=== PATIENT | female | born 1950 | race Caucasian/White ===

== ENCOUNTER → 2017-11-06 10:30 | Outpatient (CLI) | payer MEDICARE, SELFPAY ==
--- NOTE | 2017-11-06 10:33 | RAD_ITS ---
STUDY: X-RAY - RIGHT KNEE REASON FOR EXAM: Female, 67 years old. Chronic pain. TECHNIQUE: 4 view(s) of the knee. COMPARISON: None. FINDINGS: Normal visualized distal femur. Normal visualized proximal tibia and fibula. Normal proximal tibiofibular articulation. There is no acute fracture, dislocation or destructive osseous pathology. There is severe degenerative arthrosis of the medial femorotibial compartment with severe joint space narrowing. There is mild degenerative arthrosis of the lateral femorotibial compartment. There is mild degenerative arthrosis of the patellofemoral articulation. There is no demonstrated joint effusion. The soft tissue structures are unremarkable. RAD/Knee 4 or More Views IMPRESSION: Degenerative arthrosis. Electronically Signed: Jonah Torres DO at 17:04 EDT Tel [phone], Service support ,
--- NOTE | 2017-11-06 10:33 | RAD_ITS ---
STUDY: X-RAY - LEFT KNEE REASON FOR EXAM: Female, 67 years old. Chronic pain. TECHNIQUE: 4 view(s) of the knee. COMPARISON: None. FINDINGS: There is demineralization of the visualized distal femur. There is demineralization of the tibia and fibula. Normal proximal tibiofibular articulation. There is no acute fracture, dislocation or destructive osseous pathology. There is moderate degenerative arthrosis of the medial femorotibial compartment with moderate joint space narrowing. There is mild degenerative arthrosis of the lateral femorotibial compartment. Normal patellofemoral articulation. There is no demonstrated joint effusion. The soft tissue structures are unremarkable. RAD/Knee 4 or More Views IMPRESSION: Degenerative arthrosis. Electronically Signed: Jonah Torres DO at 17:03 EDT Tel [phone], Service support ,
== END ==
PROVIDERS: Family Provider Family Medicine; PCP Family Medicine; Visit Provider Orthopaedic Surgery
DX: M25.561 Pain in right knee (principal); M25.562 Pain in left knee
CPT/HCPCS: 73564

== ENCOUNTER 2018-12-25 13:23 | Observation (INO) | payer MEDICARE, SELFPAY ==
[2018-09-03 14:39] VITALS: BMI 30.3
[2018-12-03 14:49] VITALS: BMI 30.3
--- NOTE | 2018-12-10 11:35 | HP_ITS ---
Intake Vital Signs 12/03/18 Body Mass Index (BMI) 30.3 Intake Visit Reasons: SIGN SURGERY CONSENT Allergies Penicillins Adverse Reaction (Verified 09/22/17 15:31) Swelling Medications ALPRAZolam [Xanax] 0.125 mg PO BID 06/11/14 [History Confirmed 09/22/17] Aspirin [Aspirin, Baby] 81 mg PO DAILY@0800 06/11/14 [History Confirmed 09/22/17] Citalopram [Celexa] 20 mg PO DAILY 06/11/14 [History Confirmed 09/22/17] Letrozole [Femara] 2.5 mg PO DAILY 06/11/14 [History Confirmed 09/22/17] Losartan Potassium [Cozaar] 50 mg PO DAILY #30 tab 06/12/14 [Rx Confirmed 09/22/17] Pantoprazole Sodium [Protonix] 20 mg PO BID #60 tab 06/12/14 [Rx Confirmed 09/22/17] PFSH Social History Smoking Status: Former smoker HPI SIGN SURGERY CONSENT: Surgical H&P: Yes Details: Parts of this documentation were recorded by a scribe, this documentation accurately reflects the service provided and the decisions made by me, Levi Yoder DO 12/03/18 [id number]. CHINO STRONG is a 68 year old F here today for continued left knee pain. Is here today to consent for TKA. She states her pain can increase one day and not be as bad the next but she does have pain daily. She is not having pain even at rest, uses nsaids prn. She does have hx of scope 20 yrs ago.There is mild swelling noted by patient most of the time. Denies numbness, tingling or other associated symptoms but does experience hamstring pain. She has tried PT several times, enjoyed aquatic therapy but it did not last, and has tried icing. Ortho Exam Left Knee Skin/Wound: No ecchymosis, No erythema, No swelling 1+: Effusion Knee ROM: Yes ROM-Extension -20 to 0 (5), Yes ROM-Flexion 0-140 (105) Stability: NML: Anterior Drawer, NML: Posterior Drawer, NML: Valgus 30, NML: Varus 30 Apprehension with Lateral Translation: No Patella Grind: Yes KNEE: Pain with flexion. Supplemental Info Left knee xray from 10/2017 shows severe med OA, bone on bone with large joint spurs of med and PF comp and tibial spine. Assessment & Plan Problems 1. Primary osteoarthritis of left knee M17.12 Plan Reviewed the x-ray finding with patient again. Reviewed the pre-operative plans with the patient. Risks and benefits of the left TKA were fully explained, including but not limited to infection, neurovascular injury, continued pain, mechanical feel, stiffness, need for further surgery, re-injury, DVT, PE, general risks of anesthesia, and loss of limb or life. The patient understands all the risks and does wish to proceed with written consent. No hx of blood clots, not a smoker, and is not a diabetic. Patient educated that the new joint is metal and plastic and she may feel or hear a non-painful clicking. Educated that she will need to wear JONH hose and take a blood thinner post-op. Patient needs to participate in PT as soon as possible to prevent stiffness. Educated that in the future before any dental cleanings or exams she will need an ATB for prevention of infection. Discussed the options of a spinal with patient and patient is hesitant with the spinal at this time. Follow up 2 weeks post operatively or sooner if pain, swelling, numbness or associated symptoms, or concerns develop. All questions answered. Patient in agreement of plan. Coding Level of Care Code Off vis,est,level 3 Diagnoses Primary osteoarthritis of left knee M17.12 12/10/18 1135 <Electronically signed by Levi Yoder DO> Date Levi Yoder DO
[2018-12-17 10:03] VITALS: BP 129/75; PULSE 61; RESP 16; TEMP 36.5; O2SAT 100; BMI 29.7
--- NOTE | 2018-12-17 10:36 | SDCEKG_ITS ---
Test Reason : Blood Pressure : / mmHG Vent. Rate : 060 BPM Atrial Rate : 060 BPM P-R Int : 180 ms QRS Dur : 126 ms QT Int : 424 ms P-R-T Axes : 052 -31 016 degrees QTc Int : 424 ms Normal sinus rhythm Left axis deviation Right bundle branch block Abnormal ECG Confirmed by HESHAM LOCKHART, JESSICA ([id number]), editor greeting card NARCISO OQUENDO ([id number]) on 12/18/2018 11:24:53 AM Referred By: Levi Yoder Confirmed By:JESSICA DAHL MD
[2018-12-17 12:10] LABS: Hematocrit 39.4 % (37-47); Hemoglobin 13.1 g/dl (12.0-15.0); Mean Corp Hgb Conc 33.2 g/gl (32-36); Mean Corpuscular Hgb 32.3 pg (27.0-32.0); Mean Platelet Vol. 8.6 fl (6.2-12.0); Platelet Count 247 K/mm3 (150-450); RBC Distribution Width CV 11.6 % (11.6-14.6); RBC Distribution Width SD 40.1 fl (35.1-43.9); Red Blood Count 4.06 M/mm3 (4.2-5.4); White Blood Count 4.7 K/mm3 (4.4-11.0)
[2018-12-17 12:12] LABS: Scan Indicated on CBC? Y/N NO
--- NOTE | 2018-12-21 12:34 | CASEMGMT ---
Spoke with patient regarding discharge needs after upcoming surgery. Patient plans to return home and will have assistance. Patient does not have outpatient therapy set up yet but has spoken with the physician's office and [facility]. Initially, [facility] will come to patient's home for therapy. Patient does not have a walker yet, was hoping [facility] would provide her one. Encouraged patient to contact [facility] prior to surgery to inquire about the logistics of obtaining a walker. Patient does not have a toilet riser or grab bars, patient reports she may ask [facility] about those items as well. Patient has a shower chair available. There is a bedroom and bathroom on the 1st level of the home and there is only one small step to enter home. Informed patient that RN-CM will likely follow up after surgery. Ellen Hart LPN Clinical Support
[2018-12-25] VITALS (9 sets, daily range): BP systolic 131–166; BP diastolic 68–97; PULSE 65–98; RESP 16–18; TEMP 36.3–37.2; O2SAT 93–99; BMI 29.2
[2018-12-25] MEDS: oxyCODONE HCl Cr 10 MG Tablet PO (08:45)
[2018-12-25] MEDS: Acetaminophen 500 MG Tablet PO (08:45)
[2018-12-25] MEDS: Pregabalin 75 MG Capsule PO (08:46)
[2018-12-25] MEDS: Celecoxib 200 MG Capsule PO (08:47)
[2018-12-25] MEDS: Cefazolin 2 GM in 0.9% Normal Saline 100 ML IV ×2 (11:05→18:50)
[2018-12-25] MEDS: Morphine 4 MG/ML Syringe (12:20)
[2018-12-25] MEDS: Betamethasone/Betamethasone 30 MG/5 ML Vial (12:20)
[2018-12-25] MEDS: Bupivacaine 0.5% PF 10 ML VIAL (12:25)
--- NOTE | 2018-12-25 13:24 | RAD_ITS ---
STUDY: X-RAY - LEFT KNEE REASON FOR EXAM: Postop. TECHNIQUE: 2 view(s) of the knee. COMPARISON: Radiographs 11/06/2017. FINDINGS: There is a left total knee arthroplasty without evidence of complication. There is postoperative gas in the soft tissues and overlying skin amena. RAD/Knee 1 or 2 Views IMPRESSION: Uncomplicated left total knee arthroplasty. Electronically Signed: Raz Garg MD at 14:22 EDT Tel , Service support ,
--- NOTE | 2018-12-25 13:31 | OP.PCM_ITS ---
Report of Operation Date of Procedure: 12/25/18 Description of Surgical Findings:: Preoperative diagnosis: Left knee DJD Postoperative diagnosis: Same Procedure: Left total knee arthroplasty Implant: Mcqueeney triathlon cemented left femoral component size 3, cemented tibial baseplate size 4, cemented asymmetric patella size 32, polyethylene X3 size 9 CS Anesthesia: Spinal with adductor canal block Tourniquet time: 70 minutes at 300 mmHg Complications: None Condition: Stable to PACU Estimated blood loss: 15 cc Indication for procedure: This is a 68-year-old female with long standing degenerative joint disease of the knee who has failed conservative treatment and wished to proceed with elective total knee arthroplasty. Risk benefits and alternatives were reviewed including; risk of bleeding, infection, nerve artery and tissue damage, continued pain, postoperative stiffness, venous thromboembolism, need for postoperative rehabilitation, mechanical feel to the knee, and expected postoperative course. Procedure: The patient was met in the preoperative holding area. The operative extremity was identified by both patient and physician and was marked. Patient was met by anesthesia. An adductor canal block was placed by anesthesia postoperatively the patient was brought back to the operating room on a wheeled cart and transferred to the operating table in the supine position. Anesthesia was started. A well-padded tourniquet was placed on the operative extremity. The patient was prepped and draped in the usual sterile fashion. A timeout was called to ensure the proper patient procedure and extremity were being contemplated. An Esmarch was used to exsanguinate the extremity. The tour niquet was inflated. A 10 blade scalpel was used to make a midline incision down through the skin and subcutaneous tissue. Skin retractors placed. Bovie was used to perform meticulous hemostasis. full-thickness flaps were elevated medial and lateral along the joint capsule. A deep blade scalpel was used to perform a medial parapatellar arthrotomy. The knee was brought to full extension. A Bovie was used to release the soft tissues off the most proximal aspect of the medial tibial plateau a three-quarter inch curved osteotome was also used for this process. The infrapatellar fat pad was excised. The fat pad was excised partially anterior lateral portion the anterior medial was elevated from the femur. the patella was everted. The knee was brought into flexion. An intramedullary drill was used followed by flexible intramedullary guide emilee. The distal femoral cutting block was placed and set to remove 10 mm of bone and 5 degrees of valgus. The block was secured with pins and an oscillating saw was used to complete the distal femoral cut. During this, and all bony cuts retractors were used to protect the collateral ligaments. At this point a femoral sizer was used to measure the AP dimension of the femur. The sizer block was pinned in 3 degrees of external rotation. The sizing block was removed and the appropriately sized 4-in-1 cutting block was placed over the previously made pinholes. It was checked with an chasity wing and the block was secured with pins. An oscillating saw was used to complete the anterior cut followed by the posterior cut followed by the posterior chamfer cut followed by the anterior chamfer cut. The block was removed as well as the fragments. A ronguer was used to remove excess osteophytes. The medial and lateral meniscus were excised as well as the ACL. At this point a PCL retractor was placed and an intramedullary drill was passed down the tibial canal followed by a solid intramedullary guide emilee. The tibial cutting block was attached and set to remove 9 mm of bone from the high side. This was checked with an external alignment drop emilee for slope and tilt. It was pinned into place. An oscillating saw was used to complete the tibial plateau cut and the block was removed. A large osteotome was used to elevate the fragment and a Cesario and a Bovie were used to free the fragment from the surrounding soft tissue. A r ongeur was once again used to remove osteophytes a lamina helicopter pilot was used to evaluate the posterior capsular structures. A three-quarter inch curved osteotome was used to remove posterior osteophytes. A spacer block was inserted in both extension and flexion to ensure adequate spacing. Trials were inserted full extension and flexion were achieved in varus and valgus stability throughout range of motion were seen, balancing techniques were performed. At this point the attention was turned towards the patella. A caliper was used to ensure sufficient bone stock to remove 10 mm of bone. A reamer was used to perform this task. Lug holes were made for the appropriate-sized patella. The patella trial was inserted and there was good patellar tracking with knee range of motion. The tibial baseplate was allowed to float into rotation and was marked on the tibial plateau with a Bovie. Lug holes were made in the femur and trials were removed. The tibial baseplate was then sized and its preparation was completed with a fin punch. The knee was thoroughly irrigated. A posterior capsular injection was performed with our standard cocktail. The knee was brought into flexion and irrigated again. The tibial baseplate was cemented. Excess cement was removed with curettes. The polyethylene component was inserted. The femoral component was cemented. The knee was brought into full extension and placed on a bump. The patellar component was cemented. At this point a Betadine rinse was placed and thoroughly irrigated after a few minutes. This was followed by an Iricept rinse which was allowed to sit for 1 minute and then thoroughly irrigated.At this point all gloves were changed. The knee was thoroughly irrigated the joint capsule was closed with #1 Ethibond. Tourniquet was let down followed by 0 Vicryl and 2-0 Vicryl in the subcutaneous tissues. followed by amena in the skin. Dressing was applied in the form of Xeroform 4 x 4 ABD web roll and an Abhay wrap from the foot to the groin. The patient tolerated the procedure well, all counts were correct patient was brought back to the PACU in stable condition.
[2018-12-25] MEDS: Lactated Ringers 1,000 ML 125 ML IV (14:47)
[2018-12-25] MEDS: Acetaminophen 500 MG Tablet 1000 MG PO ×2 (14:50→22:18)
[2018-12-25] MEDS: ALPRAZolam 0.25 MG Tablet 0.125 MG PO (22:19)
[2018-12-25] MEDS: oxyCODONE 5 MG Tablet PO (22:20)
[2018-12-25] MEDS: Senna/Docusate Sodium 1 Tablet 2 TABLET PO (22:24)
[2018-12-26] MEDS: Cefazolin 2 GM in 0.9% Normal Saline 100 ML IV (02:25)
[2018-12-26 03:28] VITALS: BP 142/76; PULSE 64; RESP 16; TEMP 36.7; O2SAT 94
[2018-12-26] MEDS: 0.9% NaCl Peripheral Flush Adult/Peds IV (03:33)
[2018-12-26] MEDS: Ketorolac 15 MG/ML Vial IV (03:33)
[2018-12-26 05:51] LABS: Hematocrit 34.4 % (37-47); Hemoglobin 11.5 g/dl (12.0-15.0); Mean Corp Hgb Conc 33.4 g/gl (32-36); Mean Corpuscular Hgb 31.9 pg (27.0-32.0); Mean Corpuscular Volume 95.6 fL (81-99); Mean Platelet Vol. 8.5 fl (6.2-12.0); Platelet Count 217 K/mm3 (150-450); RBC Distribution Width CV 11.4 % (11.6-14.6); RBC Distribution Width SD 38.6 fl (35.1-43.9); Scan Indicated on CBC? Y/N NO; White Blood Count 8.4 K/mm3 (4.4-11.0)
[2018-12-26 06:02] LABS: Anion Gap 3 (5-15); BUN 12 mg/dL (7-18); BUN/Creat Ratio 19.1 RATIO (10-20); Calcium,Total 8.8 mg/dL (8.5-10.1); Chloride 105 mmol/L (98-107); Creatinine, Serum 0.63 mg/dL (0.55-1.02); EST Glomerular Filtration Rate 99 mL/min (>60); Est Glom Filt Rate - Afr Amer 120 mL/min (>60); Estimated Creatinine Clearance 54.35 ml/min; Glucose 115 mg/dL (74-106); Potassium 4.3 mmol/L (3.5-5.1); Sodium Level 137 mmol/L (136-145)
[2018-12-26] MEDS: Acetaminophen 500 MG Tablet 1000 MG PO ×2 (06:30→12:50)
[2018-12-26] MEDS: oxyCODONE 5 MG Tablet PO ×2 (06:31→11:26)
[2018-12-26 07:31] VITALS: BP 136/64; PULSE 63; RESP 18; TEMP 36.6; O2SAT 97
[2018-12-26] MEDS: Citalopram 20 MG Tablet PO (07:38)
[2018-12-26] MEDS: Pantoprazole Sodium 20 MG Tablet PO (07:39)
[2018-12-26] MEDS: Senna/Docusate Sodium 1 Tablet 2 TABLET PO (07:39)
[2018-12-26] MEDS: APIXABAN 2.5 MG TABLET PO (07:39)
[2018-12-26] MEDS: Losartan Potassium 100 MG Tablet PO (07:39)
--- NOTE | 2018-12-26 09:51 | PN.ORTHO_ITS ---
Subjective: Seen and examined. Trouble sleeping pain controlled no nausea vomiting shortness of breath chest pain fevers or chills. She complains of mild pro ximal calf pains that occur on palpation and with walking. Minimal discomfort with plantarflexion and dorsiflexion of the ankle. She denies any paresthesias in the extremity and states she is able to move the ankle and toes without problem. She states that overall she feels she is doing well stating she is not having as much pain as she anticipated. - Physical Exam General: Alert, Oriented x3, No apparent distress, Well developed Extremities: Edema, Tenderness - Mild proximal tenderness on palpation., - - Dressing clean dry and intact neurovascularly intact EHL tibialis anterior gastrocsoleus intact sensation to light touch brisk capillary refill compartments in the thigh and calf are soft and supple Vital Signs Temp Pulse Resp BP Pulse Ox 97.9 F 63 18 136/64 H 97 12/26/18 07:31 12/26/18 07:31 12/26/18 07:31 12/26/18 07:31 12/26/18 07:31 Oxygen Flow Rate (L/min) 2 Oxygen Delivery Method Room Air Weight: 145 lb Body Mass Index (BMI) 29.2 Intake and Output for Last 24 Hours 12/24/18 12/25/18 12/26/18 23:59 23:59 23:59 Intake Total 2937 / 2937 177 / 177 Output Total 1600 / 1600 350 / 350 Balance 1337 / 1337 -173 / -173 Laboratory Tests Past 24 Hrs 12/26/18 12/26/18 05:08 05:08 WBC 8.4 RBC 3.60 L Hgb 11.5 L Hct 34.4 L MCV 95.6 MCH 31.9 MCHC 33.4 RDW 11.4 L RDW Differential 38.6 Plt Count 217 MPV 8.5 Sodium 137 Potassium 4.3 Chloride 105 Carbon Dioxide 29.0 Anion Gap 3 L BUN 12 Creatinine 0.63 Estim Creat Clear Calc 54.35 Est GFR (MDRD) Af Amer 120 Est GFR (MDRD) Non-Af 99 BUN/Creatinine Ratio 19.1 Glucose 115 H Calcium 8.8 Medical Necessity - Tobacco Use Smoking Status: Former smoker Assessment/Plan All Active Problems (Last Reviewed 09/22/17 @ 15:32 by Carrie Beckford) Dehydration (Acute) GERD (gastroesophageal reflux disease) (Acute) Epigastric pain (Acute) Hyponatremia (Acute) Otitis media (Acute) Acute bronchitis (Acute) Chest congestion (Acute) Postop day #1 left total knee arthroplasty Eliquis 2.5 mg twice daily for 14 days Discharge home home health care Follow-up in the office 2 weeks for staple removal May begin showering postop day #3 but no tub baths Urged full knee extension and flexion throughout the day
--- NOTE | 2018-12-26 10:03 | PCM.DC.ORTHO ---
Discharge Diet: No Restrictions Additional Activity Instructions:: Ice and elevate next week while not ambulating. Encourage ambulation weightbearing as tolerated. Encourage FULL knee extension and flexion 1 time EVERY time you get up and down and MULTIPLE times per day. Begin showering postop day #3. Remove the dressing prior to shower gently wash with warm water and antibacterial soap then pat dry place ABD pad and JONH hose over top. This is to be done daily. If not showering daily must clean incision and change dressing daily. Do not allow animals near incision keep clean. Follow anticoagulation recommendations. Call Dr. Yoder with any concerns. Call your doctor if you observe: Fever of 101 or Higher, Inability to urinate, Shortness of breath, Chest pain, Uncontrolled pain Suture Line Care: Avoid Pulling/Pushing Allergies/Adverse Reactions: Allergies Penicillins Adverse Reaction (Verified 12/25/18 08:33) Swelling Medications to take at Discharge ALPRAZolam [Xanax] 0.125 mg PO BID 06/11/14 Citalopram [Celexa] 20 mg PO DAILY 06/11/14 Albuterol Inhaler [Ventolin Hfa] 1 - 2 puff INHALATION Q4H PRN PRN 12/17/18 Ascorbic Acid [Vitamin C] 250 mg PO DAILY 12/17/18 Calcium Carbonate/Vitamin D3 [Calcium 600 + Vit D Tablet] 1 each PO DAILY 12/17/18 Losartan Potassium [Cozaar] 100 mg PO DAILY 12/17/18 Pantoprazole Sodium [Protonix] 20 mg PO DAILY 12/17/18 Apixaban [Eliquis] 2.5 mg PO BID 14 Days #28 tablet 12/26/18 Oxycodone [Oxyir] 5 - 10 mg PO Q4H PRN PRN 7 Days #60 tablet 12/26/18 The following prescriptions were given: Oxycodone [Oxyir] 5 - 10 mg PO Q4H PRN PRN 7 Days #60 tablet PRN Reason: Mod-Severe Pain (-05/30) Apixaban [Eliquis] 2.5 mg PO BID 14 Days #28 tablet Primary Care Physician: Krystian Mccloud MD [Primary Care Provider] - Test Results: Test results from this visit will be discussed in further detail at your follow-up appointment, if applicable. Please Follow Up With: Levi Yoder, - 2wks
--- NOTE | 2018-12-26 10:06 | DCINST_ITS ---
Discharge Diet: No Restrictions Additional Activity Instructions:: Ice and elevate next week while not ambulating. Encourage ambulation weightbearing as tolerated. Encourage FULL knee extension and flexion 1 time EVERY time you get up and down and MULTIPLE times per day. Begin showering postop day #3. Remove the dressing prior to s hower gently wash with warm water and antibacterial soap then pat dry place ABD pad and JONH hose over top. This is to be done daily. If not showering daily must clean incision and change dressing daily. Do not allow animals near incision keep clean. Follow anticoagulation recommendations. Call Dr. Yoder with any concerns. Call your doctor if you observe: Fever of 101 or Higher, Inability to urinate, Shortness of breath, Chest pain, Uncontrolled pain Suture Line Care: Avoid Pulling/Pushing Allergies/Adverse Reactions: Allergies Penicillins Adverse Reaction (Verified 12/25/18 08:33) Swelling Medications to take at Discharge ALPRAZolam [Xanax] 0.125 mg PO BID 06/11/14 Citalopram [Celexa] 20 mg PO DAILY 06/11/14 Albuterol Inhaler [Ventolin Hfa] 1 - 2 puff INHALATION Q4H PRN PRN 12/17/18 Ascorbic Acid [Vitamin C] 250 mg PO DAILY 12/17/18 Calcium Carbonate/Vitamin D3 [Calcium 600 + Vit D Tablet] 1 each PO DAILY 12/17/18 Losartan Potassium [Cozaar] 100 mg PO DAILY 12/17/18 Pantoprazole Sodium [Protonix] 20 mg PO DAILY 12/17/18 Apixaban [Eliquis] 2.5 mg PO BID 14 Days #28 tablet 12/26/18 Oxycodone [Oxyir] 5 - 10 mg PO Q4H PRN PRN 7 Days #60 tablet 12/26/18 The following prescriptions were given: Oxycodone [Oxyir] 5 - 10 mg PO Q4H PRN PRN 7 Days #60 tablet PRN Reason: Mod-Severe Pain (-05/30) Apixaban [Eliquis] 2.5 mg PO BID 14 Days #28 tablet Primary Care Physician: Krystian Mccloud MD [Primary Care Provider] - Test Results: Test results from this visit will be discussed in further detail at your follow- up appointment, if applicable. Please Follow Up With: Levi Yoder, - 2wks
--- NOTE | 2018-12-26 10:06 | PCM.DC.SUM ---
Discharge Date and Diagnosis Date of Admission: 06/11/14 Date of Discharge: 12/26/18 - Secondary Discharge Diagnosis Chronic Problems (Last Reviewed 09/22/17 @ 15:32 by Carrie Beckford) HTN (hypertension) (Chronic) Osteoarthritis (Chronic) RBBB (Chronic) History of breast cancer (Chronic) S/P R mastectomy and reconstruction Hospital Course and Treatment Operations: None Summary of Care Provided: The patient is a 68 year old F who has long history of degenerative joint disease to the knee who has failed conservative treatment and wished to undergo elective total knee arthroplasty. Patient underwent the A4 mentioned procedure on the admission date without any intraoperative complications. She did receive pre-and postoperative antibiotics which were discontinued within 23 hours postoperatively. She did receive spinal anesthesia as well as an adductor canal block postoperatively her pain was controlled with IV and transition to p.o. pain medication she will be discharged home with oxycodone and will continue Tylenol as well. She had minimal intraoperative blood loss and tranexamic acid was administered there was no need for postoperative blood transfusion her vital signs remained stable. She was started on both mechanical and chemical DVT per prophylaxis postoperatively in the form of SCDs JONH hose and Eliquis 2.5 mg twice daily for which she will continue for 2 additional weeks post hospital discharge. Her dressing was changed on postop day #1 without any concerning signs she will begin showering on postop day #3 and will change her dressing daily at this point. She will follow-up in the office in 2 weeks. No intrahospital complications. - Physical Exam Vital Signs Temp Pulse Resp BP Pulse Ox 97.9 F 63 18 136/64 H 97 12/26/18 07:31 12/26/18 07:31 12/26/18 07:31 12/26/18 07:31 12/26/18 07:31 Oxygen Flow Rate (L/min) 2 Oxygen Delivery Method Room Air Weight: 145 lb Body Mass Index (BMI) 29.2 Intake and Output for Last 24 Hours 12/24/18 12/25/18 12/26/18 23:59 23:59 23:59 Intake Total 2937 / 2937 177 / 177 Output Total 1600 / 1600 350 / 350 Balance 1337 / 1337 -173 / -173 Laboratory Tests Past 24 Hrs 12/26/18 12/26/18 05:08 05:08 WBC 8.4 RBC 3.60 L Hgb 11.5 L Hct 34.4 L MCV 95.6 MCH 31.9 MCHC 33.4 RDW 11.4 L RDW Differential 38.6 Plt Count 217 MPV 8.5 Sodium 137 Potassium 4.3 Chloride 105 Carbon Dioxide 29.0 Anion Gap 3 L BUN 12 Creatinine 0.63 Estim Creat Clear Calc 54.35 Est GFR (MDRD) Af Amer 120 Est GFR (MDRD) Non-Af 99 BUN/Creatinine Ratio 19.1 Glucose 115 H Calcium 8.8 Discharge Diet: No Restrictions Additional Activity Instructions:: Ice and elevate next week while not ambulating. Encourage ambulation weightbearing as tolerated. Encourage FULL knee extension and flexion 1 time EVERY time you get up and down and MULTIPLE times per day. Begin showering postop day #3. Remove the dressing prior to shower gently wash with warm water and antibacterial soap then pat dry place ABD pad and JONH hose over top. This is to be done daily. If not showering daily must clean incision and change dressing daily. Do not allow animals near incision keep clean. Follow anticoagulation recommendations. Call Dr. Yoder with any concerns. Call your doctor if you observe: Fever of 101 or Higher, Inability to urinate, Shortness of breath, Chest pain, Uncontrolled pain Suture Line Care: Avoid Pulling/Pushing Home Medications: Medications to take at Discharge ALPRAZolam [Xanax] 0.125 mg PO BID 06/11/14 Citalopram [Celexa] 20 mg PO DAILY 06/11/14 Albuterol Inhaler [Ventolin Hfa] 1 - 2 puff INHALATION Q4H PRN PRN 12/17/18 Ascorbic Acid [Vitamin C] 250 mg PO DAILY 12/17/18 Calcium Carbonate/Vitamin D3 [Calcium 600 + Vit D Tablet] 1 each PO DAILY 12/17/18 Losartan Potassium [Cozaar] 100 mg PO DAILY 12/17/18 Pantoprazole Sodium [Protonix] 20 mg PO DAILY 12/17/18 Apixaban [Eliquis] 2.5 mg PO BID 14 Days #28 tablet 12/26/18 Oxycodone [Oxyir] 5 - 10 mg PO Q4H PRN PRN 7 Days #60 tablet 12/26/18 Following Prescrptions Were Given to Patient: Oxycodone [Oxyir] 5 - 10 mg PO Q4H PRN PRN 7 Days #60 tablet PRN Reason: Mod-Severe Pain (4-05/30) Apixaban [Eliquis] 2.5 mg PO BID 14 Days #28 tablet Primary Care Physician: Krystian Mccloud MD [Primary Care Provider] - Please Follow Up With: Levi Yoder DO - 2wks Medical Necessity - Tobacco Use Smoking Status: Former smoker Meaningful Use Info Meaningful Use Diagnoses (Choose all that apply): None applicable
--- NOTE | 2018-12-26 10:15 | NURSING ---
Dr. Yoder states that as long as pt tolerates therapy, she is ok to be discharged this afternoon. Orders for dressing change placed by Will notify primary RN
--- NOTE | 2018-12-26 11:10 | CASEMGMT ---
LENIN NOONAN Face to Face with patient for initial transition planning/care coordination assessment. RN CM introduced self and role at [facility]. Patient sitting in chair, alert and oriented. Patient willing to participate in assessment and is able to answer all questions appropriately. Care providers, pharmacy, and demographics verified. Patient wishes to discharge home and has therapy setup for at home through [facility]. Patient states she has no further needs or concerns at this time. CM to follow for discharge planning needs that may arise. Disposition Plan: Patient to discharge home with home therapy, family support, and follow-up plans in place. Elvi VELIZ, RN, CM
[2018-12-26] MEDS: ALPRAZolam 0.25 MG Tablet 0.125 MG PO (11:27)
[2018-12-26 12:56] VITALS: BP 160/66; PULSE 62; RESP 18; TEMP 36.3; O2SAT 95
== END 2018-12-26 14:34 | disposition home health service (06) ==
LOC: MS3 14:15
PROVIDERS: Anesthesiology; Admitting Provider Orthopaedic Surgery; Family Provider Family Medicine; PCP Family Medicine; Referring Provider Orthopaedic Surgery; Visit Provider Orthopaedic Surgery
PROC: (CPT 27447; principal; 2018-12-25 09:15)
DX: M17.12 Unilateral primary osteoarthritis, left knee (principal); K21.9 Gastro-esophageal reflux disease without esophagitis; I45.10 Unspecified right bundle-branch block; I10 Essential (primary) hypertension; Z85.3 Personal history of malignant neoplasm of breast; Z87.891 Personal history of nicotine dependence; Z79.899 Other long term (current) drug therapy; Z79.82 Long term (current) use of aspirin
CPT/HCPCS: 01400; 27447; 64447; 36415; 73560; 80048; 85027; 87077; 87081; 93005; 96361; 96365; 96366; 96375; 97110; 97162; 97166; 97530; 99218; C1776; J7120; A4216; G0378; G0379; J0702

== ENCOUNTER → 2019-03-27 10:23 | Outpatient (CLI) | payer MEDICARE, SELFPAY ==
[2019-03-27 10:23] VITALS: BMI 29.2
--- NOTE | 2019-03-27 10:24 | RAD_ITS ---
STUDY: X-RAY - RIGHT HAND, ATTENTION MIDDLE FINGER REASON FOR EXAM: Female, 68 years old. Soft tissue mass TECHNIQUE: 3 view(s) of the finger were obtained. COMPARISON: None. FINDINGS: There is soft tissue prominence overlying the distal aspect of the proximal phalanx of the right middle finger. There is no evidence of fracture or dislocation. There are no significant degenerative changes. There are no radiodense foreign bodies. RAD/Finger(s) Min 2 Views IMPRESSION: Soft tissue swelling overlying the distal aspect of the proximal phalanx of the right middle finger. Further evaluation with ultrasound or MRI is recommended. No fracture or dislocation. Electronically Signed: Daniel Valentine, at 17:08 EDT Tel , Service support ,
== END ==
PROVIDERS: Family Provider Family Medicine; PCP Family Medicine; Referring Provider Orthopaedic Surgery; Visit Provider Orthopaedic Surgery
DX: R22.9 Localized swelling, mass and lump, unspecified (principal)
CPT/HCPCS: 73140

== ENCOUNTER → 2020-05-25 | Outpatient (CLI) | payer MEDICARE, SELFPAY ==
[2020-05-25 15:14] VITALS: BMI 30.3
== END | disposition home or self-care (01) ==
LOC: MTDU 17:40
PROVIDERS: PCP Family Medicine; Referring Provider Physician Assistant Surgical; Visit Provider Physician Assistant Surgical
DX: Z20.828 Contact with and (suspected) exposure to other viral communicable diseases (principal)
CPT/HCPCS: 87635; C9803; U0003

== ENCOUNTER → 2024-03-08 | Outpatient (CLI) | payer MEDICARE, SELFPAY ==
--- NOTE | 2024-03-08 12:57 | ECHOCS_ITS ---
Reason For Study: SOB Procedure This was a 2D Doppler, Color Flow transthoracic echocardiogram. The study was technically difficult. Contrast injection was performed. Exam performed in department. Left Ventricle Normal LV size. Left ventricular systolic function is normal. The left ventricular ejection fraction is 65 %. Stage 1 diastolic dysfunction. No regional wall motion abnormalities noted. Right Ventricle Normal RV size. Normal systolic function. Atria The left atrium is mildly enlarged. The right atrium is mildly enlarged. Mitral Valve There is moderate mitral annular calcification. Tricuspid Valve Normal tricuspid valve. Moderate (2+) tricuspid valve insufficiency. Pulmonary artery systolic pressure is 52 mmHg. Mild pulmonary hypertension. Aortic Valve Trisinus/trileaflet aortic valve. Mild focal aortic valve calcification. Pulmonic Valve The pulmonic valve is not well visualized. Great Vessels Normal aortic root. The pulmonary is not well visualized. Normal inferior vena cava. Pericardium/Pleural No pericardial effusion. Medication 22 gauge I.V. with prn adaptor inserted into left arm. Diluted definity 1.5ml given slow IV push to enhance endocardial definition. Performed a rapid injection of agitated mix of 9 cc saline and 1cc air to assess for atrial septal defect. MMode/2D Measurements & Calculations LVIDd: 3.7 cm IVSd: 0.93 cm Ao root diam: 3.5 cm LVIDs: 3.0 cm LVPWd: 1.2 cm LA dimension: 3.8 cm RVDd: 3.5 cm FS: 17.4 % LAV(MOD-bp): 66.7 ml LVAd ap4: 26.6 cm2 SV(MOD-sp4): 53.2 ml LAV(MOD-bp) Indexed: 43.1 ml/m2 LVLd ap4: 7.4 cm LAV(MOD-sp2): 57.0 ml EDV(MOD-sp4): 78.5 ml LAV(MOD-sp4): 73.1 ml EDV(sp4-el): 81.6 ml LVAs ap4: 13.3 cm2 LVLs ap4: 5.9 cm ESV(MOD-sp4): 25.3 ml ESV(sp4-el): 25.7 ml EF(MOD-sp4): 67.7 % EF(sp4-el): 68.5 % SV(sp4-el): 55.9 ml LA A4 area: 24.1 cm2 RA A4 area: 14.3 cm2 TAPSE: 2.1 cm Time Measurements MV dec time: 0.51 sec Doppler Measurements & Calculations MV E max lewis: 103.8 cm/sec Lat Peak E' Lewis: 7.3 cm/sec Med Peak E' Lewis: 5.3 cm/sec MV A max lewis: 148.2 cm/sec E/E' lat: 14.3 E/E' med: 19.4 MV E/A: 0.70 MV V2 max: 177.5 cm/sec MV P1/2t max lewis: 139.4 cm/sec Ao V2 max: 190.3 cm/sec MV max P.6 mmHg MV P1/2t: 166.2 msec Ao max P.5 mmHg MV V2 mean: 93.5 cm/sec Ao V2 mean: 126.0 cm/sec MV mean P.1 mmHg MV dec slope: 245.7 cm/sec2 Ao mean P.3 mmHg MV V2 VTI: 56.2 cm MVA(P1/2t): 1.3 cm2 Ao V2 VTI: 48.0 cm AV (velocity ratio): 0.65 AI max lewis: 463.3 cm/sec LV V1 max: 113.2 cm/sec PA V2 max: 126.4 cm/sec AI max P.9 mmHg LV V1 max P.1 mmHg PA max PG (full): 2.0 mmHg LV V1 mean P.9 mmHg AI dec slope: 254.8 cm/sec2 LV V1 mean: 80.7 cm/sec AI P1/2t: 532.6 msec LV V1 VTI: 31.3 cm PI dec slope: 105.7 cm/sec2 TR max lewis: 346.9 cm/sec TR max P.1 mmHg ECHO/Echo Complete W/ Contrast Interpretation Summary Normal LV size. Left ventricular systolic function is normal. The left ventricular ejection fraction is 65 %. Stage 1 diastolic dysfunction. Pulmonary artery systolic pressure is 52 mmHg. Mild pulmonary hypertension. Contrast injection was performed. Ordering Physician: Kathie Echeverria Referring Physician: Kathie Echeverria Performed By: Graham Gonzales RCS
== END | disposition home or self-care (01) ==
LOC: CVS 12:52
PROVIDERS: PCP Family Medicine; Referring Provider Nurse Practitioner Family; Visit Provider Nurse Practitioner Family
DX: R06.02 Shortness of breath (principal)
CPT/HCPCS: 93306; Q9957; A4216; C8929

== ENCOUNTER → 2024-05-13 | Outpatient (CLI) | payer MEDICARE, SELFPAY ==
--- NOTE | 2024-05-13 17:42 | CT_ITS ---
STUDY: CTA CHEST REASON FOR EXAM: Female, 73 years old. SOB. Hypertension. History of breast cancer. RADIATION DOSAGE (If Supplied By Facility): CTDIvol = ( 11.38 ) mGy, DLP = ( 354.01 ) mGycm TECHNIQUE: The examination was performed with the intravenous administration of IV 100mL Isovue-370. Post-processing of the angiographic images was performed, with multiplanar reformation and 3D reconstruction. Individualized dose optimization techniques were used for this CT. COMPARISON: None. FINDINGS: Prior right mastectomy. Right breast implant. Normal enhancement of the main pulmonary artery and right and left pulmonary arteries. Normal enhancement of the bilateral peripheral pulmonary arteries. There is no demonstrated pulmonary embolism. There is atherosclerotic calcification of the aortic arch with tortuosity. There is no demonstrated aortic dissection. There are calcifications of the coronary arteries. Normal mediastinum. Normal hilar regions. Normal visualized trachea and bronchi. The lungs are well expanded. Mild degree of increased markings in the anterior right lung apex most likely representing post radiation fibrotic scarring. Normal pleura. Normal chest wall structures. There are degenerative changes of thoracic spine. Increased kyphosis. There is a 9.3 mm cyst in the anterior aspect of the right lobe of the liver. Small hiatal hernia. CT/CTA Chest W/WO Contrast IMPRESSION: No evidence of pleural embolism. Coronary artery calcification. Status post right mastectomy in right breast implant. Small hepatic cyst. Electronically Signed: Franc Reyes MD at 10:55 EDT ,
[2024-05-13 18:20] LABS: CREATININE FINGERSTICK < 1.0 mg/dL (0.55-1.02); EGFR FINGERSTICK > 60.0000 mL/min (>60)
== END | disposition home or self-care (01) ==
LOC: CT 17:39
PROVIDERS: PCP Family Medicine; Referring Provider Internal Medicine Cardiovascular Disease; Visit Provider Internal Medicine Cardiovascular Disease
DX: I27.20 Pulmonary hypertension, unspecified (principal); R06.02 Shortness of breath
CPT/HCPCS: 71275; Q9967; A4216

== ENCOUNTER → 2024-10-25 | Outpatient (CLI) | payer MEDICARE, SELFPAY ==
[2024-10-25 11:46] LABS: Anion Gap 10 (5-15); BUN 21 mg/dL (4-19); BUN/Creat Ratio 24.4 RATIO (10-20); Calcium,Total 9.8 mg/dL (7.6-11.0); Carbon Dioxide 27.1 mmol/L (21.0-32.0); Chloride 98 mmol/L (98-108); Creatinine, Serum 0.84 mg/dL (0.70-1.20); EST Glomerular Filtration Rate 72 (>60); Glucose 84 mg/dL (70-99); Potassium 4.1 mmol/L (3.3-5.1); Pro- Brain NATRIURETIC PEPTIDE 574 pg/mL (<=1800); Sodium Level 135 mmol/L (133-145)
== END | disposition home or self-care (01) ==
LOC: LAB 10:31
PROVIDERS: PCP Family Medicine; Referring Provider Physician Assistant Medical; Visit Provider Physician Assistant Medical
DX: R06.02 Shortness of breath (principal); I27.20 Pulmonary hypertension, unspecified
CPT/HCPCS: 36415; 80048; 83880

== ENCOUNTER → 2024-12-12 | Outpatient (CLI) | payer MEDICARE, SELFPAY | END | disposition home or self-care (01) | LOC: LABSPEC 13:33 | PROVIDERS: PCP Nurse Practitioner Family; Visit Provider Nurse Practitioner Family | DX: R10.9 Unspecified abdominal pain (principal); M54.50 Low back pain, unspecified | CPT/HCPCS: 87086; 87088 ==

== ENCOUNTER → 2025-05-27 | Outpatient (CLI) | payer MEDICARE, SELFPAY ==
--- NOTE | 2025-05-27 07:03 | ECHOD_ITS ---
Reason For Study Reason For Study: Chest Pain Procedure This was a 2D Doppler, Color Flow transthoracic echocardiogram. Exam performed in department. Left Ventricle Normal LV size. The left ventricular ejection fraction is 65 %. Stage 1 diastolic dysfunction. No regional wall motion abnormalities noted. Right Ventricle Normal RV size. Normal systolic function. Atria Normal left atrium. Normal right atrium. Mitral Valve There is mild to moderate mitral annular calcification. Mild (1+) eccentric mitral valve insufficiency. Tricuspid Valve Normal tricuspid valve. Mild-Moderate (1-2+) tricuspid valve insufficiency. Pulmonary artery systolic pressure is 39 mmHg. Aortic Valve Trisinus/trileaflet aortic valve. Mild (1+) eccentric aortic valve insufficiency. Pulmonic Valve Normal pulmonic valve. Great Vessels Mildly calcified aortic root. Pericardium/Pleural No pericardial effusion. MMode/2D Measurements & Calculations LVIDd: 4.1 cm IVSd: 1.0 cm Ao root diam: 3.3 cm LVIDs: 2.1 cm LVPWd: 1.00 cm RVDd: 3.5 cm FS: 48.6 % LAV(MOD-bp): 56.1 ml LVAd ap4: 22.2 cm2 SV(MOD-sp4): 35.0 ml LAV(MOD-bp) Indexed: 36.9 ml/m2 LVLd ap4: 7.3 cm SI(MOD-sp4): 23.0 ml/m2 LAV(MOD-sp2): 59.0 ml EDV(MOD-sp4): 54.0 ml LAV(MOD-sp4): 47.6 ml EDV(sp4-el): 57.0 ml LVAs ap4: 11.3 cm2 LVLs ap4: 5.5 cm ESV(MOD-sp4): 18.9 ml ESV(sp4-el): 19.6 ml EF(MOD-sp4): 64.9 % EF(sp4-el): 65.6 % SV(sp4-el): 37.4 ml LA A4 area: 18.6 cm2 LA dimension(2D): 4.0 cm RA A4 area: 13.5 cm2 TAPSE: 1.6 cm Time Measurements MV dec time: 0.44 sec Doppler Measurements & Calculations MV E max lewis: 133.2 cm/sec Lat Peak E' Lewis: 6.9 cm/sec Med Peak E' Lewis: 4.8 cm/sec MV A max lewis: 170.4 cm/sec E/E' lat: 19.3 E/E' med: 27.7 MV E/A: 0.78 MV V2 max: 202.4 cm/sec Ao V2 max: 196.0 cm/sec MV max P.4 mmHg MV dec slope: 301.4 cm/sec2 Ao max P.4 mmHg MV V2 mean: 125.4 cm/sec Ao V2 mean: 126.1 cm/sec MV mean P.0 mmHg Ao mean P.5 mmHg MV V2 VTI: 59.3 cm Ao V2 VTI: 48.5 cm AV (velocity ratio): 0.72 AI max lewis: 405.1 cm/sec LV V1 max: 132.9 cm/sec PA V2 max: 120.2 cm/sec AI max P.7 mmHg LV V1 max P.1 mmHg LV V1 mean P.9 mmHg AI dec slope: 296.7 cm/sec2 LV V1 mean: 93.4 cm/sec AI P1/2t: 400.0 msec LV V1 VTI: 34.8 cm PI end-d lewis: 124.1 cm/sec TR max lewis: 294.7 cm/sec TR max P.9 mmHg ECHO/Echo Complete Interpretation Summary Normal LV size. The left ventricular ejection fraction is 65 %. Stage 1 diastolic dysfunction. Mild-Moderate (1-2+) tricuspid valve insufficiency. Mild (1+) eccentric aortic valve insufficiency. Ordering Physician: Acosta, Aissatou M Referring Physician: Kathie Echeverria Performed By: Bibi Gong, NESTOR, RVT
--- NOTE | 2025-05-27 18:31 | STRESSREP_ITS ---
Stress Test Report Exercise myocardial perfusion stress test. 74-year-old lady with a history of chest pain. Stress protocol: Resting EKG demonstrates sinus rhythm with a right bundle branch block, with a rate of 65 bpm resting blood pressure is 150/82 mmHg. The patient exercised according to the regular Marcelo protocol for a total duration of 6 minutes cookie ining a maximum heart rate of 122 bpm which was 84% of maximum predicted heart rate; the maximum workload was 7 metabolic equivalents. At rest there were no ST or T wave changes noted to suggest ischemia and at peak exercise upsloping ST changes only were noted which did not meet the criteria for ischemia. No clinical angina was noted the test was terminated due to the target heart rate being achieved/fatigue. The peak blood pressure was 172/60 mmHg. Rate-pressure product was 20,800. Myocardial perfusion protocol. 11 point mCi of technetium 99m sestamibi was injected at rest. The patient exer cised according to regular Marcelo protocol for total duration of 6 minutes and at peak exercise 33.8 mCi of technetium 99m sestamibi was injected stress images were obtained stress and rest images were reconstructed in comparing the short axis vertical long and horizontal long axis. Gated images were also obtained. Perfusion SPECT analysis: Review of the stress images demonstrate normal uptake of tracer noted in all areas of the myocardium. The resting images similarly demonstrate normal uptake of tracer noted in all areas of the myocardium. No areas of reversibility are noted to suggest ischemia no previous infarct was noted. Gated SPECT analysis: The gated ejection fraction is 88%. Conclusion: Normal exercise myocardial perfusion stress test at a moderate workload.
== END | disposition home or self-care (01) ==
LOC: CVS 06:58
PROVIDERS: PCP Nurse Practitioner Family; Referring Provider Physician Assistant Medical; Visit Provider Physician Assistant Medical
DX: I27.20 Pulmonary hypertension, unspecified (principal); R07.89 Other chest pain
CPT/HCPCS: 78452; 93017; 93306; A9500; A4216

== ENCOUNTER → 2025-08-15 | Outpatient (CLI) | payer MEDICARE, SELFPAY ==
--- OUTSIDE RECORDS SUMMARY | 2025-08-15 11:37 | XMS RPT_ITS | CCD ---
Author Organization [facility] Care Team Providers Care Supervisor Cigar Processing Name Role Phone Carrie Beckford LPN Unavailable Unavailab Carrie Keller LPN Unavailable Unavailab Gianna Pearson LPN Unavailable Leslye Mccloud MD Primary Care Provider Leslye Mccloud MD Primary Care Provider Leslye Mccloud MD Primary Care Provider Leslye Mccloud MD Primary Care Provider MENA HOLLY Attending Unavailable MENA HOLLY Primary Care Unavailable MENA HOLLY Admitting Unavailable Tannhof HEAD ROSE GROWER.Kathie ELI Unavailable Rudi HEAD ROSE GROWER.Herb ELI Unavailable Dr. Leslye Mccloud MD Primary Care Provider [phone] Dr. Leslye Mccloud MD Referring Provider Aissatou Quinonez Attending Provider Aissatou Quinonez Referring Provider Tannhof HEAD ROSE GROWER.Kathie ELI Unavailable Unavail able Tannhof HEAD ROSE GROWER.Kathie ELI Unavailable Tannhof HEAD ROSE GROWER.Kathie ELI Primary Care Provider Leslye Mccloud MD Primary Care Provider Tannhof HEAD ROSE GROWER.Kathie ELI Unavailable Tannhof HEAD ROSE GROWER.CERTIFIED NURSE AIDE, Kathie Primary Care Provider Tannhof HEAD ROSE GROWER.CERTIFIED NURSE AIDE, Kathie Sofie Unavailable Tannhof HEAD ROSE GROWER.CERTIFIED NURSE AIDE, Kathie Sofie Primary Care Prov ider Dr. Leslye Mccloud MD Referring Provider Aissatou Quinonez Attending Provider Tannhof MOLDER APPRENTICE-C, George West Primary Care Provider Aissatou Quinonez Referring Unavail able Aissatou Quinonez Attending Unavail able Tannhof, Kathie Primary Care Unavailable Tannhof, Kathie Attending Unavailable Tannhof, Kathie Primary Care Unavailable Aissatou Quinonez Attending Unavail able ElderbroLeslye swain Primary Care Unavailable Aissatou Quinonez Referring Unavail able Tannhof, Kathie Primary Care Unavailable Tannhof, Kathie Referring Unavailable Tannhof, Kathie Attending Unavailable Aissatou Quinonez Attending Unavail able Jorge AbroLeslye swain Referring Unavailable ElderbrockLeslye Primary Care Unavailable Tannhof, Kathie Primary Care Unavailable Dudley Saunders Attending Unavailable Aissatou Quinonez Attending Unavail able Tannhof, Kathie Primary Care Unavailable Leslye Mccloud Referring Unavailable Aissatou Quinonez Attending Physician Tannho MOLDER APPRENTICE-C, Kathie Primary Care Physician Aissatou Quinonez Referring Provider Nicky LOCKHART, Dr. Buckner Attending Physician DAWNA BARBA Referring Unavailable TANNHOF, KATHIE Primary Care Unavailable DAWNA BARBA Referring Unavailable DAWNA BARBA Attending Unavailable TANNHOF, KATHIE Primary Care Unavailable TANNHOF, KATHIE Attending Unavailable LESLYE MCCLOUD Primary Care Unavailable ELDERBROLESLYE SWAIN Primary Care Unavailable DAWNA BARBA Referring Unavailable LESLYE MCCLOUD Primary Care Unavailable DAWNA BARBA Referring Unavailable LESLYE MCCLOUD Primary Care Unavailable DAWNA BARBA Referring Unavailable TANNHOF, KATHIE Referring Unavailable LESLYE MCCLOUD Primary Care Unavailable LESLYE MCCLOUD Primary Care Unavailable KATHIE ECHEVERRIA Attending Unavailable DAWNA BARBA Referring Unavailable LESLYE MCCLOUD Primary Care Unavailable LESLYE MCCLOUD Primary Care Unavailable DAWNA BARBA Referring Unavailable DAWNA BARBA Attending Unavailable KATHIE ECHEVERRIA Referring Unavailable KATHIE ECHEVERRIA Primary Care Unavailable Allergies Allergy Classification Reported Allergen(s) Allergy Type Date of Onset Reaction(s) Facility Penicillins (antibiotic) (2 sources) Penicillins Drug Allergy 8 Swelling, Unknown [facility] Work Phone: (9 sources) Penicillins; Translations: [PENICILLINS] Propensity to adverse reactions 8 [facility] (20 sources) Penicillins Propensity to adverse reactions 8 Swelling, Unknown [facility] (1 source) Penicillins Drug allergy (disorder) [facility] (3 sources) Penicillins Propensity to adverse reactions 5 Swelling [facility] (8 sources) Penicillins Drug Allergy 8 Swelling, Unknown [facility] Work Phone: (1 source) Penicillins Drug allergy (disorder) 5 [facility] Medications Current Medications Medication Drug Class(es) Dates Sig (Normalized) Sig (Original) [id number] 200 actuat albuterol 0.09 mg/actuat metered dose inhaler (20 sources) beta2-Adrenergic Agonist Start: 09-01-2021 End: 09-07-2023 take 2 puff(s) by inhalation every four hours as needed albuterol HFA (PROVENTIL HFA, VENTOLIN HFA) 90 mcg/actuation inhaler Indications: Mild intermittent asthma without complication (HCC) Inhale 2 Puffs as instructed every 4 hours as needed. 1 Each 09/07/2023 Active Start: 12-17-2018 Comment on above: Inhale 2 Puffs as in structed every 4 hours as needed. albuterol 0.833 mg/ml / ipratropium bromide 0.167 mg/ml inhalation solution (20 sources) Anticholinergic, beta2-Adrenergic Agonist Start: 01-01-20 End: 05-01-20 23 take 3 mL by inhalation every four hours as needed ipratropium-albuter ol (DUONEB) 0.5 mg-3 mg(2.5 mg base)/3 mL nebu Indications: Mild intermittent asthma without complication (HCC) , Bronchitis Inhale 3 mL as instructed every 4 hours as needed. 100 Each 3 05/01/2023 Active Comment on above: Inhale 3 mL as instr ucted every 4 hours as needed. ALPRAZolam 0.25 mg oral tablet (20 sources) Benzodiazepine Start: 11-13-19 End: 02-17-20 take 1 tablet by mouth twice daily Start: 08-11-2023 End: 11-09-2023 take 1 tablet by mouth twice daily ALPRAZolam (XANAX) 0.25 mg tablet Indications: Anxiety Take 1 tablet by mouth two times a day for 90 days. Do not start before August 11, 2023. 60 tablet 2 08/11/2023 11/01/2023 Discontinued Start: 07-14-2023 End: 07-31-2023 take 1 tablet by mouth twice daily ALPRAZolam (XANAX) 0.25 mg tablet Indications: Anxiety Take 1 tablet by mouth two times a day for 30 days. 60 tablet 0 07/14/2023 07/31/2023 Discontinued Start: 10-18-2021 End: 07-12-2023 take 1 tablet by mouth twice daily ALPRAZolam (XANAX) 0.25 mg tablet Indications: Anxiety Take 1 tablet by mouth twice daily for 90 days. 60 tablet 2 01/13/2023 04/13/2023 Active Start: 06-11-2014 End: 02-09-2024 take 0.125 mg by mouth twice daily Alprazolam 0.25 MG tablet Discontinued 0.125 mg PO TWICE A DAY June 11, 2014 12:00am February 09, 2024 11:24am ANXIETY Comment on above: Take 1 tablet by keri th twice daily for 90 days. Take 1 tablet by keri th two times a day for 90 days. Do not start before August 11, 2023. Take 1 tablet by keri th two times a day for 30 days. Take 1 tablet by keri th two times a day for 90 days. Do not start before November 13, 2023. ascorbic acid 250 mg oral tablet (20 sources) Vitamin C Start: 12-17-2018 take 1 tablet by mouth once daily Start: 12-26-2008 ascorbic acid( VITAMIN C 500 MG TAB) Indications: Essential hypertension, benign , Unspecified asthma(493.90) , Malignant neoplasm of breast (female), unspecified site Take one(1) tablet daily. 0 12/26/2008 Active Comment on above: Take one(1) tablet d aily. aspirin 81 mg chewable tablet (20 sources) Platelet Aggregation Inhibitor, Nonsteroidal Anti-inflammatory Drug Start: 10-25-2024 take 1 tablet by mouth three times weekly Start: 01-04-2017 JUAN F LOW DOSE 81 MG CHEW as directed ASPIRIN [id number] Gianna Degroot Perfecto KEATING Start: 07-01-2014 End: 10-04-2022 take 1 tablet by mouth once daily Aspirin (Aspir-Low) 81 MG Tablet.Dr Discontinued 81 mg PO DAILY December 17, 2018 12:00am December 26, 2018 10:01am [facility] Comment on above: Take 1 tablet by keri once daily. Take 81 mg by mouth once daily. azithromycin 250 mg oral tablet (20 sources) Macrolide Antimicrobial Start: 06-13-20 End: 06-18-20 take 2 tablets by mouth once daily, then take 1 tablet by mouth once daily azithromycin (ZITHROMAX) 250 mg tablet Indications: Asthma with acute exacerbation, unspecified asthma severity, unspecified whether persistent , Bronchitis Take 2 tablets by mouth once daily for 1 day, THEN 1 tablet once daily for 4 days. 6 tablet 06/13/2024 06/18/2024 Active Start: 02-23-2024 End: 02-28-2024 azithromycin (ZITHROMAX Z-PA K) 250 mg tablet Indications: Bronchitis Take 2 tablets day one, then, 1 tablet daily until gone. 6 tablet 0 02/23/2024 02/28/2024 Active Start: 01-05-2024 End: 01-10-2024 azithromycin (ZITHROMAX Z-PA K) 250 mg tablet Take 2 tablets day one, then, 1 tablet daily until gone. 6 tablet 0 01/05/2024 01/10/2024 Active Start: 05-01-2023 End: 05-06-2023 azithromycin (ZITHROMAX Z-PA K) 250 mg tablet Indications: Bronchitis Take 2 tablets day one, then, 1 tablet daily until gone. 6 tablet 0 05/01/2023 05/06/2023 Active Start: 01-20-2023 End: 01-25-2023 azithromycin (ZITHROMAX Z-PA K) 250 mg tablet Indications: Bronchitis Take 2 tablets day one, then, 1 tablet daily until gone. 6 tablet 0 01/20/2023 01/25/2023 Active Start: 12-07-2022 End: 12-12-2022 azithromycin (ZITHROMAX Z-PA K) 250 mg tablet Indications: Bronchitis Take 2 tablets day one, then, 1 tablet daily until gone. 6 tablet 0 12/07/2022 12/12/2022 Active Start: 11-03-2022 End: 11-08-2022 azithromycin (ZITHROMAX Z-PA K) 250 mg tablet Indications: Acute bronchitis, unspecified organism Take 2 tablets day one, then, 1 tablet daily until gone. 6 tablet 0 11/03/2022 11/08/2022 Active Start: 11-15-2021 End: 11-20-2021 azithromycin (ZITHROMAX Z-PA K) 250 mg tablet Take 2 tablets day one, then, 1 tablet daily until gone. 6 tablet 0 11/15/2021 11/20/2021 Active Start: 08-30-2021 End: 02-09-2024 take 2-5 tablets by mouth once daily Azithromycin 250 mg tablet Discontinued 0 PO .COMPLEX 6 0 August 30, 2021 1:00am February 09, 2024 11:21am take 500 mg today (day 1), then 250 mg for 4 days (days 2-5) PO Start: 05-25-2020 End: 04-05-2021 take 2-5 tablets by mouth once daily Azithromycin 250 mg tablet Discontinued 0 PO .COMPLEX 6 0 May 25, 2020 12:00am April 05, 2021 8:50am take 500 mg today (day 1), then 250 mg for 4 days (days 2-5) PO Start: 09-22-2017 End: 09-27-2017 Azithromycin 250 mg tablet Discontinued 250 mg PO daily 6 5 0 September 22, 2017 1:00am September 26, 2017 1:00am September 27, 2017 1:05am Otitis media, unspecified, unspecified ear Take 2 tabs once on day one. Take one tablet next 4 days Start: 08-29-2017 End: 09-03-2017 Azithromycin 250 mg tablet Discontinued 250 mg PO daily 6 5 0 August 29, 2017 1:00am September 02, 2017 1:00am September 03, 2017 1:09am Acute bronchitis, unspecified Take 2 tabs once on day one. Take one tablet next 4 days Start: 06-12-2017 End: 06-17-2017 ZITHROMAX Z-RUPERT 250 MG TABS Take 2 pills on day 1 then 1 pill days 2 through 5 AZITHROMYCIN [id number] Jarred MANZO Start: 01-04-2017 End: 06-12-2017 ZITHROMAX 250 MG TABS 2 tabl ets on day 1, then 1 tablet daily on days 2 through 5 AZITHROMYCIN [id number] Daniel MANZO Comment on above: Take 2 tablets day o ne, then, 1 tablet daily until gone. Calcium (20 sources) Phosphate Binder, Calcium Start: 01-19-2009 CALCIUM 500 MG TAB Indications: Essential hypertension, benign , Unspecified asthma(493.90) , Malignant neoplasm of breast (female), unspecified site TAKES 2 TABLETS DAILY 0 01/19/2009 Active Comment on above: TAKES 2 TABLETS ROQUE Y Calcium Carbonate-Vitamin D3 1 EACH tablet (3 sources) Start: 12-17-2018 Start: 12-17-2018 Calcium Carbon ate-Vitamin D3 1 EACH tablet Active 1 NMA PO DAILY December 17, 2018 12:00am SUPPLEMENT Start: 12-17-2018 Calcium Carbon ate-Vitamin D3 1 EACH tablet Active 1 NMA PO DAILY December 17, 2018 12:00am cholecalciferol 0.025 mg oral capsule (3 sources) Vitamin D Start: 02-09-2024 take 1 capsule by mouth once daily cholecalciferol, vitamin D3, (VITAMIN D3 ORAL) (20 sources) take 500 mg by mouth once daily cholecalciferol, vitamin D3, (VITAMIN D3 ORAL) Take 500 mg by mouth once daily. Active take 500 mg by mouth once daily cholecalciferol, vitamin D3, (VITAMIN D3 ORAL) Take 500 mg by mouth once daily. 0 Active Comment on above: Take 500 mg by mouth once daily. citalopram 20 mg oral tablet (20 sources) Serotonin Reuptake Inhibitor Start: 01-04-2017 CITALOPRAM HYDROBROMIDE 10 MG TABS as directed CITALOPRAM HYDROBROMIDE [id number] Gianna Grove ZURI Start: 06-11-2014 End: 07-05-2024 take 1 tablet by mouth once citalopram (CELEXA) 20 mg tablet Indications: Anxiety Take 1 tablet by mouth every afternoon. 90 tablet 3 07/08/2024 Active Comment on above: Take 1 tablet by keri th once daily. take 1 tablet every day clindamycin 300 mg oral capsule (4 sources) Lincosamide Antibacterial Start: 12-01-2021 End: 12-01-2021 clindamycin (CLEOCIN) 300 mg capsule Take 2 capsules by mouth one time only for 1 dose. Take 30-60 minutes prior to dental work 10 capsule 1 12/01/2021 12/01/2021 Active Start: 07-22-2019 End: 05-25-2020 take 2 tablets by mouth every hour Clindamycin Hcl 300 mg capsule Discontinued 300 mg PO Q8H 2 July 22, 2019 1:00am May 25, 2020 3:13pm take 2 tabs within 1 hour of dental work. Comment on above: Take 2 capsules by [facility] one time only for 1 dose. Take 30-60 minutes prior to dental work doxycycline hyclate 100 mg oral tablet (7 sources) Tetracycline-class Drug Start: 04-18-2025 End: 04-25-2025 take 1 tablet by mouth twice daily doxycycline (VIBRA-TABS) 100 mg tablet Take 1 tablet by mouth two times a day for 7 days. 14 tablet 04/18/2025 04/25/2025 Active Start: 06-18-2024 End: 06-25-2024 take 1 tablet by mouth twice daily doxycycline (VIBRA-TABS) 100 mg tablet Take 1 tablet by mouth two times a day for 7 days. 14 tablet 06/18/2024 06/25/2024 Active Start: 04-05-2021 End: 02-09-2024 take 1 capsule by mouth twice daily Doxycycline Monohydrate 100 mg capsule Discontinued 100 mg PO TWICE A DAY April 05, 2021 12:00am February 09, 2024 11:24am Pt aware to hold calcium and vitamin d supplements while on this medication fluticasone / salmeterol (20 sources) Corticosteroid, beta2-Adrenergic Agonist Start: 04-04-2025 End: 10-01-2025 take 1 puff(s) by inhalation twice daily fluticasone-salmeterol (ADVAIR DISKUS) 100-50 mcg/dose inhaler Indications: Mild intermittent asthma without complication (HCC) Inhale 1 puff as instructed two times a day. 60 each 5 04/04/2025 10/01/2025 Active Start: 10-08-2024 End: 04-04-2025 take 1 puff(s) by inhalation twice daily fluticasone-salmeterol (ADVAIR DISKUS) 100-50 mcg/dose inhaler Indications: Mild intermittent asthma without complication (HCC) Inhale 1 Puff as instructed two times a day. 60 Each 5 10/08/2024 04/04/2025 Discontinued Start: 10-08-2024 End: 04-06-2025 take 1 puff(s) by inhalation twice daily fluticasone-salmeterol (ADVAIR DISKUS) 100-50 mcg/dose inhaler Indications: Mild intermittent asthma without complication (HCC) Inhale 1 Puff as instructed two times a day. 60 Each 5 10/08/2024 04/06/2025 Active Start: 10-08-2024 End: 04-06-2025 take 1 puff(s) by inhalation twice daily fluticasone-salmeterol (ADVAIR DISKUS) 100-50 mcg/dose inhaler Indications: Mild intermittent asthma without complication Inhale 1 Puff as instructed two times a day. 60 Each 5 10/08/2024 04/06/2025 Active Start: 09-19-2024 End: 10-07-2024 take 1 puff(s) by mouth twice daily fluticasone-salmeterol (ADVAIR DISKUS) 100-50 mcg/dose inhaler Indications: Mild intermittent asthma without complication INHALE 1 PUFF BY MOUTH TWICE DAILY INSTRUCTED 60 Each 09/19/2024 10/07/2024 Discontinued Start: 09-19-2024 take 1 puff(s) by mo uth twice daily fluticasone-salmeterol (ADVAIR DISKUS) 100-50 mcg/dose inhaler Indications: Mild intermittent asthma without complication INHALE 1 PUFF BY MOUTH TWICE DAILY INSTRUCTED 60 Each 09/19/2024 Active Start: 03-27-2024 End: 09-19-2024 take 1 puff(s) by inhalation twice daily fluticasone-salmeterol (WIXELA INHUB) 100-50 mcg/dose inhaler Indications: Mild intermittent asthma without complication Inhale 1 Puff as instructed two times a day. 1 Each 3 03/27/2024 09/19/2024 Discontinued Start: 03-27-2024 take 1 puff(s) by in halation twice daily fluticasone-salmeterol (WIXELA INHUB) 100-50 mcg/dose inhaler Indications: Mild intermittent asthma without complication Inhale 1 Puff as instructed two times a day. 1 Each 3 03/27/2024 Active Start: 02-09-2024 Start: 02-09-2024 Fluticasone Pr opion-Salmeterol (Advair Diskus) 100-50 mcg/dose blister with device Active 1 NMA INHALATION TWICE A DAY February 09, 2024 12:00am Start: 02-22-2023 End: 02-23-2024 take 1 puff(s) by mouth twice daily fluticasone-salmeterol (ADVAIR DISKUS) 100-50 mcg/dose inhaler Indications: Mild intermittent asthma without complication Inhale 1 Puff as instructed twice daily. Rinse mouth out after use with water. 60 Each 02/22/2023 02/23/2024 Discontinued (Side Effects) Start: 02-22-2023 take 1 puff(s) by mo uth twice daily fluticasone-salmeterol (ADVAIR DISKUS) 100-50 mcg/dose inhaler Indications: Mild intermittent asthma without complication Inhale 1 Puff as instructed twice daily. Rinse mouth out after use with water. 60 Each 02/22/2023 Active Start: 02-22-2023 End: 03-24-2023 take 1 puff(s) by mouth twice daily fluticasone-salmeterol (ADVAIR DISKUS) 100-50 mcg/dose inhaler Indications: Mild intermittent asthma without complication Inhale 1 Puff as instructed twice daily. Rinse mouth out after use with water. 60 Each 02/22/2023 03/24/2023 Active Comment on above: Inhale 1 Puff as ins tructed twice daily. Rinse mouth out after use with water. hydrocortisone 10 mg/ml / neomycin 3.5 mg/ml / polymyxin b [id number] unt/ml otic suspension (3 sources) Aminoglycoside Antibacterial, Polymyxin-class Antibacterial, Corticosteroid Start: 12-13-19 End: 12-23-19 neomycin-polymyxin- hydrocortisone (CORTISPORIN) 3.5-10,000-1 mg/mL-unit/mL-% otic suspension Indications: Acute otitis externa of right ear, unspecified type Use 3 Drops in both ears four times daily for 10 days. 10 mL 0 12/12/2022 12/22/2022 Active Comment on above: Use 3 Drops in both ears four times daily for 10 days. losartan potassium 100 mg oral tablet (20 sources) Angiotensin 2 Receptor Primitivo Start: 07-08-20 take 1 tablet by mouth once daily Start: 08-28-2023 End: 07-05-2024 losartan (COZAAR) 100 mg tab let Indications: Essential hypertension, benign take 1 tablet every day 90 tablet 3 08/28/2023 07/05/2024 Discontinued Start: 01-25-2021 End: 11-07-2022 take 1 tablet by mouth once daily losartan (COZAAR) 100 mg tablet Indications: Essential hypertension, benign Take 1 tablet by mouth once daily. 90 tablet 3 11/07/2022 Active Start: 12-17-2018 End: 04-29-2025 take 2 tablets by mouth once daily Losartan 50 MG tablet Discontinued 100 mg PO DAILY December 17, 2018 9:59am April 29, 2025 11:10am BP Start: 06-12-2014 End: 12-17-2018 take 1 tablet by mouth once daily Losartan 50 MG tablet Discontinued 50 mg PO DAILY 30 0 June 12, 2014 12:00am December 17, 2018 9:59am Comment on above: Take 1 tablet by keri once daily. take 1 tablet every day Multivitamin tablet (3 sources) Start: 10-25-2024 Start: 10-25-2024 Multivitamin t ablet Active 1 {tbl} PO EVERY MORNING October 25, 2024 1:00am Nebulizer Accessories misc (20 sources) Start: 12-14-2017 Nebulizer Acce ssories misc Indications: Mild intermittent asthma without complication (HCC) Tubing , mouthpiece; other supplies as needed 1 Each 3 12/14/2017 Active Start: 12-14-2017 Nebulizer Acce ssories [facility] Indications: Mild intermittent asthma without complication Tubing , mouthpiece; other supplies as needed 1 Each 3 12/14/2017 Active Comment on above: Tubing , mouthpiece; other supplies as needed predniSONE 20 mg oral tablet (8 sources) Start: 5 End: 5 take 2 tablets by mouth once daily predniSONE (DELTASONE) 20 mg tablet Take 2 tablets by mouth once daily for 5 days. 10 tablet 04/18/2025 04/23/2025 Active Start: 06-13-2024 End: 06-29-2024 take 2 tablets by mouth once daily, then take 1.5 tablets by mouth once daily, then take 1 tablet by mouth once daily, then take 0.5 tablet by mouth once daily predniSONE (DELTASONE) 20 mg tablet Take 2 tablets by mouth once daily for 3 days, THEN 1.5 tablets once daily for 3 days, THEN 1 tablet once daily for 3 days, THEN 0.5 tablets once daily for 3 days. 15 tablet 06/18/2024 06/29/2024 Active Start: 09-05-2023 End: 09-17-2023 predniSONE (DELTASONE) 10 mg tablet Indications: Mild intermittent asthma with acute exacerbation Take 6 tabs for 3 days, then 4 tabs for 3 days, then 2 tabs for 3 days then 1 tab for 3 days with food. 39 tablet 09/05/2023 09/17/2023 Start: 05-01-2023 End: 05-06-2023 take 1 tablet by mouth once daily predniSONE (DELTASONE) 20 mg tablet Indications: Bronchitis Take 1 tablet by mouth once daily for 5 days. 5 tablet 0 05/01/2023 05/06/2023 Active Comment on above: Take 1 tablet by keri once daily for 5 days. rosuvastatin calcium 10 mg oral tablet (1 source) HMG-CoA Reductase Inhibitor Start: 5 take 1 tablet by mouth once daily sulfamethoxazole 800 mg / trimethoprim 160 mg oral tablet (3 sources) Dihydrofolate Reductase Inhibitor Antibacterial, Sulfonamide Antimicrobial Start: 3 End: 3 take 1 tablet by mouth twice daily sulfamethoxazol e-trimethoprim (BACTRIM DS) 800-160 mg per tablet Indications: Left breast abscess Take 1 tablet by mouth twice daily for 10 days. 20 tablet 0 09/09/2022 09/19/2022 Active Start: 08-17-2022 End: 08-27-2022 take 1 tablet by mouth twice daily sulfamethoxazole-trimethoprim (BACTRIM D S) 800-160 mg per tablet Indications: Cellulitis, nose Take 1 tablet by mouth twice daily for 10 days. 20 tablet 0 08/17/2022 08/27/2022 Active Comment on above: Take 1 tablet by keri twice daily for 10 days. valACYclovir 1000 mg oral tablet (2 sources) Herpesvirus Nucleoside Analog DNA Polymerase Inhibitor, Herpes Simplex Virus Nucleoside Analog DNA Polymerase Inhibitor, Herpes Zoster Virus Nucleoside Analog DNA Polymerase Inhibitor Start: End: 4 take 1 tablet by mouth three times daily valACYclovir (VALTREX) 1 gram tablet Indications: Herpes zoster without complication Take 1 tablet by mouth three times a day for 7 days. 21 tablet 0 12/18/2023 12/25/2023 Active Completed/Discontinued Medications Medication Drug Class(es) Dates Sig (Normalized) Sig (Original) apixaban 2.5 mg oral tablet (3 sources) Factor Xa Inhibitor Start: 12-27-19 End: 01-10-20 19 take 1 tablet by mouth twice daily Apixaban (Eliquis) 2.5 MG tablet Discontinued 2.5 mg PO TWICE A DAY 28 14 0 December 26, 2018 12:00am January 08, 2019 12:00am January 09, 2019 12:06am benzonatate 100 mg oral capsule (16 sources) Non-narcotic Antitussive Start: 09-05-19 End: 02-23-20 take 1 capsule by mouth three times daily as needed for cough benzonatate (TESSALON PERLE) 100 mg capsule Indications: Mild intermittent asthma with acute exacerbation Take 1 capsule by mouth three times a day as needed for cough. 30 capsule 09/05/2023 02/23/2024 Discontinued (Course of therapy completed) Comment on above: Take 1 capsule by mo [facility] three times a day as needed for cough. biotin 10 mg oral capsule (20 sources) Start: 02-09-20 24 End: 10-26-19 take 1 capsule by mouth once daily Biotin 10,000 mcg capsule Discontinued [id number] ug PO DAILY February 09, 2024 12:00am October 25, 2024 11:02am Comment on above: Take 10,000 mcg by m outh once daily. gabapentin 300 mg oral capsule (9 sources) Anti-epileptic Agent Start: 12-22-19 End: 04-24-20 take 1 capsule by mouth three times daily Gabapentin 300 mg capsule Discontinued 300 mg PO THREE TIMES A DAY February 09, 2024 12:00am April 24, 2024 10:05am hydroCHLOROthiazide 25 mg oral tablet (20 sources) Thiazide Diuretic Start: 04-24-20 End: 12-05-19 take 1 tablet by mouth once daily in the morning Hydrochlorothiazide 25 mg tablet Discontinued 25 mg PO EVERY MORNING 60 3 November 13, 2024 11:59am December 04, 2024 1:35pm hydroCHLOROthiazide 12.5 mg / losartan potassium 50 mg oral tablet (3 sources) Thiazide Diuretic, Angiotensin 2 Receptor Primitivo Start: 06-11-20 End: 06-12-20 14 Losartan/Hydrochloroth iazide (Hyzaar 50-12.5 Tablet) 1 TAB tablet Discontinued 1 {tbl} PO DAILY June 11, 2014 12:00am June 12, 2014 2:57pm meclizine hydrochloride 25 mg oral tablet (17 sources) Antiemetic Start: 06-07-20 End: 10-04-19 take 1 tablet by mouth every six hours as needed meclizine (ANTIVERT) 25 mg tab Take 1 tablet by mouth every 6 hours as needed (dizziness). 30 tablet 5 06/07/2021 10/04/2022 Discontinued Comment on above: Take 1 tablet by keri th every 6 hours as needed (dizziness). methylPREDNISolone 4 mg oral tablet (6 sources) Corticosteroid Start: 08-30-19 End: 09-04-19 22 take 1 tablet by mouth once Methylprednisolone (Medrol (Rupert)) 4 mg tablets,dose pack Discontinued 4 mg PO per package directions 21 5 0 August 30, 2021 1:00am September 03, 2021 1:00am September 04, 2021 1:01am Start: 08-29-2017 End: 09-03-2017 take 1 tablet by mouth once Methylprednisolone (Medrol (Rupert)) 4 mg tablets,dose pack Discontinued 4 mg PO per package directions 21 5 0 August 29, 2017 1:00am September 02, 2017 1:00am September 03, 2017 1:09am mupirocin 0.02 mg/mg topical ointment (1 source) RNA Synthetase Inhibitor Antibacterial Start: 08-17-2022 End: 08-22-2022 mupirocin (BACTROBAN) 2 % ointment Indications: Cellulitis, nose Apply to affected area three times daily for 5 days. 15 g 0 08/17/2022 08/22/2022 Comment on above: Apply to affected ar ea three times daily for 5 days. oxyCODONE hydrochloride 5 mg oral capsule (6 sources) Opioid Agonist Start: 01-07-2019 End: 02-09-2024 take 1-2 tablets by mouth every four hours as needed for pain Oxycodone 5 mg capsule Discontinued 5 mg PO DAILY 60 0 January 07, 2019 February 09, 2024 11:24am Other acute postprocedural pain take 1-2 tabs q 4 hrs as needed for pain and prior to physical therapy. Start: 12-26-2018 End: 01-02-2019 take 5-10 mg by mouth every four hours as needed for pain Oxycodone 5 MG tablet Discontinued 5 - 10 mg PO EVERY 4 HOURS NEEDED as needed for Mod-Severe Pain (4-10/10) 60 7 0 December 26, 2018 12:00am January 01, 2019 12:00am January 02, 2019 12:06am Other acute postprocedural pain pantoprazole 20 mg delayed release oral tablet (20 sources) Proton Pump Inhibitor Start: 12-17-2018 End: 10-25-2024 take 1 tablet by mouth once daily Pantoprazole 20 MG tablet Discontinued 20 mg PO DAILY December 17, 2018 9:59am October 25, 2024 11:02am GERD Start: 06-12-2014 End: 12-17-2018 take 1 tablet by mouth twice daily Pantoprazole 20 MG tablet Discontinued 20 mg PO TWICE A DAY 60 0 June 12, 2014 12:00am December 17, 2018 9:59am Comment on above: Take 1 tablet by keri once daily. traMADol hydrochloride 50 mg oral tablet (3 sources) Opioid Agonist Start: 05 End: take 1-2 tablets by mouth every eight hours as needed for pain Tramadol 50 mg tablet Discontinued 0 PO Q8H as needed for pain 50 0 December 27, 2018 12:00am January 07, 2019 3:54pm Other acute postprocedural pain 1-2 tabs PO Q8H PRN; triamcinolone acetonide 0.25 mg/ml topical cream (10 sources) Corticosteroid Start: triamcinolone (KENALOG) 0.025 % cream Indications: Itchy skin Apply to affected area twice daily. 15 g 1 01/25/2021 Active Comment on above: Apply to affected ar ea twice daily. Problems Active Problems Problem Classification Problem Date Documented Date Episodic/Chronic Acute bronchitis (2 sources) Acute bronchitis; Translations: [Acute bronchitis, unspecified] Episodic Anxiety disorders (20 sources) Anxiety; Translations: [Anxiety disorder, unspecified] Onset: 01-19-2008 12-03-2015 Chronic Asthma (20 sources) Asthma; Translations: [Mild intermittent asthma] Onset: 01-19-2008 01-04-2017 Chronic Cardiac dysrhythmias (3 sources) Palpitations; Translations: [Palpitations] 04-24-2024 Episodic Cataract (1 source) Senile cataract; Translations: [Other age-related cataract] 11-01-2023 Chronic Chronic obstructive pulmonary disease and bronchiectasis (1 source) Pulmonary emphysema; Translations: [Emphysema, unspecified] 06-18-2024 Chronic Chronic obstructive pulmonary disease and bronchiectasis (9 sources) Bronchitis; Translations: [Bronchitis, not specified as acute or chronic] Onset: 01-04-2017 01-04-2017 Episodic Conditions associated with dizziness or vertigo (1 source) Dizziness; Translations: [Dizziness and giddiness] Episodic Conduction disorders (3 sources) Right bundle branch block; Translations: [Unspecified right bundle-branch block] 02-09-2024 Chronic Disorders of lipid metabolism (15 sources) Hyperlipidemia; Translations: [Hyperlipidemia, unspecified] Onset: 07-26-2024 Chronic Esophageal disorders (20 sources) Gastroesophageal reflux disease; Translations: [Gastro-esophageal reflux disease without esophagitis] Onset: 09-11-2017 09-11-2017 Chronic Esophageal disorders (1 source) Esophageal disorders; Translations: [Gastroesophageal reflux disease with esophagitis without hemorrhage] Onset: 09-11-2017 Essential hypertension (20 sources) Hypertensive disorder; Translations: [Benign essential hypertension] Onset: 01-19-2008 01-04-2017 Chronic Fluid and electrolyte disorders (3 sources) Hyponatremia; Translations: [Hypo-osmolality and hyponatremia] 02-09-2024 Episodic Malaise and fatigue (3 sources) Asthenia; Translations: [Weakness] Episodic Nonspecific chest pain (9 sources) Chest pain; Translations: [Chest pain, unspecified] Onset: 04-29-2025 01-31-2024 Episodic Osteoarthritis (20 sources) Localized osteoarthrosis; Translations: [Unilateral primary osteoarthritis, unspecified knee] Onset: 06-05-2008 Resolved: 12-12-2017 06-05-2008 Chronic Other ear and sense organ disorders (2 sources) Impacted cerumen of bilateral ears; Translations: [Impacted cerumen, bilateral] Episodic Other ear and sense organ disorders (1 source) Acute otitis externa of right ear; Translations: [Unspecified acute noninfective otitis externa, right ear] Episodic Other injuries and conditions due to external causes (2 sources) Contusion; Translations: [Other injury of unspecified body region, initial encounter] 10-11-2023 Episodic Other lower respiratory disease (6 sources) Cough; Translations: [Acute cough] Onset: 01-04-2017 01-04-2017 Episodic Other lower respiratory disease (2 sources) Chronic cough; Translations: [Chronic cough] 10-11-2023 Episodic Other lower respiratory disease (4 sources) Dyspnea; Translations: [Shortness of breath] 01-31-2024 Episodic Other lower respiratory disease (5 sources) Multiple nodules of lung; Translations: [Other nonspecific abnormal finding of lung field] 06-18-2024 Episodic Other lower respiratory disease (2 sources) Nodule of lung; Translations: [Solitary pulmonary nodule] 07-26-2024 Episodic Other lower respiratory disease (1 source) Other nonspecific abnormal finding of lung field; Translations: [Lung nodules] Onset: 05-20-2025 Episodic Other nervous system disorders (1 source) Numbness of hand; Translations: [Anesthesia of skin] 07-26-2024 Episodic Other screening for suspected conditions (not mental disorders or infectious disease) (8 sources) Patient encounter status; Translations: [Encounter for screening for malignant neoplasm of colon] Onset: 06-03-2025 Episodic Other skin disorders (2 sources) Infection of sebaceous cyst; Translations: [Sebaceous cyst] Episodic Other upper respiratory disease (3 sources) Non-allergic rhinitis; Translations: [Chronic rhinitis] 03-27-2023 Chronic Other upper respiratory disease (1 source) Cellulitis of face; Translations: [Abscess, furuncle and carbuncle of nose] Episodic Pneumonia (except that caused by tuberculosis or sexually transmitted disease) (3 sources) Bacterial pneumonia; Translations: [Unspecified bacterial pneumonia] 02-23-2024 Episodic Pulmonary heart disease (13 sources) Pulmonary hypertension; Translations: [Pulmonary hypertension, unspecified] Onset: 07-26-2024 06-18-2024 Chronic Spondylosis; intervertebral disc disorders; other back problems (1 source) Backache; Translations: [Dorsalgia, unspecified] 09-27-2023 Episodic Viral infection (4 sources) Viral wart on finger; Translations: [Viral wart, unspecified] 07-31-2023 Episodic Past or Other Problems Problem Classification Problem Date Documented Date Episodic/Chronic Abdominal pain (1 source) Unspecified abdominal pain; Translations: [Unspecified abdominal pain] Onset: 12-18-2024 Episodic Cancer of breast (20 sources) Malignant neoplasm of female breast; Translations: [Malignant neoplasm of unspecified site of unspecified female breast] Onset: 11-27-2008 Resolved: 07-31-2023 11-27-2008 Chronic Cancer of breast (20 sources) History of malignant neoplasm of breast; Translations: [Personal history of malignant neoplasm of breast] Onset: 03-21-2011 03-21-2011 Episodic Comment on above: S/P R mastectomy and reconstruction Diseases of white blood cells (20 sources) Drug-induced neutropenia; Translations: [Other drug-induced agranulocytosis] Onset: 01-20-2009 Resolved: 12-12-2017 12-12-2017 Chronic Immunizations and screening for infectious disease (1 source) Encounter for immunization; Translations: [Encounter for immunization] Onset: 07-26-2024 Episodic Mycoses (20 sources) Dermatophytosis; Translations: [Tinea corporis] Onset: 09-01-2008 Resolved: 12-12-2017 12-12-2017 Episodic Nonmalignant breast conditions (20 sources) Hypertrophy of breast; Translations: [Hypertrophy of breast] Onset: 09-15-2008 09-15-2008 Episodic Other connective tissue disease (20 sources) Trigger thumb of left hand; Translations: [Trigger thumb, left thumb] Onset: 06-04-2013 06-04-2013 Episodic Other inflammatory condition of skin (20 sources) Psoriasis; Translations: [Other psoriasis] Onset: 09-01-2008 Resolved: 12-12-2017 12-12-2017 Chronic Other inflammatory condition of skin (20 sources) Pruritus of skin; Translations: [Pruritus, unspecified] Onset: 09-01-2008 09-01-2008 Episodic Other lower respiratory disease (20 sources) Rib pain; Translations: [Pleurodynia] Onset: 06-22-2009 Resolved: 12-12-2017 12-12-2017 Episodic Other lower respiratory disease (1 source) Shortness of breath; Translations: [Shortness of breath] Onset: 11-05-2024 Episodic Other lower respiratory disease (1 source) Solitary pulmonary nodule; Translations: [Lung nodule] Onset: 07-26-2024 Episodic Other nervous system disorders (1 source) Anesthesia of skin; Translations: [Bilateral hand numbness] Onset: 07-26-2024 Episodic Other non-traumatic joint disorders (20 sources) Pain in lower limb; Translations: [Pain in unspecified knee] Onset: 06-18-2013 06-18-2013 Episodic Other skin disorders (20 sources) Disorder of sebaceous gland; Translations: [Other specified follicular disorders] Onset: 09-01-2008 Resolved: 12-12-2017 12-12-2017 Episodic Other skin disorders (20 sources) Vesicular eczema; Translations: [Dyshidrosis [pompholyx]] Onset: 10-15-2008 Resolved: 12-12-2017 12-12-2017 Episodic Results Test Name Value Interpretation Reference Range Facility [facility] 06-13-2025 [facility] Telephone (PULMWS) TRINH WOMACK ([id number]) 1950 F Date Time Provider Department 06/13/25 DAWNA BARBA During your visit today, we recorded the following information about you: Ellen Zamora LPN 06/13/2025 8:52 AM Signed Patient calling in stating she has not felt well since Monday06/07/25. She states she has missed 2 days of work due to coughing and being so tired. She denies fevers or chills. Has been c/o cough, productive, yellow, drainage and fatigue. Patient is requesting something to be called in so she is able to work tomorrow. ZURI Payan Christine M, APRN.ALCIRA 06/13/2025 12:40 PM Signed Addended by: DAWNA BARBA on: 06/13/2025 12:40 PM Modules accepted: Orders Allergies As of Date: 06/13/2025 Noted Allergy Reaction PENICILLINS 01/19/2008 7 - Swelling 16 - Unknown Comments: breathing problem years ago Date Reviewed: 06/04/2025 Reviewed by: Dawna Barba APRN.CERTIFIED NURSE AIDE - Fully Assessed Reason for Visit: Patient Question [7457] Primary Visit Diagnosis:Mild persistent asthma with acute exacerbation (HCC) [J45.31] Order(s):predniSONE (DELTASONE) 20 mg tabletTake 2 tablets by mouth once daily for 5 days.Disp: 10 tabletRfl: 0 doxycycline (VIBRA-TABS) 100 mg tabletTake 1 tablet by mouth two times a day for 7 days.Disp: 14 tabletRfl: 0 Prescriptions as of 06/13/2025 - predniSONE (DELTASONE) 20 mg tablet Take 2 tablets by mouth once daily for 5 days. - doxycycline (VIBRA-TABS) 100 mg tablet Take 1 tablet by mouth two times a day for 7 days. - rosuvastatin (CRESTOR) 10 mg tablet Take 1 tablet by mouth once daily. - fluticasone-salmeterol (ADVAIR DISKUS) 100-50 mcg/dose inhaler Inhale 1 puff as instructed two times a day. - ALPRAZolam (XANAX) 0.25 mg tablet Take 1 tablet by mouth two times a day for 90 days. Patient should start on November 18, 2024. - citalopram (CELEXA) 20 mg tablet Take 1 tablet by mouth every afternoon. - losartan (COZAAR) 100 mg tablet Take 1 tablet by mouth every afternoon. - hydroCHLOROthiazide 25 mg tablet Take 25 mg by mouth every morning. - pantoprazole DR (PROTONIX) 20 mg tablet Take 1 tablet by mouth once daily. - albuterol HFA (PROVENTIL HFA, VENTOLIN HFA) 90 mcg/actuation inhaler Inhale 2 Puffs as instructed every 4 hours as needed. - ipratropium-albuterol (DUONEB) 0.5 mg-3 mg(2.5 mg base)/3 mL nebu Inhale 3 mL as instructed every 4 hours as needed. - cholecalciferol, vitamin D3, (VITAMIN D3 ORAL) Take 500 mg by mouth once daily. - Biotin 10,000 mcg cap Take 10,000 mcg by mouth once daily. - Nebulizer Accessories misc Tubing , mouthpiece; other supplies as needed - CALCIUM 500 MG TAB TAKES 2 TABLETS DAILY - ascorbic acid(VITAMIN C 500 MG TAB) Take one(1) tablet daily. Problem List As Of Date 06/13/2025 Noted Resolved Essential hypertension, benign [I10] 01/19/2008 Mild intermittent asthma without complication [*01/19/2008 Anxiety [F41.9] 01/19/2008 LOC OSTEOARTH NOS-L/LEG [M17.10] 06/05/2008 Dermatophytosis of the body [B35.4] 09/01/2008 12/12/2017 Dermatophytosis of foot [B35.3] 09/01/2008 12/12/2017 Other psoriasis [L40.8] 09/01/2008 12/12/2017 XEROSIS///SEBACEOUS GLAND DIS NEC [L73.8] 09/01/2008 12/12/2017 Dermatophytosis of hand [B35.2] 09/01/2008 12/12/2017 PRURITIC DISORDER NOS [L29.9] 09/01/2008 HYPERTROPHY OF BREAST [N62] 09/15/2008 ONYCHOMYCOSIS///DERMATO PHYTOSIS OF NAIL [B35.1] 10/15/2008 12/12/2017 Dyshidrosis [L30.1] 10/15/2008 12/12/2017 Malignant neoplasm of breast (female), unspecif*11/27/2008 07/31/2023 Drug-induced neutropenia (HCC) [D70.2] 01/20/2009 12/12/2017 Pain in rib [R07.89] 06/22/2009 12/12/2017 Personal history of malignant neoplasm of breas*03/21/2011 Arthritis of knee, left [M17.12] 06/04/2013 Trigger thumb of left hand [M65.312] 06/04/2013 Unspecified arthropathy, lower leg [M17.10] 06/18/2013 12/12/2017 Pain in joint, lower leg [M25.569] 06/18/2013 Gastroesophageal reflux disease [K21.9] 09/11/2017 Prescriptions ordered this encounter Disp Refills Start End PREDNISONE 20 MG TABLET 10 t* 0 06/13/2025 06/18/2025 Route: PO Sig: Take 2 tablets by mouth once daily for 5 days. DOXYCYCLINE HYCLATE 100 MG TABLET 14 t* 0 06/13/2025 06/20/2025 Route: PO Sig: Take 1 tablet by mouth two times a day for 7 days. Encounter Status:Closed by ELLEN ZAMORA on 06/13/25 [facility] CNOVon 06-04-2025 CNOV Office Visit (PULMWS ) WOMACKTRINH HUNTER ([id number]) 1950 F Date Time Provider Department 06/04/25 11:00 AM DAWNA BARBA PULMWS During your visit today, we recorded the following information about you: Pulse Respiration Blood pressure Weight 62/minute 12/minute 142/70 59.9 kg Dawna Barba APRN.CNP 06/04/2025 12:30 PM Signed Pulmonary Medicine Patients name: Trinh Womack PCP: Kathie Echeverria APRN.CNP CC: follow-up HPI: Trinh Womack is a 74 year old female former 27 pack year smoker, quitting 1990 with PMH significant for childhood asthma, right breast cancer 2009 (XRT, chemo, Tamoxifen 5 years), psoriasis, HTN, GERD, and chronic rhinitis. CHASE 11/2024 with stable respiratory symptoms. Denied recurrent bronchitis. Current maintenance therapy with Advair and PRN Albuterol. She presents today for follow-up. Since her last visit, she reports her respiratory symptoms remain stable. Has not had recurrence of bronchitis since she started Advair. She had updated chest CT on 05/20 which showed stability of her lung nodules. Today, patient reports rare dry cough. No wheezing/chest tightness. Denies dyspnea at rest or with exertion. No fevers, chills, or night sweats. No unintended weight loss. No recent hospitalizations or ED visits or upper respiratory infections. Albuterol use on rare occasion. She follows with [facility] who recently completed echo and stress test. She requested testing to be sent to [facility] but not available for review. Per patient, pulmonary hypertension stable. Last echo on file 02/2024 with RVSP 52 mmHg. PAST MEDICAL HISTORY Diagnosis Date Acute sinusitis, unspecified drainage Allergic rhinitis Childhood asthma (HCC) Generalized anxiety disorder Anxiety, Generalized GERD (gastroesophageal reflux disease) Malignant neoplasm of breast (female), unspecified site right breast Psoriasis and similar disorders Unspecified asthma(493.90) uses nebulizer prn Unspecified essential hypertension Essential hypertension Allergies: Penicillins Swelling, Unknown Comment:breathing problem years ago Medication List Accurate as of June 03, 2025 12:03 PM. If you have any questions, ask your nurse or doctor. CONTINUE taking these medications albuterol HFA 90 mcg/actuation inhaler Commonly known as: PROVENTIL HFA, VENTOLIN HFA Inhale 2 Puffs as instructed every 4 hours as needed. ALPRAZolam 0.25 mg tablet Commonly known as: XANAX Take 1 tablet by mouth two times a day for 90 days. Patient should start on November 18, 2024. Biotin 10,000 mcg Cap calcium (elemental) Tab citalopram 20 mg tablet Commonly known as: CeleXA Take 1 tablet by mouth every afternoon. fluticasone-salmeterol 100-50 mcg/dose inhaler Commonly known as: ADVAIR DISKUS Inhale 1 puff as instructed two times a day. hydroCHLOROthiazide 25 mg tablet ipratropium-albuterol 0.5 mg-3 mg(2.5 mg base)/3 mL Nebu Commonly known as: DUONEB Inhale 3 mL as instructed every 4 hours as needed. losartan 100 mg tablet Commonly known as: COZAAR Take 1 tablet by mouth every afternoon. Nebulizer Accessories Misc Tubing , mouthpiece; other supplies as needed pantoprazole DR 20 mg tablet Commonly known as: PROTONIX Take 1 tablet by mouth once daily. VITAMIN C 500 mg tablet Generic drug: ascorbic acid (vitamin C) VITAMIN D3 PO DATA: I personally reviewed and analyzed all labs, radiographs and available pulmonary function testing PFT: 08/2024 Spirometry is normal. Lung volumes are normal. The diffusion capacity (uncorrected for hemoglobin) is normal. CT Chest: 05/20/25 IMPRESSION: Stable pulmonary nodules. Paper Final Inspector: JAK Transcribe Date/Time: May 25 2025 7:15A Dictated by : JUAN JI MD This examination was interpreted and the report reviewed and electronically signed by: JUAN JI MD on May 25 2025 7:19AM EST Comparison: 11/13/2024 RESULT: Limitations: None. Lines, tubes, and devices: None. Lung parenchyma and airways: Evaluation of lung parenchyma demonstrates a 6.2 mm noncalcified nodule in the posterior right upper lobe, image 40 of series 6. A couple of adjacent micronodules are present. There is a 3 mm noncalcified nodule in the left lower lobe, image 115 of series 6. These have not significantly changed since previous exam. No new pulmonary nodules identified. No focal airspace consolidation is seen. Mild emphysema is present. There is no bronchiectasis or pneumothorax. Pleural space: No pleural effusion. No pleural thickening. Lower neck, lymph nodes, and mediastinum: The imaged thyroid gland is normal. No lymphadenopathy in the supraclavicular, axillary, mediastinal, or hilar regions. Review of Systems Constitutional: Negative for activity change, appetite change, fever and unexpected weight change. HEN (more content not included)... Normal [facility] Cardiovascular stress test r eportOrdered By: Dudley Saunders on 05-27-2025 Study report [facility] Cardiovascular Services [address] [place] [address] MR#: [id number] Acct: [id number] Name: TRINH WOMACK Rep #: [id number] : 1950 74 From: Dudley Saunders MD Primary Care: JAMESON Rosas Status : REG CLI Referring Dr: Aissatou Acosta Sex : F C Stress Test Report Exercise myocardial perfusion stress test. 74-year-old lady with a history of chest pain. Stress protocol: Resting EKG demonstrates sinus rhythm with a right bundle branch block, with a rate of 65 bpm resting blood pressure is 150/82 mmHg. The patient exercised according to the regular Marcelo protocol for a total duration of 6 minutes attaining a maximum heart rate of 122 bpm which was 84% of maximum predicted heart rate; the maximum workload was 7 metabolic equivalents. At rest there wereno ST or T wave changes noted to suggest ischemia and at peak exercise upslopingST changes only were noted which did not meet the criteria for ischemia. No clinical angina was noted the test was terminated due to the target heart rate being achieved/fatigue. The peak blood pressure was 172/60 mmHg. Rate-pressure product was 20,800. Myocardial perfusion protocol. 11 point mCi of technetium 99m sestamibi was injected at rest. The patient exercised according to regular Marcelo protocol for total duration of 6 minutes and at peak exercise 33.8 mCi of technetium 99m sestamibi was injected stress images were obtained stress and rest images were reconstructed in comparing the short axis vertical long and horizontal long axis. Gated images were also obtained. Perfusion SPECT analysis: Review of the stress images demonstrate normal uptake of tracer noted in all areas of the myocardium. The resting images similarly demonstrate normal uptake of tracer noted in all areas of the myocardium. No areas of reversibility are noted to suggest ischemia no previous infarct was noted. Gated SPECT analysis: The gated ejection fraction is 88%. Conclusion: Normal exercise myocardial perfusion stress test at a moderate workload. 05/27/251832 Date _ Dudley Saunders MD CC: MOLDER APPRENTICE-C Kathie Echeverria; ANAIS House ~ Date Dictated: 05/27/251830 Date Transcribed: 10/07/25 1831 Paper Final Inspector: CO Signed [facility] Work Phone: Echo Completeon 05-27-2025 Echo Complete [facility] Cardiovascular [place] [address] Echo Complete 05/27/25 0822 MR#: [id number] Acct: [id number] Name: TRINH OWMACK Rep #: [id number] : 1950 74 From: Dudley Saunders MD Attending Dr: Aissatou Acosta PA Status: REG CLI Ordering Dr: Aissatou Acosta PA Date: 03/14 Location: [facility] Sex: F C Admitted: Reason For Study Reason For Study: Chest Pain Procedure This was a 2D Doppler, Color Flow transthoracic echocardiogram. Exam performed in department. Left Ventricle Normal LV size. The left ventricular ejection fraction is 65 %. Stage 1 diastolic dysfunction. No regional wall motion abnormalities noted. Right Ventricle Normal RV size. Normal systolic function. Atria Normal left atrium. Normal right atrium. Mitral Valve There is mild to moderate mitral annular calcification. Mild (1+) eccentric mitral valve insufficiency. Tricuspid Valve Normal tricuspid valve. Mild-Moderate (1-2+) tricuspid valve insufficiency. Pulmonary artery systolic pressure is 39 mmHg. Aortic Valve Trisinus/trileaflet aortic valve. Mild (1+) eccentric aortic valve insufficiency. Pulmonic Valve Normal pulmonic valve. Great Vessels Mildly calcified aortic root. Pericardium/Pleural No pericardial effusion. MMode/2D Measurements Calculations LVIDd: 4.1 cm IVSd: 1.0 cm Ao root diam: 3.3 cm LVIDs: 2.1 cm LVPWd: 1.00 cm RVDd: 3.5 cm FS: 48.6 % LAV(MOD-bp): 56.1 ml LVAd ap4: 22.2 cm2 SV(MOD-sp4): 35.0 ml LAV(MOD-bp) Indexed: 36.9 ml/m2 LVLd ap4: 7.3 cm SI(MOD-sp4): 23.0 ml/m2 LAV(MOD-sp2): 59.0 ml EDV(MOD-sp4): 54.0 ml LAV(MOD-sp4): 47.6 ml EDV(sp4-el): 57.0 ml LVAs ap4: 11.3 cm2 LVLs ap4: 5.5 cm ESV(MOD-sp4): 18.9 ml ESV(sp4-el): 19.6 ml EF(MOD-sp4): 64.9 % EF(sp4-el): 65.6 % SV(sp4-el): 37.4 ml LA A4 area: 18.6 cm2 LA dimension(2D): 4.0 cm RA A4 area: 13.5 cm2 TAPSE: 1.6 cm Time Measurements MV dec time: 0.44 sec Doppler Measurements Calculations MV E max tammie: 133.2 cm/sec Lat Peak E' Tammie: 6.9 cm/sec Med Peak E' Tammie: 4.8 cm/sec MV A max tamime: 170.4 cm/sec E/E' lat: 19.3 E/E' med: 27.7 MV E/A: 0.78 MV V2 max: 202.4 cm/sec Ao V2 max: 196.0 cm/sec MV max P.4 mmHg MV dec slope: 301.4 cm/sec2 Ao max P.4 mmHg MV V2 mean: 125.4 cm/sec Ao V2 mean: 126.1 cm/sec MV mean P.0 mmHg Ao mean P.5 mmHg MV V2 VTI: 59.3 cm Ao V2 VTI: 48.5 cm AV (velocity ratio): 0.72 AI max tammie: 405.1 cm/sec LV V1 max: 132.9 cm/sec PA V2 max: 120.2 cm/sec AI max P.7 mmHg LV V1 max P.1 mmHg LV V1 mean P.9 mmHg AI dec slope: 296.7 cm/sec2 LV V1 mean: 93.4 cm/sec AI P1/2t: 400.0 msec LV V1 VTI: 34.8 cm PI end-d tammie: 124.1 cm/sec TR max tammie: 294.7 cm/sec TR max P.9 mmHg ECHO/Echo Complete Interpretation Summary Normal LV size. The left ventricular ejection fraction is 65 %. Stage 1 diastolic dysfunction. Mild-Moderate (1-2+) tricuspid valve insufficiency. Mild (1+) eccentric aortic valve insufficiency. Ordering Physician: Aissatou Acosta Referring Physician: Kathie Echeverria Performed By: Bibi Gong, NESTOR, RVT 05/27/251058 Date Dudley Saunders MD CC: JAMESON Echeverria; ANAIS House Date Dictated: 05/27/25821 Date Transcribed: 05/27/251058 Paper Final Inspector: Signed Normal [facility] Echocardiogram study reportO rdered By: Dudley Saunders on 05-27-2025 Study report [facility] Cardiovascular Services [address] [facility] [place] [address] Echo Complete 05/27/25821 MR#: [id number] Acct: [id number] Name: TRINH WOMACK Rep #:[id number] : 1950 74 From: Dudley Guan Attending Dr: ANAIS House Status: REG CLI Ordering Dr: Aissatou Acosta Date: 05/27/25 Location: [facility] Sex: F C Admitted: Reason For Study Reason For Study: Chest Pain Procedure This was a 2D Doppler, Color Flow transthoracic echocardiogram. Exam performed in department. Left Ventricle Normal LV size. The left ventricular ejection fraction is 65 %. Stage 1 diastolic dysfunction. No regional wall motion abnormalities noted. Right Ventricle Normal RV size. Normal systolic function. Atria Normal left atrium. Normal right atrium. Mitral Valve There is mild to moderate mitral annular calcification. Mild (1+) eccentric mitral valve insufficiency. Tricuspid Valve Normal tricuspid valve. Mild-Moderate (1-2+) tricuspid valve insufficiency. Pulmonary artery systolic pressure is 39 mmHg. Aortic Valve Trisinus/trileaflet aortic valve. Mild (1+) eccentric aortic valve insufficiency. Pulmonic Valve Normal pulmonic valve. Great Vessels Mildly calcified aortic root. Pericardium/Pleural No pericardial effusion. MMode/2D Measurements & Calculations LVIDd: 4.1 cm IVSd: 1.0 cm Ao root diam: 3.3 cm LVIDs: 2.1 cm LVPWd: 1.00 cm RVDd: 3.5 cm FS: 48.6 % LAV(MOD-bp): 56.1 ml LVAd ap4: 22.2 cm2 SV(MOD-sp4): 35.0 ml LAV(MOD-bp) Indexed: 36.9 ml/m2 LVLd ap4: 7.3 cm SI(MOD-sp4): 23.0 ml/m2 LAV(MOD-sp2): 59.0 ml EDV(MOD-sp4): 54.0 ml LAV(MOD-sp4): 47.6 ml EDV(sp4-el): 57.0 ml LVAs ap4: 11.3 cm2 LVLs ap4: 5.5 cm ESV(MOD-sp4): 18.9 ml ESV(sp4-el): 19.6 ml EF(MOD-sp4): 64.9 % EF(sp4-el): 65.6 % SV(sp4-el): 37.4 ml LA A4 area: 18.6 cm2 LA dimension(2D): 4.0 cm RA A4 area: 13.5 cm2 TAPSE: 1.6 cm Time Measurements MV dec time: 0.44 sec Doppler Measurements & Calculations MV E max tammie: 133.2 cm/sec Lat Peak E' Tammie: 6.9 cm/sec Med Peak E' Tammie: 4.8 cm/sec MV A max tammie: 170.4 cm/sec E/E' lat: 19.3 E/E' med: 27.7 MV E/A: 0.78 MV V2 max: 202.4 cm/sec Ao V2 max: 196.0 cm/sec MV max P.4 mmHg MV dec slope: 301.4 cm/sec2 Ao max P.4 mmHg MV V2 mean: 125.4 cm/sec Ao V2 mean: 126.1 cm/sec MV mean P.0 mmHg Ao mean P.5 mmHg MV V2 VTI: 59.3 cm Ao V2 VTI: 48.5 cm AV (velocity ratio): 0.72 AI max tammie: 405.1 cm/sec LV V1 max: 132.9 cm/sec PA V2 max: 120.2 cm/sec AI max P.7 mmHg LV V1 max P.1 mmHg LV V1 mean P.9 mmHg AI dec slope: 296.7 cm/sec2 LV V1 mean: 93.4 cm/sec AI P1/2t: 400.0 msec LV V1 VTI: 34.8 cm PI end-d tammie: 124.1 cm/sec TR max tammie: 294.7 cm/sec TR max P.9 mmHg ECHO/Echo Complete Interpretation Summary Normal LV size. The left ventricular ejection fraction is 65 %. Stage 1 diastolic dysfunction. Mild-Moderate (1-2+) tricuspid valve insufficiency. Mild (1+) eccentric aortic valve insufficiency. Ordering Physician: Aissatou Acosta Referring Physician: Kathie Echeverria Performed By: Bibi Gong, NESTOR, RVT 05/27/251058 Date _ Dudley Saunders MD CC: JAMESON Echeverria; ANAIS House ~ Date Dictated: 05/27/25821 Date Transcribed: 05/27/251058 Paper Final Inspector: Signed [facility] Work Phone: Stress Reporton 05-27-2025 Stress Report [facility] Cardiovascular Services [address] [place] [address] MR#: [id number] Acct: [id number] Name: TRINH WOMACK Rep #: [id number] : 1950 74 From: Dudley Saunders MD Primary Care: JAMESON Rosas Status: REG CLI Referring Dr: Aissatou Acosta Sex: F C Stress Test Report Exercise myocardial perfusion stress test. 74-year-old lady with a history of chest pain. Stress protocol: Resting EKG demonstrates sinus rhythm with a right bundle branch block, with a rate of 65 bpm resting blood pressure is 150/82 mmHg. The patient exercised according to the regular Marcelo protocol for a total duration of 6 minutes attaining a maximum heart rate of 122 bpm which was 84% of maximum predicted heart rate; the maximum workload was 7 metabolic equivalents. At rest there were no ST or T wave changes noted to suggest ischemia and at peak exercise upsloping ST changes only were noted which did not meet the criteria for ischemia. No clinical angina was noted the test was terminated due to the target heart rate being achieved/fatigue. The peak blood pressure was 172/60 mmHg. Rate- pressure product was 20,800. Myocardial perfusion protocol. 11 point mCi of technetium 99m sestamibi was injected at rest. The patient exercised according to regular Marcelo protocol for total duration of 6 minutes and at peak exercise 33.8 mCi of technetium 99m sestamibi was injected stress images were obtained stress and rest images were reconstructed in comparing the short axis vertical long and horizontal long axis. Gated images were also obtained. Perfusion SPECT analysis: Review of the stress images demonstrate normal uptake of tracer noted in all areas of the myocardium. The resting images similarly demonstrate normal uptake of tracer noted in all areas of the myocardium. No areas of reversibility are noted to suggest ischemia no previous infarct was noted. Gated SPECT analysis: The gated ejection fraction is 88%. Conclusion: Normal exercise myocardial perfusion stress test at a moderate workload. 05/27/251832 Date Dudley Saunders MD CC: JAMESON Echeverria; ANAIS House Date Dictated: 05/27/251830 Date Transcribed: 05/27/251830 Paper Final Inspector: CO Signed Normal [facility] CT CHEST WO IVCONon 05-20-20 CT CHEST WO IVCON * * *Final Report* * * DATE OF EXAM: May 20 2025 11:57AM [facility] 0541 - CT CHEST WO IVCON / PROCEDURE REASON: Lung nodules * * * * Physician Interpretation * * * * EXAMINATION: CHEST CT WITHOUT CONTRAST CLINICAL HISTORY: Lung nodule follow-up Technique: Spiral CT acquisition of the chest from the thoracic inlet to the upper abdomen without contrast. MQ: CTCWO_6 CT Radiation dose: Integrated Dose-length product (DLP) for this visit = 219 mGy*cm CT Dose Reduction Employed: Automated exposure control(AEC) and iterative recon Comparison: 11/13/2024 RESULT: Limitations: None. Lines, tubes, and devices: None. Lung parenchyma and airways: Evaluation of lung parenchyma demonstrates a 6.2 mm noncalcified nodule in the posterior right upper lobe, image 40 of series 6. A couple of adjacent micronodules are present. There is a 3 mm noncalcified nodule in the left lower lobe, image 115 of series 6. These have not significantly changed since previous exam. No new pulmonary nodules identified. No focal airspace consolidation is seen. Mild emphysema is present. There is no bronchiectasis or pneumothorax. Pleural space: No pleural effusion. No pleural thickening. Lower neck, lymph nodes, and mediastinum: The imaged thyroid gland is normal. No lymphadenopathy in the supraclavicular, axillary, mediastinal, or hilar regions. Heart, pericardium, and thoracic vessels: The thoracic aorta and main pulmonary artery are normal in caliber. The cardiac chambers are normal in size. Atherosclerotic calcification of the coronary arteries, not further evaluated. No pericardial effusion or thickening. Bones and soft tissues: No destructive bone lesion. Chest wall is unremarkable. Upper abdomen: No abnormality in the imaged upper abdomen. Localizer images: No additional findings. IMPRESSION: Stable pulmonary nodules. Paper Final Inspector: PSCTaqueria Transcribe Date/Time: May 25 2025 7:15A Dictated by : JUAN JI MD This examination was interpreted and the report reviewed and electronically signed by: JUAN JI MD on May 25 2025 7:19AM EST [id number] Normal [facility] Cardiology Visit Reporton Cardiology Visit Report [facility] [address] [place] [address] OFFICE VISIT Date of Service: 04/29/25 MR#: [id number] Acct: [id number] Name: TRINH WOMACK Rep #: [id number] : 1950 Provider: ANAIS Grace Age/Sex: 74/F Location: [facility] Status: Signed HPI HPI History of Present Illness Details: Pleasant 74-year-old lady with a history of generalized anxiety disorder, hypertension who established with us for concerns of shortness of breath. Echocardiogram in 2023 demonstrated preserved left ventricular systolic function with evidence of mild to moderate pulmonary hypertension present. She did have an EKG in 2019 demonstrating leftward axis as well as a right bundle branch block. Her most recent lipid profile demonstrated total cholesterol of 219, HDL of 68 and LDL of 140. Pt has not had any chest pain. Although she had chest heaviness. This was a few weeks ago, she was treated for a URI and is not sure if this is any better. She does not have any worsening SOB. Sometimes she does have issues with her asthma. 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: No Is patient in pain?: No Allergies Penicillins Adverse Reaction (Verified 04/29/25 11:07) Swelling Medications ???Medication ???Instructions ???Recorded ???Confirmed ???Type albuterol sulfate 90 mcg/actuation 1 - 2 puff inhalation Q4H PRN DC N 12/17/18 04/29/25 History aerosol inhaler Wheezing ascorbic acid (vitamin C) 250 mg 250 mg PO DAILY SUPPLEMENT 9 04/29/25 History tablet calcium carbonate-vitamin D3 600 1 ea PO DAILY SUPPLEMENT 12/17/18 04/29/25 History mg-125 unit tablet alprazolam 0.25 mg tablet 0.25 mg PO BID ANXIETY 02/09/24 History cholecalciferol (vitamin D3) 25 25 mcg PO DAILY 02/09/24 04/29/25 History mcg (1,000 unit) capsule fluticasone 100 mcg-salmeterol 50 1 inh inhalation BID 02/09/2405/15 History mcg/dose blistr powdr for inhalation (Advair Diskus) citalopram 20 mg tablet 20 mg PO QDAY 04/24/24 04/29/25 Hi story aspirin 81 mg chewable tablet 81 mg PO 3XW 10/25/24 04/29/25 His tory multivitamin 1 tab PO QAM 10/25/24 04/29/25 His tory hydrochlorothiazide 25 mg tablet 25 mg PO QAM #90 tabs 12/04/2405/15 Rx losartan 100 mg tablet 100 mg PO QDAY 04/29/25 04/29/25 H istory Ejection fraction %: 65 Have you fallen in the past year?: No PFSH Medical History (Updated 04/29/25 @ 11:30 by Aissatou Acosta PA, PA) Chest heaviness SOB (shortness of breath) Palpitations Hx of cataract Hyperlipidemia Asthma DEN (generalized anxiety disorder) Chest pain History of breast cancer RBBB Osteoarthritis GERD (gastroesophageal reflux disease) HTN (hypertension) Surgical History Hx of oophorectomy Hx of mastectomy Hx of arthroscopy of knee Family History Mother Colon cancer Father Cancer CAD (coronary artery disease) Social History Smoking Status: Former smoker Tobacco: How many years used: 27 alcohol intake: never substance use type: does not use ROS Const Const: Positive for fatigue (Tires more quickly, relates to asthma); Negative for weakness Eyes Eyes: Negative for change in vision ENT ENT: Negative for dizziness or balance problems Cardio Chest Pain: Yes Character: other (heaviness) Palpitations: No Edema: None Resp Respiratory: Positive for SOB at rest (Infrequently, occurs with chest pressure); Negative for SOB with activity or SOB orthopnea SOB lying down GI GI: Negative nausea or heartburn Musc Musc: Negative for balance problems Neuro Neuro: Positive for lightheadedness (with episode of SOB, chest pressure); Negative for dizziness, near syncope, syncope or weakness Endo Endo: Positive for fatigue (Tires more quickly, relates to asthma) Cardiology Exam Const Appearance: cooperative, no acute distress and well developed Orientation: alert, awake and oriented x3 Head Head: normocephalic and atraumatic Mouth: moist mucous membranes Eyes General: appearance normal, both eyes and all related structures Conjunctivae: conjunctivae normal Pupils: PERRL EOM: EOM intact bilaterally Neck Neck: normal visual inspection, no lymphadenopathy and no JVD Carotids: Negative bruit Neck Mass: Negative Neck mass (more content not included)... Normal [facility] 04-18-2025 [facility] Telephone (LAYA) TRINH WOMACK ([id number]) 1950 F Date Time Provider Department 04/18/25 DAWNA BARBA During your visit today, we recorded the following information about you: Yanet Alaniz LPN 04/18/2025 8:52 AM Signed Patient calling with c/o of progressively worsening chest congestion x1 week. Reports productive cough with small amounts of yellow sputum and fatigue. She denies wheezing or fever/chills. Symptoms typical of her fall asthma exacerbation, but believes the addition of her Advair has helped control wheezing. Shelbi Murillo is preferred. Please advise. ZURI Moran Kathleen, LPN 04/18/2025 1:02 PM Signed Patient notified RX sent. Yanet Alaniz LPN Allergies As of Date: 04/18/2025 Noted Allergy Reaction PENICILLINS 01/19/2008 7 - Swelling 16 - Unknown Comments: breathing problem years ago Date Reviewed: 12/03/2024 Reviewed by: Dawna Barba APRN.CERTIFIED NURSE AIDE - Fully Assessed Order(s):doxycycline (VIBRA-TABS) 100 mg tabletTake 1 tablet by mouth two times a day for 7 days.Disp: 14 tabletRfl: 0 predniSONE (DELTASONE) 20 mg tabletTake 2 tablets by mouth once daily for 5 days.Disp: 10 tabletRfl: 0 Prescriptions as of 04/18/2025 - doxycycline (VIBRA-TABS) 100 mg tablet Take 1 tablet by mouth two times a day for 7 days. - predniSONE (DELTASONE) 20 mg tablet Take 2 tablets by mouth once daily for 5 days. - fluticasone-salmeterol (ADVAIR DISKUS) 100-50 mcg/dose inhaler Inhale 1 puff as instructed two times a day. - ALPRAZolam (XANAX) 0.25 mg tablet Take 1 tablet by mouth two times a day for 90 days. Patient should start on November 18, 2024. - citalopram (CELEXA) 20 mg tablet Take 1 tablet by mouth every afternoon. - losartan (COZAAR) 100 mg tablet Take 1 tablet by mouth every afternoon. - hydroCHLOROthiazide 25 mg tablet Take 25 mg by mouth every morning. - pantoprazole DR (PROTONIX) 20 mg tablet Take 1 tablet by mouth once daily. - albuterol HFA (PROVENTIL HFA, VENTOLIN HFA) 90 mcg/actuation inhaler Inhale 2 Puffs as instructed every 4 hours as needed. - ipratropium-albuterol (DUONEB) 0.5 mg-3 mg(2.5 mg base)/3 mL nebu Inhale 3 mL as instructed every 4 hours as needed. - cholecalciferol, vitamin D3, (VITAMIN D3 ORAL) Take 500 mg by mouth once daily. - Biotin 10,000 mcg cap Take 10,000 mcg by mouth once daily. - Nebulizer Accessories misc Tubing , mouthpiece; other supplies as needed - CALCIUM 500 MG TAB TAKES 2 TABLETS DAILY - ascorbic acid(VITAMIN C 500 MG TAB) Take one(1) tablet daily. Problem List As Of Date 04/18/2025 Noted Resolved Essential hypertension, benign [I10] 01/19/2008 Mild intermittent asthma without complication [*01/19/2008 Anxiety [F41.9] 01/19/2008 LOC OSTEOARTH NOS-L/LEG [M17.10] 06/05/2008 Dermatophytosis of the body [B35.4] 09/01/2008 12/12/2017 Dermatophytosis of foot [B35.3] 09/01/2008 12/12/2017 Other psoriasis [L40.8] 09/01/2008 12/12/2017 XEROSIS///SEBACEOUS GLAND DIS NEC [L73.8] 09/01/2008 12/12/2017 Dermatophytosis of hand [B35.2] 09/01/2008 12/12/2017 PRURITIC DISORDER NOS [L29.9] 09/01/2008 HYPERTROPHY OF BREAST [N62] 09/15/2008 ONYCHOMYCOSIS///DERMATO PHYTOSIS OF NAIL [B35.1] 10/15/2008 12/12/2017 Dyshidrosis [L30.1] 10/15/2008 12/12/2017 Malignant neoplasm of breast (female), unspecif*11/27/2008 07/31/2023 Drug-induced neutropenia (HCC) [D70.2] 01/20/2009 12/12/2017 Pain in rib [R07.81] 06/22/2009 12/12/2017 Personal history of malignant neoplasm of breas*03/21/2011 Arthritis of knee, left [M17.12] 06/04/2013 Trigger thumb of left hand [M65.312] 06/04/2013 Unspecified arthropathy, lower leg [M17.10] 06/18/2013 12/12/2017 Pain in joint, lower leg [M25.569] 06/18/2013 Gastroesophageal reflux disease [K21.9] 09/11/2017 Prescriptions ordered this encounter Disp Refills Start End DOXYCYCLINE HYCLATE 100 MG TABLET 14 t* 0 04/18/2025 04/25/2025 Route: PO Sig: Take 1 tablet by mouth two times a day for 7 days. PREDNISONE 20 MG TABLET 10 t* 0 04/18/2025 04/23/2025 Route: PO Sig: Take 2 tablets by mouth once daily for 5 days. Encounter Status:Closed by FREDA, DAWNA Gallo on 04/18/25 Normal [facility] Comprehensive metabolic 2000 panelon 01-31-2025 Albumin [Mass/Vol] 4.2 g/dL Normal 3.9-4.9 [facility] Comment on above: Order Comment: Speci men Type: BLOOD SPECIMENOrdering Facility: [facility] Address: [address] [place] [address] Performed By: #### 2 4323-8 ####[facility]ENTERLIA [id number] [place] [address] [place] ALP [Catalytic activity/Vol] 96 U/L Normal 34-123 [facility] Comment on above: Order Comment: Speci men Type: BLOOD SPECIMENOrdering Facility: [facility] Address: [address] [place] [address] Performed By: #### 2 4323-8 ####[facility] SYSTEMSWNCLIA [id number] [place] [address] [place] ALT [Catalytic activity/Vol] 16 U/L Normal 7-38 [facility] Comment on above: Order Comment: Speci men Type: BLOOD SPECIMENOrdering Facility: [facility] Address: [address] [place] [address] Performed By: #### 2 4323-8 ####[facility] [id number] [place] [address] [place] Anion gap [Moles/Vol] 13 mmol/L Normal 8-15 [facility] Comment on above: Order Comment: Speci men Type: BLOOD SPECIMENOrdering Facility: [facility] Address: [address] [place] [address] Performed By: #### 2 4323-8 ####[facility] [id number] [place] [address] [place] AST [Catalytic activity/Vol] 24 U/L Normal 13-35 [facility] Comment on above: Order Comment: Speci men Type: BLOOD SPECIMENOrdering Facility: [facility] Address: [address] [place] [address] Performed By: #### 2 4323-8 ####[facility] [id number] [place] [address] [place] Bilirubin [Mass/Vol] 0.4 mg/dL Normal 0.2-1.3 [facility] Comment on above: Order Comment: Speci men Type: BLOOD SPECIMENOrdering Facility: [facility] Address: [address] [place] [address] Performed By: #### 2 4323-8 ####[facility] [id number] [place] [address] [place] Calcium [Mass/Vol] 9.8 mg/dL Normal 8.5-10.2 [facility] Comment on above: Order Comment: Speci men Type: BLOOD SPECIMENOrdering Facility: [facility] Address: [address] [place] [address] Performed By: #### 2 4323-8 ####[facility] [id number] [place] [address] [place] Chloride [Moles/Vol] 98 mmol/L Normal 98-107 [facility] Comment on above: Order Comment: Speci men Type: BLOOD SPECIMENOrdering Facility: [facility] Address: [address] [place], [place] [id number] Performed By: #### 2 4323-8 ####[facility]ORLONGWOODIVANOGDEN [facility] [id number] [address] [place] [facility] CO2 [Moles/Vol] 25 mmol/L Normal 22-30 [facility] Comment on above: Order Comment: Speci men Type: BLOOD SPECIMENOrdering Facility: [facility] Address: [address] [place] [address] Performed By: #### 2 4323-8 ####[facility] [id number] [address] OF [facility] Creatinine [Mass/Vol] 0.89 mg/dL Normal 0.58-0.96 [facility] Comment on above: Order Comment: Speci men Type: BLOOD SPECIMENOrdering Facility: [facility] Address: [address] [place] [address] Performed By: #### 2 4323-8 ####[facility] [id number] [address] Creatinine and Glomerular filtration rate.predicted panel (S/P/Bld) 67 mL/min/1.73m??? Normal >=60 [facility] Comment on above: Order Comment: Speci men Type: BLOOD SPECIMENOrdering Facility: [facility] Address: [address] [place] [address] Result Comment: [place] mated Glomerular Filtration Rate (eGFR) is calculated using the 2020 CKD-EPI creatinine equation. This equation utilizes serum creatinine, sex, and age as parameters. The creatinine assay has traceable calibration to isotope dilution-mass spectrometry. Refer to KDIGO guidelines for clinical interpretation. In patients with unstable renal function, e.g. those with acute kidney injury, the eGFR may not accurately reflect actual GFR. Performed By: #### 2 4323-8 ####[facility] SYSTEMSWNCLIA [id number] [place] [address] [place] Glucose [Mass/Vol] 102 mg/dL High 74-99 [facility] Comment on above: Order Comment: Speci men Type: BLOOD SPECIMENOrdering Facility: [facility] Address: [address] [place] [address] Result Comment: The [place] Diabetes Association (ADA) provides guidance for cutoff values for fasting glucose and random glucose. The ADA defines fasting as no caloric intake for at least 8 hours. Fasting plasma glucose results between 100 to 125 mg/dL indicate increased risk for diabetes (prediabetes). Fasting plasma glucose results greater than or equal to 126 mg/dL meet the criteria for diagnosis of diabetes. In the absence of unequivocal hyperglycemia, results should be confirmed by repeat testing. In a patient with classic symptoms of hyperglycemia or hyperglycemic crisis, random plasma glucose results greater than or equal to 200 mg/dL meet the criteria for diagnosis of diabetes. Reference: Standards of Medical Care in Diabetes 2016, [place] Diabetes Association. Diabetes Care. 2016.39(Suppl 1). Performed By: #### 2 4323-8 ####[facility] SYSTEMSWIVANLIA [id number] [place] [address] [place] Potassium [Moles/Vol] 4.8 mmol/L Normal 3.7-5.1 [facility] Comment on above: Order Comment: Vern martini Type: BLOOD SPECIMENOrdering Facility: [facility] Address: [address] [place] [address] Performed By: #### 2 4323-8 ####[facility] MILLWNCLIA [id number] [place] [address] [place] Protein [Mass/Vol] 6.7 g/dL Normal 6.3-8.0 [facility] Comment on above: Order Comment: Melaniei men Type: BLOOD SPECIMENOrdering Facility: [facility] Address: [address] [place] [address] Performed By: #### 2 4323-8 ####[facility] MILLWNCLIA [id number] [place] [address] [place] Sodium [Moles/Vol] 136 mmol/L Normal 136-144 [facility] Comment on above: Order Comment: Speci men Type: BLOOD SPECIMENOrdering Facility: [facility] Address: [address] [place] [address] Performed By: #### 2 4323-8 ####[facility] [id number] [place] [address] [place] Urea nitrogen [Mass/Vol] 23 mg/dL High 7-21 [facility] Comment on above: Order Comment: Speci men Type: BLOOD SPECIMENOrdering Facility: [facility] Address: [address] [place] [address] Performed By: #### 2 4323-8 ####[facility] [id number] [place] [address] [place] Lipid 1996 panelon 5 Cholesterol [Mass/Vol] 184 mg/dL Normal <200 [facility] Comment on above: Order Comment: Speci men Type: BLOOD SPECIMENOrdering Facility: [facility] Address: [address] [place] [address] Result Comment: <200 mg/dL, Desirable 200-239 mg/dL, Borderline high >239 mg/dL, High Performed By: #### 2 4331-1 ####[facility] [id number] [place] [address] [place] [facility] [id number] [place] [address] [place] Cholesterol in HDL [Mass/Vol] 63 mg/dL Normal >39 [facility] Comment on above: Order Comment: Speci men Type: BLOOD SPECIMENOrdering Facility: [facility] Address: [address] [place] [address] Result Comment: 40-5 9 mg/dL, Acceptable >59 mg/dL, High: Negative risk factor for coronary heart disease <40 mg/dL, Low: Positive risk factor for coronary heart disease Performed By: #### 2 4331-1 ####[facility] [id number] [address] [id number] [place] [address] Cholesterol in LDL [Mass/Vol] 112 mg/dL High <100 [facility] Comment on above: Order Comment: Speci men Type: BLOOD SPECIMENOrdering Facility: [facility] Address: [address] [place] [address] Result Comment: <100 mg/dL, Optimal 100-129 mg/dL, Near optimal/above optimal 130-159 mg/dL, Borderline high 160-189 mg/dL, High >189 mg/dL, Very high Secondary prevention optimal LDL Cholesterol levels are recommended to be <70 mg/dL LDL cholesterol is calculated using the Lilly-NIH equation. Performed By: #### 2 4331-1 ####[facility] [id number] [id number] [place] [address] Cholesterol in LDL/Cholesterol in HDL [Mass ratio] 1.78 {ratio} Normal <2.54 [facility] Comment on above: Order Comment: Speci men Type: BLOOD SPECIMENOrdering Facility: [facility] Address: [address] [place] [address] Result Comment: Roberta sahni: 1. National Cholesterol Education Program ATP III Guideline At-A-Glance Quick Desk Reference: National Heart, Lung, and Blood Convoy. National Institutes of Health. 2001: NIH Publication No. 01-3305. 2. An International Atherosclerosis Society position paper: global recommendations for the management of dyslipidemia: executive summary, Atherosclerosis. 2014: 232(2):410-413. Performed By: #### 2 4331-1 ####[facility] [id number] [address] [facility] [id number] [place] [address] [place] Cholesterol in VLDL [Mass/Vol] 7 mg/dL Normal <30 [facility] Comment on above: Order Comment: Speci men Type: BLOOD SPECIMENOrdering Facility: [facility] Address: [address] [place] [address] Performed By: #### 2 4331-1 ####[facility] [id number] [address] [id number] [place] [address] [place] Cholesterol non HDL [Mass/Vol] 121 mg/dL Normal <130 [facility] Comment on above: Order Comment: Speci men Type: BLOOD SPECIMENOrdering Facility: [facility] Address: [address] [place] [address] Result Comment: <130 mg/dL, Optimal 130-159 mg/dL, Near optimal/above optimal 160-189 mg/dL, Borderline high 190-219 mg/dL, High >219 mg/dL, Very high Secondary prevention optimal non HDL Cholesterol levels are recommended to be <100 mg/dL Performed By: #### 2 4331-1 ####[facility] [id number] [address] [id number] [place] [address] [place] Cholesterol.total/Ch olesterol in HDL [Mass ratio] 2.92 {ratio} Normal <5.10 [facility] Comment on above: Order Comment: Speci men Type: BLOOD SPECIMENOrdering Facility: [facility] Address: [address] [place], [place] [id number] Performed By: #### 2 4331-1 ####[facility] [id number] [id number] [id number] [place] [address] [place] FASTING TIME 12 hrs Normal [facility] Comment on above: Order Comment: Speci men Type: BLOOD SPECIMENOrdering Facility: [facility] Address: [address] [place] [address] Performed By: #### 2 4331-1 ####[facility] [id number] [address] [id number] [place] [address] [place] Triglyceride [Mass/Vol] 43 mg/dL Normal <150 [facility] Comment on above: Order Comment: Speci men Type: BLOOD SPECIMENOrdering Facility: [facility] Address: [address] [place] [address] Result Comment: <150 mg/dL, Normal 150-199 mg/dL, Borderline high 200-499 mg/dL, High >499 mg/dL, Very high Performed By: #### 2 4331-1 ####[facility] [id number] [address] [id number] [place] [address] [place] Urine Cultureon 12-15-2024 [facility] Below infection leve l. Mixed Gram Positive Organisms [place] Count 1000-10,000 MIXC Mixed contaminants. Submit a new specimen if indicated. Normal [facility] Comment on above: Performed By: #### M 100.2200 #### [facility] [address] [place], [place], [id number] CNOVon 12-03-2024 CNOV Office Visit (PULMWS ) TRINH WOMACK ([id number]) 1950 F Date Time Provider Department 12/03/24 10:30 AM DAWNA BARBA PULCrystalWS During your visit today, we recorded the following information about you: Pulse Respiration Blood pressure Weight 83/minute 18/minute 132/82 60.8 kg Dawna Barba APRN.CERTIFIED NURSE AIDE 12/03/2024 4:08 PM Signed Pulmonary Medicine Patients name: Trinh Womack PCP: Leslye Mccloud MD CC: Asthma follow-up HPI: Trinh Womack is a 74 year old female former 27 pack year smoker, quitting 1990 with PMH significant for childhood asthma, right breast cancer 2008 (XRT, chemo, Tamoxifen 5 years), psoriasis, HTN, GERD, and chronic rhinitis. Current maintenance therapy with Advair and PRN Albuterol. She presents today for follow-up. CHASE 05/2024 with intermittent use of Wixela. Was acutely ill at that time. Encouraged regular use of ICS/LABA. PFT were updated earlier this year were normal. Has a known lung nodule which was first seen on CT scan in 04/2024, repeat CT scan in October showed stability. Today, she reports overall feeling well, stating she feels much better now than she did a year ago with constant bouts of bronchitis. Notes that Advair has made a big difference. She denies any significant respiratory infections over the winter. Reports occasional dry cough. Denies wheezing, chest tightness or dyspnea at rest or with exertion. Albuterol use is rare. She does note fatigue but is up frequently at night with her dog. She also wakes up early for work and helps with great grandkids. PAST MEDICAL HISTORY Diagnosis Date Acute sinusitis, unspecified drainage Allergic rhinitis Childhood asthma Generalized anxiety disorder Anxiety, Generalized GERD (gastroesophageal reflux disease) Malignant neoplasm of breast (female), unspecified site right breast Psoriasis and similar disorders Unspecified asthma(493.90) uses nebulizer prn Unspecified essential hypertension Essential hypertension Allergies: Penicillins Swelling, Unknown Comment:breathing problem years ago Medication List Accurate as of November 29, 2024 4:02 PM. If you have any questions, ask your nurse or doctor. CONTINUE taking these medications albuterol HFA 90 mcg/actuation inhaler Commonly known as: PROVENTIL HFA, VENTOLIN HFA Inhale 2 Puffs as instructed every 4 hours as needed. ALPRAZolam 0.25 mg tablet Commonly known as: XANAX Take 1 tablet by mouth two times a day for 90 days. Patient should start on November 18, 2024. Biotin 10,000 mcg Cap calcium (elemental) Tab citalopram 20 mg tablet Commonly known as: CeleXA Take 1 tablet by mouth every afternoon. fluticasone-salmeterol 100-50 mcg/dose inhaler Commonly known as: ADVAIR DISKUS Inhale 1 Puff as instructed two times a day. hydroCHLOROthiazide 25 mg tablet ipratropium-albuterol 0.5 mg-3 mg(2.5 mg base)/3 mL Nebu Commonly known as: DUONEB Inhale 3 mL as instructed every 4 hours as needed. losartan 100 mg tablet Commonly known as: COZAAR Take 1 tablet by mouth every afternoon. Nebulizer Accessories Misc Tubing , mouthpiece; other supplies as needed pantoprazole DR 20 mg tablet Commonly known as: PROTONIX Take 1 tablet by mouth once daily. VITAMIN C 500 mg tablet Generic drug: ascorbic acid (vitamin C) VITAMIN D3 ORAL DATA: I personally reviewed and analyzed all labs, radiographs and available pulmonary function testing PFT: 08/2024 Spirometry is normal. Lung volumes are normal. The diffusion capacity (uncorrected for hemoglobin) is normal. CXR: Last XR Chest - Impression Only XR CHEST 2V FRONTAL/LAT Exam End: 06/18/2024 12:52 PM (Final result) Impression: IMPRESSION: No developing abnormality or acute process ... CT Chest: 11/13/2024 IMPRESSION: 1. Stable subcentimeter pulmonary nodules. No new nodules are visualized. 2. No thoracic lymphadenopathy Paper Final Inspector: PSCB Transcribe Date/Time: Nov 20 2024 12:22P Dictated by : MACRINA SHANNON MD This examination was interpreted and the report reviewed and electronically signed by: MACRINA SHANNON MD on Nov 20 2024 12:31PM EST Results-Findings * * *Final Report* * * DATE OF EXAM: Nov 13 2024 10:11AM [facility] - CT CHEST WO IVCON / PROCEDURE REASON: Lung nodules * * * * Physician Interpretation * * * * EXAMINATION: CHEST CT WITHOUT CONTRAST CLINICAL HISTORY: Lung nodules Technique: Spiral CT acquisition of the chest from the thoracic inlet to the upper abdomen without contrast. MQ: CTCWO_6 CT Radiation dose: Integrated Dose-length product (DLP) for this visit = 207 mGy*cm CT Dose Reduction Employed: Automated exposure control(AEC) and iterative recon Comparison: CTA chest 05/13/2024 RESULT: Limitations: None. Lines, tubes, and devices: None. Lung parenchyma and airways: Stable 7 x 4 mm (more content not included)... [facility] ([id number]) 1950 F Date Time Provider Department 11/19/24 DAWNA BARBA During your visit today, we recorded the following information about you: Yanet Alaniz LPN 11/19/2024 1:37 PM Signed Patient calling for CT results. Aware official radiology read is not yet completed, but checking to see if images have been reviewed by pulm provider? Yanet Alaniz LPN Allergies As of Date: 11/19/2024 Noted Allergy Reaction PENICILLINS 01/19/2008 7 - Swelling 16 - Unknown Comments: breathing problem years ago Date Reviewed: 11/01/2024 Reviewed by: Jenni Bui LPN - Fully Assessed Reason for Visit: Results [95] Prescriptions as of 11/19/2024 - ALPRAZolam (XANAX) 0.25 mg tablet Take 1 tablet by mouth two times a day for 90 days. Patient should start on November 18, 2024. - fluticasone-salmeterol (ADVAIR DISKUS) 100-50 mcg/dose inhaler Inhale 1 Puff as instructed two times a day. - citalopram (CELEXA) 20 mg tablet Take 1 tablet by mouth every afternoon. - losartan (COZAAR) 100 mg tablet Take 1 tablet by mouth every afternoon. - hydroCHLOROthiazide 25 mg tablet Take 25 mg by mouth every morning. - pantoprazole DR (PROTONIX) 20 mg tablet Take 1 tablet by mouth once daily. - albuterol HFA (PROVENTIL HFA, VENTOLIN HFA) 90 mcg/actuation inhaler Inhale 2 Puffs as instructed every 4 hours as needed. - ipratropium-albuterol (DUONEB) 0.5 mg-3 mg(2.5 mg base)/3 mL nebu Inhale 3 mL as instructed every 4 hours as needed. - cholecalciferol, vitamin D3, (VITAMIN D3 ORAL) Take 500 mg by mouth once daily. - Biotin 10,000 mcg cap Take 10,000 mcg by mouth once daily. - Nebulizer Accessories misc Tubing , mouthpiece; other supplies as needed - CALCIUM 500 MG TAB TAKES 2 TABLETS DAILY - ascorbic acid(VITAMIN C 500 MG TAB) Take one(1) tablet daily. Problem List As Of Date 11/19/2024 Noted Resolved Essential hypertension, benign [I10] 01/19/2008 Mild intermittent asthma without complication [*01/19/2008 Anxiety [F41.9] 01/19/2008 LOC OSTEOARTH NOS-L/LEG [M17.10] 06/05/2008 Dermatophytosis of the body [B35.4] 09/01/2008 12/12/2017 Dermatophytosis of foot [B35.3] 09/01/2008 12/12/2017 Other psoriasis [L40.8] 09/01/2008 12/12/2017 XEROSIS///SEBACEOUS GLAND DIS NEC [L73.8] 09/01/2008 12/12/2017 Dermatophytosis of hand [B35.2] 09/01/2008 12/12/2017 PRURITIC DISORDER NOS [L29.9] 09/01/2008 HYPERTROPHY OF BREAST [N62] 09/15/2008 ONYCHOMYCOSIS///DERMATO PHYTOSIS OF NAIL [B35.1] 10/15/2008 12/12/2017 Dyshidrosis [L30.1] 10/15/2008 12/12/2017 Malignant neoplasm of breast (female), unspecif*11/27/2008 07/31/2023 Drug-induced neutropenia (HCC) [D70.2] 01/20/2009 12/12/2017 Pain in rib [R07.81] 06/22/2009 12/12/2017 Personal history of malignant neoplasm of breas*03/21/2011 Arthritis of knee, left [M17.12] 06/04/2013 Trigger thumb of left hand [M65.312] 06/04/2013 Unspecified arthropathy, lower leg [M17.10] 06/18/2013 12/12/2017 Pain in joint, lower leg [M25.569] 06/18/2013 Gastroesophageal reflux disease [K21.9] 09/11/2017 Encounter Status:Closed by CLICK, DAWNA Gallo on 11/19/24 Normal [facility] CT CHEST WO IVCONon 11-14-19 CT CHEST WO IVCON * * *Final Report* * * DATE OF EXAM: Nov 13 2024 10:11AM [facility] 0541 - CT CHEST WO IVCON / PROCEDURE REASON: Lung nodules * * * * Physician Interpretation * * * * EXAMINATION: CHEST CT WITHOUT CONTRAST CLINICAL HISTORY: Lung nodules Technique: Spiral CT acquisition of the chest from the thoracic inlet to the upper abdomen without contrast. MQ: CTCWO_6 CT Radiation dose: Integrated Dose-length product (DLP) for this visit = 207 mGy*cm CT Dose Reduction Employed: Automated exposure control(AEC) and iterative recon Comparison: CTA chest 05/13/2024 RESULT: Limitations: None. Lines, tubes, and devices: None. Lung parenchyma and airways: Stable 7 x 4 mm nodule posterior right upper lobe (7:38). Stable 3 mm nodule lateral left lower lobe (7:111). No new pulmonary nodules. Scarring in the anterior right upper lobe. No acute airspace disease. Central airways are patent. Pleural space: No pleural effusion. No pleural thickening. Lower neck, lymph nodes, and mediastinum: The imaged thyroid gland is normal. No lymphadenopathy in the supraclavicular, axillary, mediastinal, or hilar regions. Heart, pericardium, and thoracic vessels: Normal caliber of the thoracic aorta. Prominence of the main pulmonary artery which can be seen with pulmonary artery hypertension. Coronary artery atherosclerotic calcifications are noted, although the study is not optimized for coronary assessment. No pericardial effusion or thickening. Bones and soft tissues: No destructive bone lesion. Degenerative disease of the thoracic spine. Right breast prosthesis. Upper abdomen: No abnormality in the imaged upper abdomen. Localizer images: No additional findings. IMPRESSION: 1. Stable subcentimeter pulmonary nodules. No new nodules are visualized. 2. No thoracic lymphadenopathy Paper Final Inspector: PSCB Transcribe Date/Time: Nov 20 2024 12:22P Dictated by : MACRINA SHANNON MD This examination was interpreted and the report reviewed and electronically signed by: MACRINA SHANNON MD on Nov 20 2024 12:31PM EST [id number] Normal [facility] CNOVon 11-01-2024 CNOV Office Visit (ANNETTE ) TRINH WOMACK ([id number]) 1950 F Date Time Provider Department 11/01/24 11:00 AM KATHIE ECHEVERRIA During your visit today, we recorded the following information about you: Pulse Respiration Blood pressure Weight 67/minute 16/minute 130/78 61.4 kg Kathie Echeverria APRN.CNP 11/01/2024 11:30 AM Signed This is a 74 year old female who presents today with: Patient presents with: Follow Up: 3 month follow up HISTORY OF PRESENT ILLNESS: Trinh Feng Vu is a 74 year old female. Patient presents with: Follow Up: 3 month follow up 3 month follow up DUE FOR LABS GERD: Symptoms controlled on Protonix 20 mg daily. Reports Protonix is helping. She also takes Anamaria's as needed. DEN: Stable on Celexa 20 mg daily and Xanax 0.25 mg 1 pill BID. Refers she does have increased stress with nephew living with her. Denies SI/HI. Reports she is feeing good. HTN: Taking Losartan 100 mg daily and hydrochlorothiazide 25 mg daily. Checks BP at home, getting 130-150's/70's. Following with [facility] today, Dr. Saunders. Denies chest pain, palpitations, dizziness or edema. Lipid: Not taking any cholesterol medications. Staying busy with grandchildren. 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 Asthma/ Chronic Bronchitis: Follows with Pulmonology Dr. Ruiz. Is using Wixela daily, Duoneb for nebulizer, and Albuterol inhaler prn. Refers she was diagnosed with Pulmonary HTN, pulmonology ordered full PFTs to be completed. Lung nodule noted, will have repeat CT in October. Has an appointment in 2 weeks. History of breast cancer; notes that she has breast implants. Has mammograms done yearly. Denies breast tenderness or pain. Completed in August 2024. Colonoscopy: Completed cologuard in April 2024, negative. Due in 2026. Vaccines: UTD PAST MEDICAL HISTORY: PAST MEDICAL HISTORY Diagnosis Date Acute sinusitis, unspecified drainage Allergic rhinitis Childhood asthma Generalized anxiety disorder Anxiety, Generalized GERD (gastroesophageal reflux disease) Malignant neoplasm of breast (female), unspecified site right breast Psoriasis and similar disorders Unspecified asthma(493.90) uses nebulizer prn Unspecified essential hypertension Essential hypertension PAST SURGICAL HISTORY Procedure Laterality Date ARTHROSCOPY KNEE DIAGNOSTIC W/WO SYNOVIAL BX SPX 2004 Arthroscopy, knee, left by [employer] AXILLARY FINE NEEDLE ASPIRATION 11/27/2008 left BREAST RECONSTRUC W LAT DORSI FLAP 02/11/2011 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 Levi Yoder LIG/TRNSXJ FLP TUBE ABDL/VAG APPR UNI/BI Tubal ligation MASTECTOMY, PARTIAL 12/16/2008 right breast with SLND/ALND with right oncoplasty and left reduction MASTECTOMY, SIMPLE, COMPLETE 07/24/2009 right skin-sparing OOPHORECTOMY PARTIAL/TOTAL UNI/BI 1 Oophorectomy PAST SURGICAL HISTORY OF Right 04/15/2024 Cataract extraction with intraocular lens implant - Dr. 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 ALPRAZolam (XANAX) 0.25 mg tablet Take 1 tablet by mouth two times a day for 90 days. Patient should start on August 21, 2024. citalopram (CELEXA) 20 mg tablet Take 1 tablet by mouth every afternoon. losartan (COZAAR) 100 mg tablet Take 1 tablet by mouth every afternoon. hydroCHLOROthiazide 25 mg tablet Take 25 mg by mouth every morning. pantoprazole DR (PROTONIX) 20 mg tablet Take 1 tablet by mouth once daily. albuterol HFA (PROVENTIL HFA, VENTOLIN HFA) 90 mcg/actuation inhaler Inhale 2 Puffs as instructed every 4 hours as needed. ipratropium-albuterol (DUONEB) 0.5 mg-3 mg(2.5 mg base)/3 mL nebu Inhale 3 mL as instructed every 4 hours as needed. cholecalciferol, vitamin D3, (VITAMIN D3 ORAL) Take 500 mg by mouth once daily. Biotin 10,000 mcg cap Take 10,000 mcg by mouth once daily. Nebulizer Accessories misc Tubing , mouthpiece; other supplies as needed CALCIUM 500 MG TAB TAKES 2 TABLETS DAILY ascorbic acid(VITAMIN C 500 MG TAB) Take one(1) tablet daily. No current facility-administere (more content not included)... Normal [facility] Anion gap in Serum or Plasma Ordered By: Aissatou Acosta on 10-25-2024 Anion gap [Moles/Vol] 10 mmol/L - [facility] BUN/creatinine ratioOrdered By: Aissatou Acosta on 10-25-2024 Urea nitrogen/Creatinine [Mass ratio] 24.4 mg/mg High - [facility] Basic Metabolic Profile (BMP )on 10-25-2024 BUN/CRE 24.4 RATIO High 10-20 [facility] Comment on above: Performed By: #### L 503.7505, L500.2500 #### [facility] [address] [place], [address] Calcium [Mass/Vol] 9.8 mg/dL Normal 7.6-11.0 [facility] Comment on above: Performed By: #### L 503.7505, L500.2500 #### [facility] [address] [place], [address] Chloride [Moles/Vol] 98 mmol/L Normal 98-108 [facility] Comment on above: Performed By: #### L 503.7505, L500.2500 #### [facility] [address] [place], [address] CO2 [Moles/Vol] 27.1 mmol/L Normal 21.0-32.0 [facility] Comment on above: Performed By: #### L 503.7505, L500.2500 #### [facility] [address] [place], [address] Creatinine [Mass/Vol] 0.84 mg/dL Normal 0.70-1.20 [facility] Comment on above: Performed By: #### L 503.7505, L500.2500 #### [facility] [address] [place], [address] GAP 10 Normal 5-15 [facility] Comment on above: Performed By: #### L 503.7505, L500.2500 #### [facility] [address] [place], [address] GFR/1.73 sq M.predicted among non-blacks MDRD (S/P/Bld) [Vol rate/Area] 72 mL/min/{1.73_m2} Normal >60 [facility] Comment on above: Result Comment: mL/m in/1.73m2 CKD-EPI Creatinine Equation (2020) Performed By: #### L 503.7505, L500.2500 #### [facility] [address] [place], [address] Glucose [Mass/Vol] 84 mg/dL Normal 70-99 [facility] Comment on above: Performed By: #### L 503.7505, L500.2500 #### [facility] [address] [place], [address] Potassium [Moles/Vol] 4.1 mmol/L Normal 3.3-5.1 [facility] Comment on above: Performed By: #### L 503.7505, L500.2500 #### [facility] [address] [place], [address] Sodium [Moles/Vol] 135 mmol/L Normal 133-145 [facility] Comment on above: Performed By: #### L 503.7505, L500.2500 #### [facility] [address] [place], [address] Urea nitrogen [Mass/Vol] 21 mg/dL High 4-19 [facility] Comment on above: Performed By: #### L 503.7505, L500.2500 #### [facility] [address] [place], [address] Carbon dioxide, total [Moles /volume] in Central venous bloodOrdered By: Aissatou Acosta on 10-25-2024 CO2 [Moles/Vol] 27.1 mmol/L 21.0-32.0 [facility] Cardiology Visit Reporton Cardiology Visit Report [facility] [facility] [address] [place] [address] OFFICE VISIT Date of Service: 10/25/24 MR#: [id number] Acct: [id number] Name: VUTRINH CECILLE Rep #: [id number] : 1950 Provider: ANAIS Grace Age/Sex: 74/F Location: [facility] Status: Signed HPI HPI History of Present Illness Details: Pleasant 74-year-old lady with a history of generalized anxiety disorder, hypertension who established with us for concerns of shortness of breath. She says that she has been checking her blood pressures at home and they have been noted to be elevated and she also has a history of bronchial asthma. She has been compliant with her medications but due to her shortness of breath she had an echocardiogram ordered which demonstrated preserved left ventricular systolic function with evidence of mild to moderate pulmonary hypertension present. She did have an EKG in 2019 demonstrating leftward axis as well as a right bundle branch block. Her most recent lipid profile demonstrated total cholesterol of 219, HDL of 68 and LDL of 140. She is very active for her age. 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 She thinks that her advair helped with her SOB. She does not have any chest pain/heaviness. She does not have any lightheadedness/dizzine ss. She does not have any palpitations. She is concerned about her pulmonary hypertension. Intake Vital Signs 04/24/24 10:01 10/25/24 07:42 10/25/24 10:21 Height 4 ft 10 in 4 ft 10 in Weight: 131 lb 8 oz 135 lb BMI 27.4 28.2 BP 162/79 H 176/75 H 150/70 H Blood Pressure Location Lt brachial Lt brachial Position Sitting Sitting Respiration 16 18 Pulse 59 L 62 Pulse Source Monitor Monitor Pulse Oximetry (%) 98 Intake Visit Reasons: 6 M Extrusion Die Coordinator Required: No Is patient in pain?: No Allergies Penicillins Adverse Reaction (Verified 10/25/24 10:01) Swelling Medications ???Medication ???Instructions ???Recorded ???Confirmed ???Type albuterol sulfate 90 mcg/actuation 1 - 2 puff inhalation Q4H PRN DC N 12/17/18 10/25/24 History aerosol inhaler Wheezing ascorbic acid (vitamin C) 250 mg 250 mg PO DAILY SUPPLEMENT 9 10/25/24 History tablet calcium carbonate-vitamin D3 600 1 ea PO DAILY SUPPLEMENT 12/17/18 10/25/24 History mg-125 unit tablet losartan 50 mg tablet 100 mg PO DAILY BP 12/17/18 History alprazolam 0.25 mg tablet 0.25 mg PO BID ANXIETY 02/09/24 History cholecalciferol (vitamin D3) 25 25 mcg PO DAILY 02/09/24 10/25/24 History mcg (1,000 unit) capsule fluticasone 100 mcg-salmeterol 50 1 inh inhalation BID 02/09/2403/14 History mcg/dose blistr powdr for inhalation (Advair Diskus) citalopram 20 mg tablet 20 mg PO QDAY 04/24/24 10/25/24 Hi story hydrochlorothiazide 25 mg tablet 25 mg PO QAM #60 tabs 04/24/2403/14 Rx aspirin 81 mg chewable tablet 81 mg PO 3XW 10/25/24 10/25/24 His tory multivitamin 1 tab PO QAM 10/25/24 10/25/24 His tory Ejection fraction %: 65 Have you fallen in the past year?: No PFSH Medical History (Updated 10/25/24 @ 10:15 by Aissatou MANZO, PA) SOB (shortness of breath) Palpitations Hx of cataract Hyperlipidemia Asthma DEN (generalized anxiety disorder) Chest pain History of breast cancer RBBB Osteoarthritis GERD (gastroesophageal reflux disease) HTN (hypertension) Surgical History Hx of oophorectomy Hx of mastectomy Hx of arthroscopy of knee Family History Mother Colon cancer Father Cancer CAD (coronary artery disease) Social History Smoking Status: Former smoker Tobacco: How many years used: 27 alcohol intake: never substance use type: does not use ROS Const Const: Positive for fatigue; Negative for weakness, headache(s) or frequent falls Eyes Eyes: Negative for blurry vision ENT ENT: Negative for headache(s), dizziness or Nosebleed/epistaxis Cardio Chest Pain: No Palpitations: No Edema: None Muscle aches with walking: None Resp Respiratory: Positive for SOB with activity (asthma) and SOB at rest; Negative for SOB orthopnea SOB lying down GI GI: Negative nausea, vomiting, heartburn, bright, red blood in stools or black,tarry stools : Negative for hematuria Neuro Neuro: Negative for dizziness, frequent falls, headache(s), weakness or blurry vision Endo Endo: Positive for fatigue Cardiology Exam Const Appearance: cooperative, no acute distress and well developed Orientation: alert, awake and oriented x3 Head Head: normocephalic and atraumatic Mouth: mo (more content not included)... Normal [facility] Chloride assayOrdered By: Joann Acosta on 10-25-2024 Chloride [Moles/Vol] 98 mmol/L 98-108 [facility] GFR/1.73 sq M.predicted yaya g non-blacks MDRD (S/P/Bld) [Vol rate/Area]Ordered By: Aissatou Acosta on 10-25-2024 Estimated GFR (MDRD) Non-Af Amer 72 >60 [facility] Comment on above: mL/min/1.73m2 CKD-EP I Creatinine Equation (2020) L503.7505on 10-25-2024 Natriuretic peptide B (Bld) [Mass/Vol] 574 pg/mL Normal <=1800 [facility] Comment on above: Result Comment: Hear t Failure Unlikely: < 300 pg/mL Heart Failure Likely < 50 Years: > 450 pg/mL 50-75 Years: > 900 pg/mL >75 Years: > 1800 pg/mL Performed By: #### L 503.7505, L500.2500 #### [facility] [address] [place], [place] [address], [place], [address] Laboratory - Chemistry and C hemistry - challengeOrdered By: Aissatou Acosta on 10-25-2024 Natriuretic peptide B (Bld) [Mass/Vol] 574 pg/mL <1800 [facility] Comment on above: Heart Failure Unlike ly: < 300 pg/mLHeart Failure Likely< 50 Years: > 450 pg/mL50-75 Years: > 900 pg/mL>75 Years: > 1800 pg/mL Potassium (Unsp spec) [Mass/ Vol]Ordered By: Aissatou Acosta on 10-25-2024 Potassium [Moles/Vol] 4.1 mmol/L 3.3-5.1 [facility] Serum creatinine measurement (mass/volume)Ordered By: Aissatou Acosta on 10-25-2024 Creatinine [Mass/Vol] 0.84 mg/dL 0.70-1.20 [facility] Serum glucose measurement (m ass/volume)Ordered By: Aissatou Acosta on 10-25-2024 Glucose [Mass/Vol] 84 mg/dL 70-99 [facility] Serum or plasma calcium joon urement (mass/volume)Ordered By: Aissatou Acosta on 10-25-2024 Calcium [Mass/Vol] 9.8 mg/dL 7.6-11.0 [facility] Serum or plasma urea nitroge n measurement (mass/volume)Ordered By: Aissatou Acosta on 10-25-2024 Urea nitrogen [Mass/Vol] 21 mg/dL High 4-19 [facility] Sodium levelOrdered By: Angelo Acosta on 10-25-2024 Sodium [Moles/Vol] 135 mmol/L 133-145 [facility] LETICIA SCREENINGon 09-17-2024 [facility] SCREENING * * *Final Report* * * DATE OF EXAM: Sep 17 2024 11:13AM [facility] 0581 - [facility] SCREENING / PROCEDURE REASON: Personal history of malignant neoplasm of breast * * * * Physician Interpretation * * * * RESULT: [place] [address] #[id number] - [facility] SCREENING HISTORY: Patient is 74 years old and is seen for screening and is asymptomatic in both breasts. The patient has a history of right breast cancer at age 63. COMPARISON STUDIES: The present examination has been compared to prior imaging studies dated 06/04/2019 (mammogram), 09/04/2020 (mammogram), 08/23/2021 (mammogram), 09/29/2021 (mammogram) and 10/19/2022 (mammogram). MAMMOGRAM TECHNIQUE: The study was acquired using full field digital technology and interpreted from soft copy. MAMMOGRAM FINDINGS: There are scattered areas of fibroglandular density in the left breast. There are post-reduction changes in the left breast. The patient is status post right mastectomy with retropectoral implant and the remaining right breast tissue is fatty. No suspicious masses, calcifications or other abnormalities are seen in either breast. IMPRESSION: There is no mammographic evidence of malignancy. Routine screening mammogram is recommended. Annual mammogram will be due in 1 year. BI-RADS Category 2: Benign Interpreting Radiologist: Yumiko Melendrez M.D. Electronically signed on: 09/17/2024 Paper Final Inspector: OLY Transcribe Date/Time: Sep 17 2024 10:54A Dictated by: YUMIKO MELENDREZ MD This examination was interpreted and the report reviewed and electronically signed by: YUMIKO MELENDREZ MD on Sep 17 2024 2:01PM EST [id number] Normal [facility] Breast Screeningon 2024 IMPRESSION: There is no mammographic evidence of malignancy. Routine screening mammogram is recommended. Annual mammogram will be due in 1 year. BI-RADS Category 2: Benign Interpreting Radiologist: Yumiko Melendrez M.D. Electronically signed on: 09/17/2024 Paper Final Inspector: OLY Transcribe Date/Time: Sep 17 2024 10:54A Dictated by: YUMIKO MELENDREZ MD This examination was interpreted and the report reviewed and electronically signed by: YUMIKO MELENDREZ MD on Sep 17 2024 2:01PM EST DIVISION OF RADIOLOGY * * *Final Report* * * DATE OF EXAM: Sep 17 2024 11:13AM [facility] 0581 - [facility] SCREENING / PROCEDURE REASON: Personal history of malignant neoplasm of breast * * * * Physician Interpretation * * * * RESULT: [place] [address] #[id number] - [facility] SCREENING HISTORY: Patient is 74 years old and is seen for screening and is asymptomatic in both breasts. The patient has a history of right breast cancer at age 63. COMPARISON STUDIES: The present examination has been compared to prior imaging studies dated 06/04/2019 (mammogram), 09/04/2020 (mammogram), 08/23/2021 (mammogram), 09/29/2021 (mammogram) and 10/19/2022 (mammogram). MAMMOGRAM TECHNIQUE: The study was acquired using full field digital technology and interpreted from soft copy. MAMMOGRAM FINDINGS: There are scattered areas of fibroglandular density in the left breast. There are post-reduction changes in the left breast. The patient is status post right mastectomy with retropectoral implant and the remaining right breast tissue is fatty. No suspicious masses, calcifications or other abnormalities are seen in either breast. DIVISION OF RADIOLOGY Provider, [facility] - 09/17/2024 * * *Final Report* * * DATE OF EXAM: Sep 17 2024 11:13AM [facility] 0581 - [facility] SCREENING / PROCEDURE REASON: Personal history of malignant neoplasm of breast * * * * Physician Interpretation * * * * RESULT: [place] [address] #[id number] - [facility] SCREENING HISTORY: Patient is 74 years old and is seen for screening and is asymptomatic in both breasts. The patient has a history of right breast cancer at age 63. COMPARISON STUDIES: The present examination has been compared to prior imaging studies dated 06/04/2019 (mammogram), 09/04/2020 (mammogram), 08/23/2021 (mammogram), 09/29/2021 (mammogram) and 10/19/2022 (mammogram). MAMMOGRAM TECHNIQUE: The study was acquired using full field digital technology and interpreted from soft copy. MAMMOGRAM FINDINGS: There are scattered areas of fibroglandular density in the left breast. There are post-reduction changes in the left breast. The patient is status post right mastectomy with retropectoral implant and the remaining right breast tissue is fatty. No suspicious masses, calcifications or other abnormalities are seen in either breast. IMPRESSION IMPRESSION: There is no mammographic evidence of malignancy. Routine screening mammogram is recommended. Annual mammogram will be due in 1 year. BI-RADS Category 2: Benign Interpreting Radiologist: Yumiko Melendrez M.D. Electronically signed on: 09/17/2024 Paper Final Inspector: OLY Transcribe Date/Time: Sep 17 2024 10:54A Dictated by: YUMIKO MELENDREZ MD This examination was interpreted and the report reviewed and electronically signed by: YUMIKO MELENDREZ MD on Sep 17 2024 2:01PM EST [facility] Radiology Study observation (narrative) [facility] MG Breast ScreeningOrdered B y: [facility] Provider on 09-17-2024 [facility] CNOVon 07-26-2024 CNOV Office Visit (FAMPWS ) TRINH WOMACK ([id number]) 1950 F Date Time Provider Department 07/26/24 11:00 AM KATHIE ECHEVERRIA During your visit today, we recorded the following information about you: Pulse Respiration Blood pressure Weight 65/minute 16/minute 138/72 61.4 kg Kathie Echeverria APRN.CERTIFIED NURSE AIDE 07/26/2024 11:59 AM Signed This is a 74 year old female who presents today with: Patient presents with: Follow Up: 3 month follow up HISTORY OF PRESENT ILLNESS: Trinh Feng Womack is a 74 year old female. Patient presents with: Follow Up: 3 month follow up 3 month follow up Bilateral hand numbness ( finger tips) that seems to wax and wane. Has been on going for several months. 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 No wrist or neck pain. GERD: Symptoms controlled on Protonix 20 mg daily. Reports Protonix is helping. She also takes Anamaria's as needed. DEN: Stable on Celexa 20 mg daily and Xanax 0.25 mg 1 pill BID. Refers she does have increased stress with nephew living with her. Denies SI/HI. Reports she is feeing good, just a little stressed due to vacation coming up. HTN: Taking Losartan 100 mg daily and hydrochlorothiazide 25 mg daily. Checks BP at home, getting 130-150's/70's. Following with [facility] today, Dr. Saunders. Has follow-up next year. Denies chest pain, palpitations, dizziness or edema. Lipid: Not taking any cholesterol medications. Staying busy with grandchildren. 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 Asthma/ Chronic Bronchitis: Follows with Pulmonology Dr. Ruiz. Is using Wixela daily, Duoneb for nebulizer, and Albuterol inhaler prn. Refers she was diagnosed with Pulmonary HTN, pulmonology ordered full PFTs to be completed. Lung nodule noted, will have repeat CT in October. History of breast cancer; notes that she has breast implants. Has mammograms done yearly. Denies breast tenderness or pain. Colonoscopy: Completed cologuard in April 2024, negative. Due in 2026. Vaccines: Would like Flu vaccine PAST MEDICAL HISTORY: PAST MEDICAL HISTORY Diagnosis Date Acute sinusitis, unspecified drainage Allergic rhinitis Childhood asthma Generalized anxiety disorder Anxiety, Generalized GERD (gastroesophageal reflux disease) Malignant neoplasm of breast (female), unspecified site right breast Psoriasis and similar disorders Unspecified asthma(493.90) uses nebulizer prn Unspecified essential hypertension Essential hypertension PAST SURGICAL HISTORY Procedure Laterality Date ARTHROSCOPY KNEE DIAGNOSTIC W/WO SYNOVIAL BX SPX 2004 Arthroscopy, knee, left by [employer] AXILLARY FINE NEEDLE ASPIRATION 11/27/2008 left BREAST RECONSTRUC W LAT DORSI FLAP 02/11/2011 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 Levi Yoder LIG/TRNSXJ FLP TUBE ABDL/VAG APPR UNI/BI Tubal ligation MASTECTOMY, PARTIAL 12/16/2008 right breast with SLND/ALND with right oncoplasty and left reduction MASTECTOMY, SIMPLE, COMPLETE 07/24/2009 right skin-sparing OOPHORECTOMY PARTIAL/TOTAL UNI/BI 1 Oophorectomy PAST SURGICAL HISTORY OF Right 04/15/2024 Cataract extraction with intraocular lens implant - Dr. Mack REMOVAL TISSUE DIRECTOR OF PARTNER MARKETING W/O INSERTION IMPLANT 09/25/2010 right breast REPLACEMENT TISSUE DIRECTOR OF PARTNER MARKETING W/PERMANENT IMPLANT 06/24/2011 right perm implant ALLERGIES Penicillins MEDICATIONS Current Outpatient Medications Medication Sig citalopram (CELEXA) 20 mg tablet Take 1 tablet by mouth every afternoon. losartan (COZAAR) 100 mg tablet Take 1 tablet by mouth every afternoon. hydroCHLOROthiazide 25 mg tablet Take 25 mg by mouth every morning. ALPRAZolam (XANAX) 0.25 mg tablet Take 1 tablet by mouth two times a day for 90 days. fluticasone-salmeterol (WIXELA INHUB) 100-50 mcg/dose inhaler Inhale 1 Puff as instructed two times a day. pantoprazole DR (PROTONIX) 20 mg tablet Take 1 tablet by mouth once daily. albuterol HFA (PROVENTIL HFA, VENTOLIN HFA) 90 mcg/actuation inhaler Inhale 2 Puffs as instructed every 4 hours as needed. ipratropium-albuterol (DUONEB) 0.5 mg-3 mg(2.5 mg base)/3 mL nebu Inhale 3 mL as instructed every 4 hours as needed. cholecalciferol, vitamin D3, (VITAMIN D3 ORAL) Take 500 mg by mouth once daily. Biotin 10,000 mcg cap Take 10,000 mcg by mouth once daily. Nebulizer Accessories (more content not included)... Normal [facility] CBC W Auto Differential pane l (Bld)on 06-18-2024 Basophils (Bld) [#/Vol] [facility] Basophils/100 WBC (Bld) 0.3 % [facility] Differential cell count method Nom (Bld) Auto [facility] Eosinophils (Bld) [#/Vol] 0.07 10*3/uL [facility] Eosinophils/100 WBC (Bld) 0.9 % [facility] Erythrocyte distribution width (RBC) [Ratio] 12.4 % 11.5 - 15.0 % [facility] Hematocrit (Bld) [Volume fraction] 38.1 % 36.0 - 46.0 % [facility] Hemoglobin (Bld) [Mass/Vol] 12.4 g/dL 11.5 - 15.5 g/dL [facility] Immature granulocytes (Bld) [#/Vol] [facility] Immature granulocytes/100 WBC (Bld) 0.3 % [facility] Interpretation and review of laboratory results Abnormal [facility] Lymphocytes (Bld) [#/Vol] 2.40 10*3/uL [facility] Lymphocytes/100 WBC (Bld) 30.7 % [facility] MCH (RBC) [Entitic mass] 31.2 pg 26.0 - 34.0 pg [facility] MCHC (RBC) [Mass/Vol] 32.5 g/dL 30.5 - 36.0 g/dL [facility] MCV (RBC) [Entitic vol] 95.7 fL 80.0 - 100.0 fL [facility] Monocytes (Bld) [#/Vol] 0.76 10*3/uL NINF [facility] Monocytes/100 WBC (Bld) 9.7 % [facility] Neutrophils (Bld) [#/Vol] 4.55 10*3/uL [facility] Neutrophils/100 WBC (Bld) 58.1 % [facility] Nucleated RBC (Bld) [#/Vol] NINF [facility] Nucleated RBC/100 WBC (Bld) [Ratio] 0.0 % /100 WBC [facility] Platelet mean volume (Bld) [Entitic vol] 8.2 fL Low 9.0 - 12.7 fL [facility] Platelets (Bld) [#/Vol] 278 10*3/uL [facility] RBC (Bld) [#/Vol] 3.98 10*6/uL 3.90 - 5.2 0 m/uL [facility] WBC (Bld) [#/Vol] 7.82 10*3/uL [facility] XR Chest PA and Lateralon IMPRESSION: No acute radiographic abnormality. Interval resolution of airspace opacities. Sclerotic right posterior lower rib, indeterminate for underlying lesion. Paper Final Inspector: PSCB Transcribe Date/Time: Apr 27 2024 9:45A Dictated by : ALLISON GUTIÉRREZ MD This examination was interpreted and the report reviewed and electronically signed by: ALLISON GUTIÉRREZ MD on Apr 27 2024 9:47AM [facility] DIVISION OF RADIOLOGY * * *Final Report* * * DATE OF EXAM: Apr 27 2024 9:41AM WOX [id number] - XR CHEST 2V FRONTAL/LAT / PROCEDURE REASON: Bacterial pneumonia * * * * Physician Interpretation * * * * EXAMINATION: CHEST RADIOGRAPH (2 VIEW FRONTAL & LATERAL) CLINICAL HISTORY: Bacterial pneumonia MQ: XC2_6 EXAM DATE/TIME: 04/27/2024 9:41 AM COMPARISON: 02/23/2024, 11/01/2012 RESULT: Lines, tubes, and devices: None. Lungs and pleura: No consolidation. No lung mass. No pleural effusion. No pneumothorax. Cardiomediastinal silhouette: Stable cardiomediastinal silhouette. Bones and soft tissues: Degenerative changes are present within the thoracic spine. Sclerotic changes right lower posterior rib. DIVISION OF RADIOLOGY Provider, [facility] - 04/27/2024 * * *Final Report* * * DATE OF EXAM: Apr 27 2024 9:41AM WOX [id number] - XR CHEST 2V FRONTAL/LAT / PROCEDURE REASON: Bacterial pneumonia * * * * Physician Interpretation * * * * EXAMINATION: CHEST RADIOGRAPH (2 VIEW FRONTAL & LATERAL) CLINICAL HISTORY: Bacterial pneumonia MQ: XC2_6 EXAM DATE/TIME: 04/27/2024 9:41 AM COMPARISON: 02/23/2024, 11/01/2012 RESULT: Lines, tubes, and devices: None. Lungs and pleura: No consolidation. No lung mass. No pleural effusion. No pneumothorax. Cardiomediastinal silhouette: Stable cardiomediastinal silhouette. Bones and soft tissues: Degenerative changes are present within the thoracic spine. Sclerotic changes right lower posterior rib. IMPRESSION IMPRESSION: No acute radiographic abnormality. Interval resolution of airspace opacities. Sclerotic right posterior lower rib, indeterminate for underlying lesion. Paper Final Inspector: PSCB Transcribe Date/Time: Apr 27 2024 9:45A Dictated by : ALLISON GUTIÉRREZ MD This examination was interpreted and the report reviewed and electronically signed by: ALLISON GUTIÉRREZ MD on Apr 27 2024 9:47AM EST [facility] Radiology Study observation (narrative) [facility] XR Chest PA and LateralOrder ed By: [facility] Provider on 04-27-2024 [facility] CBC W Auto Differential pane l (Bld)on 04-24-2024 Basophils (Bld) [#/Vol] 0.03 10*3/uL NINF [facility] Basophils/100 WBC (Bld) 0.5 % [facility] Differential cell count method Nom (Bld) Auto [facility] Eosinophils (Bld) [#/Vol] 0.10 10*3/uL [facility] Eosinophils/100 WBC (Bld) 1.8 % [facility] Erythrocyte distribution width (RBC) [Ratio] 11.9 % 11.5 - 15.0 % [facility] Hematocrit (Bld) [Volume fraction] 37.4 % 36.0 - 46.0 % [facility] Hemoglobin (Bld) [Mass/Vol] 12.1 g/dL 11.5 - 15.5 g/dL [facility] Immature granulocytes (Bld) [#/Vol] [facility] Immature granulocytes/100 WBC (Bld) 0.4 % [facility] Interpretation and review of laboratory results Abnormal [facility] Lymphocytes (Bld) [#/Vol] 1.52 10*3/uL [facility] Lymphocytes/100 WBC (Bld) 26.7 % [facility] MCH (RBC) [Entitic mass] 31.4 pg 26.0 - 34.0 pg [facility] MCHC (RBC) [Mass/Vol] 32.4 g/dL 30.5 - 36.0 g/dL [facility] MCV (RBC) [Entitic vol] 97.1 fL 80.0 - 100.0 fL [facility] Monocytes (Bld) [#/Vol] 0.42 10*3/uL [facility] Monocytes/100 WBC (Bld) 7.4 % [facility] Neutrophils (Bld) [#/Vol] 3.61 10*3/uL [facility] Neutrophils/100 WBC (Bld) 63.2 % [facility] Nucleated RBC (Bld) [#/Vol] [facility] Nucleated RBC/100 WBC (Bld) [Ratio] 0.0 % /100 WBC [facility] Platelet mean volume (Bld) [Entitic vol] 8.9 fL Low 9.0 - 12.7 fL [facility] Platelets (Bld) [#/Vol] 328 10*3/uL [facility] RBC (Bld) [#/Vol] 3.85 10*6/uL Low 3.90 - 5.2 0 m/uL [facility] WBC (Bld) [#/Vol] 5.70 10*3/uL [facility] XR Chest PA and Lateralon IMPRESSION: Interval development of multifocal pneumonia. Paper Final Inspector: JAK Transcribe Date/Time: Feb 23 2024 12:45P Dictated by : LAMINE FITZGERALD MD This examination was interpreted and the report reviewed and electronically signed by: LAMINE FITZGERALD MD on Feb 23 2024 12:47PM [facility] DIVISION OF RADIOLOGY * * *Final Report* * * DATE OF EXAM: Feb 23 2024 12:44PM [id number] - XR CHEST 2V FRONTAL/LAT / PROCEDURE REASON: Bronchitis * * * * Physician Interpretation * * * * EXAMINATION: CHEST RADIOGRAPH (2 VIEW FRONTAL & LATERAL) CLINICAL HISTORY: Bronchitis MQ: XC2_6 EXAM DATE/TIME: 02/23/2024 12:44 PM COMPARISON: Chest x-ray dated 10/11/2020 RESULT: Lines, tubes, and devices: None. Lungs and pleura: Interval development of multifocal patchy airspace opacities in the lingula, right middle lobe and retrocardiac regions. No discernible pleural effusion or pneumothorax. Cardiomediastinal silhouette: Stable cardiomediastinal silhouette with atherosclerotic calcification of the aorta. Bones and soft tissues: Numerous surgical clips in the right chest wall. Multilevel degenerative changes. DIVISION OF RADIOLOGY Provider, Mia Chapman - 02/23/2024 * * *Final Report* * * DATE OF EXAM: Feb 23 2024 12:44PM [id number] [id number] - XR CHEST 2V FRONTAL/LAT / PROCEDURE REASON: Bronchitis * * * * Physician Interpretation * * * * EXAMINATION: CHEST RADIOGRAPH (2 VIEW FRONTAL & LATERAL) CLINICAL HISTORY: Bronchitis MQ: XC2_6 EXAM DATE/TIME: 02/23/2024 12:44 PM COMPARISON: Chest x-ray dated 10/11/2020 RESULT: Lines, tubes, and devices: None. Lungs and pleura: Interval development of multifocal patchy airspace opacities in the lingula, right middle lobe and retrocardiac regions. No discernible pleural effusion or pneumothorax. Cardiomediastinal silhouette: Stable cardiomediastinal silhouette with atherosclerotic calcification of the aorta. Bones and soft tissues: Numerous surgical clips in the right chest wall. Multilevel degenerative changes. IMPRESSION IMPRESSION: Interval development of multifocal pneumonia. Paper Final Inspector: PSCTaqueria Transcribe Date/Time: Feb 23 2024 12:45P Dictated by : LAMINE FITZGERALD MD This examination was interpreted and the report reviewed and electronically signed by: LAMINE FITZGERALD MD on Feb 23 2024 12:47PM EST [facility] Radiology Study observation (narrative) [facility] XR Chest PA and LateralOrder ed By: [facility]cf Provider on 02-23-2024 [facility] CBC + DIFFon 02-20-2024 Baso # 0.01 x10EE3/UL Normal 0.00 - 0.10 [facility] Comment on above: Performed By: #### 2 08515 #### [place] [address] Basophils/100 WBC (Bld) 0.1 % Normal 0.0 - 2.0 [facility] Comment on above: Performed By: #### 2 43687 #### [facility],[address] [place] [address] CBC + DIFF Normal [facility] Comment on above: Result Comment: CBC- COMPLETE BLOOD COUNT Performed By: #### 2 04041 #### [place] [address] EO # 0.03 x10EE3/UL Normal 0.00 - 0.50 [facility] Comment on above: Performed By: #### 2 15184 #### [place] [id number] Eosinophils/100 WBC (Bld) 0.4 % Normal 0.0 - 7.0 [facility] Comment on above: Performed By: #### 2 19611 #### [place] [address] Erythrocyte distribution width (RBC) [Ratio] 13.4 % Normal 12.0 - 15.6 [facility] Comment on above: Performed By: #### 2 38734 #### [address] [place] [address] Hematocrit (Bld) [Volume fraction] 37.4 % Normal 34.0 - 46.0 [facility] Comment on above: Performed By: #### 2 43724 #### [facility],[address] [place] [address] Hemoglobin (Bld) [Mass/Vol] 12.5 g/dL Normal 12.0 - 16.0 [facility] Comment on above: Performed By: #### 2 66552 #### [facility],[address] [place] [address] Lymph # 0.37 x10EE3/UL Low 0.80 - 2.80 [facility] Comment on above: Performed By: #### 2 78485 #### [facility],[address] [place] [address] Lymphocytes/100 WBC (Bld) 4.7 % Low 20.0 - 45.0 [facility] Comment on above: Performed By: #### 2 35428 #### [facility],[address] [place], [place] [id number] MANUAL DIFF N/A Normal [facility] Comment on above: Performed By: #### 2 86432 #### [facility],[address] [place] [address] MCH (RBC) [Entitic mass] 32 pg Normal 27 - 33 [facility] Comment on above: Performed By: #### 2 49645 #### [facility],[address] [place], [place] [id number] MCHC 33 X10 3 Normal 32 - 36 [facility] Comment on above: Performed By: #### 2 72115 #### [facility],[address] [place], [place] [id number] MCV (RBC) [Entitic vol] 96 fL Normal 80 - 99 [facility] Comment on above: Performed By: #### 2 59230 #### [facility],[address] [place], [place] [id number] Eddy # 0.37 x10EE3/UL Normal 0.20 - 1.00 [facility] Comment on above: Performed By: #### 2 97258 #### [facility],[address] [place] [address]474 MONOS % 4.6 % Normal 0.0 - 10.0 [facility] Comment on above: Performed By: #### 2 85441 #### [facility],[address] [place] [address] Morphology Robbi (Bld) [Interp] N/A Normal [facility] Comment on above: Performed By: #### 2 68340 #### [facility],[address] [place] [address] Neut # 7.09 x10EE3/UL Normal 1.50 - 7.10 [facility] Comment on above: Performed By: #### 2 54262 #### [facility],[address] [place] [address] Neutrophils/100 WBC (Bld) 90.1 % High 46.0 - 76.0 [facility] Comment on above: Performed By: #### 2 14827 #### [facility],[address] [place] [address] PLATELET 189 x10EE3/UL Normal 150 - 450 [facility] Comment on above: Performed By: #### 2 85763 #### [facility],[address] [place] [address] Platelet mean volume (Bld) [Entitic vol] 6.6 fL Normal 6.6 - 10.5 [facility] Comment on above: Result Comment: AUTO MATED DIFFERENTIAL Performed By: #### 2 47932 #### [facility],[address] [place], [place] [id number] RBC 3.90 x 10EE6/UL Low 4.10 - 5.30 [facility] Comment on above: Performed By: #### 2 31022 #### [facility],[address] [place] [address] WBC 7.9 x 10EE3/UL Normal 4.5 - 10.8 [facility] Comment on above: Performed By: #### 2 60988 #### [facility],[address] [place] [address] CHEST 1 VIEWon 02-20-2024 CHEST 1 VIEW [place] [address] Patient: TRINH WOMACK Phone#: : 1950 Age: 73 Gender: F Pt. Type: ER Account: [id number] Location: [facility] Ordering: MENA HOLLY Exam Date: 02/20/2024/15:30 Family Phys: Charge Code: [id number] Physician: [place] Order #: [id number] Dose#: PROCEDURE: X-RAY CHEST 1 VIEW COMPARISON: None. INDICATIONS: Cough. FINDINGS: LUNGS: Normal. No significant pulmonary parenchymal abnormalities. VASCULATURE: Normal. Unremarkable pulmonary vasculature. CARDIAC: Mitral annular calcifications. MEDIASTINUM: Aortic arch calcifications PLEURA: Normal. No effusion or pleural thickening. BONES: Degenerative changes of the spine OTHER: Right chest wall surgical clips CONCLUSION: No acute disease. Dictated by: Denise Brown MD on 02/20/2024 at 15:48 Approved by: Denise Brown MD on 02/20/2024 at 15:50 Normal [facility] CMP with eGFRon 02-20-2024 AGE 73 years Normal [facility] Comment on above: Performed By: #### 2 43185 #### [facility],[address] [place] [address] Albumin [Mass/Vol] 3.8 g/dL Normal 3.4 - 5.0 [facility] Comment on above: Performed By: #### 2 24716 #### [facility],[address] [place] [address] 23876 Albumin/Globulin [Mass ratio] 1.0 {ratio} Normal 0.9 - 1.6 [facility] Comment on above: Performed By: #### 2 96197 #### [facility],[address] [place] [address] 95434 ALK PHOS 107 U/L Normal 46 - 116 [facility] Comment on above: Performed By: #### 2 55058 #### [facility],[address] [place] [address] 20349 ALT [Catalytic activity/Vol] 18 U/L Normal 16 - 63 [facility] Comment on above: Performed By: #### 2 88289 #### [facility],[address] [place] [address] 97030 Anion gap [Moles/Vol] 11 mmol/L Normal 10 - 20 [facility] Comment on above: Performed By: #### 2 57626 #### [facility],[address] [place] [address] 85976 AST [Catalytic activity/Vol] 22 U/L Normal 13 - 39 [facility] Comment on above: Performed By: #### 2 02897 #### [facility],[address] [place] [address] 67971 B/C RATIO 16 ratio Normal 0 - 30 [facility] Comment on above: Performed By: #### 2 82454 #### [facility],[address] [place] [address] 16248 Bilirubin [Mass/Vol] 0.5 mg/dL Normal 0.2 - 1.0 [facility] Comment on above: Performed By: #### 2 16094 #### [facility],[address] [place] [address] 83419 Calcium [Mass/Vol] 9.2 mg/dL Normal 8.5 - 10.1 [facility] Comment on above: Performed By: #### 2 80022 #### [facility],[address] [place] [address] 95529 Chloride [Moles/Vol] 96 mmol/L Low 98 - 107 [facility] Comment on above: Performed By: #### 2 73779 #### [facility],[address] [place] [address] 49[address] CMP with eGFR Normal [facility] Comment on above: Result Comment: COMP REHENSIVE METABOLIC PANEL Performed By: #### 2 61918 #### [facility],[address] [place] [address] 90867 CO2 [Moles/Vol] 29.3 mmol/L Normal 21.0 - 32.0 [facility] Comment on above: Performed By: #### 2 65189 #### [facility],[address] [place] [address] Creatinine [Mass/Vol] 0.94 mg/dL Normal 0.55 - 1.02 [facility] Comment on above: Performed By: #### 2 61941 #### [facility],[address] [place], [place] [phone] eGFR 58 ML/MINUTE Low 60 - 999 [facility] Comment on above: Performed By: #### 2 67072 #### [facility],[address] [place] [address]702 GFR/1.73 sq M.predicted among non-blacks MDRD (S/P/Bld) [Vol rate/Area] mL/min/{1.73_m2} Normal 60 - 999 [facility] Comment on above: Result Comment: ACCO RDING TO THE NATIONAL KIDNEY DISEASE EDUCATION PROGRAM(NKDE), A NORMAL eGFR IS A VALUE GREATER THAN OR EQUAL TO 60 ML/MIN/1.73 SQ METERS. CHRONIC KIDNEY DISEASE: <60mL/MIN/1.73 SQ METERS KIDNEY FAILURE: <15mL/MIN/1.73 SQ METERS THIS TEST SHOULD ONLY BE USED FOR PATIENTS 18 YEARS OF AGE AND OLDER. Performed By: #### 2 26462 #### [facility],[address] [place] [address] Globulin (S) [Mass/Vol] 3.7 g/dL Normal 1.5 - 3.8 [facility] Comment on above: Performed By: #### 2 94225 #### [facility],[address] [place] [address] 33938 Glucose [Mass/Vol] 104 mg/dL Normal 74 - 106 [facility] Comment on above: Performed By: #### 2 38036 #### [facility],[address] [place] [address] Potassium [Moles/Vol] 3.7 mmol/L Normal 3.5 - 5.1 [facility] Comment on above: Performed By: #### 2 58475 #### [facility],[address] [place] [address] 72408 Protein [Mass/Vol] 7.5 g/dL Normal 6.4 - 8.2 [facility] Comment on above: Performed By: #### 2 88023 #### [facility],[address] [place] [address] Sodium [Moles/Vol] 133 mmol/L Low 136 - 145 [facility] Comment on above: Performed By: #### 2 92400 #### [facility],[address] [place], [place] [phone] Urea nitrogen [Mass/Vol] 15 mg/dL Normal 7 - 18 [facility] Comment on above: Performed By: #### 2 44318 #### [facility],[address] [place], [place] [phone] CORONAVIRUS (SARS) ANTIGEN T ESTon 02-20-2024 EXTERNAL QC DONE? YES Normal [facility] Comment on above: Performed By: #### 2 78384 #### [facility],[address] [place], [place] [phone] INTERNAL CONTROL PASS Normal [facility] Comment on above: Performed By: #### 2 96548 #### [facility],[address] [place], [place] [phone] SARS ANTIGEN Negative Normal NORMAL: NEGATIVE [facility] Comment on above: Performed By: #### 2 62576 #### [facility],[address] [place], [place] [phone] SEND TO IC? YES Normal [facility] Comment on above: Result Comment: SARS -CoV-2 THIS TEST IS BEING USED UNDER THE FDA EUA PROCEDURE. THIS ASSAY HAS BEEN VALIDATED AT [facility] FOR USE WITH NASAL AND NASOPHARYNGEAL SWAB SPECIMENS. INTERPRETIVE DATA TEST RESULTS SHOULD ALWAYS BE CONSIDERED IN THE CONTEXT OF CLINICAL OBSERVATIONS AND EPIDEMIOLOGICAL DATA IN MAKING FINAL DIAGNOSIS AND PATIENT MANAGEMENT DECISIONS. PATIENT MANAGEMENT SHOULD FOLLOW CURRENT CDC GUIDELINES. THE MARLA SARS ANTIGEN DEBI DOES NOT DIFFERENTIATE BETWEEN SARS-CoV & SARS-CoV-2. A POSITIVE TEST RESULT INDICATES THE PRESENCE OF SARS-CoV-2 NUCLEOCAPSID PROTEIN ANTIGEN, AND THE PATIENT IS INFECTED WITH THE VIRUS AND PRESUMED TO BE CONTAGIOUS. A NEGATIVE TEST RESULT FOR THIS TEST MEANS THAT SARS-CoV-2 NUCLEOCAPSID PROTEIN ANTIGEN WAS NOT PRESENT IN THE SPECIMEN ABOVE THE LIMIT OF DETECTION. HOWEVER, A NEGATIVE RESULT DOES NOT RULE OUT COVID-19 AND SHOULD NOT BE USED THE SOLE BASIS FOR TREATMENT OR PATIENT MANAGEMENT DECISIONS. A NEGATIVE RESULT DOES NOT EXCLUDE THE POSSIBILITY OF COVID-19. NEGATIVE RESULTS, FROM PATIENTS WITH SYMPTOM ONSET BEYOND FIVE DAYS, SHOULD BE TREATED PRESUMPTIVE AND CONFIRMATION WITH A MOLECULAR ASSAY, IF NECESSARY, FOR PATIENT MANAGEMENT, MAY BE PERFORMED. WHEN DIAGNOSTIC TESTING IS NEGATIVE, THE POSSIBLILTY OF A FALSE NEGATIVE RESULT SHOULD BE CONSIDERED IN THE CONTEXT OF A PATIENT'S RECENT EXPOSURES AND THE PRESENCE OF CLINICAL SIGNS AND SYMPTOMS CONSISTENT WITH COVID-19. THE POSSIBILITY OF A FALSE NEGATIVE RESULT SHOULD ESPECIALLY BE CONSIDERED IF THE PATIENT'S RECENT EXPOSURES OR CLINICAL PRESENTATION INDICATE THAT COVID-19 IS LIKELY, AND DIAGNOSTIC TESTS FOR OTHER CAUSES OF ILLNESS (e.g., OTHER RESPIRATORY ILLNESS) ARE NEGATIVE. IF COVID-19 IS STILL SUSPECTED BASED ON EXPOSURE HISTORY TOGETHER WITH OTHER CLINICAL FINDINGS, RE-TESTING SHOULD BE CONSIDERED BY HEALTHCARE PROVIDERS IN CONSULTATION WITH PUBLIC HEALTH AUTHORITIES. Performed By: #### 2 20484 #### [facility],[address] [place] [address]25 INFLUENZA VIRUS RAPID A/Bon 02-20-2024 INFLUENZA VIRUS RAPID A/B INFLUENZA A NEGATIVE INFLUENZA B NEGATIVE INTERNAL NEG QC PASS INTERNAL POS QC PASS EXTERNAL QC DONE? YES SEND TO IC? YES A NEGATIVE TEST RESULT DOES NOT EXCLUDE INFECTION WITH INFLUENZA A OR B. THEREFORE, THE RESULTS OBTAINED FROM THIS FLU TEST SHOULD BE USED IN CONJUCTION WITH CLINICAL FINDINGS TO MAKE AN ACCURATE DIAGNOSIS. A POSITIVE RESULT DOES NOT RULE OUT CO-INFECTIONS WITH OTHER PATHOGENS OR IDENTIFY ANY SPECIFIC INFLUENZA A VIRUS SUBTYPE.CO-INFECTION WITH INFLUENZA A AND B IS RARE. IT IS RECOMMENDED THAT DUAL POSITIVE RESULTS BE CONFIRMED BY VIRAL CULTURE OR AN FDA-CLEARED INFLUENZA A AND B MOLECULAR ASSAY. INDIVIDUALS WHO HAVE RECEIVED NASALLY ADMINISTERED INFLUENZA A VACCINE MAY TEST POSITIVE IN COMMERCIALLY AVAILABLE INFLUENZA RAPID DIAGNOSTIC TESTS FOR UP TO THREE DAYS. RESULT CRITICAL? NO Normal [facility] Comment on above: Performed By: #### 2 95399 #### [facility],[address] [place] [address] LACTATEon 02-20-2024 Lactate [Moles/Vol] 1.3 mmol/L Normal 0.4 - 2.0 [facility] Comment on above: Performed By: #### 2 08284 #### [facility],[address] [place] [address] TROPONIN I, HIGH SENSITIVITY on 02-20-2024 HS TROPONIN 12.4 pg/mL Normal 0.0 - 51.4 [facility] Comment on above: Performed By: #### 2 19582 #### [facility],[address] [place], [place] [id number] URINALYSISon 02-20-2024 Bilirubin Ql (U) Negative Normal NORMAL: NEGATIVE [facility] Comment on above: Performed By: #### 2 39108 #### [facility],[address] [place], [place] [phone] Clarity (U) clear Normal NORMAL: CLEAR [facility] Comment on above: Performed By: #### 2 97497 #### [facility],[address] [place] [address] 51875 Color (U) yellow Normal NORMAL: YELLOW [facility] Comment on above: Performed By: #### 2 86363 #### [place] [address] Glucose Ql (U) NORM Normal NORMAL: NORMAL [facility] Comment on above: Performed By: #### 2 77347 #### [facility],[address] [place] [address] 32341 Hemoglobin Ql (U) Negative Normal NORMAL: NEGATIVE [facility] Comment on above: Performed By: #### 2 15888 #### [facility],[address] [place] [address] 53538 Ketone Negative Normal NORMAL: NEGATIVE [facility] Comment on above: Performed By: #### 2 41489 #### [facility],[address] [place], [place] [phone] Leukocytes 25 Abnormal NORMAL: NEGATIVE [facility] Comment on above: Performed By: #### 2 74089 #### [facility],[address] [place] [address] 60944 Nitrite Ql (U) Negative Normal NORMAL: NEGATIVE [facility] Comment on above: Performed By: #### 2 89775 #### [facility],[address] [place], [place] [id number] pH (U) 8 [pH] Normal NORMAL: 5.0-8.0 [facility] Comment on above: Performed By: #### 2 43515 #### [facility],[address] [place] [address] 98919 Protein Ql (U) Negative Normal NORMAL: NEGATIVE [facility] Comment on above: Performed By: #### 2 52847 #### [facility],[address] [place] [address] 19611 Sp [place] 1.010 Normal NORMAL: 1.010-1.030 [facility] Comment on above: Performed By: #### 2 51420 #### [facility],[address] [place], [place] [phone] Specimen Type Void Normal [facility] Comment on above: Performed By: #### 2 26605 #### [facility],[address] [place] [address] Urinalysis dipstick W Reflex Microscopic panel (U) NOT INDICATED Normal [facility] Comment on above: Performed By: #### 2 17322 #### [facility],[address] [place] [address] Urobilinog NORM Normal NORMAL: NORMAL [facility] Comment on above: Performed By: #### 2 83478 #### [facility],[address] [place] [address] XR Chest PA and Lateralon IMPRESSION: No acute radiographic abnormality. Paper Final Inspector: PSCB Transcribe Date/Time: Oct 12 2023 3:39P Dictated by : FANNIE MALDONADO MD This examination was interpreted and the report reviewed and electronically signed by: FANNIE MALDONADO MD on Oct 12 2023 3:39PM [facility] DIVISION OF RADIOLOGY * * *Final Report* * * DATE OF EXAM: Oct 11 2023 10:29AM WOX 5291 - XR CHEST 2V FRONTAL/LAT / PROCEDURE REASON: multiple diagnoses * * * * Physician Interpretation * * * * EXAMINATION: CHEST RADIOGRAPH (2 VIEW FRONTAL & LATERAL) CLINICAL HISTORY: Bruising Chronic cough MQ: XC2_6 EXAM DATE/TIME: 10/11/2023 10:29 AM COMPARISON: 09/05/2023 RESULT: Lines, tubes, and devices: None. Lungs and pleura: No consolidation. No lung mass. No pleural effusion. No pneumothorax. Cardiomediastinal silhouette: Normal cardiomediastinal silhouette. Bones and soft tissues: Unremarkable. DIVISION OF RADIOLOGY Provider, [facility] - 10/12/2023 * * *Final Report* * * DATE OF EXAM: Oct 11 2023 10:29AM WOX 5291 - XR CHEST 2V FRONTAL/LAT / PROCEDURE REASON: multiple diagnoses * * * * Physician Interpretation * * * * EXAMINATION: CHEST RADIOGRAPH (2 VIEW FRONTAL & LATERAL) CLINICAL HISTORY: Bruising Chronic cough MQ: XC2_6 EXAM DATE/TIME: 10/11/2023 10:29 AM COMPARISON: 09/05/2023 RESULT: Lines, tubes, and devices: None. Lungs and pleura: No consolidation. No lung mass. No pleural effusion. No pneumothorax. Cardiomediastinal silhouette: Normal cardiomediastinal silhouette. Bones and soft tissues: Unremarkable. IMPRESSION IMPRESSION: No acute radiographic abnormality. Paper Final Inspector: JAK Transcribe Date/Time: Oct 12 2023 3:39P Dictated by : FANNIE MALDONADO MD This examination was interpreted and the report reviewed and electronically signed by: FANNIE MALDONADO MD on Oct 12 2023 3:39PM EST [facility] XR Chest PA and LateralOrder ed By: [facility] Provider on 10-12-2023 [facility] XR Chest PA and Lateralon Radiology Study observation (narrative) [facility] XR Chest PA and Lateralon IMPRESSION: No acute radiographic abnormality. Paper Final Inspector: JAK Transcribe Date/Time: Sep 05 2023 2:23P Dictated by : PUMA EPSTEIN MD This examination was interpreted and the report reviewed and electronically signed by: PUMA EPSTEIN MD on Sep 05 2023 2:23PM [facility] DIVISION OF RADIOLOGY * * *Final Report* * * DATE OF EXAM: Sep 05 2023 2:22PM WOX 5291 - XR CHEST 2V FRONTAL/LAT / PROCEDURE REASON: multiple diagnoses * * * * Physician Interpretation * * * * EXAMINATION: CHEST RADIOGRAPH (2 VIEW FRONTAL & LATERAL) CLINICAL HISTORY: Mild intermittent asthma with acute exacerbation Acute cough MQ: XC2_6 EXAM DATE/TIME: 09/05/2023 2:22 PM COMPARISON: 11/01/2012 RESULT: Lines, tubes, and devices: None. Lungs and pleura: No consolidation. No lung mass. No pleural effusion. No pneumothorax. Cardiomediastinal silhouette: Normal cardiomediastinal silhouette. Bones and soft tissues: Unremarkable. DIVISION OF RADIOLOGY Provider, [facility] Deandre Chapman - 09/05/2023 * * *Final Report* * * DATE OF EXAM: Sep 05 2023 2:22PM WOX 5291 - XR CHEST 2V FRONTAL/LAT / PROCEDURE REASON: multiple diagnoses * * * * Physician Interpretation * * * * EXAMINATION: CHEST RADIOGRAPH (2 VIEW FRONTAL & LATERAL) CLINICAL HISTORY: Mild intermittent asthma with acute exacerbation Acute cough MQ: XC2_6 EXAM DATE/TIME: 09/05/2023 2:22 PM COMPARISON: 11/01/2012 RESULT: Lines, tubes, and devices: None. Lungs and pleura: No consolidation. No lung mass. No pleural effusion. No pneumothorax. Cardiomediastinal silhouette: Normal cardiomediastinal silhouette. Bones and soft tissues: Unremarkable. IMPRESSION IMPRESSION: No acute radiographic abnormality. Paper Final Inspector: JAK Transcribe Date/Time: Sep 05 2023 2:23P Dictated by : PUMA EPSTEIN MD This examination was interpreted and the report reviewed and electronically signed by: PUMA EPSTEIN MD on Sep 05 2023 2:23PM EST [facility] Radiology Study observation (narrative) [facility] XR Chest PA and LateralOrder ed By: [facility] Provider on 09-05-2023 [facility] NITRIC OXIDE, EXHALEDon 07-0 [facility] LETICIA SCREENINGon 10-19-2022 [facility] US EXT MASS/FLUID COLLECTION LTon 08-23-2021 US EXT MASS/FLUID COLLECTION LT * * *Final Report* * * DATE OF EXAM: Aug 23 2021 2:39PM LDU 1024 - US EXT MASS/FLUID COLLECTION LT / PROCEDURE REASON: Chest wall abscess * * * * Physician Interpretation * * * * US EXT MASS/FLUID COLLECTION LT HISTORY: Indication: Chest wall abscess TECHNIQUE: Views obtained: US EXT MASS/FLUID COLLECTION LT. Attention to the left side chest wall palpable abnormality, 1-2 cm inferior to left breast. Comparison: 08/23/2021 mammogram. RESULT/ impression: Subcentimeter hypoechoic region at the level of scanning 1-2 cm inferior to left breast. No central vascularity. Sonographic consideration include infectious/noninfectiou s inflammatory fluid collection. However, correlation with 08/23/2021 breast imaging results. Paper Final Inspector: JAK Transcribe Date/Time: Aug 23 2021 3:05P Dictated by : ALMAS OSBORNE MD This examination was interpreted and the report reviewed and electronically signed by: ALMAS OSBORNE MD on Aug 23 2021 3:07PM EST [id number] Normal [facility] Coronavirus 2019 0 COVID 19 Result [employer] Normal Negative for COVID19 (SARS CoV2) by PCR. [facility] Comment on above: Result Comment: Nega tive for This test was developed and its performance characteristics determined by [facility] Pathology and Laboratory [facility] [place]. This test has been authorized by FDA under an Emergency Use Authorization (EUA). This test has been validated in accordance with the FDA's Guidance Document Policy for Diagnostics Testing in Laboratories Certified to Perform High Complexity Testing under CLIA prior to Emergency use Authorization for Coronavirus Disease 2019 during the Public Health Emergency issued on October 19, 2019. COVID19 (SARS This test was developed and its performance characteristics determined by [facility] Pathology and Laboratory [facility] [place]. This test has been authorized by FDA under an Emergency Use Authorization (EUA). This test has been validated in accordance with the FDA's Guidance Document Policy for Diagnostics Testing in Laboratories Certified to Perform High Complexity Testing under CLIA prior to Emergency use Authorization for Coronavirus Disease 2019 during the Public Health Emergency issued on October 19, 2019. CoV2) by PCR. This test was developed and its performance characteristics determined by [facility] Pathology and Laboratory [facility] [place]. This test has been authorized by FDA under an Emergency Use Authorization (EUA). This test has been validated in accordance with the FDA's Guidance Document Policy for Diagnostics Testing in Laboratories Certified to Perform High Complexity Testing under CLIA prior to Emergency use Authorization for Coronavirus Disease 2019 during the Public [facility] issued on October 19, 2019. Coronavirus 2019on 0 COVID 19 Source [employer] Normal [facility] Comment on above: Result Comment: Naso pharyngeal Corrected on 07/03 AT 1318: Previously reported as NASAL Swab Corrected on 07/03 AT 1318: Previously reported as NASAL Office Visit: UC: bronchitis on 06-12-2017 Fall risk assessment No Invalid Interpretation Code [facility] Work Phone: Protein mass conc Done Invalid Interpretation Code [facility] Work Phone: Tobacco smoking status NHIS Former smoker Invalid Interpretation Code [facility] Work Phone: Office Visit: UC: bronchitis on 01-04-2017 Tobacco smoking status NHIS Former smoker [facility] Work Phone: Vital Signs Date Time Vital Sign Value Performing Clinician Facility 04-29-2025 11:29-0400 Diastolic blood pressure 78 mm[Hg] Dr. Leslye Mccloud MD Work Phone: [facility] 04-29-2025 11:29-0400 Systolic blood pressure 138 mm[Hg] Dr. Leslye Mccloud MD Work Phone: [facility] 04-29-2025 11:04-0400 Body height 147.[address] Leslye Mccloud MD Work Phone: [facility] 04-29-2025 11:04-0400 Body mass index (BMI) [Ratio] 27.3 kg/m2 Dr. Leslye Mccloud MD Work Phone: [facility] 04-29-2025 11:04-0400 Body weight 59.[address] Leslye Mccloud MD Work Phone: [facility] 04-29-2025 11:04-0400 Heart rate 59 /min Dr. Leslye Mccloud MD Work Phone: [facility] 04-29-2025 11:04-0400 Respiratory rate 16 /min Dr. Leslye Mccloud MD Work Phone: [facility] 12-03-2024 10:29-0400 Body mass index (BMI) [Ratio] 27.94 kg/m2 Dawna Click [employer].CERTIFIED NURSE AIDE Work Phone: [facility] 12-03-2024 10:29-0400 Body weight 60.78 kg Dawna Click [employer].CERTIFIED NURSE AIDE Work Phone: [facility] 12-03-2024 10:29-0400 Diastolic blood pressure 82 mm[Hg] Dawna Click [employer].CERTIFIED NURSE AIDE Work Phone: [facility] 12-03-2024 10:29-0400 Heart rate 83 /min Dawna Click [employer].CERTIFIED NURSE AIDE Work Phone: [facility] 12-03-2024 10:29-0400 Respiratory rate 18 /min Dawna Click [employer].CERTIFIED NURSE AIDE Work Phone: [facility] 12-03-2024 10:29-0400 SaO2% (BldA) [Mass fraction] 100 % Dawna Click [employer].CERTIFIED NURSE AIDE Work Phone: [facility] 12-03-2024 10:29-0400 Systolic blood pressure 132 mm[Hg] Dawna Click [employer].CERTIFIED NURSE AIDE Work Phone: [facility] 11-01-2024 10:43-0400 Body mass index (BMI) [Ratio] 28.22 kg/m2 Kathiehermila Larioshof [employer].CERTIFIED NURSE AIDE Work Phone: [facility] 11-01-2024 10:43-0400 Body weight 61.4 kg Kathiehermila Larioshof [employer].CERTIFIED NURSE AIDE Work Phone: [facility] 11-01-2024 10:43-0400 Diastolic blood pressure 78 mm[Hg] Kathie Larioshof [employer].CERTIFIED NURSE AIDE Work Phone: [facility] 11-01-2024 10:43-0400 Heart rate 67 /min Kathiehermila Larioshof [employer].CERTIFIED NURSE AIDE Work Phone: [facility] 11-01-2024 10:43-0400 Respiratory rate 16 /min Kathiehermila Larioshof [employer].CERTIFIED NURSE AIDE Work Phone: [facility] 11-01-2024 10:43-0400 SaO2% (BldA) [Mass fraction] 97 % Kathie Larioshof [employer].CERTIFIED NURSE AIDE Work Phone: [facility] 11-01-2024 10:43-0400 Systolic blood pressure 130 mm[Hg] Kathie Larioshof [employer].CERTIFIED NURSE AIDE Work Phone: [facility] 10-25-2024 10:21-0500 Diastolic blood pressure 70 mm[Hg] Dr. Leslye Mccloud MD Work Phone: [facility] 10-25-2024 10:21-0500 Systolic blood pressure 150 mm[Hg] Dr. Leslye Mccloud MD Work Phone: [facility] 10-25-2024 07:42-0500 Body mass index (BMI) [Ratio] 28.2 kg/m2 Dr. Leslye Mccloud MD Work Phone: [facility] 10-25-2024 07:42-0500 Body weight 61.[address] Leslye Mcclodu MD Work Phone: [facility] 10-25-2024 07:42-0500 Heart rate 62 /min Dr. Leslye Mccloud MD Work Phone: [facility] 10-25-2024 07:42-0500 Respiratory rate 18 /min Dr. Leslye Mccloud MD Work Phone: [facility] 10-25-2024 07:42-0500 SaO2% (BldA) [Mass fraction] 98 % Dr. Leslye Mccloud MD Work Phone: [facility] 08-27-2024 10:03-0500 Body mass index (BMI) [Ratio] 28.15 kg/m2 Pulm Wstr Work Phone: [facility] 08-27-2024 10:03-0500 Body weight 61.24 kg Pulm Wstr Work Phone: [facility] 07-26-2024 10:53-0500 Body mass index (BMI) [Ratio] 28.22 kg/m2 Kathiehermila Echeverria [employer].CERTIFIED NURSE AIDE Work Phone: [facility] 07-26-2024 10:53-0500 Body weight 61.4 kg Kathie Echeverria [employer].CERTIFIED NURSE AIDE Work Phone: [facility] 07-26-2024 10:53-0500 Diastolic blood pressure 72 mm[Hg] Kathie Echeverria [employer].CERTIFIED NURSE AIDE Work Phone: [facility] 07-26-2024 10:53-0500 Heart rate 65 /min Kathie Echeverria [employer].CERTIFIED NURSE AIDE Work Phone: [facility] 07-26-2024 10:53-0500 Respiratory rate 16 /min Kathiehermila Echeverria [employer].CERTIFIED NURSE AIDE Work Phone: [facility] 07-26-2024 10:53-0500 SaO2% (BldA) [Mass fraction] 98 % Kathie Tannhof [employer].CERTIFIED NURSE AIDE Work Phone: [facility] 07-26-2024 10:53-0500 Systolic blood pressure 138 mm[Hg] Kathie Tannhof [employer].CERTIFIED NURSE AIDE Work Phone: [facility] 06-18-2024 10:58-0400 Body mass index (BMI) [Ratio] 28.15 kg/m2 Dawna Click [employer].CERTIFIED NURSE AIDE Work Phone: [facility] 06-18-2024 10:58-0400 Body weight 61.24 kg Dawna Click [employer].CERTIFIED NURSE AIDE Work Phone: [facility] 06-18-2024 10:58-0400 Diastolic blood pressure 82 mm[Hg] Dawna Click [employer].CERTIFIED NURSE AIDE Work Phone: [facility] 06-18-2024 10:58-0400 Heart rate 64 /min Dawna Click [employer].CERTIFIED NURSE AIDE Work Phone: [facility] 06-18-2024 10:58-0400 Respiratory rate 15 /min Dawna Click [employer].CERTIFIED NURSE AIDE Work Phone: [facility] 06-18-2024 10:58-0400 SaO2% (BldA) [Mass fraction] 99 % Dawna Click [employer].CERTIFIED NURSE AIDE Work Phone: [facility] 06-18-2024 10:58-0400 Systolic blood pressure 164 mm[Hg] Dawna Click [employer].CERTIFIED NURSE AIDE Work Phone: [facility] 04-24-2024 11:33-0400 Body mass index (BMI) [Ratio] 27.53 kg/m2 Kathie Tannhof [employer].CERTIFIED NURSE AIDE Work Phone: [facility] 04-24-2024 11:33-0400 Body weight 59.9 kg Kathie Tannhof [employer].CERTIFIED NURSE AIDE Work Phone: [facility] 04-24-2024 11:33-0400 Diastolic blood pressure 88 mm[Hg] Kathie Tannhof [employer].CERTIFIED NURSE AIDE Work Phone: [facility] 04-24-2024 11:33-0400 Heart rate 59 /min Kathie Tannhof [employer].CERTIFIED NURSE AIDE Work Phone: [facility] 04-24-2024 11:33-0400 Respiratory rate 16 /min Kathie Tannhof [employer].CERTIFIED NURSE AIDE Work Phone: [facility] 04-24-2024 11:33-0400 SaO2% (BldA) [Mass fraction] 94 % Kathie Tannhof [employer].CERTIFIED NURSE AIDE Work Phone: [facility] 04-24-2024 11:33-0400 Systolic blood pressure 140 mm[Hg] Kathie Tannhof [employer].CERTIFIED NURSE AIDE Work Phone: [facility] 03-27-2024 12:55-0400 Body mass index (BMI) [Ratio] 27.52 kg/m2 Alejandra Malika PA-C Work Phone: [facility] 03-27-2024 12:55-0400 Body weight 59.88 kg Alejandra SWYF PA-C Work Phone: [facility] 02-23-2024 11:26-0400 Body mass index (BMI) [Ratio] 27.94 kg/m2 Kathie Tannhof [employer].CERTIFIED NURSE AIDE Work Phone: [facility] 02-23-2024 11:26-0400 Body weight 60.78 kg Kathie Larioshof [employer].CERTIFIED NURSE AIDE Work Phone: [facility] 02-23-2024 11:26-0400 Diastolic blood pressure 76 mm[Hg] Kathie Tannhof [employer].CERTIFIED NURSE AIDE Work Phone: [facility] 02-23-2024 11:26-0400 Heart rate 100 /min Kathie Tannhof [employer].CERTIFIED NURSE AIDE Work Phone: [facility] 02-23-2024 11:26-0400 Respiratory rate 16 /min Kathie Tannhof [employer].CERTIFIED NURSE AIDE Work Phone: [facility] 02-23-2024 11:26-0400 SaO2% (BldA) [Mass fraction] 89 % Kathie Tannhof [employer].CERTIFIED NURSE AIDE Work Phone: [facility] 02-23-2024 11:26-0400 Systolic blood pressure 150 mm[Hg] Kathie Tannhof [employer].CERTIFIED NURSE AIDE Work Phone: [facility] 01-31-2024 10:54-0400 Body mass index (BMI) [Ratio] 27.94 kg/m2 Kathie Tannhof [employer].CERTIFIED NURSE AIDE Work Phone: [facility] 01-31-2024 10:54-0400 Body weight 60.78 kg Kathie Tannhof [employer].CERTIFIED NURSE AIDE Work Phone: [facility] 01-31-2024 10:54-0400 Diastolic blood pressure 78 mm[Hg] Kathie Tannhof [employer].CERTIFIED NURSE AIDE Work Phone: [facility] 01-31-2024 10:54-0400 Heart rate 63 /min Kathie Tannhof [employer].CERTIFIED NURSE AIDE Work Phone: [facility] 01-31-2024 10:54-0400 Respiratory rate 16 /min Kathie Tannhof [employer].CERTIFIED NURSE AIDE Work Phone: [facility] 01-31-2024 10:54-0400 SaO2% (BldA) [Mass fraction] 99 % Kathie Tannhof [employer].CERTIFIED NURSE AIDE Work Phone: [facility] 01-31-2024 10:54-0400 Systolic blood pressure 150 mm[Hg] Kathie Tannhof [employer].CERTIFIED NURSE AIDE Work Phone: [facility] 12-18-2023 12:17-0400 Body mass index (BMI) [Ratio] 27.73 kg/m2 Kalli Suppan [employer].HEAD STOCK OPERATOR Work Phone: [facility] 12-18-2023 12:17-0400 Body temperature 98.2 [degF] Kalli Suppan [employer].HEAD STOCK OPERATOR Work Phone: [facility] 12-18-2023 12:17-0400 Body weight 60.33 kg Kalli Suppan [employer].HEAD STOCK OPERATOR Work Phone: [facility] 12-18-2023 12:17-0400 Diastolic blood pressure 76 mm[Hg] Kalli Suppan [employer].HEAD STOCK OPERATOR Work Phone: [facility] 12-18-2023 12:17-0400 Heart rate 64 /min Kalli Suppan [employer].HEAD STOCK OPERATOR Work Phone: [facility] 12-18-2023 12:17-0400 Respiratory rate 14 /min Kalli Suppan [employer].HEAD STOCK OPERATOR Work Phone: [facility] 12-18-2023 12:17-0400 SaO2% (BldA) [Mass fraction] 98 % Kalli Suppan [employer].HEAD STOCK OPERATOR Work Phone: [facility] 12-18-2023 12:17-0400 Systolic blood pressure 140 mm[Hg] Kalli Suppan [employer].HEAD STOCK OPERATOR Work Phone: [facility] 11-01-2023 10:32-0400 Body weight 61.24 kg Kathie Harriethof [employer].CERTIFIED NURSE AIDE Work Phone: [facility] 11-01-2023 10:32-0400 Diastolic blood pressure 78 mm[Hg] Kathie Tannhof [employer].CERTIFIED NURSE AIDE Work Phone: [facility] 11-01-2023 10:32-0400 Heart rate 60 /min Kathie Tannhof [employer].CERTIFIED NURSE AIDE Work Phone: [facility] 11-01-2023 10:32-0400 Respiratory rate 16 /min Kathie Tannhof [employer].CERTIFIED NURSE AIDE Work Phone: [facility] 11-01-2023 10:32-0400 SaO2% (BldA) [Mass fraction] 97 % Kathie Tannhof [employer].CERTIFIED NURSE AIDE Work Phone: [facility] 11-01-2023 10:32-0400 Systolic blood pressure 128 mm[Hg] Kathie Tannhof [employer].CERTIFIED NURSE AIDE Work Phone: [facility] 10-11-2023 09:30-0500 Body weight 61.24 kg Kathie Larioshof [employer].CERTIFIED NURSE AIDE Work Phone: [facility] 10-11-2023 09:30-0500 Diastolic blood pressure 90 mm[Hg] Kathie Larioshof [employer].CERTIFIED NURSE AIDE Work Phone: [facility] 10-11-2023 09:30-0500 Heart rate 67 /min Kathie Larioshof [employer].CERTIFIED NURSE AIDE Work Phone: [facility] 10-11-2023 09:30-0500 Respiratory rate 16 /min Kathie Larioshof [employer].CERTIFIED NURSE AIDE Work Phone: [facility] 10-11-2023 09:30-0500 SaO2% (BldA) [Mass fraction] 97 % Kathie Larioshof [employer].CERTIFIED NURSE AIDE Work Phone: [facility] 10-11-2023 09:30-0500 Systolic blood pressure 140 mm[Hg] Kathie Larioshof [employer].CERTIFIED NURSE AIDE Work Phone: [facility] 09-27-2023 13:27-0500 Body weight 60.33 kg Alejandra Malika PA-C Work Phone: [facility] 09-27-2023 13:27-0500 Diastolic blood pressure 84 mm[Hg] Alejandra Malika PA-C Work Phone: [facility] 09-27-2023 13:27-0500 Heart rate 76 /min Alejandra Malika PA-C Work Phone: [facility] 09-27-2023 13:27-0500 Respiratory rate 16 /min Alejandra Malika PA-C Work Phone: [facility] 09-27-2023 13:27-0500 SaO2% (BldA) [Mass fraction] 100 % Alejandra Malika PA-C Work Phone: [facility] 09-27-2023 13:27-0500 Systolic blood pressure 136 mm[Hg] Alejandra Malika PA-C Work Phone: [facility] 07-31-2023 14:51-0500 Body weight 60.6 kg Leslye Mccloud MD Work Phone: [facility] 07-31-2023 14:51-0500 Diastolic blood pressure 82 mm[Hg] Leslye Mccloud MD Work Phone: [facility] 07-31-2023 14:51-0500 Heart rate 64 /min Leslye Mccloud MD Work Phone: [facility] 07-31-2023 14:51-0500 Respiratory rate 18 /min Leslye Mccloud MD Work Phone: [facility] 07-31-2023 14:51-0500 Systolic blood pressure 138 mm[Hg] Leslye Mccloud MD Work Phone: [facility] 05-01-2023 10:00-0400 Body temperature 99.1 [degF] Kathie Larioshof [employer].CERTIFIED NURSE AIDE Work Phone: [facility] 05-01-2023 10:00-0400 Body weight 60.33 kg Kathie Larioshof [employer].CERTIFIED NURSE AIDE Work Phone: [facility] 05-01-2023 10:00-0400 Diastolic blood pressure 82 mm[Hg] Kathie Larioshof [employer].CERTIFIED NURSE AIDE Work Phone: [facility] 05-01-2023 10:00-0400 Heart rate 71 /min Kathie Larioshof [employer].CERTIFIED NURSE AIDE Work Phone: [facility] 05-01-2023 10:00-0400 Respiratory rate 20 /min Kathie Larioshof [employer].CERTIFIED NURSE AIDE Work Phone: [facility] 05-01-2023 10:00-0400 SaO2% (BldA) [Mass fraction] 100 % Kathiehermila Larioshof [employer].CERTIFIED NURSE AIDE Work Phone: [facility] 05-01-2023 10:00-0400 Systolic blood pressure 150 mm[Hg] Kathie Larioshof [employer].CERTIFIED NURSE AIDE Work Phone: [facility] 03-27-2023 08:02-0400 Body weight 60.33 kg Georgiana Ruiz MD Work Phone: [facility] 03-27-2023 08:02-0400 Diastolic blood pressure 76 mm[Hg] Georgiana Ruiz MD Work Phone: [facility] 03-27-2023 08:02-0400 Heart rate 52 /min Georgiana Ruiz MD Work Phone: [facility] 03-27-2023 08:02-0400 Respiratory rate 14 /min Georgiana Ruiz MD Work Phone: [facility] 03-27-2023 08:02-0400 SaO2% (BldA) [Mass fraction] 100 % Georgiana Ruiz MD Work Phone: [facility] 03-27-2023 08:02-0400 Systolic blood pressure 130 mm[Hg] Georgiana Ruiz MD Work Phone: [facility] 12-12-2022 11:26-0400 Body weight 59.88 kg Kathiehermila Larioshof [employer].CERTIFIED NURSE AIDE Work Phone: [facility] 12-12-2022 11:26-0400 Diastolic blood pressure 78 mm[Hg] Kathie Tannhof [employer].CERTIFIED NURSE AIDE Work Phone: [facility] 12-12-2022 11:26-0400 Heart rate 66 /min Kathie Tannhof [employer].CERTIFIED NURSE AIDE Work Phone: [facility] 12-12-2022 11:26-0400 Respiratory rate 16 /min Kathie Tannhof [employer].CERTIFIED NURSE AIDE Work Phone: [facility] 12-12-2022 11:26-0400 SaO2% (BldA) [Mass fraction] 98 % Kathie Tannhof [employer].CERTIFIED NURSE AIDE Work Phone: [facility] 12-12-2022 11:26-0400 Systolic blood pressure 152 mm[Hg] Kathie Tannhof [employer].CERTIFIED NURSE AIDE Work Phone: [facility] 12-07-2022 10:55-0400 Body temperature 98.6 [degF] Kathie Tannhof [employer].CERTIFIED NURSE AIDE Work Phone: [facility] 12-07-2022 10:55-0400 Body weight 60.78 kg Kathie Tannhof [employer].CERTIFIED NURSE AIDE Work Phone: [facility] 12-07-2022 10:55-0400 Diastolic blood pressure 82 mm[Hg] Kathie Tannhof [employer].CERTIFIED NURSE AIDE Work Phone: [facility] 12-07-2022 10:55-0400 Heart rate 65 /min Kathie Tannhof [employer].CERTIFIED NURSE AIDE Work Phone: [facility] 12-07-2022 10:55-0400 Respiratory rate 16 /min Kathie Tannhof [employer].CERTIFIED NURSE AIDE Work Phone: [facility] 12-07-2022 10:55-0400 SaO2% (BldA) [Mass fraction] 98 % Kathie Tannhof [employer].CERTIFIED NURSE AIDE Work Phone: [facility] 12-07-2022 10:55-0400 Systolic blood pressure 170 mm[Hg] Kathie Tannhof [employer].CERTIFIED NURSE AIDE Work Phone: [facility] 11-07-2022 11:38-0400 Body weight 61.24 kg Kathie Tannhof [employer].CERTIFIED NURSE AIDE Work Phone: [facility] 11-07-2022 11:38-0400 Diastolic blood pressure 80 mm[Hg] Kathie Tannhof [employer].CERTIFIED NURSE AIDE Work Phone: [facility] 11-07-2022 11:38-0400 Heart rate 65 /min Kathie Tannhof [employer].CERTIFIED NURSE AIDE Work Phone: [facility] 11-07-2022 11:38-0400 Respiratory rate 16 /min Kathie Tannhof [employer].CERTIFIED NURSE AIDE Work Phone: [facility] 11-07-2022 11:38-0400 SaO2% (BldA) [Mass fraction] 94 % Kathie Tannhof [employer].CERTIFIED NURSE AIDE Work Phone: [facility] 11-07-2022 11:38-0400 Systolic blood pressure 150 mm[Hg] Kathie Tannhof [employer].CERTIFIED NURSE AIDE Work Phone: [facility] 09-21-2022 10:10-0500 Body height 149.9 cm Juliet Shelly PA-C Work Phone: [facility] 09-21-2022 10:10-0500 Body temperature 97.81 [degF] Juliet Aventura PA-C Work Phone: [facility] 09-21-2022 10:10-0500 Body weight 60.78 kg Juliet Aventura PA-C Work Phone: [facility] 09-21-2022 10:10-0500 Diastolic blood pressure 90 mm[Hg] Juliet Aventura PA-C Work Phone: [facility] 09-21-2022 10:10-0500 Heart rate 63 /min Juliet Aventura PA-C Work Phone: [facility] 09-21-2022 10:10-0500 SaO2% (BldA) [Mass fraction] 99 % Juliet Shelly PA-C Work Phone: [facility] 09-21-2022 10:10-0500 Systolic blood pressure 126 mm[Hg] Juliet Aventura PA-C Work Phone: [facility] 09-12-2022 14:24-0500 Body height 149.9 cm Shan Wolfe MD Work Phone: [facility] 09-12-2022 14:24-0500 Body temperature 98.29 [degF] Shan Wolfe MD Work Phone: [facility] 09-12-2022 14:24-0500 Body weight 61.05 kg Shan Wolfe MD Work Phone: [facility] 09-12-2022 14:24-0500 Diastolic blood pressure 82 mm[Hg] Shan Wolfe MD Work Phone: [facility] 09-12-2022 14:24-0500 Heart rate 80 /min Shan Wolfe MD Work Phone: [facility] 09-12-2022 14:24-0500 SaO2% (BldA) [Mass fraction] 99 % Shan Wolfe MD Work Phone: [facility] 09-12-2022 14:24-0500 Systolic blood pressure 144 mm[Hg] Shan Wolfe MD Work Phone: [facility] 09-09-2022 12:53-0500 Body weight 60.78 kg Kathie Tannhof [employer].CERTIFIED NURSE AIDE Work Phone: [facility] 09-09-2022 12:53-0500 Diastolic blood pressure 80 mm[Hg] Kathie Tannhof [employer].CERTIFIED NURSE AIDE Work Phone: [facility] 09-09-2022 12:53-0500 Heart rate 76 /min Kathie Tannhof [employer].CERTIFIED NURSE AIDE Work Phone: [facility] 09-09-2022 12:53-0500 Respiratory rate 16 /min Kathie Tannhof [employer].CERTIFIED NURSE AIDE Work Phone: [facility] 09-09-2022 12:53-0500 SaO2% (BldA) [Mass fraction] 97 % Kathie Tannhof [employer].CERTIFIED NURSE AIDE Work Phone: [facility] 09-09-2022 12:53-0500 Systolic blood pressure 150 mm[Hg] Kathie Tannhof [employer].CERTIFIED NURSE AIDE Work Phone: [facility] 08-17-2022 11:08-0500 Body weight 60.78 kg Kathie Tannhof [employer].CERTIFIED NURSE AIDE Work Phone: [facility] 08-17-2022 11:08-0500 Diastolic blood pressure 78 mm[Hg] Kathie Tannhof [employer].CERTIFIED NURSE AIDE Work Phone: [facility] 08-17-2022 11:08-0500 Heart rate 66 /min Kathie Tannhof [employer].CERTIFIED NURSE AIDE Work Phone: [facility] 08-17-2022 11:08-0500 Respiratory rate 16 /min Kathie Tannhof [employer].CERTIFIED NURSE AIDE Work Phone: [facility] 08-17-2022 11:08-0500 SaO2% (BldA) [Mass fraction] 98 % Kathie Echeverria [employer].CERTIFIED NURSE AIDE Work Phone: [facility] 08-17-2022 11:08-0500 Systolic blood pressure 150 mm[Hg] Kathie Echeverria [employer].CERTIFIED NURSE AIDE Work Phone: [facility] 02-07-2022 14:58-0400 Body weight 62.78 kg Leslye Mccloud MD Work Phone: [facility] 02-07-2022 14:58-0400 Diastolic blood pressure 78 mm[Hg] Leslye Mccloud MD Work Phone: [facility] 02-07-2022 14:58-0400 Heart rate 60 /min Leslye Mccloud MD Work Phone: [facility] 02-07-2022 14:58-0400 Respiratory rate 16 /min Leslye Mccloud MD Work Phone: [facility] 02-07-2022 14:58-0400 Systolic blood pressure 138 mm[Hg] Leslye Mccloud MD Work Phone: [facility] 06-12-2017 09:24-0400 BMI (Body Mass Index) 29.89 kg/m2 Carrie Beckford LPN [facility] Work Phone: 06-12-2017 09:24-0400 Body Temperature 98.9 [degF] Carrie Beckford LPN [facility] Work Phone: 06-12-2017 09:24-0400 BP Diastolic 86 mm[Hg] Carrie Beckford LPN [facility] Work Phone: 06-12-2017 09:24-0400 BP Systolic 138 mm[Hg] Carrie Beckford LPN [facility] Work Phone: 06-12-2017 09:24-0400 Height 149.86 cm Carrie Beckford LPN [facility] Work Phone: 06-12-2017 09:24-0400 Pulse (Heart Rate) 98 /min Carrie Beckford LPN [facility] Work Phone: 06-12-2017 09:24-0400 Respiratory Rate 17 /min Carrie Beckford LPN [facility] Work Phone: 06-12-2017 09:24-0400 Weight 67.13 kg Carrie Beckford LPN [facility] Work Phone: 01-04-2017 09:07-0400 BMI (Body Mass Index) 29.28 kg/m2 Gianna Grove LPN [facility] Work Phone: 01-04-2017 09:07-0400 Body Temperature 99.4 [degF] Gianna Grove LPN [facility] Work Phone: 01-04-2017 09:07-0400 Body weight 65.77 kg Gianna Grove LPN [facility] Work Phone: 01-04-2017 09:07-0400 BP Diastolic 90 mm[Hg] Gianna Grove LPN [facility] Work Phone: 01-04-2017 09:07-0400 BP Systolic 144 mm[Hg] Gianna Grove LPN [facility] Work Phone: 01-04-2017 09:07-0400 Height 149.86 cm Gianna Grove LPN [facility] Work Phone: 01-04-2017 09:07-0400 Pulse (Heart Rate) 92 /min Gianna Grove LPN [facility] Work Phone: 01-04-2017 09:07-0400 Pulse Oximetry 98 % Gianna Grove LPN [facility] Work Phone: 01-04-2017 09:07-0400 Respiratory Rate 14 /min Gianna Grove LPN [facility] Work Phone: Encounters Encounter Date Encounter Type Care Provider Facility Start: 06-04-2025 End: 06-04-2025 [facility] [place][note 2] Facility:[facility] Start: 06-03-2025 ambulatory [facility] Facility :[facility] Start: 05-27-2025 ambulatory [facility] Facility :[facility] Start: 05-27-2025 Non-patient / Non-visit Dr. Mary LOCKHART -[facility] Start: 05-27-2025 End: 05-27-[address] Leslye Mccloud MD Work Phone: -Cardiovascular Services Start: 05-27-2025 End: 05-27-2025 Patient encounter procedure Aissatou MANZO -Cardiovascular Services Work Phone: Start: 05-27-2025 End: 05-27-2025 ambulatory Aissatou MANZO Facility:[facility] Start: 05-20-2025 ambulatory DAWNA BARBA Facil ity:[facility] Start: 05-02-2025 End: 05-02-2025 ambulatory [facility] HEAD ROSE GROWER.CERTIFIED NURSE AIDE Work Phone: [employer] Comment on above: Allied Health Visit (Medication Adherence Outreach/) Start: 04-29-2025 End: 04-29-2025 Patient encounter procedure Aissatou MANZO -[facility] Work Phone: Start: 04-29-2025 End: 04-29-[address] Leslye Mccloud MD Work Phone: -[facility] Start: 04-18-2025 End: 04-18-2025 Telephone encounter Dawna Barba HEAD ROSE GROWER.CERTIFIED NURSE AIDE Work Phone: Pulmonary Medicine Start: 04-04-2025 End: 04-04-2025 Refill Dawna Barba HEAD ROSE GROWER.CERTIFIED NURSE AIDE Work Phone: Pulmonary Medicine Comment on above: Refill Request Start: 01-31-2025 End: 01-31-2025 ambulatory KATHIE [facility] Facility:[facility] Start: 12-24-2024 End: 12-24-2024 ambulatory Leslye Mccloud MD Work Phone: [facility] Start: 12-24-2024 End: 12-24-2024 Patient encounter procedure Leslye Mccloud MD Work Phone: [facility] [place] [facility] Comment on above: Population Health Na vigation Outreach ([facility] ) Start: 12-12-2024 End: 12-12-2024 ambulatory Kathie Echeverria Facility:[facility] Start: 12-03-2024 End: 12-03-2024 ambulatory LESLYE MCCLOUD Facility:[facility] Start: 12-03-2024 End: 12-03-2024 Office outpatient visit 10 minutes Dawna Barba HEAD ROSE GROWER.CERTIFIED NURSE AIDE Work Phone: Pulmonary Medicine Comment on above: Mild intermittent as thma without complication (HCC) (Primary Dx); Lung nodules; Pulmonary hypertension (HCC); Fatigue, unspecified type Start: 11-20-2024 End: 01-20-2025 Orders Only Dawna Barba HEAD ROSE GROWER.CERTIFIED NURSE AIDE Work Phone: Pulmonary Medicine Comment on above: Lung nodules (Primar y Dx) Start: 11-19-2024 End: 11-19-2024 Telephone encounter Dawna Barba HEAD ROSE GROWER.CERTIFIED NURSE AIDE Work Phone: Pulmonary Medicine Comment on above: Results Start: 11-13-2024 End: 11-13-2024 ambulatory DAWNA BARBA Facility:[facility] Start: 11-13-2024 End: 11-13-2024 Subsequent hospital visit by physician Ct [facility] (I-Stat) Work Phone: Cat Scan Comment on above: Lung nodules [R91.8] Start: 11-01-2024 End: 11-01-2024 Patient encounter procedure Barry Perez [facility] [place] Comment on above: Population Health Na vigation Outreach ([facility]) Start: 11-01-2024 End: 11-01-2024 Office outpatient visit 25 minutes Kathie Echeverria HEAD ROSE GROWER.CERTIFIED NURSE AIDE Work Phone: [facility] Comment on above: Anxiety (Primary Dx) ; BENIGN HYPERTENSION; Pulmonary HTN (HCC); Mixed hyperlipidemia; Gastroesophageal reflux disease with esophagitis without hemorrhage; Mild intermittent asthma without complication; Lung nodule; Personal history of malignant neoplasm of breast Start: 11-01-2024 End: 11-01-2024 ambulatory Barry Loaiza MA [facility] [place] Start: 10-25-2024 End: 10-25-2024 Patient encounter procedure Aissatou MANZO -[facility] Work Phone: Start: 10-25-2024 End: 10-25-[address] Leslye Mccloud MD Work Phone: [facility] Work Phone: Start: 10-25-2024 End: 10-25-2024 ambulatory Aissatou MANZO Facility:[facility] Start: 10-07-2024 End: 10-08-2024 Refill Alejandra Daly PA-C Work Phone: Pulmonary Medicine Comment on above: Refill Request Start: 09-18-2024 End: 09-19-2024 Refill Alejandra Daly PA-C Work Phone: Pulmonary Medicine Comment on above: Refill Request Start: 09-17-2024 End: 09-17-2024 ambulatory KATHIE ECHEVERRIA Facility:[facility] Start: 09-17-2024 End: 09-17-2024 Subsequent hospital visit by physician Screen Mammo [facility] Mammogram Comment on above: Personal history of malignant neoplasm of breast [Z85.3] Start: 08-27-2024 End: 08-27-2024 ambulatory Pulm Lab [facility] Work Phone: [facility] Comment on above: Spirometry Start: 08-27-2024 End: 08-27-2024 Patient encounter procedure Pulm Lab [facility] Work Phone: PULM LAB [facility] Start: 07-26-2024 End: 07-26-2024 Patient encounter procedure Kathie Echeverria HEAD ROSE GROWER.CERTIFIED NURSE AIDE Work Phone: [facility] Comment on above: Bilateral hand numbn ess (Primary Dx); Gastroesophageal reflux disease with esophagitis without hemorrhage; Anxiety; BENIGN HYPERTENSION; Mixed hyperlipidemia; Mild intermittent asthma without complication; Lung nodule; Pulmonary HTN (HCC); Personal history of malignant neoplasm of breast; Encounter for immunization Start: 07-26-2024 End: 07-26-2024 ambulatory KATHIE ECHEVERRIA Facility:[facility] Start: 07-05-2024 End: 07-08-2024 Refill Leslye Mccloud MD Work Phone: [facility] [place] Comment on above: Refill Request Start: 06-21-2024 End: 06-21-2024 Telephone encounter Dawna Barba APRN.CERTIFIED NURSE AIDE Work Phone: Pulmonary Medicine Start: 06-18-2024 End: 06-18-2024 Subsequent hospital visit by physician Elie [facility] [place] Mob Work Phone: Radiology Comment on above: Cough, unspecified t ype [R05.9] Start: 06-18-2024 End: 06-18-2024 Office outpatient visit 40 minutes Dawna Barba HEAD ROSE GROWER.CERTIFIED NURSE AIDE Work Phone: Pulmonary Medicine Comment on above: Mild persistent asth ma with acute exacerbation (Primary Dx); Bronchitis; Cough, unspecified type; Pulmonary hypertension (HCC); Lung nodules; Pulmonary emphysema, unspecified emphysema type (HCC) Start: 06-13-2024 End: 06-13-2024 Telephone encounter Alejandra Daly PA-C Work Phone: Pulmonary Medicine Comment on above: Patient Question Start: 05-13-2024 End: 05-16-2024 ambulatory [facility] Provider [facility] [place] Comment on above: Procedure Start: 05-13-2024 End: 05-16-2024 E-mail encounter from caregiver [facility] Provider [facility] [place] Start: 04-30-2024 End: 04-30-2024 Telephone encounter Kathie Echeverria APRN.CERTIFIED NURSE AIDE Work Phone: [facility] [place] Comment on above: Results (Chest Xray ) Start: 04-27-2024 End: 04-27-2024 Subsequent hospital visit by physician Elie [facility] [place] Work Phone: Radiology Comment on above: Bacterial pneumonia [J15.9] Start: 04-25-2024 End: 04-25-2024 Telephone encounter Kathie Echeverria APRN.CERTIFIED NURSE AIDE Work Phone: [facility] [place] Comment on above: Results (Labs ) Start: 04-24-2024 End: 04-24-2024 Patient encounter procedure Kathie Echeverria APRN.CNP Work Phone: [facility] [place] Comment on above: Fatigue, unspecified type (Primary Dx); Gastroesophageal reflux disease with esophagitis without hemorrhage; Anxiety; BENIGN HYPERTENSION; Mixed hyperlipidemia; Mild intermittent asthma without complication; Personal history of malignant neoplasm of breast; Screening for colon cancer; Screening for depression Start: 04-19-2024 End: 04-25-2024 ambulatory Leslye Mccloud MD Work Phone: [facility] [place] Comment on above: Intermittent leave Start: 03-27-2024 End: 03-27-2024 Patient encounter procedure Alejandra Daly PA-C Work Phone: Pulmonary Medicine Comment on above: Multifocal pneumonia (Primary Dx); Mild intermittent asthma without complication; Non-allergic rhinitis Start: 03-11-2024 Telephone encounter Kathie diaz APRN.CNP Work Phone: [facility] [place] Comment on above: Results (Outside Ech o) Start: 02-23-2024 End: 05-16-2024 Telephone encounter Kathie Echeverria APRN.CNP Work Phone: [facility] [place] Comment on above: Results (Chest Xray ) Forms (Pre Op Form-e ye surgery) Start: 02-23-2024 End: 02-23-2024 Subsequent hospital visit by physician Elie [facility] [place] Lakhani Work Phone: Radiology Comment on above: Bronchitis [J40] Start: 02-23-2024 End: 02-23-2024 Patient encounter procedure Kathie Echeverria APRN.CNP Work Phone: [facility] [place] Comment on above: Bronchitis (Primary Dx) Start: 02-20-2024 End: 02-20-2024 Emergency department patient visit MENA HOLLY [facility] Start: 02-19-2024 Telephone encounter Leslye augustin MD Work Phone: [facility] [place] Comment on above: Future Appointment Start: 02-05-2024 Telephone encounter Kathie diaz APRN.CNP Work Phone: [facility] [place] Comment on above: Appointment Start: 01-31-2024 End: 01-31-2024 Patient encounter procedure Kathie Echeverria APRN.CERTIFIED NURSE AIDE Work Phone: [facility] [place] Comment on above: Chest pain, unspecif ied type (Primary Dx); SOB (shortness of breath); Mixed hyperlipidemia; Herpes zoster without complication; Gastroesophageal reflux disease with esophagitis without hemorrhage; Anxiety; BENIGN HYPERTENSION; Mild intermittent asthma without complication; Personal history of malignant neoplasm of breast Start: 01-05-2024 Telephone encounter Leslye augustin MD Work Phone: [facility] [place] Comment on above: Medication Request Start: 12-22-2023 Telephone encounter Lesyle augustin MD Work Phone: [facility] [place] Comment on above: Question Start: 12-18-2023 End: 12-18-2023 Office outpatient visit 15 minutes Kalli Patel APRN.HEAD STOCK OPERATOR Work Phone: [facility] [place] Comment on above: Herpes zoster withou t complication (Primary Dx) Start: 11-01-2023 End: 11-01-2023 Patient encounter procedure Kathie Echeverria APRN.CERTIFIED NURSE AIDE Work Phone: [facility] [place] Comment on above: Gastroesophageal ref lux disease with esophagitis without hemorrhage (Primary Dx); Anxiety; BENIGN HYPERTENSION; Hyperlipidemia, unspecified hyperlipidemia type; Mild intermittent asthma without complication; Personal history of malignant neoplasm of breast; Other age-related cataract of right eye Start: 10-12-2023 Telephone encounter Kathie diaz APRN.CERTIFIED NURSE AIDE Work Phone: [facility] [place] Comment on above: Results (Chest Xray ) Start: 10-11-2023 End: 10-11-2023 Subsequent hospital visit by physician Elie [facility] [place] Work Phone: Radiology Comment on above: Bruising [T14.8XXA] Start: 10-11-2023 End: 10-11-2023 Patient encounter procedure Kathie Echeverria APRN.ALCIRA Work Phone: [facility] [place] Comment on above: Chronic cough (Prima ry Dx); Bruising Start: 10-09-2023 ambulatory Leslye loza MD Work Phone: [facility] [place] Comment on above: Fmla Start: 09-27-2023 End: 09-27-2023 Office outpatient visit 15 minutes Alejandra Daly PA-C Work Phone: Pulmonary Medicine Comment on above: Mild intermittent as thma without complication (Primary Dx); Non-allergic rhinitis; Musculoskeletal back pain Start: 09-25-2023 Telephone encounter Leslye augustin MD Work Phone: [facility] [place] Comment on above: FMLA Paperwork (Rosalinda leigh) Start: 09-22-2023 ambulatory Leslye loza MD Work Phone: [facility] [place] Comment on above: Intermittent leave Start: 09-05-2023 End: 09-05-2023 Subsequent hospital visit by physician Xr [facility] [place] Work Phone: Radiology Comment on above: Mild intermittent as thma with acute exacerbation [J45.21] Start: 07-31-2023 End: 07-31-2023 Patient encounter procedure Leslye Mccloud MD Work Phone: Family [facility] [place] Comment on above: BENIGN HYPERTENSION (Primary Dx); Anxiety; Hyperlipidemia, unspecified hyperlipidemia type; Gastroesophageal reflux disease, unspecified whether esophagitis present; Mild intermittent asthma without complication; Personal history of malignant neoplasm of breast; Viral wart on finger Start: 05-01-2023 End: 05-01-2023 Patient encounter procedure Kathie Echeverria APRN.CNP Work Phone: [facility] [place] Comment on above: Bronchitis (Primary Dx); BENIGN HYPERTENSION; Mild intermittent asthma without complication; Anxiety; Gastroesophageal reflux disease, unspecified whether esophagitis present; Personal history of malignant neoplasm of breast; Screening for colon cancer Start: 04-12-2023 Refill Leslye loza MD Work Phone: [facility] [place] Comment on above: Refill Request; Refi ll Request Start: 03-27-2023 End: 03-27-2023 Patient encounter procedure Georgiana Ruiz MD Work Phone: Pulmonary Medicine Comment on above: Mild intermittent as thma without complication (Primary Dx); Non-allergic rhinitis Start: 03-09-2023 Telephone encounter Kathie diaz HEAD ROSE GROWER.CERTIFIED NURSE AIDE Work Phone: Family [facility] [place] Comment on above: Results (Labs ) Start: 02-22-2023 Telephone encounter Kathie diaz HEAD ROSE GROWER.CERTIFIED NURSE AIDE Work Phone: [facility] [place] Comment on above: Results (PFT's ) Start: 02-20-2023 End: 02-20-2023 ambulatory Pulm Lab [facility] Work Phone: PULM LAB [facility] Comment on above: Spirometry Start: 02-20-2023 End: 02-20-2023 Patient encounter procedure Pulm Lab [facility] Work Phone: [place] Start: 01-20-2023 Telephone encounter Leslye augustin MD Work Phone: Family [facility] [place] Comment on above: Patient Question Start: 12-16-2022 Refill Leslye loza MD Work Phone: [facility] [place] Comment on above: Refill Request Start: 12-15-2022 Telephone encounter Kathie diaz HEAD ROSE GROWER.CERTIFIED NURSE AIDE Work Phone: Family [facility] [place] Comment on above: Results (Labs ) Start: 12-12-2022 End: 12-12-2022 Patient encounter procedure Kathie Echeverria APRN.CERTIFIED NURSE AIDE Work Phone: Family [facility] [place] Comment on above: Bilateral impacted c erumen (Primary Dx); Acute otitis externa of right ear, unspecified type Start: 12-07-2022 End: 12-07-2022 Patient encounter procedure Kathie Echeverria APRN.CERTIFIED NURSE AIDE Work Phone: Family [facility] [place] Comment on above: Bronchitis (Primary Dx); Generalized weakness; Bilateral impacted cerumen; BENIGN HYPERTENSION Start: 11-22-2022 Telephone encounter Leslye augustin MD Work Phone: [facility] [place] Comment on above: Patient Update; Lab Orders Start: 11-21-2022 Telephone encounter Leslye augustin MD Work Phone: [facility] [place] Comment on above: FMLA Paperwork Start: 11-18-2022 ambulatory Leslye loza MD Work Phone: [facility] [place] Comment on above: Weakness; Diarrhea Start: 11-17-2022 ambulatory Leslye loza MD Work Phone: [facility] [place] Comment on above: Weak, dizzy spell Start: 11-07-2022 End: 11-07-2022 Patient encounter procedure Kathie Echeverria APRN.CERTIFIED NURSE AIDE Work Phone: [facility] [place] Comment on above: BENIGN HYPERTENSION (Primary Dx); Gastroesophageal reflux disease, unspecified whether esophagitis present; Mild intermittent asthma without complication; Anxiety; Personal history of malignant neoplasm of breast; Acute bronchitis, unspecified organism Start: 11-03-2022 End: 11-03-2022 ambulatory Leslye Mccloud MD Work Phone: [facility] [place] Comment on above: Acute bronchitis, un specified organism Start: 11-03-2022 End: 11-03-2022 Telemedicine consultation with patient Leslye Mccloud MD Work Phone: [facility] [place] Start: 11-02-2022 ambulatory Leslye loza MD Work Phone: [facility] [place] Comment on above: Bronchitis Start: 10-19-2022 End: 10-19-2022 Subsequent hospital visit by physician Screen Mammo [facility] Mamm[facility] Comment on above: Encounter for screen ing mammogram for breast cancer [Z12.31] Start: 10-03-2022 Refill Leslye loza MD Work Phone: [facility] [place] Comment on above: Refill Request Start: 09-22-2022 Refill Herb LOUISE RN.CERTIFIED NURSE AIDE Work Phone: [facility] [place] Comment on above: Refill Request Start: 09-21-2022 End: 09-21-2022 Patient encounter procedure Juliet Bravo PA-C Work Phone: General Surgery Comment on above: Infected sebaceous c yst (Primary Dx) Start: 09-12-2022 End: 09-12-2022 Patient encounter procedure Shan Wolfe MD Work Phone: General Surgery Comment on above: Infected sebaceous c yst (Primary Dx) Start: 09-09-2022 End: 09-09-2022 Patient encounter procedure Kathie Echeverria APRN.CERTIFIED NURSE AIDE Work Phone: [facility] [place] Comment on above: Left breast abscess (Primary Dx) Start: 08-17-2022 End: 08-17-2022 Patient encounter procedure Kathie Echeverria APRN.CERTIFIED NURSE AIDE Work Phone: [facility] [place] Comment on above: Cellulitis, nose (Pr imary Dx); Gastroesophageal reflux disease, unspecified whether esophagitis present; Essential hypertension, benign; Mild intermittent asthma without complication; Anxiety; Encounter for screening mammogram for breast cancer Start: 07-18-2022 Refill Leslye loza MD Work Phone: [facility] [place] Comment on above: Refill Request Start: 04-11-2022 ambulatory Leslye loza MD Work Phone: [facility] [place] Comment on above: Headache Start: 02-25-2022 Refill Leslye loza MD Work Phone: [facility] [place] Comment on above: Refill Request Start: 02-07-2022 End: 02-07-2022 Patient encounter procedure Leslye Mccloud MD Work Phone: [facility] [place] Comment on above: Essential hypertensi on, benign (Primary Dx); Anxiety; Gastroesophageal reflux disease, unspecified whether esophagitis present; Mild intermittent asthma without complication; Hyperlipidemia, unspecified hyperlipidemia type; Encounter for screening colonoscopy Start: 01-29-2022 ambulatory Leslye loza MD Work Phone: [facility] [place] Comment on above: Question regarding C OMP METABOLIC PANEL Start: 01-19-2022 Refill Leslye loza MD Work Phone: [facility] [place] Comment on above: Refill Request Start: 12-01-2021 Refill Leslye loza MD Work Phone: [facility] [place] Comment on above: Refill Request Start: 11-29-2021 Refill Leslye loza MD Work Phone: [facility] [place] Comment on above: Refill Request FMLA Paperwork Start: 11-24-2021 Telephone encounter Leslye augustin MD Work Phone: [facility] [place] Comment on above: Forms (kristie) Start: 11-15-2021 Telephone encounter Leslye augustin MD Work Phone: [facility] Comment on above: Refill Request Procedures Date Procedure Procedure Detail Performing Clinician Start: 05-27-2025 Radionuclide imaging of perfusion of myocardium under exercise stress Dr. Leslye Mccloud MD Work Phone: Start: 09-17-2024 Screening mammograph y bi 2-view breast inc cad Kathie Echeverria APRN.CERTIFIED NURSE AIDE Work Phone: Start: 08-27-2024 Brncdilat rspse spmt ry pre&post-brncdilat admn Dawna Babra HEAD ROSE GROWER.CERTIFIED NURSE AIDE Work Phone: Start: 04-27-2024 Radiologic exam ches t 2 views Kathie Echeverria APRN.CERTIFIED NURSE AIDE Work Phone: Start: 04-24-2024 Adult depression scr eening assessment Kathie Echeverria HEAD ROSE GROWER.CERTIFIED NURSE AIDE Work Phone: Start: 02-23-2024 Radiologic exam ches t 2 views Kathie Echeverria HEAD ROSE GROWER.CERTIFIED NURSE AIDE Work Phone: Start: 02-20-2024 Urinalysis MENA THOMAS Comment on above: Result Comment: URIN ALYSIS Performed By: #### [id number] #### [facility],[address] [place] [id number] Start: 01-22-2024 Lipid 1996 panel - S john or Plasma Kathie Echeverria APRN.CERTIFIED NURSE AIDE Work Phone: Start: 10-11-2023 Radiologic exam ches t 2 views Kathie Echeverria HEAD ROSE GROWER.CERTIFIED NURSE AIDE Work Phone: Start: 09-05-2023 Radiologic exam ches t 2 views Herb Dinh HEAD ROSE GROWER.CERTIFIED NURSE AIDE Work Phone: Start: 03-06-2023 Lipid 1996 panel - S john or Plasma Screen [facility] Start: 02-20-2023 Nitric oxide gas [facility]OWER.CERTIFIED NURSE AIDE Work Phone: Start: 02-20-2023 Plethysmography lung volumes w/wo airway resist [facility] [employer]SE GROWER.CERTIFIED NURSE AIDE Work Phone: Start: 10-19-2022 End: 10-19-2022 [facility] [employer]SE GROWER.CERTIFIED NURSE AIDE Work Phone: Start: 10-25-2021 Adult depression scr eening assessment Leslye Mccloud MD Work Phone: Start: 08-23-2021 Mammography Leslye rowe MD Work Phone: Start: 01-04-2017 End: 01-04-2017 Documentation of current medications Gianna Grove LPN History of radiation therapy History of radiation therapy Dr. Leslye Mccloud MD Work Phone: Plan of Treatment Date Care Activity Detail Author Start: 01-21-2029 Lipid panel Lipid Screening [facility] Start: 03-06-2028 Lipid 1996 panel - S john or Plasma Lipid Screening [facility] Start: 03-06-2028 Lipid panel Lipid Screening [facility] Start: 03-06-2028 LIPID SCREEN LIPID SCREEN [facility] Start: 02-01-2028 Diabetes Screening Diabetes Screenin [facility] Start: 04-27-2027 Screening for malign ant neoplasm of colon [facility] Start: 01-21-2027 Diabetes Screening Diabetes Screenin g [facility] Start: 01-19-2027 LIPID SCREEN LIPID SCREEN [facility] Start: 03-06-2026 DIABETES SCREEN DIABETES SCREEN [facility] Start: 03-06-2026 Diabetes Screening Diabetes Screenin g [facility] Start: 01-20-2026 LIPID SCREEN LIPID SCREEN [facility] Start: 11-28-2025 DIABETES SCREEN DIABETES SCREEN [facility] Start: 11-01-2025 Annual PCP Team Construction Carpenter yuliana Disease Visit Annual PCP Team Chronic Disease Visit [facility] Start: 11-01-2025 RSV Vaccine (1 - 1-d ose 75+ series) RSV Vaccine (1 - 1-dose 75+ series) [facility] [facility] Comment on above: Postponed from 06/15 (Declined at this time) Start: 07-26-2025 Annual PCP Team Construction Carpenter yuliana Disease Visit Annual PCP Team Chronic Disease Visit [facility] Start: 06-04-2025 End: 06-04-2025 Patient encounter procedure Pulmonary Medicine Comment on above: 6 month f/u- review CT 05/22/25 Start: 05-22-2025 End: 12-20-2025 CT Chest WO contrast CT CHEST WO IVCON Radiology Routine Lung nodules Expected: 05/22/2025 (Approximate), Expires: 12/20/2025 [facility] Work Phone: Comment on above: Expected: 05/22/2025 (Approximate), Expires: 12/20/2025 Start: 05-22-2025 End: 05-22-2025 Patient encounter procedure 05/22/2025 11:00 AM EDT Appointment Cat Scan [address] [place], [place] [id number] Lung nodules [R91.8] Cat Scan Comment on above: Lung nodules [R91.8] Start: 04-24-2025 Annual PCP Team Construction Carpenter yuliana Disease Visit Annual PCP Team Chronic Disease Visit [facility] Start: 04-24-2025 Covid-19 Vaccine ( season) Covid-19 Vaccine () [facility] Comment on above: Postponed from 04/21 (Declined at this time) Start: 04-24-2025 Covid-19 Vaccine () Covid-19 Vaccine () [facility] Comment on above: Postponed from 04/21 (Declined at this time) Start: 04-24-2025 Depression Screening Depression Scre ening [facility] Start: 09-01-2025 Influenza vaccination Influenza Vacc ine (#1) [facility] Start: 02-22-2025 Annual PCP Team Construction Carpenter yuliana Disease Visit Annual PCP Team Chronic Disease Visit [facility] Start: 02-05-2025 Urine microalbumin profile DTaP,Tdap,Td Vaccine (3 - Td or Tdap) [facility] Start: 02-01-2025 End: 05-03-2025 Comprehensive metabolic 2000 panel - Serum or Plasma COMPREHENSIVE METABOLIC PANEL Lab Routine Mixed hyperlipidemia Expected: 02/01/2025, Expires: 05/03/2025 [facility] Comment on above: Expected: 02/01/2025 , Expires: 05/03/2025 Start: 02-01-2025 End: 05-03-2025 Lipid 1996 panel - Serum or Plasma LIPID PANEL BASIC Lab Routine Mixed hyperlipidemia Expected: 02/01/2025, Expires: 05/03/2025 [facility] Work Phone: Comment on above: Expected: 02/01/2025 , Expires: 05/03/2025 Start: 01-30-2025 Annual PCP Team Construction Carpenter yuliana Disease Visit Annual PCP Team Chronic Disease Visit [facility] Start: 01-19-2025 DIABETES SCREEN DIABETES SCREEN [facility] Start: 12-03-2024 End: 12-03-2024 Patient encounter procedure 12/03/2024 10:30 AM EDT Office Visit Pulmonary Medicine [address] [place] [address] Dawna Barba APRN.CERTIFIED NURSE AIDE [address] [place] [address] 4 MTH F/U ASTHMA Pulmonary Medicine Comment on above: 4 MTH F/U ASTHMA Start: 11-20-2024 Shingrix Vaccine (3 of 3) Olson grix Vaccine (3 of 3) [facility] Start: 11-20-2024 End: 11-20-2024 Patient encounter procedure Pulmonary Medicine Comment on above: 4 MTH F/U ASTHMA Start: 11-13-2024 End: 11-13-2024 Patient encounter procedure Cat Scan Comment on above: 4 MTH F/U ASTHMA Start: 11-11-2024 End: 07-18-2025 CT Chest WO contrast CT CHEST WO IVCON Radiology Routine Lung nodules Expected: 11/11/2024 (Approximate), Expires: 07/18/2025 [facility] Work Phone: Comment on above: Expected: 11/11/2024 (Approximate), Expires: 07/18/2025 Start: 11-01-2024 End: 11-01-2024 Patient encounter procedure 11/01/2024 11:00 AM EDT Office Visit Family [facility] [address] [place], [place] [phone] Kathie Echeverria APRN.CERTIFIED NURSE AIDE [address] [place], [place] [phone] 3 month follow up Family Medicine [place] Comment on above: 3 month follow up Start: 10-31-2024 Annual PCP Team Construction Carpenter yuliana Disease Visit Annual PCP Team Chronic Disease Visit [facility] Start: 10-31-2024 BP Controlled (<130/80) BP Controlle d (<130/80) [facility] Start: 10-31-2024 RSV Vaccine (1 - 1-d ose 60+ series) RSV Vaccine (1 - 1-dose 60+ series) [facility] Comment on above: Postponed from 06/15 (Declined at this time) Start: 10-31-2024 RSV Vaccine (1 - 1-d ose 75+ series) RSV Vaccine (1 - 1-dose 75+ series) [facility] Comment on above: Postponed from 06/15 (Declined at this time) Start: 10-11-2024 Annual PCP Team Construction Carpenter yuliana Disease Visit Annual PCP Team Chronic Disease Visit [facility] Start: 10-02-2024 End: 10-02-2024 Patient encounter procedure 10/02/2024 11:00 AM EST Office Visit Pulmonary Medicine [address] [place], [place] [phone] Alejandra Daly PA-C [address] [place], [place] [phone] 6 month follow up Pulmonary Medicine Comment on above: 6 month follow up Start: 09-05-2024 Annual PCP Team Construction Carpenter yuliana Disease Visit Annual PCP Team Chronic Disease Visit [facility] Start: 08-27-2024 End: 08-27-2024 ambulatory PULM LAB [facility] Comment on above: ASTHMA Start: 08-21-2024 Advance Directive Discussion Advance Directive Discussion [facility] Start: 08-21-2024 Medicare Advantage A nnual Wellness Visit Medicare Advantage Annual Wellness Visit [facility] Start: 07-31-2024 Annual PCP Team Construction Carpenter yuliana Disease Visit Annual PCP Team Chronic Disease Visit [facility] Start: 07-31-2024 Covid-19 Vaccine () Covid-19 Vaccine () [facility] Comment on above: Postponed from 04/21 (Declined at this time) Start: 07-26-2024 End: 07-26-2024 Patient encounter procedure 07/26/2024 11:00 AM EST Office Visit Family Medicine [facility] [address] [place] [address] Kathie Echeverria APRN.CERTIFIED NURSE AIDE [address] [place] [address] 3m f/u Family Medicine [place] Comment on above: 3m f/u Start: 07-16-2024 End: 07-16-2024 Patient encounter procedure 07/16/2024 11:00 AM EST Office Visit Pulmonary Medicine [address] [place] [address] Dawna Barba APRN.CERTIFIED NURSE AIDE [address] [facility] [address] [place] [address] 4 WK F/U ASTHMA Pulmonary Medicine Comment on above: 4 WK F/U ASTHMA Start: 07-16-2024 End: 07-16-2024 ambulatory PULM LAB [facility] Comment on above: 4 WK F/U ASTHMA Start: 06-18-2024 End: 09-17-2024 Fibrin D-dimer FEU [Mass/volume] in Platelet poor plasma [facility] Comment on above: Expected: 06/18/2024 , Expires: 09/17/2024 Start: 06-18-2024 End: 09-17-2024 Natriuretic peptide.B prohormone N-Terminal [Mass/volume] in Serum or Plasma [facility] Comment on above: Expected: 06/18/2024 , Expires: 09/17/2024 Start: 06-18-2024 End: 06-18-2024 Patient encounter procedure 06/18/2024 11:00 AM EDT Office Visit Pulmonary Medicine [address] [place] [address] Dawna Barba APRN.CERTIFIED NURSE AIDE [address] [employer] [address] [place] [address] Review echo and CTA chest at [facility], Pulmonary HTN 52mmhg Pulmonary Medicine Comment on above: Review echo and CTA chest at [facility], Pulmonary HTN 52mmhg Start: 05-10-2024 End: 05-10-2024 Patient encounter procedure 05/10/2024 10:40 AM EDT Office Visit Family Medicine [place] [address] [place] [address] Kathie Echeverria, HEAD ROSE GROWER.CERTIFIED NURSE AIDE [address] [facility] [place] [address] 3 month follow up Family Tamir [place] Comment on above: 3 month follow up Start: 05-08-2024 Colorectal Cancer Screening Colorectal Cancer Screening [facility] Start: 05-08-2024 Fecal Occult Blood Fecal Occult Bloo d [facility] Start: 05-08-2024 Screening for malign ant neoplasm of colon [facility] Start: 05-08-2024 End: 05-08-2024 Patient encounter procedure 05/08/2024 11:00 AM EDT Office Visit Family Tamir [place] [address] [place] [address] Kathie Echeverria, HEAD ROSE GROWER.CERTIFIED NURSE AIDE [address] [place], [place] [phone] 3 month follow up Family Tamir [place] Comment on above: 3 month follow up Start: 05-01-2024 ANNUAL PCP TEAM 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 YULIANA DISEASE VISIT ANNUAL PCP TEAM CHRONIC DISEASE VISIT [facility] Start: 04-27-2024 End: 04-27-2024 Patient encounter procedure 04/27/2024 9:30 AM EDT Appointment Radiology [address] [facility] [place] [address] Bacterial pneumonia [J15.9] Radiology Comment on above: Bacterial pneumonia [J15.9] Start: 04-24-2024 End: 07-24-2024 25-hydroxyvitamin D3 [Mass/volume] in Serum or Plasma [facility] Comment on above: Expected: 04/24/2024 , Expires: 07/24/2024 Start: 04-24-2024 End: 07-24-2024 Cobalamin (Vitamin B12) [Mass/volume] in Serum or Plasma [facility] Comment on above: Expected: 04/24/2024 , Expires: 07/24/2024 Start: 04-24-2024 End: 07-24-2024 Thyrotropin [Units/volume] in Serum or Plasma [facility] Comment on above: Expected: 04/24/2024 , Expires: 07/24/2024 Start: 04-24-2024 End: 07-24-2024 Thyroxine (T4) free [Mass/volume] in Serum or Plasma [facility] Comment on above: Expected: 04/24/2024 , Expires: 07/24/2024 Start: 04-21-2024 Influenza vaccination Influenza Vacc ine (#1) [facility] Start: 03-27-2024 Urine microalbumin profile DTAP,TDAP,TD (2 - Td or Tdap) [facility] Start: 03-27-2024 End: 03-27-2024 Patient encounter procedure 03/27/2024 1:00 PM EDT Office Visit Pulmonary Medicine [address] [place] [address] Alejandra Daly PA-C [address] [place] [address] 6 months Pulmonary Medicine Comment on above: 6 months Start: 03-25-2024 End: 03-24-2025 XR Chest PA and Lateral XR CHEST 2V FRONTAL/LAT Radiology STAT Bacterial pneumonia Expected: 03/25/2024, Expires: 03/24/2025 [facility] Work Phone: Comment on above: Expected: 03/25/2024 , Expires: 03/24/2025 Start: 02-21-2024 End: 02-21-2024 Patient encounter procedure 02/21/2024 8:40 AM EDT Office Visit Family Medicine [place] [address] [place] [address] Kathie Echeverria, HEAD ROSE GROWER.CERTIFIED NURSE AIDE [address] [place] [address] cough, congestion x 5 days (see phone encounter) Family [facility] [place] Comment on above: cough, congestion x 5 days (see phone encounter) Start: 02-07-2024 ANNUAL PCP TEAM 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 YULIANA DISEASE VISIT ANNUAL PCP TEAM CHRONIC DISEASE VISIT [facility] Start: 02-01-2024 End: 05-02-2024 Comprehensive metabolic 2000 panel - Serum or Plasma COMP METABOLIC PANEL Lab Routine Hyperlipidemia, unspecified hyperlipidemia type Expected: 02/01/2024, Expires: 05/02/2024 [facility] Work Phone: Comment on above: Expected: 02/01/2024 , Expires: 05/02/2024 Start: 02-01-2024 End: 05-02-2024 Lipid 1996 panel - Serum or Plasma LIPID PANEL BASIC Lab Routine Hyperlipidemia, unspecified hyperlipidemia type Expected: 02/01/2024, Expires: 05/02/2024 [facility] Work Phone: Comment on above: Expected: 02/01/2024 , Expires: 05/02/2024 Start: 01-31-2024 End: 01-31-2024 Patient encounter procedure 01/31/2024 11:00 AM EDT Office Visit Family Medicine [place] [address] [place] [address] Kathie Echeverria, HEAD ROSE GROWER.CERTIFIED NURSE AIDE [address] [place] [address] 3 month follow up Family Medicine [place] Comment on above: 3 month follow up Start: 01-21-2024 DIABETES SCREEN DIABETES SCREEN [facility] Start: 12-13-2023 ANNUAL PCP TEAM 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 YULIANA DISEASE VISIT ANNUAL PCP TEAM CHRONIC DISEASE VISIT [facility] Start: 12-08-2023 ANNUAL PCP TEAM 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 YULIANA DISEASE VISIT ANNUAL PCP TEAM CHRONIC DISEASE VISIT [facility] Start: 11-08-2023 ANNUAL PCP TEAM 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 YULIANA DISEASE VISIT ANNUAL PCP TEAM CHRONIC DISEASE VISIT [facility] Start: 11-08-2023 COVID-19 VACCINE (3 - Booster for Pfizer series) COVID-19 VACCINE (3 - Booster for Pfizer series) [facility] Comment on above: Postponed from 12/25 (Declined at this time) Start: 11-08-2023 COVID-19 VACCINE (3 - Pfizer series) COVID-19 VACCINE (3 - Pfizer series) [facility] Comment on above: Postponed from 12/25 (Declined at this time) Start: 11-08-2023 SHINGRIX VACCINE (2 of 3) OLSON GRIX VACCINE (2 of 3) [facility] Comment on above: Postponed from 11/21 (Declined at this time) Start: 11-08-2023 SPIROMETRY SPIROMETRY [facility] Comment on above: Postponed from 06/15 (Declined at this time) Start: 11-04-2023 ANNUAL PCP TEAM 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 YULIANA DISEASE VISIT ANNUAL PCP TEAM CHRONIC DISEASE VISIT [facility] Start: 10-20-2023 Mammography [facility] Start: 09-09-2023 ANNUAL PCP TEAM 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 YULIANA DISEASE VISIT ANNUAL PCP TEAM CHRONIC DISEASE VISIT [facility] Start: 08-21-2023 Advance Directive Discussion Advance Directive Discussion [facility] Start: 08-21-2023 Behavioral Health Screening Behavioral Health Screening [facility] Start: 08-21-2023 Depression Assessment Depression Ass essment [facility] Start: 08-17-2023 ANNUAL PCP TEAM 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 YULIANA DISEASE VISIT ANNUAL PCP TEAM CHRONIC DISEASE VISIT [facility] Start: 05-16-2023 ANNUAL PCP TEAM 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 YULIANA DISEASE VISIT ANNUAL PCP TEAM CHRONIC DISEASE VISIT [facility] Start: 04-21-2023 Covid-19 Vaccine () Covid-19 Vaccine () [facility] Start: 04-21-2023 Influenza vaccination C [facility] Start: 03-01-2023 ANNUAL PCP TEAM 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 YULIANA DISEASE VISIT ANNUAL PCP TEAM CHRONIC DISEASE VISIT [facility] Start: 02-14-2023 COLORECTAL CANCER SCREENING COLORECTAL CANCER SCREENING [facility] Start: 02-14-2023 FECAL OCCULT BLOOD FECAL OCCULT BLOO D [facility] Start: 02-07-2023 ANNUAL PCP TEAM 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 YULIANA DISEASE VISIT ANNUAL PCP TEAM CHRONIC DISEASE VISIT [facility] Start: 02-07-2023 End: 04-09-2023 CBC W Auto Differential panel - Blood CBC + DIFF Lab Routine BENIGN HYPERTENSION Expected: 02/07/2023, Expires: 04/09/2023 [facility] Work Phone: Comment on above: Expected: 02/07/2023 , Expires: 04/09/2023 Start: 02-07-2023 End: 04-09-2023 Comprehensive metabolic 2000 panel - Serum or Plasma COMP METABOLIC PANEL Lab Routine BENIGN HYPERTENSION Expected: 02/07/2023, Expires: 04/09/2023 [facility] Work Phone: Comment on above: Expected: 02/07/2023 , Expires: 04/09/2023 Start: 02-07-2023 End: 04-09-2023 Lipid 1996 panel - Serum or Plasma LIPID PANEL BASIC Lab Routine BENIGN HYPERTENSION Expected: 02/07/2023, Expires: 04/09/2023 [facility] Work Phone: Comment on above: Expected: 02/07/2023 , Expires: 04/09/2023 Start: 12-07-2022 End: 02-06-2023 25-hydroxyvitamin D3 [Mass/volume] in Serum or Plasma VITAMIN D 25 HYDROXY Lab Routine Generalized weakness Expected: 12/07/2022, Expires: 02/06/2023 [facility] Work Phone: Comment on above: Expected: 12/07/2022 , Expires: 02/06/2023 Start: 12-07-2022 End: 02-06-2023 Cobalamin (Vitamin B12) [Mass/volume] in Serum or Plasma VITAMIN B12 BLOOD Lab Routine Generalized weakness Expected: 12/07/2022, Expires: 02/06/2023 [facility] Work Phone: Comment on above: Expected: 12/07/2022 , Expires: 02/06/2023 Start: 12-07-2022 End: 02-06-2023 Ferritin [Mass/volume] in Serum or Plasma FERRITIN BLD Lab Routine Generalized weakness Expected: 12/07/2022, Expires: 02/06/2023 [facility] Work Phone: Comment on above: Expected: 12/07/2022 , Expires: 02/06/2023 Start: 12-07-2022 End: 02-06-2023 Folate [Mass/volume] in Serum or Plasma FOLATE SERUM Lab Routine Generalized weakness Expected: 12/07/2022, Expires: 02/06/2023 [facility] Work Phone: Comment on above: Expected: 12/07/2022 , Expires: 02/06/2023 Start: 12-07-2022 End: 02-06-2023 Iron and Iron binding capacity panel - Serum or Plasma IRON + TIBC Lab Routine Generalized weakness Expected: 12/07/2022, Expires: 02/06/2023 [facility] Work Phone: Comment on above: Expected: 12/07/2022 , Expires: 02/06/2023 Start: 12-07-2022 End: 02-06-2023 Thyrotropin [Units/volume] in Serum or Plasma TSH BLD Lab Routine Generalized weakness Expected: 12/07/2022, Expires: 02/06/2023 [facility] Work Phone: Comment on above: Expected: 12/07/2022 , Expires: 02/06/2023 Start: 11-22-2022 End: 01-22-2023 CBC panel - Blood by Automated count CBC Lab Routine Dizziness Expected: 11/22/2022, Expires: 01/22/2023 [facility] Work Phone: Comment on above: Expected: 11/22/2022 , Expires: 01/22/2023 Start: 11-22-2022 End: 01-22-2023 Comprehensive metabolic 2000 panel - Serum or Plasma COMP METABOLIC PANEL Lab Routine Dizziness Expected: 11/22/2022 (Approximate), Expires: 01/22/2023 [facility] Work Phone: Comment on above: Expected: 11/22/2022 (Approximate), Expires: 01/22/2023 Start: 10-25-2022 Adult depression screening assessment DEPRESSION SCREENING [facility] Start: 10-25-2022 ANNUAL PCP 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 YULIANA DISEASE VISIT ANNUAL PCP TEAM CHRONIC DISEASE VISIT [facility] Start: 08-23-2022 Mammography MAMMOGRAM [facility] Start: 08-21-2022 ADVANCE DIRECTIVE DISCUSSION ADVANCE DIRECTIVE DISCUSSION [facility] Start: 08-21-2022 DEPRESSION ASSESSMENT DEPRESSION ASS ESSMENT [facility] Start: 04-21-2022 Influenza vaccination INFLUENZA (#1) [facility] Start: 02-01-2022 COLORECTAL CANCER SCREENING COLORECTAL CANCER SCREENING [facility] Start: 02-01-2022 FECAL OCCULT BLOOD FECAL OCCULT BLOO D [facility] Start: 08-21-2021 ADVANCE DIRECTIVE DISCUSSION ADVANCE DIRECTIVE DISCUSSION [facility] Start: 08-21-2021 DEPRESSION ASSESSMENT DEPRESSION ASS ESSMENT [facility] Start: 04-01-2021 COVID-19 VACCINE (3 - Booster for Pfizer series) COVID-19 VACCINE (3 - Booster for Pfizer series) [facility] Start: 12-25-2020 COVID-19 VACCINE (3 - Booster for Pfizer series) COVID-19 VACCINE (3 - Booster for Pfizer series) [facility] Start: 03-09-2019 BP CONTROLLED (<130/80) BP CONTROLLE D (<130/80) [facility] Start: 06-12-2017 End: 06-12-2017 Appointment Appointment [facility] Work Phone: Start: 01-04-2017 End: 01-04-2017 Appointment Appointment [facility] Work Phone: Start: 11-21-2013 SHINGRIX VACCINE (1 of 2) OLSON GRIX VACCINE (1 of 2) [facility] Start: 11-21-2013 SHINGRIX VACCINE (2 of 3) OLSON GRIX VACCINE (2 of 3) [facility] Start: 2008 RSV Vaccine (1 - 1-d ose 60+ series) RSV Vaccine (1 - 1-dose 60+ series) [facility] Start: 1993 COLOGUARD (FIT-DNA) COLOGUARD (FIT-D NA) [facility] Start: 1993 Colonoscopy COLONOSCOPY [facility] Start: [address] COLONOGRAPHY [facility] Start: 1993 Screening for malign ant neoplasm of colon [facility] Start: 1993 SIGMOIDOSCOPY SIGMOIDOSCOPY [facility] Start: 1966 Depression Screening Depression Scre ening [facility] Start: 1966 SPIROMETRY SPIROMETRY [facility] COLOGUARD COLOGUARD Lab Ro utine Screening for colon cancer Ordered: 04/24/2024 [facility] Work Phone: Comment on above: Ordered: 04/24/2024 CT Chest WO contrast CT CHEST WO IVCON Radiology Routine Lung nodules 11/13/2024 10:11 AM EDT [facility] Work Phone: End: 01-30-2025 Echocardiography ECHO Cardiology Routine SOB (shortness of breath) 1 Occurrences starting 01/31/2024 until 01/30/2025 [facility] Work Phone: Comment on above: 1 Occurrences starti ng 01/31/2024 until 01/30/2025 Hemoglobin.gastroint estin al.lower [Presence] in Stool by Immunoassay FECAL OCCULT BLOOD TEST Lab Routine Encounter for screening colonoscopy Ordered: 02/07/2022 [facility] Work Phone: Comment on above: Ordered: 02/07/2022 Hemoglobin.gastroint estin al.lower [Presence] in Stool by Immunoassay FECAL OCCULT BLOOD TEST Lab Routine Screening for colon cancer Ordered: 05/01/2023 [facility] Work Phone: Comment on above: Ordered: 05/01/2023 End: 07-18-2025 LUNG DIFFUSION CAPACITY (DLCO) LUNG DIFFUSION CAPACITY (DLCO) PFT Routine 1 Occurrences starting 06/18/2024 until 07/18/2025 [facility] Comment on above: 1 Occurrences starti ng 06/18/2024 until 07/18/2025 LUNG DIFFUSION CAPAC ITY (DLCO) LUNG DIFFUSION CAPACITY (DLCO) PFT Routine 08/27/2024 10:08 AM EST [facility] Work Phone: LUNG VOLUMES LUNG VOLUMES PFT Routine Mild intermittent asthma without complication 02/20/2023 2:07 PM EDT [facility] Work Phone: End: 07-18-2025 LUNG VOLUMES LUNG VOLUMES PFT Routine 1 Occurrences starting 06/18/2024 until 07/18/2025 [facility] Comment on above: 1 Occurrences starti ng 06/18/2024 until 07/18/2025 LUNG VOLUMES LUNG VOLUMES PFT Routine 08/27/2024 10:08 AM EST [facility] Work Phone: End: 09-16-2023 LETICIA SCREENING LETICIA SCREENING Radiology Routine Encounter for screening mammogram for breast cancer 1 Occurrences starting 08/17/2022 until 09/16/2023 [facility] Work Phone: Comment on above: 1 Occurrences starti ng 08/17/2022 until 09/16/2023 End: 08-25-2025 MG Breast Screening LETICIA SCREENING Radiology Routine Personal history of malignant neoplasm of breast 1 Occurrences starting 07/26/2024 until 08/25/2025 [facility] Work Phone: Comment on above: 1 Occurrences starti ng 07/26/2024 until 08/25/2025 Patient Education [facility] Work Phone: Radionuclide imaging of perfusion of myocardium under exercise stress [facility] Removal impacted cer umen instrumentation unilat REMOVAL OF IMPACTED CERUMEN - INSTRUMENTATION Procedures Routine Bilateral impacted cerumen Ordered: 12/12/2022 [facility] Work Phone: Comment on above: Ordered: 12/12/2022 End: 07-18-2025 SPIROMETRY WITH DILATOR IF OBSTRUCTED SPIROMETRY WITH DILATOR IF OBSTRUCTED PFT Routine 1 Occurrences starting 06/18/2024 until 07/18/2025 [facility] Comment on above: 1 Occurrences starti ng 06/18/2024 until 07/18/2025 SPIROMETRY WITH DILA TOR IF OBSTRUCTED SPIROMETRY WITH DILATOR IF OBSTRUCTED PFT Routine 08/27/2024 10:08 AM EST [facility] Work Phone: [facility] End: 11-09-2024 XR Chest PA and Lateral XR CHEST 2V FRONTAL/LAT Radiology Routine Bruising Chronic cough 1 Occurrences starting 10/11/2023 until 11/09/2024 [facility] Work Phone: Comment on above: 1 Occurrences starti ng 10/11/2023 until 11/09/2024 XR Chest PA and Lateral XR CHEST 2V FRONTAL/LAT Radiology Routine Bruising Chronic cough 10/11/2023 10:29 AM EST [facility] Work Phone: End: 07-18-2025 XR Chest PA and Lateral XR CHEST 2V FRONTAL/LAT Radiology Routine Cough, unspecified type 1 Occurrences starting 06/18/2024 until 07/18/2025 [facility] Comment on above: 1 Occurrences starti ng 06/18/2024 until 07/18/2025 XR Chest PA and Lateral XR CHEST 2V FRONTAL/LAT Radiology Routine Cough, unspecified type 06/18/2024 12:52 PM EDT [facility] Immunizations Immunization Date Immunization Notes Care Provider Kelly marcus 07-26-2024 influenza, high dose seasonal, preservative-free Kathie Echeverria APRN.CNP Work Phone: [facility] 07-26-2024 influenza virus vacc ine, unspecified formulation Dawna Barba APRN.CNP Work Phone: [facility] 06-28-2023 Seasonal, quadrivale nt, recombinant, injectable influenza vaccine, preservative free Alejandra Daly PA-C Work Phone: [facility] Work Phone: 06-28-2023 influenza virus vacc ine, unspecified formulation Leslye Mccloud MD Work Phone: [facility] 06-09-2022 influenza virus vacc ine, unspecified formulation Screen Wstr [facility] 10-30-2020 COVID-19 vaccine, ag e 12+ yr ([employer] - [facility]) Leslye Mccloud MD Work Phone: [facility] 10-09-2020 COVID-19 vaccine, ag e 12+ yr (P[employer]ZER-BIONTE[employer] - PURPLE TOP) Leslye Mccloud MD Work Phone: [facility] 05-20-2020 influenza, high dose seasonal, preservative-free Leslye Mccloud MD Work Phone: [facility] 06-04-2019 influenza, high dose seasonal, preservative-free Leslye Mccloud MD Work Phone: [facility] 06-01-2018 influenza, high dose seasonal, preservative-free Leslye Mccloud MD Work Phone: [facility] 06-19-2017 influenza, high dose seasonal, preservative-free Leslye Mccloud MD Work Phone: [facility] 06-05-2017 influenza, injectabl e, quadrivalent, preservative free Dr. Leslye Mccloud MD Work Phone: [facility] 09-15-2016 pneumococcal conjuga te vaccine, 13 valent Leslye Mccloud MD Work Phone: [facility] 06-21-2016 influenza, high dose seasonal, preservative-free Leslye Mccloud MD Work Phone: [facility] 06-06-2016 influenza, injectabl e, quadrivalent, preservative free Dr. Leslye Mccloud MD Work Phone: [facility] 09-10-2015 hepatitis B vaccine, pediatric or pediatric/adolescent dosage Dr. Leslye Mccloud MD Work Phone: [facility] 06-16-2015 influenza, injectabl e, quadrivalent, preservative free Dr. Leslye Mccloud MD Work Phone: [facility] 04-09-2015 hepatitis B vaccine, pediatric or pediatric/adolescent dosage Dr. Leslye Mccloud MD Work Phone: [facility] 03-12-2015 hepatitis B vaccine, pediatric or pediatric/adolescent dosage Dr. Leslye Mccloud MD Work Phone: [facility] 02-05-2015 tetanus toxoid, redu sybil diphtheria toxoid, and acellular pertussis vaccine, adsorbed Dr. Leslye Mccloud MD Work Phone: [facility] 06-17-2014 seasonal influenza, intradermal, preservative free Leslye Mccloud MD Work Phone: [facility] 03-27-2014 pneumococcal polysaccharide vaccine, 23 valent Leslye Mccloud MD Work Phone: [facility] Work Phone: 03-27-2014 tetanus toxoid, redu sybil diphtheria toxoid, and acellular pertussis vaccine, adsorbed Leslye Mccloud MD Work Phone: [facility] Work Phone: 09-26-2013 zoster vaccine, live Leslye quispe MD Work Phone: [facility] Work Phone: 06-01-2009 influenza virus vacc ine, unspecified formulation Leslye Mccloud MD Work Phone: [facility] Work Phone: 06-20-2008 influenza virus vacc ine, unspecified formulation Leslye Mccloud MD Work Phone: [facility] Work Phone: 06-20-2001 pneumococcal polysaccharide vaccine, 23 valent Leslye Mccloud MD Work Phone: [facility] Work Phone: Payers Date Payer Category Payer Self-pay 2022 Medicare (Managed Care) [id number] 2022 Medicare [id number] 2021 Medicare HUMANA MEDICARE HUMANA MEDICARE PPO [id number] 2021-Present [phone] [address] [address] [place] [address] PPO [id number] 2000 Medicare [id number] 1950 Unknown [id number] Unknown [id number] Unknown [id number] Unknown [id number] Unknown [id number] Unknown [id number] Unknown [id number] Unknown [id number] Unknown [id number] Social History Date Type Detail Facility Start: 05-30-2011 End: 02-09-2024 Tobacco smoking status NHIS Ex-smoker [facility] Start: 01-19-1964 End: 01-18-1991 History of tobacco use Current smoker [facility] Start: 01-19-1964 End: 01-18-1991 History of tobacco use Cigarette Smoker [facility] Start: 10-25-2021 End: 12-03-2024 Alcohol intake Current non-drinker of alcohol (finding) [facility] Start: 1950 Sex Assigned At Not on file [facility] Start: 10-24-2021 End: 02-07-2022 Exposure to SARS-CoV-2 (event) Not sure [facility] Start: 01-20-2022 End: 11-03-2022 History SDOH Alcohol Frequency 1 [facility] Start: 01-20-2022 End: 11-03-2022 History SDOH Alcohol Std Drinks 98 [facility] Start: 01-20-2022 End: 11-03-2022 History SDOH Social Connections Phone 5 [facility] Start: 01-20-2022 End: 11-03-2022 History SDOH Social Connections Membership 2 [facility] Start: 01-20-2022 End: 11-03-2022 History SDOH Physical Activity DPW 3 [facility] Start: 05-30-2011 End: 02-06-2023 Cigarettes smoked current (pack per day) - Reported 1 [facility] Start: 05-30-2011 End: 04-24-2024 Tobacco use and exposure Smokeless tobacco non-user [facility] Start: 11-03-2022 History SDOH Alcohol Std Drinks 0 [facility] Start: 11-03-2022 End: 02-06-2023 Social connection and isolation panel [facility] Start: 07-22-2012 How often do you att end episcopal or faith services? Patient refused [facility] Are you now , , , , never or living with a partner? [facility] How often to you hav e a drink containing alcohol? Never [facility] Do you feel stress - tense, restless, nervous, or anxious, or unable to sleep at night because your mind is troubled all the time - these days [OSQ] Only a little [facility] (I/We) worried wheth er (my/our) food would run out before (I/we) got money to buy more. Never true [facility] In the past 12 month s, was there a time when you were not able to pay the mortgage or rent on time? No [facility] Start: 06-12-2014 Rare Rare [facility] Start: 06-12-2014 None None [facility] Start: 06-12-2014 With Family With Family [facility] Start: 06-12-2014 Non-smoker Non-smoker [facility] Start: 11-05-2024 Sex Female (finding) [facility] Start: 1950 Sex Assigned At Female W [facility] Medical Equipment Procedure Code Equipment Code Equipment Original Text Equipment Identifier Dates Total knee replacement CEMENT,HV SIMPLEX FDA Start: 12-25-2018 Total knee replacement CEMENT,HV SIMPLEX FDA Start: 12-25-2018 Total knee replacement triath. cruciate retain femora FDA Start: 12-25-2018 Total knee replacement triathlon primary tib baseplat FDA Start: 12-25-2018 Total knee replacement triathlon x3 asymm. patella FDA Start: 12-25-2018 Total knee replacement triathlon x3 tib bear instr cs FDA Start: 12-25-2018 Total knee replacement CEMENT,HV SIMPLEX FDA Start: 12-25-2018 Total knee replacement CEMENT,HV SIMPLEX FDA Start: 12-25-2018 Total knee replacement triath. cruciate retain femora FDA Start: 12-25-2018 Total knee replacement triathlon primary tib baseplat FDA Start: 12-25-2018 Total knee replacement triathlon x3 asymm. patella FDA Start: 12-25-2018 Total knee replacement triathlon x3 tib bear instr cs FDA Start: 12-25-2018 Total knee replacement CEMENT,HV SIMPLEX FDA Start: 12-25-2018 Total knee replacement CEMENT,HV SIMPLEX FDA Start: 12-25-2018 Total knee replacement triath. cruciate retain femora FDA Start: 12-25-2018 Total knee replacement triathlon primary tib baseplat FDA Start: 12-25-2018 Total knee replacement triathlon x3 asymm. patella FDA Start: 12-25-2018 Total knee replacement triathlon x3 tib bear instr cs FDA Start: 12-25-2018 Expand Tiss Styl e 133mv 400cc - [id number] Start: 07-24-2009 Imp Brst 457ml Styl 15 Smth - [id number] Start: 06-24-2011 Comment on above: Description: monica thomas silicone- filled breast implant style 15- 457cc Functional Status Date Assessment Result Facility 03-16-2015 Are you deaf, or do you have serious difficulty hearing No 03/16/2015 9:15 AM Tiffanie Hoyos LPN No [facility] 03-16-2015 Are you blind, or do you have serious difficulty seeing, even when wearing glasses No 03/16/2015 9:15 AM Tiffanie Hoyos LPN No [facility] 03-16-2015 Do you have serious difficulty walking or climbing stairs No 03/16/2015 9:15 AM Tiffanie Hoyos LPN No [facility] 03-16-2015 Do you have difficul ty dressing or bathing No 03/16/2015 9:15 AM EDT Tiffanie Kaplan LPN No [facility] 03-16-2015 Because of a physica l, mental, or emotional condition, do you have difficulty doing errands alone such as visiting a physician's office or shopping No 03/16/2015 9:15 AM EDT Tiffanie Kaplan LPN No [facility] Mental Status Date Assessment Result Facility 03-16-2015 Because of a physica l, mental, or emotional condition, do you have serious difficulty concentrating, remembering, or making decisions No 03/16/2015 9:15 AM EDT Tiffanie Kaplan LPN No [facility] Clinical Notes 06-18-2013 to 06-26-2025 Savita Wolf [facility] - 05/02/2025 7:19 AM EDT Note Date & Type Note Facility 06-26-2025 Note HNO ID: [id number] Author: NATALIYA BEGUM MA Service: ? Author Type: Fiber Design Engineer Type: Progress Notes Filed: 06/26/2025 13:35 Note Text: POPULATION HEALTH NAVIGATION OUTREACH Action/FYI [employer] Deep Dives - BP Outcome: Spoke with patient. She has followed Kathiehermila Echeverria to the [facility]. No PCP change. Reason for Outreach Care Gap/HCC or Scheduling Wellness Visits Care Gaps due: N/A Patient Contacted: Spoke to patient/parent/or legal guardian Patient identified by name and : Yes Care Gap/HCC/Scheduling Wellness actions taken: Outside PCP Navigation Signature: Nataliya Begum MA June 26, 2025 1:24 PM [facility] 06-26-2025 Note Patient Outreach (LUCY TNAV) TRINH WOMACK ([id number]) 1950 F Date Time Provider Department 06/26/25 NATALIYA BEGUM During your visit today, we recorded the following information about you: Nataliya Begum MA 06/26/2025 1:35 PM Signed POPULATION HEALTH NAVIGATION OUTREACH Action/FYI [employer] - BP Outcome: Spoke with patient. She has followed Kathie Echeverria to the [facility]. No PCP change. Reason for Outreach Care Gap/HCC or Scheduling Wellness Visits Care Gaps due: N/A Patient Contacted: Spoke to patient/parent/or legal guardian Patient identified by name and : Yes Care Gap/HCC/Scheduling Wellness actions taken: Outside PCP Navigation Signature: Nataliya Begum MA June 26, 2025 1:24 PM Allergies As of Date: 06/26/2025 Noted Allergy Reaction PENICILLINS 01/19/2008 7 - Swelling 16 - Unknown Comments: breathing problem years ago Date Reviewed: 06/04/2025 Reviewed by: Dawna Barba APRN.CERTIFIED NURSE AIDE - Fully Assessed Reason for Visit: Population Health Navigation Outreach [3910] Cmt: [employer] Deep Dives BP Prescriptions as of 06/26/2025 - rosuvastatin (CRESTOR) 10 mg tablet Take 1 tablet by mouth once daily. - fluticasone-salmeterol (ADVAIR DISKUS) 100-50 mcg/dose inhaler Inhale 1 puff as instructed two times a day. - ALPRAZolam (XANAX) 0.25 mg tablet Take 1 tablet by mouth two times a day for 90 days. Patient should start on November 18, 2024. - citalopram (CELEXA) 20 mg tablet Take 1 tablet by mouth every afternoon. - losartan (COZAAR) 100 mg tablet Take 1 tablet by mouth every afternoon. - hydroCHLOROthiazide 25 mg tablet Take 25 mg by mouth every morning. - pantoprazole DR (PROTONIX) 20 mg tablet Take 1 tablet by mouth once daily. - albuterol HFA (PROVENTIL HFA, VENTOLIN HFA) 90 mcg/actuation inhaler Inhale 2 Puffs as instructed every 4 hours as needed. - ipratropium-albuterol (DUONEB) 0.5 mg-3 mg(2.5 mg base)/3 mL nebu Inhale 3 mL as instructed every 4 hours as needed. - cholecalciferol, vitamin D3, (VITAMIN D3 ORAL) Take 500 mg by mouth once daily. - Biotin 10,000 mcg cap Take 10,000 mcg by mouth once daily. - Nebulizer Accessories misc Tubing , mouthpiece; other supplies as needed - CALCIUM 500 MG TAB TAKES 2 TABLETS DAILY - ascorbic acid(VITAMIN C 500 MG TAB) Take one(1) tablet daily. Problem List As Of Date 06/26/2025 Noted Resolved Essential hypertension, benign [I10] 01/19/2008 Mild intermittent asthma without complication [*01/19/2008 Anxiety [F41.9] 01/19/2008 LOC OSTEOARTH NOS-L/LEG [M17.10] 06/05/2008 Dermatophytosis of the body [B35.4] 09/01/2008 12/12/2017 Dermatophytosis of foot [B35.3] 09/01/2008 12/12/2017 Other psoriasis [L40.8] 09/01/2008 12/12/2017 XEROSIS///SEBACEOUS GLAND DIS NEC [L73.8] 09/01/2008 12/12/2017 Dermatophytosis of hand [B35.2] 09/01/2008 12/12/2017 PRURITIC DISORDER NOS [L29.9] 09/01/2008 HYPERTROPHY OF BREAST [N62] 09/15/2008 ONYCHOMYCOSIS///DERMATOPHYTOSIS OF NAIL [B35.1] 10/15/2008 12/12/2017 Dyshidrosis [L30.1] 10/15/2008 12/12/2017 Malignant neoplasm of breast (female), unspecif*11/27/2008 07/31/2023 Drug-induced neutropenia (HCC) [D70.2] 01/20/2009 12/12/2017 Pain in rib [R07.89] 06/22/2009 12/12/2017 Personal history of malignant neoplasm of breas*03/21/2011 Arthritis of knee, left [M17.12] 06/04/2013 Trigger thumb of left hand [M65.312] 06/04/2013 Unspecified arthropathy, lower leg [M17.10] 06/18/2013 12/12/2017 Pain in joint, lower leg [M25.569] 06/18/2013 Gastroesophageal reflux disease [K21.9] 09/11/2017 Encounter Status:Closed by NATALIYA BEGUM L on 06/26/25 [facility] 06-04-2025 Note HNO ID: [id number] Author: DAWNA BARBA APRN.ALCIRA Service: ? Author Type: Nurse Practitioner Type: Progress Notes Filed: 06/04/2025 12:30 Note Text: Pulmonary Medicine Patients name: Trinh Womack PCP: Kathie Echeverria APRN.CERTIFIED NURSE AIDE CC: follow-up HPI: Trinh Womack is a 74 year old female former 27 pack year smoker, quitting 1990 with PMH significant for childhood asthma, right breast cancer 2008 (XRT, chemo, Tamoxifen 5 years), psoriasis, HTN, GERD, and chronic rhinitis. CHASE 11/2024 with stable respiratory symptoms. Denied recurrent bronchitis. Current maintenance therapy with Advair and PRN Albuterol. She presents today for follow-up. Since her last visit, she reports her respiratory symptoms remain stable. Has not had recurrence of bronchitis since she started Advair. She had updated chest CT on 05/20 which showed stability of her lung nodules. Today, patient reports rare dry cough. No wheezing/chest tightness. Denies dyspnea at rest or with exertion. No fevers, chills, or night sweats. No unintended weight loss. No recent hospitalizations or ED visits or upper respiratory infections. Albuterol use on rare occasion. She follows with [facility] who recently completed echo and stress test. She requested testing to be sent to [facility] but not available for review. Per patient, pulmonary hypertension stable. Last echo on file 02/2024 with RVSP 52 mmHg. PAST MEDICAL HISTORY Diagnosis Date Acute sinusitis, unspecified drainage Allergic rhinitis Childhood asthma (HCC) Generalized anxiety disorder Anxiety, Generalized GERD (gastroesophageal reflux disease) Malignant neoplasm of breast (female), unspecified site right breast Psoriasis and similar disorders Unspecified asthma(493.90) uses nebulizer prn Unspecified essential hypertension Essential hypertension Allergies: Penicillins Swelling, Unknown Comment:breathing problem years ago Medication List Accurate as of June 03, 2025 12:03 PM. If you have any questions, ask your nurse or doctor. CONTINUE taking these medications albuterol HFA 90 mcg/actuation inhaler Commonly known as: PROVENTIL HFA, VENTOLIN HFA Inhale 2 Puffs as instructed every 4 hours as needed. ALPRAZolam 0.25 mg tablet Commonly known as: XANAX Take 1 tablet by mouth two times a day for 90 days. Patient should start on November 18, 2024. Biotin 10,000 mcg Cap calcium (elemental) Tab citalopram 20 mg tablet Commonly known as: CeleXA Take 1 tablet by mouth every afternoon. fluticasone-salmeterol 100-50 mcg/dose inhaler Commonly known as: ADVAIR DISKUS Inhale 1 puff as instructed two times a day. hydroCHLOROthiazide 25 mg tablet ipratropium-albuterol 0.5 mg-3 mg(2.5 mg base)/3 mL Nebu Commonly known as: DUONEB Inhale 3 mL as instructed every 4 hours as needed. losartan 100 mg tablet Commonly known as: COZAAR Take 1 tablet by mouth every afternoon. Nebulizer Accessories Misc Tubing , mouthpiece; other supplies as needed pantoprazole DR 20 mg tablet Commonly known as: PROTONIX Take 1 tablet by mouth once daily. VITAMIN C 500 mg tablet Generic drug: ascorbic acid (vitamin C) VITAMIN D3 PO DATA: I personally reviewed and analyzed all labs, radiographs and available pulmonary function testing PFT: 08/2024 Spirometry is normal. Lung volumes are normal. The diffusion capacity (uncorrected for hemoglobin) is normal. CT Chest: 05/20/25 IMPRESSION: Stable pulmonary nodules. Paper Final Inspector: JAK Transcribe Date/Time: May 25 2025 7:15A Dictated by : JUAN JI MD This examination was interpreted and the report reviewed and electronically signed by: JUAN JI MD on May 25 2025 7:19AM EST Comparison: 11/13/2024 RESULT: Limitations: None. Lines, tubes, and devices: None. Lung parenchyma and airways: Evaluation of lung parenchyma demonstrates a 6.2 mm noncalcified nodule in the posterior right upper lobe, image 40 of series 6. A couple of adjacent micronodules are present. There is a 3 mm noncalcified nodule in the left lower lobe, image 115 of series 6. These have not significantly changed since previous exam. No new pulmonary nodules identified. No focal airspace consolidation is seen. Mild emphysema is present. There is no bronchiectasis or pneumothorax. Pleural space: No pleural effusion. No pleural thickening. Lower neck, lymph nodes, and mediastinum: The imaged thyroid gland is normal. No lymphadenopathy in the supraclavicular, axillary, mediastinal, or hilar regions. Review of Systems Constitutional: Negative for activity change, appetite change, fever and unexpected weight change. HENT: Negative for congestion, mouth sores and postnasal drip. Respiratory: Negative for cough, chest tightness, shortness of breath and wheezing. Cardiovascular: Negative for chest pain, palpitations and leg swelling. Allergic/Immunologic: Negative for environmental (more content not included)... [facility] 05-20-2025 Note HNO ID: [id number] Author: SUZI SOLIS RT(R) Service: ? Author Type: Derrickman Helper Type: Progress Notes Filed: 05/20/2025 14:46 Note Text: Radiology Service Progress Note PATIENT NAME: Trinh Womack DATE OF SERVICE: May 20, 2025 TIME: 2:46 PM PATIENT IDENTITY VERIFICATION COMPLETED USING TWO (2) IDENTIFIERS: Name and Date of confirmed by patient verbally. FALL SCREENING: Has the patient had 2 falls in the last year or 1 fall with injury or currently using an Ambulatory Assistive Device (Walker, Cane, Wheelchair, Crutches, etc.)? No PATIENT GENDER DATA: Assigned female at . status: : No status: NO. PATIENT RELEVANT IMPLANT DATA REVIEWED: Yes PATIENT PRESENTS WITH AN IMPLANTABLE OR ATTACHED SUPERVISOR FABRICATION: No RADIOLOGY DEPARTMENT: CT; Exam(s) Completed: Chest. Anesthesia: No PERIPHERAL IV DATA: Not applicable SIGNED BY: RT Maryana(R) May 20, 2025 2:46 PM [facility] 05-02-2025 Note HNO ID: [id number] Author: SAVITA WOLF CPhT Service: ? Author Type: Tire Vulcanizer Type: Progress Notes Filed: 05/02/2025 07:21 Note Text: Patient is identified through a medication adherence outreach initiative based on pharmacy claims data from: [employer] Medication Adherence Category: Hypertension First Review Attribution Status: Questionable attribution, Pt clearly transitioned care away from F Savita Wolf CPhT Value Based Care Pharmacy Team [facility] 05-02-2025 History of Present illness Narrative Patient is identified through a medication adherence outreach initiative based on pharmacy claims data from: [employer] Medication Adherence Category: Hypertension First Review Attribution Status: Questionable attribution, Pt clearly transitioned care away from [facility] Savita Wolf CPhT Value Based Care Pharmacy Team documented in this encounter [facility] 05-02-2025 Note Patient Outreach ( POHE) TRINH WOMACK ([id number]) 1950 F Date Time Provider Department 05/02/25 KATHIE ECHEVERIRA During your visit today, we recorded the following information about you: Savita Wolf CPhT 05/02/2025 7:21 AM Signed Patient is identified through a medication adherence outreach initiative based on pharmacy claims data from: [employer] Medication Adherence Category: Hypertension First Review Attribution Status: Questionable attribution, Pt clearly transitioned care away from [facility] Savita Wolf CPhT Value Based Care Pharmacy Team Allergies As of Date: 05/02/2025 Noted Allergy Reaction PENICILLINS 01/19/2008 7 - Swelling 16 - Unknown Comments: breathing problem years ago Date Reviewed: 12/03/2024 Reviewed by: Dawna Barba APRN.CERTIFIED NURSE AIDE - Fully Assessed Reason for Visit: Allied Health Visit [5] Cmt: Medication Adherence Outreach Prescriptions as of 05/02/2025 - fluticasone-salmeterol (ADVAIR DISKUS) 100-50 mcg/dose inhaler Inhale 1 puff as instructed two times a day. - ALPRAZolam (XANAX) 0.25 mg tablet Take 1 tablet by mouth two times a day for 90 days. Patient should start on November 18, 2024. - citalopram (CELEXA) 20 mg tablet Take 1 tablet by mouth every afternoon. - losartan (COZAAR) 100 mg tablet Take 1 tablet by mouth every afternoon. - hydroCHLOROthiazide 25 mg tablet Take 25 mg by mouth every morning. - pantoprazole DR (PROTONIX) 20 mg tablet Take 1 tablet by mouth once daily. - albuterol HFA (PROVENTIL HFA, VENTOLIN HFA) 90 mcg/actuation inhaler Inhale 2 Puffs as instructed every 4 hours as needed. - ipratropium-albuterol (DUONEB) 0.5 mg-3 mg(2.5 mg base)/3 mL nebu Inhale 3 mL as instructed every 4 hours as needed. - cholecalciferol, vitamin D3, (VITAMIN D3 ORAL) Take 500 mg by mouth once daily. - Biotin 10,000 mcg cap Take 10,000 mcg by mouth once daily. - Nebulizer Accessories misc Tubing , mouthpiece; other supplies as needed - CALCIUM 500 MG TAB TAKES 2 TABLETS DAILY - ascorbic acid(VITAMIN C 500 MG TAB) Take one(1) tablet daily. Problem List As Of Date 05/02/2025 Noted Resolved Essential hypertension, benign [I10] 01/19/2008 Mild intermittent asthma without complication [*01/19/2008 Anxiety [F41.9] 01/19/2008 LOC OSTEOARTH NOS-L/LEG [M17.10] 06/05/2008 Dermatophytosis of the body [B35.4] 09/01/2008 12/12/2017 Dermatophytosis of foot [B35.3] 09/01/2008 12/12/2017 Other psoriasis [L40.8] 09/01/2008 12/12/2017 XEROSIS///SEBACEOUS GLAND DIS NEC [L73.8] 09/01/2008 12/12/2017 Dermatophytosis of hand [B35.2] 09/01/2008 12/12/2017 PRURITIC DISORDER NOS [L29.9] 09/01/2008 HYPERTROPHY OF BREAST [N62] 09/15/2008 ONYCHOMYCOSIS///DERMATOPHYTOSIS OF NAIL [B35.1] 10/15/2008 12/12/2017 Dyshidrosis [L30.1] 10/15/2008 12/12/2017 Malignant neoplasm of breast (female), unspecif*11/27/2008 07/31/2023 Drug-induced neutropenia (HCC) [D70.2] 01/20/2009 12/12/2017 Pain in rib [R07.81] 06/22/2009 12/12/2017 Personal history of malignant neoplasm of breas*03/21/2011 Arthritis of knee, left [M17.12] 06/04/2013 Trigger thumb of left hand [M65.312] 06/04/2013 Unspecified arthropathy, lower leg [M17.10] 06/18/2013 12/12/2017 Pain in joint, lower leg [M25.569] 06/18/2013 Gastroesophageal reflux disease [K21.9] 09/11/2017 Encounter Status:Closed by SAVITA WOLF on 05/02/25 [facility] 04-29-2025 Evaluation note Diagnosis Onset Date Resolution Chest heaviness acute April 29, 2025 11:01am Hyperlipidemia acute April 29, 2025 11:01am Pulmonary hypertension acute Se ptember 2024 11:01am HTN (hypertension) chronic Sept2024 11:01am [facility] Work Phone: [phone] 552-553908-29-2025 Telephone encounter Note* Telephone Encounter - Yanet Alaniz LPN - 04/18/2025 1:02 PM EDT Patient notified RX sent. Yanet Alaniz LPN [facility]08-29-2025 Miscellaneous Notes* Telephone Encounter - Yanet Alaniz LPN - 04/18/2025 1:02 PM EDT Patient notified RX sent. Yanet Alaniz LPN * Telephone Encounter - Yanet Alaniz LPN - 04/18/2025 8:49 AM EDT Patient calling with c/o of progressively worsening chest congestion x1 week. Reports productive cough with small amounts of yellow sputum and fatigue. She denies wheezing or fever/chills. Symptoms typical of her fall asthma exacerbation, but believes the addition of her Advair has helped control wheezing. Shelbi Murillo is preferred. Please advise. Yanet Alaniz LPN documented in this encounterM[facility]25 Telephone encounter Note * Telephone Encounter - Yanet Alaniz LPN - 04/18/2025 8:49 AM EDT Patient calling with c/o of progressively worsening chest congestion x1 week. Reports productive cough with small amounts of yellow sputum and fatigue. She denies wheezing or fever/chills. Symptoms typical of her fall asthma exacerbation, but believes the addition of her Advair has helped control wheezing. Shelbi Murillo is preferred. Please advise. Yanet Alaniz LPN [facility]08-15-2025 Telephone encounter Note* Telephone Encounter - Kiana Johnson LPN - 04/04/2025 9:13 AM EDT Physician: dawna Barba Call from patient requesting refill. Please E-Scribe Requested Prescriptions Pending Prescriptions Disp Refills fluticasone-salmeterol (ADVAIR DISKUS) 100-50 mcg/dose inhaler 60 each 5 Sig: Inhale 1 puff as instructed two times a day. Pharmacy Name: [facility] Phone #: [phone] Kiana Johnson LPN [facility]08-15-2025 Miscellaneous Notes* Telephone Encounter - Kiana Johnson LPN - 04/04/2025 9:13 AM EDT Physician: dawna Barba Call from patient requesting refill. Please E-Scribe Requested Prescriptions Pending Prescriptions Disp Refills fluticasone-salmeterol (ADVAIR DISKUS) 100-50 mcg/dose inhaler 60 each 5 Sig: Inhale 1 puff as instructed two times a day. Pharmacy Name: [facility] Phone #: [phone] Kiana Johnson LPN documented in this encounterMarietta [facility] Clinic05-06-2025 NoteHNO ID: [id number] Author: ?, ?, ? Service: ? Author Type: ? Type: Progress Notes Filed: 12/24/2024 11:42 Note Text: POPULATION HEALTH NAVIGATION OUTREACH Action/FYI Patient outreach for HCC gaps; Follow up, AWV . Spoke with patient and declined wellness and follow up. Pt wanted to change pcp to Kathie Echeverria and states she already has a follow up scheduled. New pcp not with clinic any longer. Reason for Outreach Care Gap/HCC or Scheduling Wellness Visits Care Gaps due: Medicare Annual Wellness Visit Follow-up Appointment Patient Contacted: Spoke to patient/parent/or legal guardian Patient identified by name and : Yes Care Gap/HCC/Scheduling Wellness actions taken: Patient declined: Patient will contact office directly to schedule PCP field updated Navigation Signature: Alejandra Hurd December 24, 2024 11:06 [facility]05-06-2025 History of Present illness Narrative* Alejandra Arrieta - 12/24/2024 11:05 AM EDT POPULATION HEALTH NAVIGATION OUTREACH Action/FYI Patient outreach for HCC gaps; Follow up, AWV . Spoke with patient and declined wellness and followup. Pt wanted to change pcp to Kathie Echeverria and states she already has a follow up scheduled. Newpcp not with clinic any longer. Reason for Outreach Care Gap/HCC or Scheduling Wellness Visits Care Gaps due: Medicare Annual Wellness Visit Follow-up Appointment Patient Contacted: Spoke to patient/parent/or legal guardian Patient identified by name and : Yes Care Gap/HCC/Scheduling Wellness actions taken: Patient declined: Patient will contact office directly to schedule PCP field updated Navigation Signature: Alejandra Hurd December 24, 2024 11:06 AM documented in this encounterMarietta [facility] Clinic05-06-2025 NotePatient Outreach (NETNAV) TRINH WOMACK ([id number]) 1950 F Date Time Provider Department 12/24/24 LESLYE MCCLOUD During your visit today, we recorded the following information about you: Alejandra Arrieta 12/24/2024 11:42 AM Signed POPULATION HEALTH NAVIGATION OUTREACH Action/FYI Patient outreach for HCC gaps; Follow up, AWV . Spoke with patient and declined wellness and follow up. Pt wanted to change pcp to Kathie Echeverria and states she already has a follow up scheduled. New pcp not with clinic any longer. Reason for Outreach Care Gap/HCC or Scheduling Wellness Visits Care Gaps due: Medicare Annual Wellness Visit Follow-up Appointment Patient Contacted: Spoke to patient/parent/or legal guardian Patient identified by name and : Yes Care Gap/HCC/Scheduling Wellness actions taken: Patient declined: Patient will contact office directly to schedule PCP field updated Navigation Signature: Alejandra Hurd December 24, 2024 11:06 AM Allergies As of Date: 12/24/2024 Noted Allergy Reaction PENICILLINS 01/19/2008 7 - Swelling 16 - Unknown Comments: breathing problem years ago Date Reviewed: 12/03/2024 Reviewed by: Dawna Barba APRN.CERTIFIED NURSE AIDE - Fully Assessed Reason for Visit: Population Health Navigation Outreach [3910] Cmt: Yasmany Bolanos Prescriptions as of 12/24/2024 - ALPRAZolam (XANAX) 0.25 mg tablet Take 1 tablet by mouth two times a day for 90 days. Patient should start on November 18, 2024. - fluticasone-salmeterol (ADVAIR DISKUS) 100-50 mcg/dose inhaler Inhale 1 Puff as instructed two times a day. - citalopram (CELEXA) 20 mg tablet Take 1 tablet by mouth every afternoon. - losartan (COZAAR) 100 mg tablet Take 1 tablet by mouth every afternoon. - hydroCHLOROthiazide 25 mg tablet Take 25 mg by mouth every morning. - pantoprazole DR (PROTONIX) 20 mg tablet Take 1 tablet by mouth once daily. - albuterol HFA (PROVENTIL HFA, VENTOLIN HFA) 90 mcg/actuation inhaler Inhale 2 Puffs as instructed every 4 hours as needed. - ipratropium-albuterol (DUONEB) 0.5 mg-3 mg(2.5 mg base)/3 mL nebu Inhale 3 mL as instructed every 4 hours as needed. - cholecalciferol, vitamin D3, (VITAMIN D3 ORAL) Take 500 mg by mouth once daily. - Biotin 10,000 mcg cap Take 10,000 mcg by mouth once daily. - Nebulizer Accessories misc Tubing , mouthpiece; other supplies as needed - CALCIUM 500 MG TAB TAKES 2 TABLETS DAILY - ascorbic acid(VITAMIN C 500 MG TAB) Take one(1) tablet daily. Problem List As Of Date 12/24/2024 Noted Resolved Essential hypertension, benign [I10] 01/19/2008 Mild intermittent asthma without complication [*01/19/2008 Anxiety [F41.9] 01/19/2008 LOC OSTEOARTH NOS-L/LEG [M17.10] 06/05/2008 Dermatophytosis of the body [B35.4] 09/01/2008 12/12/2017 Dermatophytosis of foot [B35.3] 09/01/2008 12/12/2017 Other psoriasis [L40.8] 09/01/2008 12/12/2017 XEROSIS///SEBACEOUS GLAND DIS NEC [L73.8] 09/01/2008 12/12/2017 Dermatophytosis of hand [B35.2] 09/01/2008 12/12/2017 PRURITIC DISORDER NOS [L29.9] 09/01/2008 HYPERTROPHY OF BREAST [N62] 09/15/2008 ONYCHOMYCOSIS///DERMATOPHYTOSIS OF NAIL [B35.1] 10/15/2008 12/12/2017 Dyshidrosis [L30.1] 10/15/2008 12/12/2017 Malignant neoplasm of breast (female), unspecif*11/27/2008 07/31/2023 Drug-induced neutropenia (HCC) [D70.2] 01/20/2009 12/12/2017 Pain in rib [R07.81] 06/22/2009 12/12/2017 Personal history of malignant neoplasm of breas*03/21/2011 Arthritis of knee, left [M17.12] 06/04/2013 Trigger thumb of left hand [M65.312] 06/04/2013 Unspecified arthropathy, lower leg [M17.10] 06/18/2013 12/12/2017 Pain in joint, lower leg [M25.569] 06/18/2013 Gastroesophageal reflux disease [K21.9] 09/11/2017 Encounter Status:Closed by ALEJANDRA ARRIETA on 12/24/24[facility]04-15-2025 History of Present illness Narrative* Freda, Dawna Gallo APRN.CERTIFIED NURSE AIDE - 12/03/2024 10:30 AM EDT Images from the original note were not included. Pulmonary Medicine Patients name: Trinh Womack PCP: Leslye Mccloud MD CC: Asthma follow-up HPI: Trinh Womack is a 74 year old female former 27 pack year smoker, quitting 1990 with PMH significant for childhood asthma, right breast cancer 2008 (XRT, chemo, Tamoxifen 5 years), psoriasis, HTN, GERD, and chronic rhinitis. Current maintenance therapy with Advair and PRN Albuterol. She pre[facility] for follow-[facility]. CHASE 05/2024 with intermittent use of Wixela. Was acutely ill at that time. Encouraged regular use of ICS/LABA. PFT were updated earlier this year were normal. Has a known lung nodule which was first seen on CT scan in 04/2024, repeat CT scan in October showed stability. Today, she reports overall feeling well, stating she feels much better now than she did a year ago with constant bouts of bronchitis. Notes that Advair has made a big difference. She denies any significant respiratory infections over the winter. Reports occasional dry cough. Denies wheezing, chest tightness or dyspnea at rest or with exertion. Albuterol use is rare. She does note fatigue but is up frequently at night with her dog. She also wakes up early for work and helps with great grandkids. PAST MEDICAL HISTORY Diagnosis Date Acute sinusitis, unspecified drainage Allergic rhinitis Childhood asthma Generalized anxiety disorder Anxiety, Generalized GERD (gastroesophageal reflux disease) Malignant neoplasm of breast (female), unspecified site right breast Psoriasis and similar disorders Unspecified asthma(493.90) uses nebulizer prn Unspecified essential hypertension Essential hypertension Allergies: Penicillins Swelling, Unknown Comment:breathing problem years ago Medication List Accurate as of November 29, 2024 4:02 PM. If you have any questions, ask your nurse or doctor. CONTINUE taking these medications albuterol HFA 90 mcg/actuation inhaler Commonly known as: PROVENTIL HFA, VENTOLIN HFA Inhale 2 Puffs as instructed every 4 hours as needed. ALPRAZolam 0.25 mg tablet Commonly known as: XANAX Take 1 tablet by mouth two times a day for 90 days. Patient should start on November 18, 2024. Biotin 10,000 mcg Cap calcium (elemental) Tab citalopram 20 mg tablet Commonly known as: CeleXA Take 1 tablet by mouth every afternoon. fluticasone-salmeterol 100-50 mcg/dose inhaler Commonly known as: ADVAIR DISKUS Inhale 1 Puff as instructed two times a day. hydroCHLOROthiazide 25 mg tablet ipratropium-albuterol 0.5 mg-3 mg(2.5 mg base)/3 mL Nebu Commonly known as: DUONEB Inhale 3 mL as instructed every 4 hours as needed. losartan 100 mg tablet Commonly known as: COZAAR Take 1 tablet by mouth every afternoon. Nebulizer Accessories Misc Tubing , mouthpiece; other supplies as needed pantoprazole DR 20 mg tablet Commonly known as: PROTONIX Take 1 tablet by mouth once daily. VITAMIN C 500 mg tablet Generic drug: ascorbic acid (vitamin C) VITAMIN D3 ORAL DATA: I personally reviewed and analyzed all labs, radiographs and available pulmonary function testing PFT: 08/2024 Spirometry is normal. Lung volumes are normal. The diffusion capacity (uncorrected for hemoglobin) is normal. CXR: Last XR Chest - Impression Only XR CHEST 2V FRONTAL/LAT Exam End: 06/18/2024 12:52 PM (Final result) Impression: IMPRESSION: No developing abnormality or acute process ... CT Chest: 11/13/2024 IMPRESSION: 1. Stable subcentimeter pulmonary nodules. No new nodules are visualized. 2. No thoracic lymphadenopathy Paper Final Inspector: JAK Transcribe Date/Time: Nov 20 2024 12:22P Dictated by : MACRINA SHANNON MD This examination was interpreted and the report reviewed and electronically signed by: MACRINA SHANNON MD on Nov 20 2024 12:31PM EST Results-Findings * * *Final Report* * * DATE OF EXAM: Nov 13 2024 10:11AM [facility] 0541 - CT CHEST WO IVCON / PROCEDURE REASON: Lung nodules * * * * Physician Interpretation * * * * EXAMINATION: CHEST CT WITHOUT CONTRAST CLINICAL HISTORY: Lung nodules Technique: Spiral CT acquisition of the chest from the thoracic inlet to the upper abdomen without contrast. MQ: CTCWO_6 CT Radiation dose: Integrated Dose-length product (DLP) for this visit = 207 mGy*cm CT Dose Reduction Employed: Automated exposure control(AEC) and iterative recon Comparison: CTA chest 05/13/2024 RESULT: Limitations: None. Lines, tubes, and devices: None. Lung parenchyma and airways: Stable 7 x 4 mm nodule posterior right upper lobe (7:38). Stable 3 mm nodule lateral left lower lobe (7:111). No new pulmonary nodules. Scarring in the anterior right upper lobe. No acute airspace disease. Central airways are patent. Pleural space: No pleural effusion. No pleural thickening. Lower neck, lymph nodes, and mediastinum: The imaged thyroid gland is normal. No lymphadenopathy in the supraclavicular, axillary, mediastinal, or hilar regions. Heart, pericardium, and thoracic vessels: Normal caliber of the thoracic aorta. Prominence of the main pulmonary artery which can be seen with pulmonary artery hypertension. Coronary artery atherosclerotic calcifications are noted, although the study is not optimized for coronary assessment. No pericardial effusion or thickening. Bones and soft tissues: No destructive bone lesion. Degenerative disease of the thoracic spine. Right breast prosthesis. Upper abdomen: No abnormality in the imaged upper abdomen. Localizer images: No additional findings. IMMUNIZATIONS Prevnar - xx Pneumovax 23 - xx Influenza - 07/2024 COVID-19 - xx RSV- xx Review of Systems Constitutional: Negative for activity change, appetite change and unexpected weight change. HENT: Negative for congestion, mouth sores, postnasal drip and sinus pressure. Respiratory: Negative for cough, chest tightness, shortness of breath and wheezing. Cardiovascular: Negative for chest pain, palpitations and leg swelling. Allergic/Immunologic: Negative for environmental allergies. Neurological: Negative for dizziness, weakness and light-headedness. BP 132/82 Pulse 83 Resp 18 Wt 60.8 kg (134 lb) SpO2 100% BMI (P) 27.94 kg/m Physical Exam Vitals reviewed. Constitutional: General: She is not in acute distress. Appearance: Normal appearance. She is not ill-appearing. HENT: Head: Normocephalic. Nose: No rhinorrhea. Mouth/Throat: Mouth: Mucous membranes are moist. Pharynx: No oropharyngeal exudate. Cardiovascular: Rate and Rhythm: Normal rate and regular rhythm. Heart sounds: Normal heart sounds. Pulmonary: Effort: Pulmonary effort is normal. No respiratory distress. Breath sounds: No wheezing or rhonchi. Musculoskeletal: Right lower leg: No edema. Left lower leg: No edema. Lymphadenopathy: Cervical: No cervical adenopathy. Skin: General: Skin is warm and dry. Capillary Refill: Capillary refill takes less than 2 seconds. Neurological: General: No focal deficit present. Mental Status: She is alert. ASSESSMENT/PLAN: 1. Mild intermittent asthma without complication (HCC) - ICD9: 493.90, ICD10: J45.20 (primary diagnosis) - symptoms currently controlled. - Continue Advair and PRN Albuterol/Duoneb - Asthma education: Reviewed asthma signs, symptoms and monitoring and Rinsing after each inhaled steroid use 2. Lung nodules - ICD9: 793.19, ICD10: R91.8 - first noted 04/[address] in October - repeat imaging due 04/2025, ordered. 3. Pulmonary hypertension (HCC) - ICD9: 416.8, ICD10: I27.20 - has upcoming appt with cardiology at [facility]. Will discuss plans for repeat echo. - discussed TOYA as a possible factor but she declines testing. 4. Fatigue, unspecified type - ICD9: 780.79, ICD10: R53.83 - Has a history of TOYA over 20 years ago. Denies concerns since losing weight. - declines further testing. F/u 6 months Portions of this documentation were copied and pasted from previous office visit notes in order to provide a cohesive continuity of the history. The note has been reviewed and edited and updated as necessary. Dawna Barba APRN.ALCIRA I spent a total of 18 minutes on the date of the service which included preparing to see the patient, [id number] patient care, completing clinical documentation, performing a medically appropriate examination, and counseling and educating the patient/family/caregiver. documented in this encounterMarietta [facility]04-15-2025 NoteHNO ID: [id number] Author: DAWNA BARBA APRN.ALCIRA Service: ? Author Type: Nurse Practitioner Type: Progress Notes Filed: 12/03/2024 16:08 Note Text: Pulmonary Medicine Patients name: Trinh Womack PCP: Leslye Mccloud MD CC: Asthma follow-up HPI: Trinh Womack is a 74 year old female former 27 pack year smoker, quitting 1990 with PMH significant for childhood asthma, right breast cancer 2008 (XRT, chemo, Tamoxifen 5 years), psoriasis, HTN, GERD, and chronic rhinitis. Current maintenance therapy with Advair and PRN Albuterol. She presents today for follow-up. CHASE 05/2024 with intermittent use of Wixela. Was acutely ill at that time. Encouraged regular use of ICS/LABA. PFT were updated earlier this year were normal. Has a known lung nodule which was first seen on CT scan in 04/2024, repeat CT scan in October showed stability. Today, she reports overall feeling well, stating she feels much better now than she did a year ago with constant bouts of bronchitis. Notes that Advair has made a big difference. She denies any significant respiratory infections over the winter. Reports occasional dry cough. Denies wheezing, chest tightness or dyspnea at rest or with exertion. Albuterol use is rare. She does note fatigue but is up frequently at night with her dog. She also wakes up early for work and helps with great grandkids. PAST MEDICAL HISTORY Diagnosis Date Acute sinusitis, unspecified drainage Allergic rhinitis Childhood asthma Generalized anxiety disorder Anxiety, Generalized GERD (gastroesophageal reflux disease) Malignant neoplasm of breast (female), unspecified site right breast Psoriasis and similar disorders Unspecified asthma(493.90) uses nebulizer prn Unspecified essential hypertension Essential hypertension Allergies: Penicillins Swelling, Unknown Comment:breathing problem years ago Medication List Accurate as of November 29, 2024 4:02 PM. If you have any questions, ask your nurse or doctor. CONTINUE taking these medications albuterol HFA 90 mcg/actuation inhaler Commonly known as: PROVENTIL HFA, VENTOLIN HFA Inhale 2 Puffs as instructed every 4 hours as needed. ALPRAZolam 0.25 mg tablet Commonly known as: XANAX Take 1 tablet by mouth two times a day for 90 days. Patient should start on November 18, 2024. Biotin 10,000 mcg Cap calcium (elemental) Tab citalopram 20 mg tablet Commonly known as: CeleXA Take 1 tablet by mouth every afternoon. fluticasone-salmeterol 100-50 mcg/dose inhaler Commonly known as: ADVAIR DISKUS Inhale 1 Puff as instructed two times a day. hydroCHLOROthiazide 25 mg tablet ipratropium-albuterol 0.5 mg-3 mg(2.5 mg base)/3 mL Nebu Commonly known as: DUONEB Inhale 3 mL as instructed every 4 hours as needed. losartan 100 mg tablet Commonly known as: COZAAR Take 1 tablet by mouth every afternoon. Nebulizer Accessories Misc Tubing , mouthpiece; other supplies as needed pantoprazole DR 20 mg tablet Commonly known as: PROTONIX Take 1 tablet by mouth once daily. VITAMIN C 500 mg tablet Generic drug: ascorbic acid (vitamin C) VITAMIN D3 ORAL DATA: I personally reviewed and analyzed all labs, radiographs and available pulmonary function testing PFT: 08/2024 Spirometry is normal. Lung volumes are normal. The diffusion capacity (uncorrected for hemoglobin) is normal. CXR: Last XR Chest - Impression Only XR CHEST 2V FRONTAL/LAT Exam End: 06/18/2024 12:52 PM (Final result) Impression: IMPRESSION: No developing abnormality or acute process ... CT Chest: 11/13/2024 IMPRESSION: 1. Stable subcentimeter pulmonary nodules. No new nodules are visualized. 2. No thoracic lymphadenopathy Paper Final Inspector: PSCB Transcribe Date/Time: Nov 20 2024 12:22P Dictated by : MACRINA SHANNON MD This examination was interpreted and the report reviewed and electronically signed by: MACRINA SHANNON MD on Nov 20 2024 12:31PM EST Results-Findings * * *Final Report* * * DATE OF EXAM: Nov 13 2024 10:11AM [facility] 0541 - CT CHEST WO IVCON / PROCEDURE REASON: Lung nodules * * * * Physician Interpretation * * * * EXAMINATION: CHEST CT WITHOUT CONTRAST CLINICAL HISTORY: Lung nodules Technique: Spiral CT acquisition of the chest from the thoracic inlet to the upper abdomen without contrast. MQ: CTCWO_6 CT Radiation dose: Integrated Dose-length product (DLP) for this visit = 207 mGy*cm CT Dose Reduction Employed: Automated exposure control(AEC) and iterative recon Comparison: CTA chest 05/13/2024 RESULT: Limitations: None. Lines, tubes, and devices: None. Lung parenchyma and airways: Stable 7 x 4 mm nodule posterior right upper lobe (7:38). Stable 3 mm nodule lateral left lower lobe (7:111). No new pulmonary nodules. Scarring in the anterior right upper lobe. No acute airspace disease. Central airways are patent. Pleural space: No pleural effusion. No pleu (more content not included)... [facility]04-01-2025 Telephone encounter Note* Telephone Encounter - Yanet Alaniz LPN - 11/19/2024 1:35 PM EDT Patient calling for CT results. Aware official radiology read is not yet completed, but checking tosee if images have been reviewed by pulm provider? Yanet Alaniz LPN [facility]04-01-2025 Miscellaneous Notes* Telephone Encounter - Yanet Alaniz LPN - 11/19/2024 1:35 PM EDT Patient calling for CT results. Aware official radiology read is not yet completed, but checking tosee if images have been reviewed by pulm provider? Yanet Alaniz LPN documented in this encounterMarietta Osteopathic Clinic03-26-2025 History of Present illness Narrative* Reef Suzi He, RT(R) - 11/13/2024 10:00 AM EDT Radiology Service Progress Note PATIENT NAME: Trinh Womack DATE OF SERVICE: November 13, 2024 TIME: 1:48 PM PATIENT IDENTITY VERIFICATION COMPLETED USING TWO (2) IDENTIFIERS: Name and Date of confirmedby patient verbally. FALL SCREENING: Has the patient had 2 falls in the last year or 1 fall with injury or currently using an Ambulatory Assistive Device (Walker, Cane, Wheelchair, Crutches, etc.)? No PATIENT GENDER DATA: Assigned female at . status: : No status:NO. PATIENT RELEVANT IMPLANT DATA REVIEWED: Yes PATIENT PRESENTS WITH AN IMPLANTABLE OR ATTACHED SUPERVISOR FABRICATION: No RADIOLOGY DEPARTMENT: CT; Exam(s) Completed: Chest PERIPHERAL IV DATA: Not applicable SIGNED BY: RT Maryana(R) November 13, 2024 1:48 PM documented in this encounterMarietta Osteopathic Clinic03-26-2025 NoteHNO ID: [id number] Author: SUZI SOLIS RT(R) Service: ? Author Type: Derrickman Helper Type: Progress Notes Filed: 11/13/2024 13:48 Note Text: Radiology Service Progress Note PATIENT NAME: Trinh Womack DATE OF SERVICE: November 13, 2024 TIME: 1:48 PM PATIENT IDENTITY VERIFICATION COMPLETED USING TWO (2) IDENTIFIERS: Name and Date of confirmed by patient verbally. FALL SCREENING: Has the patient had 2 falls in the last year or 1 fall with injury or currently using an Ambulatory Assistive Device (Walker, Cane, Wheelchair, Crutches, etc.)? No PATIENT GENDER DATA: Assigned female at . status: : No status: NO. PATIENT RELEVANT IMPLANT DATA REVIEWED: Yes PATIENT PRESENTS WITH AN IMPLANTABLE OR ATTACHED SUPERVISOR FABRICATION: No RADIOLOGY DEPARTMENT: CT; Exam(s) Completed: Chest PERIPHERAL IV DATA: Not applicable SIGNED BY: RT Maryana(Lyle) November 13, 2024 1:48 [facility]03-14-2025 NoteHNO ID: [id number] Author: BARRY LOAIZA MA Service: ? Author Type: Fiber Design Engineer Type: Progress Notes Filed: 11/01/2024 11:45 Note Text: POPULATION HEALTH NAVIGATION OUTREACH Action/FYI msg to schedule wellness, hcc gap closure, follow up, bp to be addressed as not compliant not <130/80 Reason for Outreach Care Gap/HCC or Scheduling Wellness Visits Care Gaps due: Medicare Annual Wellness Visit Follow-up Appointment Controlling Blood Pressure Patient Contacted: Unable or unnecessary to reach patient: Unable to leave message [employer] message sent HCC related Navigation Signature: Barry Loaiza MA November 01, 2024 11:44 [facility]03-14-2025 History of Present illness Narrative* Barry Loaiza MA - 11/01/2024 11:43 AM EDT POPULATION HEALTH NAVIGATION OUTREACH Action/FYI msg to schedule wellness, hcc gap closure, follow up, bp to be addressed as not compliant not <130/80 Reason for Outreach Care Gap/HCC or Scheduling Wellness Visits Care Gaps due: Medicare Annual Wellness Visit Follow-up Appointment Controlling Blood Pressure Patient Contacted: Unable or unnecessary to reach patient: Unable to leave message [employer] message sent HCC related Navigation Signature: Barry Loaiza MA November 01, 2024 11:44 AM documented in this encounterM[facility] History of Present illness Narrative* Kathie Echeverria APRN.CERTIFIED NURSE AIDE - 11/01/2024 11:00 AM EDT This is a 74 year old female who presents today with: Patient presents with: Follow Up: 3 month follow up HISTORY OF PRESENT ILLNESS: Trinh Womack is a 74 year old female. Patient presents with: Follow Up: 3 month follow up 3 month follow up DUE FOR LABS GERD: Symptoms controlled on Protonix 20 mg daily. Reports Protonix is helping. She also takes Anamaria's as needed. DEN: Stable on Celexa 20 mg daily and Xanax 0.25 mg 1 pill BID. Refers she does have increased stress with nephew living with her. Denies SI/HI. Reports she is feeing good. HTN: Taking Losartan 100 mg daily and hydrochlorothiazide 25 mg daily. Checks BP at home, getting 130-150's/70's. Following with [facility] today, Dr. Saunders. Denies chest pain, palpitations,dizziness or edema. Lipid: Not taking any cholesterol medications. Staying busy with grandchildren. 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 Asthma/ Chronic Bronchitis: Follows with Pulmonology Dr. Ruiz. Is using Wixela daily, Duoneb for nebulizer, and Albuterol inhaler prn. Refers she was diagnosed with Pulmonary HTN, pulmonology ordered full PFTs to be completed. Lung nodule noted, will have repeat CT in October. Has an appointment in 2 weeks. History of breast cancer; notes that she has breast implants. Has mammograms done yearly. Denies breast tenderness or pain. Completed in August 2024. Colonoscopy: Completed cologuard in April 2024, negative. Due in 2026. Vaccines: UTD PAST MEDICAL HISTORY: PAST MEDICAL HISTORY Diagnosis Date Acute sinusitis, unspecified drainage Allergic rhinitis Childhood asthma Generalized anxiety disorder Anxiety, Generalized GERD (gastroesophageal reflux disease) Malignant neoplasm of breast (female), unspecified site right breast Psoriasis and similar disorders Unspecified asthma(493.90) uses nebulizer prn Unspecified essential hypertension Essential hypertension PAST SURGICAL HISTORY Procedure Laterality Date ARTHROSCOPY KNEE DIAGNOSTIC W/WO SYNOVIAL BX SPX 2004 Arthroscopy, knee, left by [employer] AXILLARY FINE NEEDLE ASPIRATION 11/27/2008 left BREAST RECONSTRUC W LAT DORSI FLAP 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 Levi Yoder LIG/TRNSXJ FLP TUBE ABDL/VAG APPR UNI/BI Tubal ligation MASTECTOMY, PARTIAL 12/16/2008 right breast with SLND/ALND with right oncoplasty and left reduction MASTECTOMY, SIMPLE, COMPLETE 07/24/2009 right skin-sparing OOPHORECTOMY PARTIAL/TOTAL UNI/BI 1 Oophorectomy PAST SURGICAL HISTORY OF Right 04/15/2024 Cataract extraction with intraocular lens implant - Dr. 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 ALPRAZolam (XANAX) 0.25 mg tablet Take 1 tablet by mouth two times a day for 90 days. Patient should start on August 21, 2024. citalopram (CELEXA) 20 mg tablet Take 1 tablet by mouth every afternoon. losartan (COZAAR) 100 mg tablet Take 1 tablet by mouth every afternoon. hydroCHLOROthiazide 25 mg tablet Take 25 mg by mouth every morning. pantoprazole DR (PROTONIX) 20 mg tablet Take 1 tablet by mouth once daily. albuterol HFA (PROVENTIL HFA, VENTOLIN HFA) 90 mcg/actuation inhaler Inhale 2 Puffs as instructed every 4 hours as needed. ipratropium-albuterol (DUONEB) 0.5 mg-3 mg(2.5 mg base)/3 mL nebu Inhale 3 mL as instructed every 4hours as needed. cholecalciferol, vitamin D3, (VITAMIN D3 ORAL) Take 500 mg by mouth once daily. Biotin 10,000 mcg cap Take 10,000 mcg by mouth once daily. Nebulizer Accessories misc Tubing , mouthpiece; other supplies as needed CALCIUM 500 MG TAB TAKES 2 TABLETS DAILY ascorbic acid(VITAMIN C 500 MG TAB) Take one(1) tablet daily. No current facility-administered medications for this visit. FAMILY HISTORY Problem Relation Age of Onset Colon Cancer Mother Cancer Father lung Heart Father other (Cirrhosis) Sister other (Other [Other]) Other no known family h/o breast or ovarian cancer Social History Tobacco Use Smoking status: Former Current packs/day: 0.00 Average packs/day: 1 pack/day for 27.0 years (27.0 ttl pk-yrs) Types: Cigarettes Start date: 01/19/1964 Quit date: 01/18/1991 Years since quittin.8 Smokeless tobacco: Never Vaping Use Vaping status: Never Used Substance Use Topics Alcohol use: No Drug use: No REVIEW OF SYSTEMS GENERAL: No weight loss, malaise or fevers/chills HEENT: Negative for frequent or significant headaches, No changes in hearing or vision. NECK: Negative for lumps, goiter, pain and significant neck swelling RESPIRATORY: Negative for cough, hemoptysis, wheezing, dyspnea or shortness of breath CARDIOVASCULAR: Negative for chest pain, leg swelling, orthopnea, or palpitations GI: No nausea, vomiting, or diarrhea/constipation. No hematochezia/melena. No heartburn or reflux symptoms. : No history of dysuria, frequency or incontinence MUSCULOSKELETAL: Negative for joint pain or swelling. SKIN: Negative for lesions, rash, and itching ENDOCRINE: Negative for cold or heat intolerance, polyuria, polydipsia and goiter NEURO: No history of headaches, syncope, paralysis, seizures or tremors MOOD: Negative for depression, anxiety, or suicidal ideation. EXAM: BP 130/78 Pulse 67 Resp 16 Wt 61.4 kg (135 lb 5.8 oz) SpO2 97% BMI (P) 28.22 kg/m PHYSICAL EXAM: General Appearance: Well appearing, alert, in no acute distress, well-hydrated, well nourished.. Skin: Skin color, texture, turgor normal, no suspicious rashes or lesions. Head: Normocephalic, no masses, lesions, tenderness or abnormalities. Eyes: Anicteric sclera. Pupils are equally round and reactive to light. Extraocular movements are intact. . Lungs: Lungs clear to auscultation. No wheezing, rhonchi, rales.. Heart: RRR without murmur, gallop, or rubs. No ectopy. Extremities: No deformities, edema, skin discoloration, clubbing or cyanosis. Good capillary refill. . Peripheral Pulses: Normal, Capillary refill <2secs, strong peripheral pulses, Pulses palpable. Neurologic: Gait normal. Reflexes normal and symmetric. Sensation grossly intact.. ASSESSMENT/PLAN: 1. Anxiety - ICD9: 300.00, ICD10: F41.9 (primary diagnosis) - Stable, refill provided. - ALPRAZOLAM 0.25 MG TABLET 2. BENIGN HYPERTENSION - ICD9: 401.1, ICD10: I10 - Controlled - Continue current medications - Recommend home blood pressure monitoring, to bring results to next visit - Encouraged sodium restriction, DASH or Mediterranean diet - Recommend regular aerobic exercise 3. Pulmonary HTN (HCC) - ICD9: 416.8, ICD10: I27.20 - Stable, continue to take all medication. - Keep scheduled appointments with specialists 4. Mixed hyperlipidemia - ICD9: 272.2, ICD10: E78.2 - Control undetermined, due for labs - Counseled on healthy diet and regular exercise - Get labs completed in 3 months. - LIPID PANEL BASIC - COMPREHENSIVE METABOLIC PANEL 5. Gastroesophageal reflux disease with esophagitis without hemorrhage - ICD9: 530.81, 530.10, ICD10: K21.00 - Stable, continue to take current medication. 6. Mild intermittent asthma without complication - ICD9: 493.90, ICD10: J45.20 - Mild intermittent asthma stable - Continue current medications - Avoidance of triggers recommended - Keep scheduled appointments with pulmonology. 7. Lung nodule - ICD9: 793.11, ICD10: R91.1 - Keep scheduled appointments with pulmonology. 8. Personal history of malignant neoplasm of breast - ICD9: V10.3, ICD10: Z85.3 - Stable, continue with annual screening. Follow-up in 3 months or sooner as needed Discussed treatment plan and patient voices understanding. Patient's questions answered appropriately. Medications and potential side effects were discussed and patient voices understanding. Kathie Echeverria APRN.CNP This note was partially generated using [employer] voice recognition system. Note was reviewed for accuracy. There may be minor misspellings or grammar miscues with [employer] voice recognition. PDMP website checked and validated. All prescriptions have been APPROPRIATELY filled. No suspiciousactivity was identified. 11/01/2024 by Kathie Echeverria APRN.CNP documented in this encounterMarietta [facility]03-14-2025 Instructions* Patient Instructions* Kathie Echeverria APRN.CNP - 11/01/2024 11:00 AM EDT Get fasting labs completed in 3 months prior to next visit Continue to take all medication as prescribed Keep scheduled appointments with specialists. Follow up in 3 months or sooner as needed. documented in this encounterMarietta [facility]03-14-2025 NoteHNO ID: [id number] Author: KATHIE ECHEVERRIA APRN.ALCIRA Service: ? Author Type: Nurse Practitioner Type: Progress Notes Filed: 11/01/2024 11:30 Note Text: This is a 74 year old female who presents today with: Patient presents with: Follow Up: 3 month follow up HISTORY OF PRESENT ILLNESS: Trinh Womack is a 74 year old female. Patient presents with: Follow Up: 3 month follow up 3 month follow up DUE FOR LABS GERD: Symptoms controlled on Protonix 20 mg daily. Reports Protonix is helping. She also takes Anamaria's as needed. DEN: Stable on Celexa 20 mg daily and Xanax 0.25 mg 1 pill BID. Refers she does have increased stress with nephew living with her. Denies SI/HI. Reports she is feeing good. HTN: Taking Losartan 100 mg daily and hydrochlorothiazide 25 mg daily. Checks BP at home, getting 130-150's/70's. Following with [facility] today, Dr. Saunders. Denies chest pain, palpitations, dizziness or edema. Lipid: Not taking any cholesterol medications. Staying busy with grandchildren. 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 Asthma/ Chronic Bronchitis: Follows with Pulmonology Dr. Ruiz. Is using Wixela daily, Duoneb for nebulizer, and Albuterol inhaler prn. Refers she was diagnosed with Pulmonary HTN, pulmonology ordered full PFTs to be completed. Lung nodule noted, will have repeat CT in October. Has an appointment in 2 weeks. History of breast cancer; notes that she has breast implants. Has mammograms done yearly. Denies breast tenderness or pain. Completed in August 2024. Colonoscopy: Completed cologuard in April 2024, negative. Due in 2026. Vaccines: UTD PAST MEDICAL HISTORY: PAST MEDICAL HISTORY Diagnosis Date Acute sinusitis, unspecified drainage Allergic rhinitis Childhood asthma Generalized anxiety disorder Anxiety, Generalized GERD (gastroesophageal reflux disease) Malignant neoplasm of breast (female), unspecified site right breast Psoriasis and similar disorders Unspecified asthma(493.90) uses nebulizer prn Unspecified essential hypertension Essential hypertension PAST SURGICAL HISTORY Procedure Laterality Date ARTHROSCOPY KNEE DIAGNOSTIC W/WO SYNOVIAL BX SPX 2004 Arthroscopy, knee, left by [employer] AXILLARY FINE NEEDLE ASPIRATION 11/27/2008 left BREAST RECONSTRUC W LAT DORSI FLAP 02/11/2011 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 Levi Yoder LIG/TRNSXJ FLP TUBE ABDL/VAG APPR UNI/BI Tubal ligation MASTECTOMY, PARTIAL 12/16/2008 right breast with SLND/ALND with right oncoplasty and left reduction MASTECTOMY, SIMPLE, COMPLETE 07/24/2009 right skin-sparing OOPHORECTOMY PARTIAL/TOTAL UNI/BI 1 Oophorectomy PAST SURGICAL HISTORY OF Right 04/15/2024 Cataract extraction with intraocular lens implant - Dr. 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 ALPRAZolam (XANAX) 0.25 mg tablet Take 1 tablet by mouth two times a day for 90 days. Patient should start on August 21, 2024. citalopram (CELEXA) 20 mg tablet Take 1 tablet by mouth every afternoon. losartan (COZAAR) 100 mg tablet Take 1 tablet by mouth every afternoon. hydroCHLOROthiazide 25 mg tablet Take 25 mg by mouth every morning. pantoprazole DR (PROTONIX) 20 mg tablet Take 1 tablet by mouth once daily. albuterol HFA (PROVENTIL HFA, VENTOLIN HFA) 90 mcg/actuation inhaler Inhale 2 Puffs as instructed every 4 hours as needed. ipratropium-albuterol (DUONEB) 0.5 mg-3 mg(2.5 mg base)/3 mL nebu Inhale 3 mL as instructed every 4 hours as needed. cholecalciferol, vitamin D3, (VITAMIN D3 ORAL) Take 500 mg by mouth once daily. Biotin 10,000 mcg cap Take 10,000 mcg by mouth once daily. Nebulizer Accessories misc Tubing , mouthpiece; other supplies as needed CALCIUM 500 MG TAB TAKES 2 TABLETS DAILY ascorbic acid(VITAMIN C 500 MG TAB) Take one(1) tablet daily. No current facility-administered medications for this visit. FAMILY HISTORY Problem Relation Age of Onset Colon Cancer Mother Cancer Father lung Heart Father other (Cirrhosis) Sister other (Other [Other]) Other no known family h/o breast or ovarian cancer Social History Tobacco (more content not included)...[facility]03-14-2025 Note Patient Outreach (NETNAV) TRINH WOMACK ([id number]) 1950 F Date Time Provider Department 11/01/24 BARRY LOAIZA During your visit today, we recorded the following information about you: Barry Loaiza MA 11/01/2024 11:45 AM Signed POPULATION HEALTH NAVIGATION OUTREACH Action/[facility] ms to schedule wellness, hcc gap closure, follow up, bp to be addressed as not compliant not <130/80 Reason for Outreach Care Gap/HCC or Scheduling Wellness Visits Care Gaps due: Medicare Annual Wellness Visit Follow-up Appointment Controlling Blood Pressure Patient Contacted: Unable or unnecessary to reach patient: Unable to leave message [employer] message sent HCC related Navigation Signature: Barry Loaiza MA November 01, 2024 11:44 AM Allergies As of Date: 11/01/2024 Noted Allergy Reaction PENICILLINS 01/19/2008 7 - Swelling 16 - Unknown Comments: breathing problem years ago Date Reviewed: 11/01/2024 Reviewed by: Jenni Bui LPN - Fully Assessed Reason for Visit: Population Health Navigation Outreach [3910] Cmt: yasmany bolanos Prescriptions as of 11/01/2024 - ALPRAZolam (XANAX) 0.25 mg tablet Take 1 tablet by mouth two times a day for 90 days. Patient should start on November 18, 2024. - fluticasone-salmeterol (ADVAIR DISKUS) 100-50 mcg/dose inhaler Inhale 1 Puff as instructed two times a day. - citalopram (CELEXA) 20 mg tablet Take 1 tablet by mouth every afternoon. - losartan (COZAAR) 100 mg tablet Take 1 tablet by mouth every afternoon. - hydroCHLOROthiazide 25 mg tablet Take 25 mg by mouth every morning. - pantoprazole DR (PROTONIX) 20 mg tablet Take 1 tablet by mouth once daily. - albuterol HFA (PROVENTIL HFA, VENTOLIN HFA) 90 mcg/actuation inhaler Inhale 2 Puffs as instructed every 4 hours as needed. - ipratropium-albuterol (DUONEB) 0.5 mg-3 mg(2.5 mg base)/3 mL nebu Inhale 3 mL as instructed every 4 hours as needed. - cholecalciferol, vitamin D3, (VITAMIN D3 ORAL) Take 500 mg by mouth once daily. - Biotin 10,000 mcg cap Take 10,000 mcg by mouth once daily. - Nebulizer Accessories misc Tubing , mouthpiece; other supplies as needed - CALCIUM 500 MG TAB TAKES 2 TABLETS DAILY - ascorbic acid(VITAMIN C 500 MG TAB) Take one(1) tablet daily. Problem List As Of Date 11/01/2024 Noted Resolved Essential hypertension, benign [I10] 01/19/2008 Mild intermittent asthma without complication [*01/19/2008 Anxiety [F41.9] 01/19/2008 LOC OSTEOARTH NOS-L/LEG [M17.10] 06/05/2008 Dermatophytosis of the body [B35.4] 09/01/2008 12/12/2017 Dermatophytosis of foot [B35.3] 09/01/2008 12/12/2017 Other psoriasis [L40.8] 09/01/2008 12/12/2017 XEROSIS///SEBACEOUS GLAND DIS NEC [L73.8] 09/01/2008 12/12/2017 Dermatophytosis of hand [B35.2] 09/01/2008 12/12/2017 PRURITIC DISORDER NOS [L29.9] 09/01/2008 HYPERTROPHY OF BREAST [N62] 09/15/2008 ONYCHOMYCOSIS///DERMATOPHYTOSIS OF NAIL [B35.1] 10/15/2008 12/12/2017 Dyshidrosis [L30.1] 10/15/2008 12/12/2017 Malignant neoplasm of breast (female), unspecif*11/27/2008 07/31/2023 Drug-induced neutropenia (HCC) [D70.2] 01/20/2009 12/12/2017 Pain in rib [R07.81] 06/22/2009 12/12/2017 Personal history of malignant neoplasm of breas*03/21/2011 Arthritis of knee, left [M17.12] 06/04/2013 Trigger thumb of left hand [M65.312] 06/04/2013 Unspecified arthropathy, lower leg [M17.10] 06/18/2013 12/12/2017 Pain in joint, lower leg [M25.569] 06/18/2013 Gastroesophageal reflux disease [K21.9] 09/11/2017 Encounter Status:Closed by BARRY LOAIZA on 11/01/24[facility] 10-25-2024 Evaluation note* Diagnosis Onset Date Resolution Status Admit Date Hyperlipidemia acute October 25, 2024 9:56am Pulmonary hypertension acute [facility] 2024 9:56am HTN (hypertension) chronic October 25, 2024 9:56am [facility] Work Phone: [phone]) 859-947302-18-2025 Telephone encounter Note* Telephone Encounter - Yanet Alaniz LPN - 10/08/2024 8:30 AM EST CHASE 06/18/24 Patient phones requesting refills as follows: Requested Prescriptions Pending Prescriptions Disp Refills fluticasone-salmeterol (ADVAIR DISKUS) 100-50 mcg/dose inhaler 60 Each 5 Sig: Inhale 1 Puff as instructed two times a day. Please review and advise. Yanet Alaniz LPN [facility]02-18-2025 Miscellaneous Notes* Telephone Encounter - Yanet Alaniz LPN - 10/08/2024 8:30 AM EST CHASE 06/18/24 Patient phones requesting refills as follows: Requested Prescriptions Pending Prescriptions Disp Refills fluticasone-salmeterol (ADVAIR DISKUS) 100-50 mcg/dose inhaler 60 Each 5 Sig: Inhale 1 Puff as instructed two times a day. Please review and advise. Yanet Alaniz LPN documented in this encounterMarietta [facility]opathic Clinic02-17-2025 Telephone encounter Note * Telephone Encounter - Leni Castano MA - 10/07/2024 7:54 PM EST Pt should have refills to last her until November. Notified pt to contact Pharmacy to obtain refills. If problem to contact office. Leni Castano MA [facility]02-17-2025 Miscellaneous Notes* Telephone Encounter - Leni Castano MA - 10/07/2024 7:54 PM EST Pt should have refills to last her until November. Notified pt to contact Pharmacy to obtain refills. If problem to contact office. Leni Castano MA documented in this encounterMarietta [facility] Clinic01-28-2025 History of Present illness Narrative* Nilda Guerrier, RT(R) - 09/17/2024 10:50 AM EST Radiology Service Progress Note PATIENT NAME: Trinh Womack DATE OF SERVICE: September 17, 2024 TIME: 10:49 AM PATIENT IDENTITY VERIFICATION COMPLETED USING TWO (2) IDENTIFIERS: Name and Date of confirmedby patient verbally. FALL SCREENING: Has the patient had 2 falls in the last year or 1 fall with injury or currently using an Ambulatory Assistive Device (Walker, Cane, Wheelchair, Crutches, etc.)? No PATIENT GENDER DATA: Assigned female at . status: : No status:NO. PATIENT RELEVANT IMPLANT DATA REVIEWED: Not Applicable PATIENT PRESENTS WITH AN IMPLANTABLE OR ATTACHED SUPERVISOR FABRICATION: No RADIOLOGY DEPARTMENT: Mammography PERIPHERAL IV DATA: Not applicable SIGNED BY: RT Betsy(Lyle) September 17, 2024 10:49 AM documented in this encounterMarietta Osteopathic Clinic01-28-2025 NoteHNO ID: [id number] Author: NILDA GUERRIER RT(R) Service: ? Author Type: Technologist Type: Progress Notes Filed: 09/17/2024 10:49 Note Text: Radiology Service Progress Note PATIENT NAME: Trinh Womack DATE OF SERVICE: September 17, 2024 TIME: 10:49 AM PATIENT IDENTITY VERIFICATION COMPLETED USING TWO (2) IDENTIFIERS: Name and Date of confirmed by patient verbally. FALL SCREENING: Has the patient had 2 falls in the last year or 1 fall with injury or currently using an Ambulatory Assistive Device (Walker, Cane, Wheelchair, Crutches, etc.)? No PATIENT GENDER DATA: Assigned female at . status: : No status: NO. PATIENT RELEVANT IMPLANT DATA REVIEWED: Not Applicable PATIENT PRESENTS WITH AN IMPLANTABLE OR ATTACHED SUPERVISOR FABRICATION: No RADIOLOGY DEPARTMENT: Mammography PERIPHERAL IV DATA: Not applicable SIGNED BY: RT Betsy(Lyle) September 17, 2024 10:49 [facility]01-07-2025 NoteHNO ID: [id number] Author: DALJIT RO RPFT Service: ? Author Type: Respiratory Therapist Type: Progress Notes Filed: 08/27/2024 10:32 Note Text: PULM FUNCTION: Provider: Dawna Barba APRN.CERTIFIED NURSE AIDE Assisting Tech: Daljit Ro RPFT Spirometry: 1 DLCO: 1 LV - Box: [address] [place], [place] [address]01-07-2025 History of Present illness Narrative* Daljit Ro RPFT - 08/27/2024 10:29 AM EST PULM FUNCTION: Provider: Dawna Barba APRN.CNP Assisting Tech: Daljit Ro RPFT Spirometry: 1 DLCO: 1 LV - Box: 1 documented in this encounterMarietta Osteopathic Clinic12-06-2024 Instructions* Patient Instructions* Kathie Echeverria APRN.CNP - 07/26/2024 11:15 AM EST Continue to take all medication as prescribed. Keep scheduled appointments with specialists Monitor blood pressure at home, goal 130/80 or less. Due for mammogram May use wrist brace on the right hand to help with symptoms, use NSAIDS or tylenol as needed. If symptoms do not improve recommend EMG testing. Follow up in 3 months or sooner as needed. documented in this encounterMarietta [facility]opathic Clinic12-06-2024 History of Present illness Narrative* Kathie Echeverria APRN.CNP - 07/26/2024 11:00 AM EST This is a 74 year old female who presents today with: Patient presents with: Follow Up: 3 month follow up HISTORY OF PRESENT ILLNESS: Trinh Womack is a 74 year old female. Patient presents with: Follow Up: 3 month follow up 3 month follow up Bilateral hand numbness ( finger tips) that seems to wax and wane. Has been on going for several months. 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 No wrist or neck pain. GERD: Symptoms controlled on Protonix 20 mg daily. Reports Protonix is helping. She also takes Anamaria's as needed. DEN: Stable on Celexa 20 mg daily and Xanax 0.25 mg 1 pill BID. Refers she does have increased stress with nephew living with her. Denies SI/HI. Reports she is feeing good, just a little stressed dueto vacation coming up. HTN: Taking Losartan 100 mg daily and hydrochlorothiazide 25 mg daily. Checks BP at home, getting 130-150's/70's. Following with [facility] today, Dr. Saunders. Has follow-up next year. Denies chest pain, palpitations, dizziness or edema. Lipid: Not taking any cholesterol medications. Staying busy with grandchildren. 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 Asthma/ Chronic Bronchitis: Follows with Pulmonology Dr. Ruiz. Is using Wixela daily, Duoneb for nebulizer, and Albuterol inhaler prn. Refers she was diagnosed with Pulmonary HTN, pulmonology ordered full PFTs to be completed. Lung nodule noted, will have repeat CT in October. History of breast cancer; notes that she has breast implants. Has mammograms done yearly. Denies breast tenderness or pain. Colonoscopy: Completed cologuard in April 2024, negative. Due in 2026. Vaccines: Would like Flu vaccine PAST MEDICAL HISTORY: PAST MEDICAL HISTORY Diagnosis Date Acute sinusitis, unspecified drainage Allergic rhinitis Childhood asthma Generalized anxiety disorder Anxiety, Generalized GERD (gastroesophageal reflux disease) Malignant neoplasm of breast (female), unspecified site right breast Psoriasis and similar disorders Unspecified asthma(493.90) uses nebulizer prn Unspecified essential hypertension Essential hypertension PAST SURGICAL HISTORY Procedure Laterality Date ARTHROSCOPY KNEE DIAGNOSTIC W/WO SYNOVIAL BX SPX 2004 Arthroscopy, knee, left by [employer] AXILLARY FINE NEEDLE ASPIRATION 11/27/2008 left BREAST RECONSTRUC W LAT DORSI FLAP 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 Levi Yoder LIG/TRNSXJ FLP TUBE ABDL/VAG APPR UNI/BI Tubal ligation MASTECTOMY, PARTIAL 12/16/2008 right breast with SLND/ALND with right oncoplasty and left reduction MASTECTOMY, SIMPLE, COMPLETE 07/24/2009 right skin-sparing OOPHORECTOMY PARTIAL/TOTAL UNI/BI 1 Oophorectomy PAST SURGICAL HISTORY OF Right 04/15/2024 Cataract extraction with intraocular lens implant - Dr. Mack REMOVAL TISSUE DIRECTOR OF PARTNER MARKETING W/O INSERTION IMPLANT 09/25/2010 right breast REPLACEMENT TISSUE DIRECTOR OF PARTNER MARKETING W/PERMANENT IMPLANT 06/24/2011 right perm implant ALLERGIES Penicillins MEDICATIONS Current Outpatient Medications Medication Sig citalopram (CELEXA) 20 mg tablet Take 1 tablet by mouth every afternoon. losartan (COZAAR) 100 mg tablet Take 1 tablet by mouth every afternoon. hydroCHLOROthiazide 25 mg tablet Take 25 mg by mouth every morning. ALPRAZolam (XANAX) 0.25 mg tablet Take 1 tablet by mouth two times a day for 90 days. fluticasone-salmeterol (WIXELA INHUB) 100-50 mcg/dose inhaler Inhale 1 Puff as instructed two timesa day. pantoprazole DR (PROTONIX) 20 mg tablet Take 1 tablet by mouth once daily. albuterol HFA (PROVENTIL HFA, VENTOLIN HFA) 90 mcg/actuation inhaler Inhale 2 Puffs as instructed every 4 hours as needed. ipratropium-albuterol (DUONEB) 0.5 mg-3 mg(2.5 mg base)/3 mL nebu Inhale 3 mL as instructed every 4hours as needed. cholecalciferol, vitamin D3, (VITAMIN D3 ORAL) Take 500 mg by mouth once daily. Biotin 10,000 mcg cap Take 10,000 mcg by mouth once daily. Nebulizer Accessories misc Tubing , mouthpiece; other supplies as needed CALCIUM 500 MG TAB TAKES 2 TABLETS DAILY ascorbic acid(VITAMIN C 500 MG TAB) Take one(1) tablet daily. No current facility-administered medications for this visit. FAMILY HISTORY Problem Relation Age of Onset Colon Cancer Mother Cancer Father lung Heart Father other (Cirrhosis) Sister other (Other [Other]) Other no known family h/o breast or ovarian cancer Social History Tobacco Use Smoking status: Former Current packs/day: 0.00 Average packs/day: 1 pack/day for 27.0 years (27.0 ttl pk-yrs) Types: Cigarettes Start date: 01/19/1964 Quit date: 01/18/1991 Years since quittin.5 Smokeless tobacco: Never Vaping Use Vaping status: Never Used Substance Use Topics Alcohol use: No Drug use: No REVIEW OF SYSTEMS GENERAL: No weight loss, malaise or fevers/chills HEENT: Negative for frequent or significant headaches, No changes in hearing or vision. NECK: Negative for lumps, goiter, pain and significant neck swelling RESPIRATORY: Negative for cough, hemoptysis, wheezing, dyspnea or shortness of breath CARDIOVASCULAR: Negative for chest pain, leg swelling, orthopnea, or palpitations GI: No nausea, vomiting, or diarrhea/constipation. No hematochezia/melena. No heartburn or reflux symptoms. : No history of dysuria, frequency or incontinence MUSCULOSKELETAL: Negative for joint pain or swelling. SKIN: Negative for lesions, rash, and itching ENDOCRINE: Negative for cold or heat intolerance, polyuria, polydipsia and goiter NEURO: + Hand numbness MOOD: Negative for depression, anxiety, or suicidal ideation. EXAM: BP 138/72 Pulse 65 Resp 16 Wt 61.4 kg (135 lb 5.8 oz) SpO2 98% BMI 28.22 kg/m PHYSICAL EXAM: General Appearance: Well appearing, alert, in no acute distress, well-hydrated, well nourished. Skin: Skin color, texture, turgor normal, no suspicious rashes or lesions. Head: Normocephalic, no masses, lesions, tenderness or abnormalities. Eyes: Anicteric sclera. Extraocular movements are intact. Lungs: Lungs clear to auscultation. No wheezing, rhonchi, rales. Heart: RRR without murmur, gallop, or rubs. No ectopy. Extremities: No deformities, edema, skin discoloration, clubbing or cyanosis. Good capillary refill. Musculoskeletal: No joint swelling, deformity, or tenderness. Full ROM cervical spine, nontender. Bilateral hand/wrist nontender Peripheral Pulses: Normal, Capillary refill <2secs, strong peripheral pulses, Pulses palpable. Neurologic: Gait normal. Reflexes normal and symmetric. Sensation grossly intact., Negative Tinel'stest. ASSESSMENT/PLAN: 1. Bilateral hand numbness - ICD9: 782.0, ICD10: R20.0 (primary diagnosis) - Denied wanting EMG testing - May use wrist brace and use NSAIDs as needed. Any worsening symptoms recommend EMG testing. 2. Gastroesophageal reflux disease with esophagitis without hemorrhage - ICD9: 530.81, 530.10, ICD10: K21.00 - Stable, continue take current medication. 3. Anxiety - ICD9: 300.00, ICD10: F41.9 - Stable, refill provided. - ALPRAZOLAM 0.25 MG TABLET 4. BENIGN HYPERTENSION - ICD9: 401.1, ICD10: I10 - Controlled - Continue current medications - Recommend home blood pressure monitoring, to bring results to next visit - Encouraged sodium restriction, DASH or Mediterranean diet - Recommend regular aerobic exercise - Keep scheduled appointments with cardiology. 5. Mixed hyperlipidemia - ICD9: 272.2, ICD10: E78.2 - Control undetermined, due for labs - Continue current medications - Counseled on healthy diet and regular exercise - Denies wanting labs at this time, will complete with cardiology 6. Mild intermittent asthma without complication - ICD9: 493.90, ICD10: J45.20 - Mild intermittent asthma stable - Continue current medications - Avoidance of triggers recommended 7. Lung nodule - ICD9: 793.11, ICD10: R91.1 - Get repeat CT as scheduled 8. Pulmonary HTN (HCC) - ICD9: 416.8, ICD10: I27.20 - Complete pulmonary testing as ordered by pulmonology. - Keep scheduled appointments with pulmonology. 9. Personal history of malignant neoplasm of breast - ICD9: V10.3, ICD10: Z85.3 - LETICIA SCREENING 10. Encounter for immunization - ICD9: V03.89, ICD10: Z23 - VIS provided. - INFLUENZA VACCINE, PRSV FREE, AGE 65+ YR, HIGH DOSE, TRIVALENT (FLUZONE HIGH-DOSE) Follow-up in 3 months or sooner as needed. Discussed treatment plan and patient voices understanding. Patient's questions answered appropriately. Medications and potential side effects were discussed and patient voices understanding. Kathie Echeverria APRN.CERTIFIED NURSE AIDE This note was partially generated using [employer] voice recognition system. Note was reviewed for accuracy. There may be minor misspellings or grammar miscues with [employer] voice recognition. PDMP website checked and validated. All prescriptions have been APPROPRIATELY filled. No suspiciousactivity was identified. 07/26/2024 by Kathie Echeverria APRN.CERTIFIED NURSE AIDE documented in this encounterM[facility] NoteHNO ID: [id number] Author: KATHIE ECHEVERRIA APRN.CERTIFIED NURSE AIDE Service: ? Author Type: Nurse Practitioner Type: Progress Notes Filed: 07/26/2024 11:59 Note Text: This is a 74 year old female who presents today with: Patient presents with: Follow Up: 3 month follow up HISTORY OF PRESENT ILLNESS: Trinh Womack is a 74 year old female. Patient presents with: Follow Up: 3 month follow up 3 month follow up Bilateral hand numbness ( finger tips) that seems to wax and wane. Has been on going for several months. 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 No wrist or neck pain. GERD: Symptoms controlled on Protonix 20 mg daily. Reports Protonix is helping. She also takes Anamaria's as needed. DEN: Stable on Celexa 20 mg daily and Xanax 0.25 mg 1 pill BID. Refers she does have increased stress with nephew living with her. Denies SI/HI. Reports she is feeing good, just a little stressed due to vacation coming up. HTN: Taking Losartan 100 mg daily and hydrochlorothiazide 25 mg daily. Checks BP at home, getting 130-150's/70's. Following with [facility] today, Dr. Saunders. Has follow-up next year. Denies chest pain, palpitations, dizziness or edema. Lipid: Not taking any cholesterol medications. Staying busy with grandchildren. 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 Asthma/ Chronic Bronchitis: Follows with Pulmonology Dr. Ruiz. Is using Wixela daily, Duoneb for nebulizer, and Albuterol inhaler prn. Refers she was diagnosed with Pulmonary HTN, pulmonology ordered full PFTs to be completed. Lung nodule noted, will have repeat CT in October. History of breast cancer; notes that she has breast implants. Has mammograms done yearly. Denies breast tenderness or pain. Colonoscopy: Completed cologuard in April 2024, negative. Due in 2026. Vaccines: Would like Flu vaccine PAST MEDICAL HISTORY: PAST MEDICAL HISTORY Diagnosis Date Acute sinusitis, unspecified drainage Allergic rhinitis Childhood asthma Generalized anxiety disorder Anxiety, Generalized GERD (gastroesophageal reflux disease) Malignant neoplasm of breast (female), unspecified site right breast Psoriasis and similar disorders Unspecified asthma(493.90) uses nebulizer prn Unspecified essential hypertension Essential hypertension PAST SURGICAL HISTORY Procedure Laterality Date ARTHROSCOPY KNEE DIAGNOSTIC W/WO SYNOVIAL BX SPX 2004 Arthroscopy, knee, left by [employer] AXILLARY FINE NEEDLE ASPIRATION 11/27/2008 left BREAST RECONSTRUC W LAT DORSI FLAP 02/11/2011 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 Levi Yoder LIG/TRNSXJ FLP TUBE ABDL/VAG APPR UNI/BI Tubal ligation MASTECTOMY, PARTIAL 12/16/2008 right breast with SLND/ALND with right oncoplasty and left reduction MASTECTOMY, SIMPLE, COMPLETE 07/24/2009 right skin-sparing OOPHORECTOMY PARTIAL/TOTAL UNI/BI 1 Oophorectomy PAST SURGICAL HISTORY OF Right 04/15/2024 Cataract extraction with intraocular lens implant - Dr. Mack REMOVAL TISSUE DIRECTOR OF PARTNER MARKETING W/O INSERTION IMPLANT 09/25/2010 right breast REPLACEMENT TISSUE DIRECTOR OF PARTNER MARKETING W/PERMANENT IMPLANT 06/24/2011 right perm implant ALLERGIES Penicillins MEDICATIONS Current Outpatient Medications Medication Sig citalopram (CELEXA) 20 mg tablet Take 1 tablet by mouth every afternoon. losartan (COZAAR) 100 mg tablet Take 1 tablet by mouth every afternoon. hydroCHLOROthiazide 25 mg tablet Take 25 mg by mouth every morning. ALPRAZolam (XANAX) 0.25 mg tablet Take 1 tablet by mouth two times a day for 90 days. fluticasone-salmeterol (WIXELA INHUB) 100-50 mcg/dose inhaler Inhale 1 Puff as instructed two times a day. pantoprazole DR (PROTONIX) 20 mg tablet Take 1 tablet by mouth once daily. albuterol HFA (PROVENTIL HFA, VENTOLIN HFA) 90 mcg/actuation inhaler Inhale 2 Puffs as instructed every 4 hours as needed. ipratropium-albuterol (DUONEB) 0.5 mg-3 mg(2.5 mg base)/3 mL nebu Inhale 3 mL as instructed every 4 hours as needed. cholecalciferol, vitamin D3, (VITAMIN D3 ORAL) Take 500 mg by mouth once daily. Biotin 10,000 mcg cap Take 10,000 mcg by mouth once daily. Nebulizer Accessories misc Tubing , mouthpiece; other supplies as needed CALCIUM 500 MG TAB TAKES 2 TABLETS DAILY ascorbic acid(VITAMIN C 500 MG TAB) Take one(1) tablet daily. No current facility-administered medications for this visit. FAMILY HISTORY Problem Relation Age of Onset (more content not included)...[facility]11-18-2024 Telephone encounter Note* Telephone Encounter - Herb Dinh APRN.CNP - 07/08/2024 7:01 AM EST The following approved medication requests have been transmitted electronically. Requested Prescriptions Pending Prescriptions Disp Refills citalopram (CELEXA) 20 mg tablet 90 tablet 3 Sig: Take 1 tablet by mouth every afternoon. losartan (COZAAR) 100 mg tablet 90 tablet 3 Sig: Take 1 tablet by mouth every afternoon. Herb Dinh APRN.CNP [facility]11-18-2024 Miscellaneous Notes* Telephone Encounter - Herb Dinh APRN.CNP - 07/08/2024 7:01 AM EST The following approved medication requests have been transmitted electronically. Requested Prescriptions Pending Prescriptions Disp Refills citalopram (CELEXA) 20 mg tablet 90 tablet 3 Sig: Take 1 tablet by mouth every afternoon. losartan (COZAAR) 100 mg tablet 90 tablet 3 Sig: Take 1 tablet by mouth every afternoon. Herb Dinh APRN.CNP * Telephone Encounter - Alejandra Hickman - 07/05/2024 2:45 PM EST Prescription Refill Information The patient has been identified by name and date of : Yes Caregiver verified no other encounters exist for this prescription request: Yes Caregiver confirmed with patient/requestor that no other refills are due, in the near future, with this provider at this time: Yes The last office visit in the department: 04-24-24 Does the patient have a future office visit with this provider/department: Yes Requested Prescriptions Pending Prescriptions Disp Refills citalopram (CELEXA) 20 mg tablet 90 tablet 3 Sig: Take 1 tablet by mouth every afternoon. losartan (COZAAR) 100 mg tablet 90 tablet 3 Sig: Take 1 tablet by mouth every afternoon. Alejandra Hurd July 05, 2024 2:46 PM documented in this encounterM[facility]11-15-2024 Telephone encounter Note * Telephone Encounter - Alejandra Hickman - 07/05/2024 2:45 PM EST Prescription Refill Information The patient has been identified by name and date of : Yes Caregiver verified no other encounters exist for this prescription request: Yes Caregiver confirmed with patient/requestor that no other refills are due, in the near future, with this provider at this time: Yes The last office visit in the department: 04-24-24 Does the patient have a future office visit with this provider/department: Yes Requested Prescriptions Pending Prescriptions Disp Refills citalopram (CELEXA) 20 mg tablet 90 tablet 3 Sig: Take 1 tablet by mouth every afternoon. losartan (COZAAR) 100 mg tablet 90 tablet 3 Sig: Take 1 tablet by mouth every afternoon. Alejandra Hurd July 05, 2024 2:46 PM [facility]11-01-2024 Telephone encounter Note* Telephone Encounter - Dawna Barba APRN.CNP - 06/21/2024 5:11 PM EDT Called and left message on home phone regarding labs. [facility]11-01-2024 Miscellaneous Notes* Telephone Encounter - Dawna Barba APRN.CNP - 06/21/2024 5:11 PM EDT Called and left message on home phone regarding labs. * Telephone Encounter - Kiana Johnson LPN - 06/21/2024 11:04 AM EDT Patient called in requesting lab results and plan of care. Please cell if she does not answer please leave message on Home phone [phone] ok to leave detailed message. Patient has prescription thatwas order but did not feel that she needed to take them. Kiana Johnson LPN documented in this encounterM[facility]11-01-2024 Telephone encounter Note * Telephone Encounter - Kiana Johnson LPN - 06/21/2024 11:04 AM EDT Patient called in requesting lab results and plan of care. Please cell if she does not answer please leave message on Home phone [phone] ok to leave detailed message. Patient has prescription thatwas order but did not feel that she needed to take them. Kiana Johnson LPN [facility] Work Phone: [phone] 338-347110-29-2024 Instructions* Patient Instructions* Dawna Barba APRN.CNP - 06/18/2024 11:47 AM EDT Chest xray today. Blood work today. Flu shot when symptoms have resolved. Start course of steroids and antibiotics. Do not take calcium supplement while taking Doxycycline. Wixela inhaler every day, regardless of how you feel. Albuterol as needed. Schedule pulmonary tests. Schedule chest CT for October 2024 to monitor lung nodule. documented in this encounterM[facility]10-29-2024 History of Present illness Narrative* Click, Dawna Gallo APRN.ALCIRA - 06/18/2024 11:00 AM EDT Images from the original note were not included. Pulmonary Medicine Patients name: Trinh Womack PCP: Leslye Mccloud MD CC: acute visit/testing follow-up HPI: Trinh Womack is a 74 year old female former 27 pack year smoker, quitting 1990 with PMH significant for childhood asthma, right breast cancer 2008 (XRT, chemo, Tamoxifen 5 years), psoriasis, HTN, GERD, and chronic rhinitis Current maintenance therapy with Wixela and PRN Albuterol. Wixela just started at [facility] on 03/27. Previously on ICS/LABA and patient thought it caused her cough and she discontinued it. Recently underwent workup with PCP for SOB. Was seen by cardiology and had echo in February which revealed mild/moderate pulmonary hypertension. Cardiology recommended a CTA which was done 05/13/24, results have not been reviewed with patient. Told by cardiology to see pulm. Also started on HCTZ d/t high blood pressure, elevated in office today but has not taken medication. Review of images shows evidence of emphysema, along with cystic changes and a RUL lung nodule (no CT from prior to compare). Previously had sleep study done over 20 years ago. Has since lost weight and does not want to undergo further testing for TOYA at this time. Unfortunately, she developed symptoms of a productive cough with yellow sputum and has had worsening SOB for the past week. She messaged the office 5 days ago regarding symptoms and was prescribed Zpak and prednisone burst. Completed course yesterday and feels approx 50% better. Has concerns d/t pneumonia dx in February. Continues to have cough, though improved, and like she can't get enough air. Currently also feeling tired and weak and not like myself. She was not using Wixela daily until symptoms started. Needing Albuterol at least daily. STOP BANG Questionnaire 1. Snoring Do you snore loudly (louder than talking or loud enough to be heard through closed doors)? NO 2. Tired Do you often feel tired, fatigued, or sleepy during daytime? NO 3. Observed Has anyone observed you stop breathing during your sleep? NO 4. Blood Pressure Do you have or are you being treated for high blood pressure? YES 5. BMI BMI more than 35 kg/m2? NO 6. Age Age over 50 yr old? YES 7. Neck circumference Neck circumference greater than 40 cm? NO 8. Gender Gender male? NO * Neck circumference is measured by staff High risk of TOYA: answering yes to three or more items Low risk of TOYA: answering yes to less than three items PAST MEDICAL HISTORY Diagnosis Date Acute sinusitis, unspecified drainage Allergic rhinitis Childhood asthma Generalized anxiety disorder Anxiety, Generalized GERD (gastroesophageal reflux disease) Malignant neoplasm of breast (female), unspecified site right breast Psoriasis and similar disorders Unspecified asthma(493.90) uses nebulizer prn Unspecified essential hypertension Essential hypertension Allergies: Penicillins Swelling, Unknown Comment:breathing problem years ago Medication List Accurate as of June 18, 2024 9:00 AM. If you have any questions, ask your nurse or doctor. CONTINUE taking these medications albuterol HFA 90 mcg/actuation inhaler Commonly known as: PROVENTIL HFA, VENTOLIN HFA Inhale 2 Puffs as instructed every 4 hours as needed. ALPRAZolam 0.25 mg tablet Commonly known as: XANAX Take 1 tablet by mouth two times a day for 90 days. azithromycin 250 mg tablet Commonly known as: ZITHROMAX Take 2 tablets by mouth once daily for 1 day, THEN 1 tablet once daily for 4 days. Start taking on: June 13, 2024 Biotin 10,000 mcg Cap calcium (elemental) Tab citalopram 20 mg tablet Commonly known as: CeleXA take 1 tablet every day fluticasone-salmeterol 100-50 mcg/dose inhaler Commonly known as: WIXELA INHUB Inhale 1 Puff as instructed two times a day. ipratropium-albuterol 0.5 mg-3 mg(2.5 mg base)/3 mL Nebu Commonly known as: DUONEB Inhale 3 mL as instructed every 4 hours as needed. losartan 100 mg tablet Commonly known as: COZAAR take 1 tablet every day Nebulizer Accessories Misc Tubing , mouthpiece; other supplies as needed pantoprazole DR 20 mg tablet Commonly known as: PROTONIX Take 1 tablet by mouth once daily. predniSONE 20 mg tablet Commonly known as: DELTASONE Take 2 tablets by mouth once daily for 5 days. VITAMIN C 500 mg tablet Generic drug: ascorbic acid (vitamin C) VITAMIN D3 ORAL DATA: I personally reviewed and analyzed all labs, radiographs and available pulmonary function testing PFT: 02/2023 IMPRESSION: Spirometry indicates mild obstruction. The increase in FEF 25-75 post-bronchodilator reflects an improvement in the small airway obstruction. The TLC, RV and RV/TLC are normal. CXR: Last XR Chest - Impression Only XR CHEST 2V FRONTAL/LAT Exam End: 04/27/2024 9:41 AM (Final result) Impression: IMPRESSION: No acute radiographic abnormality. Interval resolution of airspace opacities. Sclerotic right posterior lower rib, indeterminate for underlying lesion. ... CT Chest: [facility] 04/2024 RUL lung nodule. Echo: 02/2024 Labs: WBC (k/uL) Date Value 04/24/2024 5.70 01/20/2021 3.66 RBC (m/uL) Date Value 04/24/2024 3.85 01/20/2021 3.85 Hemoglobin (g/dL) Date Value 04/24/2024 12.1 01/20/2021 12.7 Hematocrit (%) Date Value 04/24/2024 37.4 01/20/2021 38.7 Platelet Count (k/uL) Date Value 04/24/2024 328 01/20/2021 239 MPV (fL) Date Value 04/24/2024 8.9 01/20/2021 8.9 Neut% (%) Date Value 01/20/2021 59.9 Neutrophils % (%) Date Value 04/24/2024 63.2 Eosin% (%) Date Value 01/20/2021 2.7 Eosinophils % (%) Date Value 04/24/2024 1.8 Baso% (%) Date Value 01/20/2021 0.8 Basophils % (%) Date Value 04/24/2024 0.5 Abs Neut (ANC) (k/uL) Date Value 01/20/2021 2.18 Abs Neut (k/uL) Date Value 04/24/2024 3.61 Abs Eddy (k/uL) Date Value 04/24/2024 0.42 01/20/2021 0.36 Abs Eosin (k/uL) Date Value 04/24/2024 0.10 01/20/2021 0.10 Abs Baso (k/uL) Date Value 04/24/2024 0.03 01/20/2021 0.03 Review of Systems Constitutional: Positive for activity change and fatigue. Negative for unexpected weight change. HENT: Negative for congestion, mouth sores, postnasal drip and sinus pain. Negative dry mouth Eyes: Negative dry eye. Respiratory: Positive for cough and shortness of breath. Negative for chest tightness and wheezing. Cardiovascular: Negative for chest pain. Musculoskeletal: Positive for myalgias. Allergic/Immunologic: Negative for environmental allergies. Neurological: Positive for weakness. Negative for headaches. BP 164/82 Pulse 64 Resp 15 Wt 61.2 kg (135 lb) SpO2 99% BMI 28.15 kg/m Physical Exam Vitals reviewed. Constitutional: General: She is not in acute distress. Appearance: Normal appearance. She is normal weight. She is not ill-appearing. HENT: Head: Normocephalic. Nose: No rhinorrhea. Mouth/Throat: Mouth: Mucous membranes are moist. Pharynx: No oropharyngeal exudate. Cardiovascular: Rate and Rhythm: Normal rate and regular rhythm. Pulmonary: Effort: Pulmonary effort is normal. No respiratory distress. Musculoskeletal: Right lower leg: No edema. Left lower leg: No edema. Skin: General: Skin is warm and dry. Neurological: General: No focal deficit present. Mental Status: She is alert. ASSESSMENT/PLAN: 1. Mild persistent asthma with acute exacerbation - ICD9: 493.92, ICD10: J45.31 (primary diagnosis) - Mild persistent asthma acute excacerbation without status - Instructed to use Wixela daily, regardless of symptoms - Albuterol PRN - see #2 and 3 - PFT and follow-up in 1 month 2. Bronchitis - ICD9: 490, ICD10: J40 3. Cough, unspecified type - ICD9: 786.2, ICD10: R05.9 - recurrent symptoms, was treated for bronchitis/PNA in February - does not think she can produce sputum sample - symptoms started 1 week ago, 50% improved with Zpak and Prednisone burst - treat with Doxycycline and Steroid taper - chest xray and labs today - XR CHEST 2V FRONTAL/LAT - COMPLETE BLOOD COUNT AND DIFFERENTIAL 4. Pulmonary hypertension (HCC) - ICD9: 416.8, ICD10: I27.20 - echo from February with PA pressure 52 mmHg - follows with cardiology at [facility] - PFT's once current symptoms resolve in 1 month with follow-up for continued work-up - labs today - declining sleep study at this time. Stopbang: low risk. - D-DIMER - NT PRO BNP 5. Lung nodules - ICD9: 793.19, ICD10: R91.8 - review of OSH CT with RUL approx 6mm nodule - repeat chest CT in October 2024 - CT CHEST WO IVCON 6. Pulmonary emphysema, unspecified emphysema type (HCC) - ICD9: 492.8, ICD10: J43.9 - CTA from OSH with evidence of emphysema - will obtain full PFT's F/u 1 month with PFT Portions of this documentation were copied and pasted from previous office visit notes in order to provide a cohesive continuity of the history. The note has been reviewed and edited and updated as necessary. Dawna Barba APRN.ALCIRA I spent a total of 51 minutes on the date of the service which included preparing to see the patient, [id number] patient care, completing clinical documentation, obtaining and/or reviewing separately obtained history, performing a medically appropriate examination, counseling and educating the pat ient/family/caregiver, ordering medications, tests, or procedures, and communicating results to thepatient/family/caregiver. documented in this encounterM[facility]10-[facility]24 Telephone encounter Note * Telephone Encounter - Yanet Alaniz LPN - 06/13/2024 11:16 AM EDT Patient notified RX sent. Yanet Alaniz LPN [facility]10-24-[facility]24 Miscellaneous Notes* Telephone Encounter - Yanet Alaniz LPN - 06/13/2024 11:16 AM EDT Patient notified RX sent. Yanet Alaniz LPN * Telephone Encounter - Alejnadra Daly PA-C - 06/13/2024 10:26 AM EDT I sent in scripts for Azithromycin (Z rupert) and Prednisone burst. Coby * Telephone Encounter - Ruth Mckeon MA - 06/13/2024 9:49 AM EDT Patient called in to see if she could get an antibiotic sent in. States she recently had pneumonia and does not want to get that again. She has congestion with clear runny nose, mostly dry cough and some SOB. Denies any fever. She has a follow up already scheduled in the office on Monday with Dawna Click to go over testing results, but is really not feeling good today. Asking for antibiotic to be called into [facility] in [place]. Patient can be reached back at [phone] or [phone], Ok to leave a message at either number. documented in this encounterMari[facility]10-24-2024 Telephone encounter Note * Telephone Encounter - Alejandra Daly PA-C - 06/13/2024 10:26 AM EDT I sent in scripts for Azithromycin (Z rupert) and Prednisone burst. Coby [facility]10-24-[facility]24 Telephone encounter Note* Telephone Encounter - Ruth Mckeon MA - 06/13/2024 9:49 AM EDT Patient called in to see if she could get an antibiotic sent in. States she recently had pneumonia and does not want to get that again. She has congestion with clear runny nose, mostly dry cough and some SOB. Denies any fever. She has a follow up already scheduled in the office on Mila with Dawna Click to go over testing results, but is really not feeling good today. Asking for antibiotic to be called into [facility] in [place]. Patient can be reached back at [phone] or [phone], Ok to leave a message at either number. [facility] Telephone encounter Note* Telephone Encounter - Leni Castano MA - 05/16/2024 9:41 AM EDT Pt responded in Weiju message. Did have surgery, surgical hx updated. Leni Castano MA [facility]09-26-2024 Miscellaneous Notes* Telephone Encounter - Leni Castano MA - 05/16/2024 9:41 AM EDT Pt responded in Weiju message. Did have surgery, surgical hx updated. Leni Castano MA * Telephone Encounter - Leni Castano MA - 05/13/2024 5:30 PM EDT Sent pt Weiju message notifying her we tried calling. Asked her to verify if she had surgery done. Leni Castano MA * Telephone Encounter - Marie Castellanos MA - 05/07/2024 11:47 AM EDT Message left for pt to call back. Marie Castellanos MA * Telephone Encounter - Herb Dinh APRN.CNP - 05/07/2024 10:44 AM EDT Can we reach out to the patient to see if she had the procedure? If she did,we can update her surgery history and close. Herb Dinh APRN.ALCIRA * Telephone Encounter - Marie Castellanos MA - 02/23/2024 9:36 AM EDT Patient has been identified by name and date of : Yes, Provider Leslye Mccloud MD Date February 23, 2024 Time 9:37 AM Type of form: Pre Op form Form received via: Fax When form is completed, fax form to fax number provided. Form has been forwarded to: Provider's desk. Provider name: Ame Castellanos MA Pt scheduled for Cataract extraction w/ intraocular lens implant on 04/15/[address] [facility] [address] Vesna Mack. Fax form to [phone]. Last OV January 2024 Marie Castellanos MA documented in this encounterMarietta [facility]09-26-2024 Telephone encounter Note * Telephone Encounter - Leni Castano MA - 05/16/2024 9:39 AM EDT Updated surgical hx. Leni Castano MA [facility]09-26-2024 Miscellaneous Notes* Telephone Encounter - Leni Castano MA - 05/16/2024 9:39 AM EDT Updated surgical hx. Leni Castano MA documented in this encounterMarietta [facility]09-23-2024 Telephone encounter Note * Telephone Encounter - Leni Castano MA - 05/13/2024 5:30 PM EDT Sent pt Weiju message notifying her we tried calling. Asked her to verify if she had surgery done. Leni Castano MA [facility]09-17-2024 Telephone encounter Note* Telephone Encounter - Marie Castellanos MA - 05/07/2024 11:47 AM EDT Message left for pt to call back. Marie Castellanos MA [facility]09-17-2024 Telephone encounter Note* Telephone Encounter - Herb Dinh APRN.CNP - 05/07/2024 10:44 AM EDT Can we reach out to the patient to see if she had the procedure? If she did,we can update her surgery history and close. Herb Dinh APRN.ALCIRA [facility]09-10-2024 Telephone encounter Note* Telephone Encounter - Juliet Osborne RN - 04/30/2024 3:11 PM EDT Pt called and is notified of providers results. Pt voices understanding. Juliet Osborne RN [facility]09-10-2024 Miscellaneous Notes* Telephone Encounter - Juliet Osborne RN - 04/30/2024 3:11 PM EDT Pt called and is notified of providers results. Pt voices understanding. Juliet Osborne RN * Telephone Encounter - Marie Castellanos MA - 04/30/2024 2:58 PM EDT Message left for pt to call back for results. Marie Castellanos MA * Telephone Encounter - Kathie Echeverria APRN.CNP - 04/30/2024 2:52 PM EDT Can you please call the patient and let her know that her repeat chest x-ray shows interval resolution of opacities in the lungs. No signs of new infection. Please let me know if she has any questions. Thank you. Kathie Echeverria APRN.CNP documented in this encounterMarietta [facility] Clinic09-10-2024 Telephone encounter Note * Telephone Encounter - Marie Castellanos MA - 04/30/2024 2:58 PM EDT Message left for pt to call back for results. Marie Castellanos MA [facility]09-10-2024 Telephone encounter Note* Telephone Encounter - Kathie Echeverria APRN.CNP - 04/30/2024 2:52 PM EDT Can you please call the patient and let her know that her repeat chest x-ray shows interval resolution of opacities in the lungs. No signs of new infection. Please let me know if she has any questions. Thank you. Kathie Echeverria APRN.CNP [facility]09-07-2024 History of Present illness Narrative* Soumya Crowell, RT(R) - 04/27/2024 9:30 AM EDT Radiology Service Progress Note PATIENT NAME: Trinh Womack DATE OF SERVICE: April 27, 2024 TIME: 9:32 AM PATIENT IDENTITY VERIFICATION COMPLETED USING TWO (2) IDENTIFIERS: Name and Date of confirmedby patient verbally. FALL SCREENING: Has the patient had 2 falls in the last year or 1 fall with injury or currently using an Ambulatory Assistive Device (Walker, Cane, Wheelchair, Crutches, etc.)? No PATIENT GENDER DATA: Female. status: : No status: NO. PATIENT RELEVANT IMPLANT DATA REVIEWED: Yes PATIENT PRESENTS WITH AN IMPLANTABLE OR ATTACHED SUPERVISOR FABRICATION: No RADIOLOGY DEPARTMENT: General X-ray: Exam(s) Completed: Chest X-Ray PERIPHERAL IV DATA: Not applicable SIGNED BY: RT Benito(R) April 27, 2024 9:32 AM documented in this encounterMarietta [facility]09-05-2024 Telephone encounter Note * Telephone Encounter - Kathie Echeverria APRN.CNP - 04/25/2024 3:49 PM EDT Noted, thank you. Kathie Echeverria APRN.CNP [facility]09-05-2024 Miscellaneous Notes* Telephone Encounter - Kathie Echeverria APRN.CNP - 04/25/2024 3:49 PM EDT Noted, thank you. Kathie Echeverria APRN.CNP * Telephone Encounter - Vida Mccoy RN - 04/25/2024 3:15 PM EDT Patient returned call and given provider's message below. Patient states she does not want to increase her Celexa. Thank you. * Telephone Encounter - Marie Castellanos MA - 04/25/2024 9:17 AM EDT Message left for pt to call back for results. Marie Castellanos MA * Telephone Encounter - Kathie Echeverria APRN.CNP - 04/25/2024 8:35 AM EDT Can you please call the patient and let her know that I reviewed her lab results. Labs were all relatively normal. I see no causes for her ongoing fatigue. As discussed during office visit she may consider increasing the Celexa if needed. Please let me know what she prefers. Thank you. Kathie Echeverira APRN.ALCIRA documented in this encounterMarietta [facility]09-05-2024 Telephone encounter Note * Telephone Encounter - Vida Mccoy RN - 04/25/2024 3:15 PM EDT Patient returned call and given provider's message below. Patient states she does not want to increase her Celexa. Thank you. [facility]09-05-2024 Miscellaneous Notes* Telephone Encounter - Marie Castellanos MA - 04/25/2024 9:27 AM EDT Forms faxed. Pt notified via Weiju. Marie Castellanos MA * Telephone Encounter - Leslye Mccloud MD - 04/23/2024 5:24 PM EDT Form done Leslye Mccloud MD * Telephone Encounter - Leni Castano MA - 04/23/2024 11:48 AM EDT Type of form: FMLA - Intermittent [employer] Claims Form received via fax When form is completed, Fax form to [phone] or [phone] Form has been forwarded to Physician Desk: Dr. Ame Castano MA * Telephone Encounter - Leni Castano MA - 04/23/2024 11:19 AM EDT At this time, nothing has been received in the office. Leni Castano MA * Telephone Encounter - Vida Mccoy RN - 04/23/2024 10:04 AM EDT Patient calling in and states there will be a 2nd set of FMLA forms being faxed over from [facility], to PCP office. Pt states to disregard the 1st set that was sent, as this set did not have allinformation on it. Vida Mccoy RN * Telephone Encounter - Leni Castano MA - 04/19/2024 4:55 PM EDT Watch for FMLA forms. Leni Castano MA documented in this encounterMari[facility]09-05-2024 Telephone encounter Note * Telephone Encounter - Marie Castellanos MA - 04/25/2024 9:27 AM EDT Forms faxed. Pt notified via Weiju. Marie Castellanos MA [facility]09-05-2024 Telephone encounter Note* Telephone Encounter - Marie Castellanos MA - 04/25/2024 9:17 AM EDT Message left for pt to call back for results. Marie Castellanos MA [facility]09-05-2024 Telephone encounter Note* Telephone Encounter - Kathie Echeverria APRN.CNP - 04/25/2024 8:35 AM EDT Can you please call the patient and let her know that I reviewed her lab results. Labs were all relatively normal. I see no causes for her ongoing fatigue. As discussed during office visit she may consider increasing the Celexa if needed. Please let me know what she prefers. Thank you. Kathie Echeverria APRN.CNP [facility]09-04-2024 Instructions* Patient Instructions* Kathie Echeverria APRN.CNP - 04/24/2024 11:58 AM EDT Get labs and repeat chest xray completed Continue to take all medication as prescribed. Monitor blood pressure at home, goal 130/80 or less. Watch salt and processed foods in the diet. Complete the cologuard stool testing, this will be mailed to home. Keep scheduled appointments with specialists Follow up in 3 months or sooner pending test results documented in this encounterMarietta [facility]09-04-2024 History of Present illness Narrative* Kathie Echeverria APRN.CNP - 04/24/2024 11:40 AM EDT This is a 73 year old female who presents today with: Patient presents with: Follow Up: 3 month follow up HISTORY OF PRESENT ILLNESS: Trinh Womack is a 73 year old female. Patient presents with: Follow Up: 3 month follow up 3 month follow up Fatigue: Has been having on going fatigue for some time. Refers that she has been very busy with grandchildren, work, dr. Appointments. Denies any easy bruising, difficulty swallowing, or palpitations. GERD: Symptoms controlled on Protonix 20 mg daily. Reports Protonix is helping. She also takes Anamaria's as needed. DEN: Stable on Celexa 20 mg daily and Xanax 0.25 mg 1 pill BID. Refers she does have increased stress with nephew living with her. Denies SI/HI. Reports she is feeing good, just a little stressed dueto vacation coming up. HTN: Taking Losartan 100 mg daily. Checks BP at home, getting 130-150's/70's. Denies any dizziness or edema. Saw [facility] today, Dr. Saunders, hydrochlorothiazide 25 mg daily was added on. Concerns for pulmonary hypertension which may be causing shortness of breath. Cardiology has ordered a chest CT for further evaluation. Lipid: Not taking any cholesterol medications. Staying busy with grandchildren. 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 Asthma/ Chronic Bronchitis: Follows with Pulm Dr. Ruiz. Is using Wixela prn, Duoneb for nebulizer,and Albuterol inhaler prn. Doing well. History of breast cancer; notes that she has breast implants. Has mammograms done yearly. Denies breast tenderness or pain. Colonoscopy: Due April 2024 Vaccines: Flu vaccine PAST MEDICAL HISTORY: PAST MEDICAL HISTORY No date: Acute sinusitis, unspecified Comment: drainage No date: Allergic rhinitis No date: Childhood asthma No date: Generalized anxiety disorder Comment: Anxiety, Generalized No date: GERD (gastroesophageal reflux disease) No date: Malignant neoplasm of breast (female), unspecified site Comment: right breast No date: Psoriasis and similar disorders No date: Unspecified asthma(493.90) Comment: uses nebulizer prn No date: Unspecified essential hypertension Comment: Essential hypertension PAST SURGICAL HISTORY 2005: ARTHROSCOPY KNEE DIAGNOSTIC W/WO SYNOVIAL BX SPX Comment: Arthroscopy, knee, left by [facility] 11/27/2008: AXILLARY FINE NEEDLE ASPIRATION Comment: left 02/11/2011: BREAST RECONSTRUC W LAT DORSI FLAP Comment: with radio interference supervisor right breast 07/24/2009: BREAST RECONSTRUC W TISS EXPANDR Comment: right breast 11/21/2008: BREAST SURGERY PROCEDURE UNLISTED Comment: right breast punch biopsy 11/27/2008: BX BREAST NEEDLE CORE W/O IMAGING GUIDANCE SPX Comment: left breast No date: EXCISE EXCESS SKIN TISSUE,ABDOMEN Comment: Abdominoplasty 09/12/2022: INCISION & DRAINAGE ABSCESS SIMPLE/SINGLE; Left Comment: I & D sebaceous cyst left breast 01/07/2009: INSJ TUNNELED CTR VAD W/SUBQ PORT AGE 3 YR/> Comment: LEFT IJ POWER PORT 12/25/2018: KNEE SCOPE,ABRASN ARTHROPLASTY; Left Comment: left total knee arthroplasty-Dr. Levi Yoder No date: LIG/TRNSXJ FLP TUBE ABDL/VAG APPR UNI/BI Comment: Tubal ligation 12/16/2008: MASTECTOMY, PARTIAL Comment: right breast with SLND/ALND with right oncoplasty and left reduction 07/24/2009: MASTECTOMY, SIMPLE, COMPLETE Comment: right skin-sparing No date: OOPHORECTOMY PARTIAL/TOTAL UNI/BI Comment: 1 Oophorectomy 09/25/2010: REMOVAL TISSUE DIRECTOR OF PARTNER MARKETING W/O INSERTION IMPLANT Comment: right breast 06/24/2011: REPLACEMENT TISSUE DIRECTOR OF PARTNER MARKETING W/PERMANENT IMPLANT Comment: right perm implant ALLERGIES Penicillins MEDICATIONS Current Outpatient Medications Medication Sig fluticasone-salmeterol (WIXELA INHUB) 100-50 mcg/dose inhaler Inhale 1 Puff as instructed two timesa day. ALPRAZolam (XANAX) 0.25 mg tablet Take 1 tablet by mouth two times a day for 90 days. Do not start before February 18, [address]. pantoprazole DR (PROTONIX) 20 mg tablet Take 1 tablet by mouth once daily. albuterol HFA (PROVENTIL HFA, VENTOLIN HFA) 90 mcg/actuation inhaler Inhale 2 Puffs as instructed every 4 hours as needed. losartan (COZAAR) 100 mg tablet take 1 tablet every day citalopram (CELEXA) 20 mg tablet take 1 tablet every day ipratropium-albuterol (DUONEB) 0.5 mg-3 mg(2.5 mg base)/3 mL nebu Inhale 3 mL as instructed every 4hours as needed. cholecalciferol, vitamin D3, (VITAMIN D3 ORAL) Take 500 mg by mouth once daily. Biotin 10,000 mcg cap Take 10,000 mcg by mouth once daily. Nebulizer Accessories misc Tubing , mouthpiece; other supplies as needed CALCIUM 500 MG TAB TAKES 2 TABLETS DAILY ascorbic acid(VITAMIN C 500 MG TAB) Take one(1) tablet daily. No current facility-administered medications for this visit. FAMILY HISTORY Problem Relation Age of Onset Colon Cancer Mother Cancer Father lung Heart Father other (Cirrhosis) Sister other (Other [Other]) Other no known family h/o breast or ovarian cancer Social History Tobacco Use Smoking status: Former Current packs/day: 0.00 Average packs/day: 1 pack/day for 27.0 years (27.0 ttl pk-yrs) Types: Cigarettes Start date: 01/19/1964 Quit date: 01/18/1991 Years since quittin.2 Smokeless tobacco: Never Vaping Use Vaping status: Never Used Substance Use Topics Alcohol use: No Drug use: No REVIEW OF SYSTEMS GENERAL: + Fatigue HEENT: Negative for frequent or significant headaches, No changes in hearing or vision. NECK: Negative for lumps, goiter, pain and significant neck swelling RESPIRATORY: Negative for cough, hemoptysis, wheezing, dyspnea or shortness of breath CARDIOVASCULAR: Negative for chest pain, leg swelling, orthopnea, or palpitations GI: No nausea, vomiting, or diarrhea/constipation. No hematochezia/melena. No heartburn or reflux symptoms. : No history of dysuria, frequency or incontinence MUSCULOSKELETAL: Negative for joint pain or swelling. SKIN: Negative for lesions, rash, and itching ENDOCRINE: Negative for cold or heat intolerance, polyuria, polydipsia and goiter NEURO: No history of headaches, syncope, paralysis, seizures or tremors MOOD: Negative for depression, anxiety, or suicidal ideation. EXAM: BP 140/88 Pulse (!) 59 Resp 16 Wt 59.9 kg (132 lb 0.9 oz) SpO2 94% BMI 27.53 kg/m PHYSICAL EXAM: General Appearance: Well appearing, alert, in no acute distress, well-hydrated, well nourished. Skin: Skin color, texture, turgor normal, no suspicious rashes or lesions. Head: Normocephalic, no masses, lesions, tenderness or abnormalities. Eyes: Anicteric sclera. Extraocular movements are intact. Lungs: Lungs clear to auscultation. No wheezing, rhonchi, rales. Heart: RRR without murmur, gallop, or rubs. No ectopy. Extremities: No deformities, edema, skin discoloration, clubbing or cyanosis. Good capillary refill. Peripheral Pulses: Normal, Capillary refill <2secs, strong peripheral pulses, Pulses palpable. Neurologic: Gait normal. Sensation grossly intact. ASSESSMENT/PLAN: 1. Fatigue, unspecified type - ICD9: 780.79, ICD10: R53.83 (primary diagnosis) - Get labs completed - COMPLETE BLOOD COUNT AND DIFFERENTIAL - THYROID STIMULATING HORMONE - T4 FREE/FREE THYROXINE - VITAMIN B12 - VITAMIN D 25 HYDROXY 2. Gastroesophageal reflux disease with esophagitis without hemorrhage - ICD9: 530.81, 530.10, ICD10: K21.00 - Stable, continue take current medication. 3. Anxiety - ICD9: 300.00, ICD10: F41.9 - Stable, refill provided. - ALPRAZOLAM 0.25 MG TABLET 4. BENIGN HYPERTENSION - ICD9: 401.1, ICD10: I10 - Uncontrolled - Continue current medications - Recommend home blood pressure monitoring, to bring results to next visit - Encouraged sodium restriction, DASH or Mediterranean diet - Recommend regular aerobic exercise - Start HCTZ from cardiology - Complete chest CT. 5. Mixed hyperlipidemia - ICD9: 272.2, ICD10: E78.2 - Worsening control - Counseled on healthy diet and regular exercise 6. Mild intermittent asthma without complication - ICD9: 493.90, ICD10: J45.20 - Mild intermittent asthma stable - Continue current medications - Avoidance of triggers recommended - Keep scheduled appointments with pulmonology. 7. Personal history of malignant neoplasm of breast - ICD9: V10.3, ICD10: Z85.3 - Stable 8. Screening for colon cancer - ICD9: V76.51, ICD10: Z12.11 - COLOGUARD 9. Screening for depression - ICD9: V79.0, ICD10: Z13.31 - DEPRESSION SCREENING Follow-up in 3 months or sooner pending test results. Discussed treatment plan and patient voices understanding. Patient's questions answered appropriately. Medications and potential side effects were discussed and patient voices understanding. Kathie Echeverria APRN.ALCIRA This note was partially generated using [employer] recognition system. Note was reviewed for accuracy. There may be minor misspellings or grammar miscues with [employer] voice recognition. PDMP website checked and validated. All prescriptions have been APPROPRIATELY filled. No suspiciousactivity was identified. 04/24/2024 by Kathie Echeverria APRN.CERTIFIED NURSE AIDE documented in this encounterMarietta [facility]09-03-2024 Telephone encounter Note * Telephone Encounter - Leslye Mccloud MD - 04/23/2024 5:24 PM EDT Form done Leslye Mccloud MD [facility]09-03-2024 Telephone encounter Note* Telephone Encounter - Leni Castano MA - 04/23/2024 11:48 AM EDT Type of form: FMLA - Intermittent [place] Claims Form received via fax When form is completed, Fax form to [phone] or [phone] Form has been forwarded to Physician Desk: Dr. Ame Castano MA [facility]09-03-2024 Telephone encounter Note* Telephone Encounter - Leni Castano MA - 04/23/2024 11:19 AM EDT At this time, nothing has been received in the office. Leni Castano MA [facility]09-03-2024 Telephone encounter Note* Telephone Encounter - Vida Mccoy RN - 04/23/2024 10:04 AM EDT Patient calling in and states there will be a 2nd set of FMLA forms [facility] to PCP office. Pt states to disregard the 1st set that was sent, as this set did not have allinformation on it. Vida Mccoy RN [facility]08-30-2024 Telephone encounter Note* Telephone Encounter - Leni Castano MA - 04/19/2024 4:55 PM EDT Watch for FMLA forms. Leni Castano MA [facility]08-07-2024 History of Present illness Narrative* Alejandra Daly PA-C - 03/27/2024 1:00 PM EDT Patient: Trinh Womack PCP: Leslye Mccloud MD CC: follow up HPI: Trinh Womack 73 year old female former 27 pack year smoker, quitting 1990 with PMH significant for childhood asthma, right breast cancer 2008 (XRT, chemo, Tamoxifen 5 years), psoriasis, HTN, GERD, and chronic rhinitis Last office visit 09/27/2023. Current maintenance therapy with as needed Albuterol. Previously on ICS/LABA and patient thought it caused her cough and she discontinued it. She was recently treated for bronchitis with Azithromycin and Prednisone. CXR was obtained which revealed multifocal pneumonia. Today, patient reports improved cough and SOB. I feel really good today. No wheezing. No fevers, chills, or night sweats. No unintended weight loss. No lower extremity edema. No GERD/heartburn. PAST MEDICAL HISTORY No date: Acute sinusitis, unspecified Comment: drainage No date: Allergic rhinitis No date: Childhood asthma No date: Generalized anxiety disorder Comment: Anxiety, Generalized No date: GERD (gastroesophageal reflux disease) No date: Malignant neoplasm of breast (female), unspecified site Comment: right breast No date: Psoriasis and similar disorders No date: Unspecified asthma(493.90) Comment: uses nebulizer prn No date: Unspecified essential hypertension Comment: Essential hypertension Allergies: Penicillins Swelling, Unknown Comment:breathing problem years ago ALPRAZolam (XANAX) 0.25 mg tablet Take 1 tablet by mouth two times a day for 90 days. Do not start before February 18, [address]. pantoprazole DR (PROTONIX) 20 mg tablet Take 1 tablet by mouth once daily. albuterol HFA (PROVENTIL HFA, VENTOLIN HFA) 90 mcg/actuation inhaler Inhale 2 Puffs as instructed every 4 hours as needed. losartan (COZAAR) 100 mg tablet take 1 tablet every day citalopram (CELEXA) 20 mg tablet take 1 tablet every day ipratropium-albuterol (DUONEB) 0.5 mg-3 mg(2.5 mg base)/3 mL nebu Inhale 3 mL as instructed every 4hours as needed. cholecalciferol, vitamin D3, (VITAMIN D3 ORAL) Take 500 mg by mouth once daily. Biotin 10,000 mcg cap Take 10,000 mcg by mouth once daily. Nebulizer Accessories misc Tubing , mouthpiece; other supplies as needed CALCIUM 500 MG TAB TAKES 2 TABLETS DAILY ascorbic acid(VITAMIN C 500 MG TAB) Take one(1) tablet daily. Social History Tobacco Use Smoking status: Former Packs/day: 1.00 Years: 27.00 Additional pack years: 0.00 Total pack years: 27.00 Types: Cigarettes Quit date: 01/18/1991 Years since quittin.2 Smokeless tobacco: Never Vaping Use Vaping Use: Never used Substance Use Topics Alcohol use: No Drug use: No Family History Problem Relation Age of Onset Colon Cancer Mother Cancer Father lung Heart Father other (Cirrhosis) Sister other (Other [Other]) Other no known family h/o breast or ovarian cancer PAST SURGICAL HISTORY 2004: ARTHROSCOPY KNEE DIAGNOSTIC W/WO SYNOVIAL BX SPX Comment: Arthroscopy, knee, left by [employer] 11/27/2008: AXILLARY FINE NEEDLE ASPIRATION Comment: left 02/11/2011: BREAST RECONSTRUC W LAT DORSI FLAP Comment: with radio interference supervisor right breast 07/24/2009: BREAST RECONSTRUC W TISS EXPANDR Comment: right breast 11/21/2008: BREAST SURGERY PROCEDURE UNLISTED Comment: right breast punch biopsy 11/27/2008: BX BREAST NEEDLE CORE W/O IMAGING GUIDANCE SPX Comment: left breast No date: EXCISE EXCESS SKIN TISSUE,ABDOMEN Comment: Abdominoplasty 09/12/2022: INCISION & DRAINAGE ABSCESS SIMPLE/SINGLE; Left Comment: I & D sebaceous cyst left breast 01/07/2009: INSJ TUNNELED CTR VAD W/SUBQ PORT AGE 3 YR/> Comment: LEFT IJ POWER PORT 12/25/2018: KNEE SCOPE,ABRASN ARTHROPLASTY; Left Comment: left total knee arthroplasty-Dr. Levi Yoder No date: LIG/TRNSXJ FLP TUBE ABDL/VAG APPR UNI/BI Comment: Tubal ligation 12/16/2008: MASTECTOMY, PARTIAL Comment: right breast with SLND/ALND with right oncoplasty and left reduction 07/24/2009: MASTECTOMY, SIMPLE, COMPLETE Comment: right skin-sparing No date: OOPHORECTOMY PARTIAL/TOTAL UNI/BI Comment: 1 Oophorectomy 09/25/2010: REMOVAL TISSUE DIRECTOR OF PARTNER MARKETING W/O INSERTION IMPLANT Comment: right breast 06/24/2011: REPLACEMENT TISSUE DIRECTOR OF PARTNER MARKETING W/PERMANENT IMPLANT Comment: right perm implant I reviewed the past medical history, family history, social history and surgical history with changes noted above and updated in EMR. IMMUNIZATIONS Immunization History Administered Date(s) Administered COVID-19 original vaccine, age 12+ yr, monovalent ([employer] - PURPLE TOP) 10/09/2020 10/30/2020 influenza (HD-IIV3) vaccine, age 65+ yr, high dose, trivalent, PF (FLUZONE HIGH-DOSE) 06/21/2016 06/19/2017 06/01/2018 06/04/2019 05/20/2020 influenza (IIV3) vaccine, trivalent, PF, intradermal (FLUZONE INTRADERMAL) 06/17/2014 influenza (RIV4) vaccine, recombinant, quadrivalent, PF (FLUBLOK) 06/28/2023 influenza vaccine, unspecified formulation 06/20/2008 06/01/2009 pneumococcal conjugate (PCV13) vaccine, 13 valent (PREVNAR 13) 09/15/2016 pneumococcal polysaccharide (PPV23) vaccine, 23 valent (PNEUMOVAX 23) 06/20/2001 03/27/2014 tetanus diphtheria pertussis (Tdap) vaccine, age 7+ yr (ADACEL, BOOSTRIX) 03/27/2014 zoster (ZVL) vaccine, live (ZOSTAVAX) 09/26/2013 ROS: All other systems reviewed as negative except for what is noted in HPI and review of systems. PHYSICAL EXAMINATION: BP (P) 142/72 Pulse (P) 68 Resp (P) 16 Wt 59.9 kg (132 lb) SpO2 (P) 100% BMI 27.52 kg/m Gen: No acute distress. Cooperative with examination. HEENT: Normocephalic. Sclera, conjunctiva clear. Oral hygeine and dentition good. Resp: No stridor, accessory respiratory muscle use, supra-sternal or intercostal retractions. No wheezes, crackles, or rhonchi. CV: Regular rythm. Heart tones normal. Radial pulses normal. Ext: Warm and well perfused. No clubbing, cyanosis, edema. Skin: No rash, ecchymoses. Neuro: Mental status normal. Affect normal. No tremor. 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 Interpretive Statements All lung volume repeatability criteria met. 4 puffs Albuterol (360 mcg) delivered by MDI via holding chamber. HR pre =60/min, HR post = 60/min. ATS/ERS acceptability and repeatability standards for spirometry met. IMPRESSION: Spirometry indicates mild obstruction. The increase in FEF 25-75 post-bronchodilator reflects an improvement in the small airway obstruction. The TLC, RV and RV/TLC are normal. Electronically Signed On 02-22-2023 13:22:23 EDT by Georgiana Ruiz M.D. ID: [id number] Name: TRINH WOMACK Race: White Ht: 58.07 in Wt: 132.00 lbs Age: 72 Gender: Female : 1950 Dx: Mild intermittent asthma, uncomplicated Smoking Hx: Non-smoker Doctor: KATHIE ECHEVERRIA Test Date: 02/20/2023 Site: [facility]: [facility]jit Ro PRE-BRONCH POST-BRONCH Pre LLN Pred ULN %Pred Post %Pred %Chg SPIROMETRY FVC (L) 1.97 1.44 2.06 2.70 95 2.05 99 3 FEV1 (L) 1.27 1.12 1.62 2.10 78 1.38 85 6 FEV1/FVC 0.64 0.66 0.80 0.91 80 0.67 84 4 PEF L/s (L/sec) 3.79 2.99 4.40 5.81 86 3.91 88 3 FEF50 (L/sec) 0.87 0.90 2.51 4.11 34 1.17 46 35 FIF50 (L/sec) 2.86 2.83 0 FEF50/FIF50 0.30 90-100 0.41 36 FIVC (L) 1.90 1.95 2 ARA81-10 (L/sec) 0.63 0.66 1.49 2.71 41 0.85 57 36 Time (sec) 8.99 8.55 -4 FET PEF (sec) 0.05 0.07 42 ILIANA (L) 0.04 0.05 48 Vol Extrap % (%) 2 3 42 LUNG VOLUMES TGV (L) 2.49 1.50 2.36 3.22 105 ERV (L) 0.15 0.69 21 RV (Pleth) (L) 2.34 1.36 1.99 2.61 117 SVC (L) 1.73 1.44 2.06 2.70 84 IC (L) 1.56 1.37 113 TLC (Pleth) (L) 4.05 3.28 4.17 5.05 97 RV/TLC (Pleth) (%) 58 36 45 54 127 Comments: All lung volume repeatability criteria met. 4 puffs Albuterol (360 mcg) delivered by MDI via holding chamber. HR pre =60/min, HR post = 60/min. ATS/ERS acceptability and repeatability standards for spirometry met. Arterial blood gas: No results found for: PH, PCO2, PO2, HCO3, BE, LACT CT Chest other findings: Last CT Chest - Impression Only No resulted procedures found. Last XR Chest - Impression Only XR CHEST 2V FRONTAL/LAT Exam End: 02/23/2024 12:44 PM (Final result) Impression: IMPRESSION: Interval development of multifocal pneumonia. ... ASSESSMENT/PLAN: 1. Multifocal pneumonia - ICD9: 486, ICD10: J18.9 (primary diagnosis) Patient was treated per PCP. Symptomatically doing well. CXR orders in to check for resolution. 2. Mild intermittent asthma without complication - ICD9: 493.90, ICD10: J45.20 Patient is hesitant to use daily maintenance therapy. She is willing to try low dose ICS/LABA as needed. Albuterol HFA inhaler, 2 inhalations 10-15 minutes prior to activities associated with shortness ofbreath, and as needed for rescue relief of shortness of breath or wheezing, up to 4 times daily. - FLUTICASONE 100 MCG-SALMETEROL 50 MCG/DOSE BLISTR POWDR FOR INHALATION 3. Non-allergic rhinitis - ICD9: 472.0, ICD10: J31.0 Patient declines nasal spray. Portions of this documentation were copied and pasted from previous office visit notes in order to provide a cohesive continuity of the history. The note has been reviewed and edited and updated as necessary. Alejandra Daly PA-C documented in this encounterM[facility] Telephone encounter Note * Telephone Encounter - Jenni Bui LPN - 03/14/2024 2:55 PM EDT Patient notified of recommendations, verbalizes understanding of instructions. Jenni Bui LPN [facility]07-25-[facility]24 Miscellaneous Notes* Telephone Encounter - Jenni Bui LPN - 03/14/2024 2:55 PM EDT Patient notified of recommendations, verbalizes understanding of instructions. Jenni Bui LPN * Telephone Encounter - Kathie Echeverria APRN.CNP - 03/14/2024 2:36 PM EDT Can you please call the patient back and let her know that she can keep her upcoming appointment with cardiology in April. Kathie Echeverria APRN.CNP * Telephone Encounter - Lina Wyman LPN - 03/14/2024 12:40 PM EDT Phoned patient went over results, notes below from Kathie Echeverria MOLDER APPRENTICE with understanding. Patient said she is not having chest pain or shortness of breath right now. She said she has appt in early April with Dr Saunders at [facility]. She is asking if she needs to be seen sooner than that?She ios at work can call her cell number. * Telephone Encounter - Kathie Echeverria APRN.CNP - 03/14/2024 12:11 PM EDT Can you please call the patient and let her know that I reviewed her echo results. Ejection fraction was normal. There was moderate tricuspid valve insufficiency. With some mild pulmonary hypertension. Left atrium was mildly enlarged. I would recommend that she have consult with cardiology if she is still having ongoing chest pain and shortness of breath. She may choose to stay with the [facility] or may go over to [facility]. She has an active consult in place. Please let me know what she prefers. Thank you. Kathie Echeverria APRN.CNP * Telephone Encounter - Leni Castano MA - 03/11/2024 10:19 AM EDT Office received pt's recent Echo results from [facility], ordered by Kathie Echeverria CNP. Please review link below for pt results and advise. Leni Castano MA View External Cardiology - Echo [ID [id number]] documented in this encounterM[facility]07-25-2024 Telephone encounter Note * Telephone Encounter - Kathie Echeverria APRN.CNP - 03/14/2024 2:36 PM EDT Can you please call the patient back and let her know that she can keep her upcoming appointment with cardiology in April. Kathie Echeverria APRN.CNP [facility]07-[facility] Telephone encounter Note* Telephone Encounter - Lina Wyman LPN - 03/14/2024 12:40 PM EDT Phoned patient went over results, notes below from Kathie Echeverria MOLDER APPRENTICE with understanding. Patient said she is not having chest pain or shortness of breath right now. She said she has appt in early April with Dr Saunders at [facility]. She is asking if she needs to be seen sooner than that?She ios at work can call her cell number. [facility] Telephone encounter Note* Telephone Encounter - Kathie Echeverria APRN.CNP - 03/14/2024 12:11 PM EDT Can you please call the patient and let her know that I reviewed her echo results. Ejection fraction was normal. There was moderate tricuspid valve insufficiency. With some mild pulmonary hypertension. Left atrium was mildly enlarged. I would recommend that she have consult with cardiology if she is still having ongoing chest pain and shortness of breath. She may choose to stay with the [facility] or may go over to [facility]. She has an active consult in place. Please let me know what she prefers. Thank you. Kathie Echeverria APRN.ALCIRA [facility]07-22-[facility]24 Telephone encounter Note* Telephone Encounter - Leni Castano MA - 03/11/2024 10:19 AM EDT Office received pt's recent Echo results from [facility], ordered by Kathie Echeverria CNP. Please review link below for pt results and advise. Leni Castano MA View External Cardiology - Echo [ID [id number]] [facility]07-08-[facility]24 Note. MICRO - Microbiology PROCEDURE: Blood Culture (bacterial) [O1 *1] SOURCE: Blood BODY SITE: COLLECTED DATE/TIME: 02/20/2024 15:20 EDT RECEIVED DATE/TIME: 02/21/2024 15:50 EDT START DATE/TIME: 02/21/2024 15:53 EDT FREE TEXT SOURCE: [id number] FINAL REPORTS Final Report [] Verified Date/Time/Personnel: 02/26/2024 16:00 EDT Blood Culture: No Growth at 5 days. PRELIMINARY REPORTS Preliminary Report [] Verified Date/Time/Personnel: 02/21/2024 16:59 EDT Culture has been received in lab and is no growth to date. Routine cultures are held for 5 days. Order Comments O1: Blood Culture (bacterial) [id number] Performing Locations *1: This test was performed at: [address], [facility] , [facility] ([place])02-23-2024 Telephone encounter Note* Telephone Encounter - Crystal Rubin RN - 02/23/2024 1:36 PM EDT Pt returned call and given provider's message below with verbalized understanding. Patient agreeable. [facility] Miscellaneous Notes* Telephone Encounter - Crystal Rubin RN - 02/23/2024 1:36 PM EDT Pt returned call and given provider's message below with verbalized understanding. Patient agreeable. * Telephone Encounter - Lina Wyman LPN - 02/23/2024 1:16 PM EDT Phoned patient left message to return call and ask to speak to a nurse. * Telephone Encounter - Kathie Echeverria APRN.ALCIRA - 02/23/2024 12:59 PM EDT Can you please call the patient and let her know that I reviewed her chest x-ray. Chest x-ray does show multifocal pneumonia. I would like her to continue with the Z-Rupert and prednisone. Continue to use albuterol as needed. Any worsening breathing symptoms go to ER. I would like toget a repeat chest x-ray in 1 month. Please let me know if she has any questions. Thank you. Kathie Echeverria APRN.CNP documented in this encounterMari[facility]07-05-2024 Telephone encounter Note * Telephone Encounter - Lina Wyman LPN - 02/23/2024 1:16 PM EDT Phoned patient left message to return call and ask to speak to a nurse. [facility] Telephone encounter Note* Telephone Encounter - Kathie Echeverria APRN.CNP - 02/23/2024 12:59 PM EDT Can you please call the patient and let her know that I reviewed her chest x-ray. Chest x-ray does show multifocal pneumonia. I would like her to continue with the Z-Rupert and prednisone. Continue to use albuterol as needed. Any worsening breathing symptoms go to ER. I would like toget a repeat chest x-ray in 1 month. Please let me know if she has any questions. Thank you. Kathie Echeverria APRN.CNP [facility]07-05-[facility] History of Present illness Narrative* Kathie Echeverria APRN.CNP - 02/23/2024 11:40 AM EDT This is a 73 year old female who presents today with: Patient presents with: Acute Visit: cough, congestion x5 days HISTORY OF PRESENT ILLNESS: Trinh Womack is a 73 year old female. Patient presents with: Acute Visit: cough, congestion x5 days Here in the office for chest congestion and cough. Symptoms started 1 week ago. Went to urgent carebut ended up gong to ER, needed a chest xray. Went to [place] [facility], no records for my review. Refersthat they gave her RX prednisone. On going low grade fever, cough, and SOB. Cough is dry. Taking mucinex. Using nebulizer. History of Asthma PAST MEDICAL HISTORY: PAST MEDICAL HISTORY Diagnosis Date Acute sinusitis, unspecified drainage Allergic rhinitis Childhood asthma Generalized anxiety disorder Anxiety, Generalized GERD (gastroesophageal reflux disease) Malignant neoplasm of breast (female), unspecified site right breast Psoriasis and similar disorders Unspecified asthma(493.90) uses nebulizer prn Unspecified essential hypertension Essential hypertension PAST SURGICAL HISTORY Procedure Laterality Date ARTHROSCOPY KNEE DIAGNOSTIC W/WO SYNOVIAL BX SPX 2004 Arthroscopy, knee, left by [employer] AXILLARY FINE NEEDLE ASPIRATION 11/27/2008 left BREAST RECONSTRUC W LAT DORSI FLAP 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 Levi Yoder LIG/TRNSXJ FLP TUBE ABDL/VAG APPR UNI/BI Tubal ligation MASTECTOMY, PARTIAL 12/16/2008 right breast with SLND/ALND with right oncoplasty and left reduction MASTECTOMY, SIMPLE, COMPLETE 07/24/2009 right skin-sparing OOPHORECTOMY PARTIAL/TOTAL UNI/BI 1 Oophorectomy REMOVAL TISSUE DIRECTOR OF PARTNER MARKETING W/O INSERTION IMPLANT 09/25/2010 right breast REPLACEMENT TISSUE DIRECTOR OF PARTNER MARKETING W/PERMANENT IMPLANT 06/24/2011 right perm implant ALLERGIES Penicillins MEDICATIONS Current Outpatient Medications Medication Sig ALPRAZolam (XANAX) 0.25 mg tablet Take 1 tablet by mouth two times a day for 90 days. Do not start before February 18, 2024. gabapentin (NEURONTIN) 300 mg capsule Take 1 capsule by mouth three times a day for 90 days. (Patient not taking: Reported on 01/31/2024) pantoprazole DR (PROTONIX) 20 mg tablet Take 1 tablet by mouth once daily. albuterol HFA (PROVENTIL HFA, VENTOLIN HFA) 90 mcg/actuation inhaler Inhale 2 Puffs as instructed every 4 hours as needed. benzonatate (TESSALON PERLE) 100 mg capsule Take 1 capsule by mouth three times a day as needed forcough. (Patient not taking: Reported on 10/11/2023) losartan (COZAAR) 100 mg tablet take 1 tablet every day citalopram (CELEXA) 20 mg tablet take 1 tablet every day ipratropium-albuterol (DUONEB) 0.5 mg-3 mg(2.5 mg base)/3 mL nebu Inhale 3 mL as instructed every 4hours as needed. fluticasone-salmeterol (ADVAIR DISKUS) 100-50 mcg/dose inhaler Inhale 1 Puff as instructed twice daily. Rinse mouth out after use with water. cholecalciferol, vitamin D3, (VITAMIN D3 ORAL) Take 500 mg by mouth once daily. Biotin 10,000 mcg cap Take 10,000 mcg by mouth once daily. Nebulizer Accessories misc Tubing , mouthpiece; other supplies as needed CALCIUM 500 MG TAB TAKES 2 TABLETS DAILY ascorbic acid(VITAMIN C 500 MG TAB) Take one(1) tablet daily. No current facility-administered medications for this visit. FAMILY HISTORY Problem Relation Age of Onset Colon Cancer Mother Cancer Father lung Heart Father other (Cirrhosis) Sister other (Other [Other]) Other no known family h/o breast or ovarian cancer Social History Tobacco Use Smoking status: Former Packs/day: 1.00 Years: 27.00 Additional pack years: 0.00 Total pack years: 27.00 Types: Cigarettes Quit date: 01/18/1991 Years since quittin.1 Smokeless tobacco: Never Vaping Use Vaping Use: Never used Substance Use Topics Alcohol use: No Drug use: No REVIEW OF SYSTEMS GENERAL: + Fever HEENT: Negative for frequent or significant headaches, No changes in hearing or vision. NECK: Negative for lumps, goiter, pain and significant neck swelling RESPIRATORY: + SOB, cough CARDIOVASCULAR: Negative for chest pain, leg swelling, orthopnea, or palpitations GI: No nausea, vomiting, or diarrhea/constipation. No hematochezia/melena. No heartburn or reflux symptoms. : No history of dysuria, frequency or incontinence MUSCULOSKELETAL: Negative for joint pain or swelling. SKIN: Negative for lesions, rash, and itching ENDOCRINE: Negative for cold or heat intolerance, polyuria, polydipsia and goiter NEURO: No history of headaches, syncope, paralysis, seizures or tremors MOOD: Negative for depression, anxiety, or suicidal ideation. EXAM: BP 150/76 Pulse 100 Resp 16 Wt 60.8 kg (134 lb) SpO2 89% BMI 27.94 kg/m PHYSICAL EXAM: General Appearance: Well appearing, alert, in no acute distress, well-hydrated, well nourished. Skin: Skin color, texture, turgor normal, no suspicious rashes or lesions. Head: Normocephalic, no masses, lesions, tenderness or abnormalities. Eyes: Anicteric sclera. Extraocular movements are intact. Neck: Supple, no adenopathy; thyroid symmetric, normal size, no bruits. Lungs: Positive findings: wheezing, rhonchi, and Cough. Heart: RRR without murmur, gallop, or rubs. No ectopy. Extremities: No deformities, edema, skin discoloration, clubbing or cyanosis. Good capillary refill. Peripheral Pulses: Normal, Capillary refill <2secs, strong peripheral pulses, Pulses palpable. Neurologic: Gait normal. Sensation grossly intact. ASSESSMENT/PLAN: 1. Bronchitis - ICD9: 490, ICD10: J40 - Bronchitis versus pneumonia? - Get chest x-ray completed - Start Z-Rupert - Instructed to continue with prednisone - May continue to use [id number] cold and cough medications as needed for symptom management. - Red flag symptoms given to patient, she verbalizes understanding when to seek care. - AZITHROMYCIN 250 MG TABLET - XR CHEST 2V FRONTAL/LAT Follow-up pending test results or sooner as needed. Discussed treatment plan and patient voices understanding. Patient's questions answered appropriately. Medications and potential side effects were discussed and patient voices understanding. Kathie Echeverria APRN.CERTIFIED NURSE AIDE This note was partially generated using [employer] recognition system. Note was reviewed for accuracy. There may be minor misspellings or grammar miscues with Dragon voice recognition. documented in this encounterM[facility]07-05-2024 Instructions* Patient Instructions* Kathie Echeverria APRN.CNP - 02/23/2024 11:39 AM EDT Get chest xray completed Start Zpack Continue to take prednisone Continue with albuterol inhaler May use over the counter cold and cough medications as needed. Stay well hydrated, try to get some soup broth, crackers, Follow up pending test results or sooner documented in this encounterM[facility]07-[facility]-2024 Telephone encounter Note * Telephone Encounter - Marie Castellanos MA - 02/23/2024 9:36 AM EDT Patient has been identified by name and date of : Yes, Provider Leslye Mccloud MD Date February 23, 2024 Time 9:37 AM Type of form: Pre Op form Form received via: Fax When form is completed, fax form to fax number provided. Form has been forwarded to: Provider's desk. Provider name: Ame Castellanos MA Pt scheduled for Cataract extraction w/ intraocular lens implant on 04/15/[address] [place] [facility] [address] Vesna Mack. Fax form to [phone]. Last OV January 2024 Marie Castellanos MA [facility]07-01-2024 Miscellaneous Notes* Telephone Encounter - Mary Kate Junior LPN - 02/19/2024 12:12 PM EDT Pt called in with chronic cough, chest congestion, phlegm in throat yellowish in color x 5 days. Ptdenies wheezing, chest pain, fever, difficulty breathing. Pt reports has asthma and may have a little SOB but feels this is due to asthma. Pt has eye surgery scheduled for 02-26-24 and is hoping to getrid of the cough. Pt reports she has history of chronic bronchitis. Pt requesting AT and instructed she would need to be seen. Pt declined a sooner apt. Pt scheduled for 02/21/24 for apt in office withprovider. Mary Kate Junior LPN documented in this encounterM[facility]07-01-2024 Telephone encounter Note * Telephone Encounter - Mary Kate Junior LPN - 02/19/2024 12:12 PM EDT Pt called in with chronic cough, chest congestion, phlegm in throat yellowish in color x 5 days. Ptdenies wheezing, chest pain, fever, difficulty breathing. Pt reports has asthma and may have a little SOB but feels this is due to asthma. Pt has eye surgery scheduled for 02-26-24 and is hoping to getrid of the cough. Pt reports she has history of chronic bronchitis. Pt requesting AT and instructed she would need to be seen. Pt declined a sooner apt. Pt scheduled for 02/21/24 for apt in office withprovider. Mary Kate Junior LPN [facility]06-17-2024 Telephone encounter Note* Telephone Encounter - Jenni Zarate RN - 02/05/2024 8:51 AM EDT Pt calling in as she saw Kathie Echeverria last week and was to have an echocardiogram done and a consult to [facility]. Pt set up sudarshan with [facility] on 03/06 but was unable to schedule the echo as they needed an order. Echo order faxed to [phone] [facility] Cardiology consult faxed to [facility] at [phone]. [facility]06-17-2024 Miscellaneous Notes* Telephone Encounter - Jenni Zarate RN - 02/05/2024 8:51 AM EDT Pt calling in as she saw Kathie Echeverria last week and was to have an echocardiogram done and a consult to [facility]. Pt set up sudasrhan with [facility] on 03/06 but was unable to schedule the echo as they needed an order. Echo order faxed to [phone] [facility] Cardiology consult faxed to [facility] at [phone]. documented in this encounterMarietta [facility]06-12-2024 Instructions* Patient Instructions* Kathie Echeverria APRN.CNP - 01/31/2024 11:25 AM EDT Complete Echo Schedule appt with Cardiology, [facility] Continue to take all medication as prescribed. Monitor symptoms, any worsening chest pain go to ER. Continue to eat a well balanced, increase lean protein, veggies, and stay active. Follow up in 3 months or sooner as needed. documented in this encounterMari[facility]06-[facility]24 History of Present illness Narrative* Kathie Echeverria APRN.CNP - 01/31/2024 11:00 AM EDT This is a 73 year old female who presents today with: Patient presents with: Follow Up: 3 month follow up HISTORY OF PRESENT ILLNESS: Trinh Womack is a 73 year old female. Patient presents with: Follow Up: 3 month follow up 3 month follow up Shingles: In November, cleared up. Reports she is still having some itching and pain every now and then. May be having catracts surgery in the right eye in the future, will be having a consult with Dr. Mack next week. Surgery is in February. GERD: Symptoms controlled on Protonix 20 mg daily. Reports Protonix is helping. She also takes Anamaria's as needed. DEN: Stable on Celexa 20 mg daily and Xanax 0.25 mg 1 pill BID. Refers she does have increased stress with nephew living with her. Denies SI/HI. Reports she is feeing good, just a little stressed dueto vacation coming up. HTN: Taking Losartan 100 mg daily. Checks BP at home, getting 130-150's/70's. Denies any dizziness or edema. Reports SOB once or twice a month, reports she is not concerned because it is not bad. Hasnoticed central chest pain about twice monthly, pain feels heavy , lasting minutes, increased SOB. History of GERD. Lipid: Not taking any cholesterol medications. Staying busy with grandchildren. 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 Patient requests and ECHO to check her heart. Asthma: Follows with Pulm Dr. Ruiz. Is using Duoneb for nebulizer, and Albuterol inhaler prn. Treated with Zpack for bronchitis in December. Is no longer taking Advair-does not like how it makes her feel. Reports she continues with Duoneb and Albuterol as needed. History of breast cancer; notes that she has breast implants. Believes she has silicone implants. Has mammograms done yearly. Denies breast tenderness or pain. The 10-year ASCVD risk score (Dionicio DK, et al., 2019) is: 28.1% Values used to calculate the score: Age: 73 years Sex: Female Is Non- : No Diabetic: No Tobacco smoker: No Systolic Blood Pressure: 150 mmHg Is BP treated: Yes HDL Cholesterol: 68 mg/dL Total Cholesterol: 219 mg/dL PAST MEDICAL HISTORY: PAST MEDICAL HISTORY Diagnosis Date Acute sinusitis, unspecified drainage Allergic rhinitis Childhood asthma Generalized anxiety disorder Anxiety, Generalized GERD (gastroesophageal reflux disease) Malignant neoplasm of breast (female), unspecified site right breast Psoriasis and similar disorders Unspecified asthma(493.90) uses nebulizer prn Unspecified essential hypertension Essential hypertension PAST SURGICAL HISTORY Procedure Laterality Date ARTHROSCOPY KNEE DIAGNOSTIC W/WO SYNOVIAL BX SPX 2004 Arthroscopy, knee, left by [employer] AXILLARY FINE NEEDLE ASPIRATION 11/27/2008 left BREAST RECONSTRUC W LAT DORSI FLAP 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 Levi Yoder LIG/TRNSXJ FLP TUBE ABDL/VAG APPR UNI/BI Tubal ligation MASTECTOMY, PARTIAL 12/16/2008 right breast with SLND/ALND with right oncoplasty and left reduction MASTECTOMY, SIMPLE, COMPLETE 07/24/2009 right skin-sparing OOPHORECTOMY PARTIAL/TOTAL UNI/BI 1 Oophorectomy REMOVAL TISSUE DIRECTOR OF PARTNER MARKETING W/O INSERTION IMPLANT 09/25/2010 right breast REPLACEMENT TISSUE DIRECTOR OF PARTNER MARKETING W/PERMANENT IMPLANT 06/24/2011 right perm implant ALLERGIES Penicillins MEDICATIONS Current Outpatient Medications Medication Sig gabapentin (NEURONTIN) 300 mg capsule Take 1 capsule by mouth three times a day for 90 days. ALPRAZolam (XANAX) 0.25 mg tablet Take 1 tablet by mouth two times a day for 90 days. Do not start before November 13, [address]. pantoprazole DR (PROTONIX) 20 mg tablet Take 1 tablet by mouth once daily. albuterol HFA (PROVENTIL HFA, VENTOLIN HFA) 90 mcg/actuation inhaler Inhale 2 Puffs as instructed every 4 hours as needed. benzonatate (TESSALON PERLE) 100 mg capsule Take 1 capsule by mouth three times a day as needed forcough. (Patient not taking: Reported on 10/11/2023) losartan (COZAAR) 100 mg tablet take 1 tablet every day citalopram (CELEXA) 20 mg tablet take 1 tablet every day ipratropium-albuterol (DUONEB) 0.5 mg-3 mg(2.5 mg base)/3 mL nebu Inhale 3 mL as instructed every 4hours as needed. fluticasone-salmeterol (ADVAIR DISKUS) 100-50 mcg/dose inhaler Inhale 1 Puff as instructed twice daily. Rinse mouth out after use with water. cholecalciferol, vitamin D3, (VITAMIN D3 ORAL) Take 500 mg by mouth once daily. Biotin 10,000 mcg cap Take 10,000 mcg by mouth once daily. Nebulizer Accessories misc Tubing , mouthpiece; other supplies as needed CALCIUM 500 MG TAB TAKES 2 TABLETS DAILY ascorbic acid(VITAMIN C 500 MG TAB) Take one(1) tablet daily. No current facility-administered medications for this visit. FAMILY HISTORY Problem Relation Age of Onset Colon Cancer Mother Cancer Father lung Heart Father other (Cirrhosis) Sister other (Other [Other]) Other no known family h/o breast or ovarian cancer Social History Tobacco Use Smoking status: Former Packs/day: 1.00 Years: 27.00 Additional pack years: 0.00 Total pack years: 27.00 Types: Cigarettes Quit date: 01/18/1991 Years since quittin.0 Smokeless tobacco: Never Vaping Use Vaping Use: Never used Substance Use Topics Alcohol use: No Drug use: No REVIEW OF SYSTEMS GENERAL: No weight loss, malaise or fevers/chills HEENT: Negative for frequent or significant headaches, No changes in hearing or vision. NECK: Negative for lumps, goiter, pain and significant neck swelling RESPIRATORY: Negative for cough, hemoptysis, wheezing, dyspnea or shortness of breath CARDIOVASCULAR: +Chest pain GI: No nausea, vomiting, or diarrhea/constipation. No hematochezia/melena. No heartburn or reflux symptoms. : No history of dysuria, frequency or incontinence MUSCULOSKELETAL: Negative for joint pain or swelling. SKIN: Negative for lesions, rash, and itching ENDOCRINE: Negative for cold or heat intolerance, polyuria, polydipsia and goiter NEURO: No history of headaches, syncope, paralysis, seizures or tremors MOOD: Negative for depression, anxiety, or suicidal ideation. EXAM: BP 150/78 Pulse 63 Resp 16 Wt 60.8 kg (134 lb) SpO2 99% BMI 27.94 kg/m PHYSICAL EXAM: General Appearance: Well appearing, alert, in no acute distress, well-hydrated, well nourished.. Skin: Skin color, texture, turgor normal, no suspicious rashes or lesions. Head: Normocephalic, no masses, lesions, tenderness or abnormalities. Eyes: Anicteric sclera. Extraocular movements are intact. . Lungs: Lungs clear to auscultation. No wheezing, rhonchi, rales.+SOB Heart: RRR without murmur, gallop, or rubs. No ectopy. +chest pain Extremities: No deformities, edema, skin discoloration, clubbing or cyanosis. Good capillary refill. . Peripheral Pulses: Normal, Capillary refill <2secs, strong peripheral pulses, Pulses palpable. Neurologic: Gait normal. Sensation grossly intact.. Latest Ref Rng 01/22/2024 Protein, Total 6.3 - 8.0 g/dL 6.7 Albumin 3.9 - 4.9 g/dL 4.1 Calcium 8.5 - 10.2 mg/dL 9.8 Bilirubin, Total 0.2 - 1.3 mg/dL 0.4 Alkaline Phosphatase 34 - 123 U/L 105 AST 13 - 35 U/L 23 ALT 7 - 38 U/L 12 Glucose 74 - 99 mg/dL 86 BUN 7 - 21 mg/dL 20 Creatinine 0.58 - 0.96 mg/dL 0.88 Sodium 136 - 144 mmol/L 139 Potassium 3.7 - 5.1 mmol/L 5.3 (H) Chloride 97 - 105 mmol/L 102 CO2 22 - 30 mmol/L 28 Anion Gap 9 - 18 mmol/L 9 eGFR >=60 mL/min/1.73m 69 Cholesterol, Total <200 mg/dL 219 (H) Triglyceride <150 mg/dL 54 HDL Cholesterol >39 mg/dL 68 Non HDL Cholesterol <130 mg/dL 151 (H) Fasting Time hrs 15 VLDL Cholesterol <30 mg/dL 11 TC:HDL Ratio <5.10 3.22 LDL Cholesterol <100 mg/dL 140 (H) LDL:HDL Ratio <2.54 2.06 Legend: (H) High ASSESSMENT/PLAN: 1. Chest pain, unspecified type - ICD9: 786.50, ICD10: R07.9 (primary diagnosis) - Patient denied wanting an ECG today and further cardiac work up - Agreeable to complete Echo - Red Flag symptoms go to ER - History of HTN and Hyperlipidemia. - CONSULT TO CARDIOLOGY 2. SOB (shortness of breath) - ICD9: 786.05, ICD10: R06.02 - ECHO - PERFLUTREN LIPID MICROSPHERES 1.1 MG/ML INJECTION IN NS 10 ML - SODIUM CHLORIDE 0.9 % (FLUSH) INJECTION SYRINGE 3. Mixed hyperlipidemia - ICD9: 272.2, ICD10: E78.2 - Uncontrolled - Counseled on healthy diet and regular exercise - Patient denies wanting to start Cholesterol lowering medication at this time. 4. Herpes zoster without complication - ICD9: 053.9, ICD10: B02.9 - Stable 5. Gastroesophageal reflux disease with esophagitis without hemorrhage - ICD9: 530.81, 530.10, ICD10: K21.00 - Stable, continue to take current medication 6. Anxiety - ICD9: 300.00, ICD10: F41.9 - Stable, refill provided - ALPRAZOLAM 0.25 MG TABLET 7. BENIGN HYPERTENSION - ICD9: 401.1, ICD10: I10 - Uncontrolled - Continue current medications - Recommend home blood pressure monitoring, to bring results to next visit - Encouraged sodium restriction, DASH or Mediterranean diet - Recommend regular aerobic exercise - Discussed need for and benefit of weight loss. BMI 27.94 kg/(m^2) 8. Mild intermittent asthma without complication - ICD9: 493.90, ICD10: J45.20 - Mild intermittent asthma stable - Continue current medications - Avoidance of triggers recommended - Keep scheduled appointments with Pulmonology 9. Personal history of malignant neoplasm of breast - ICD9: V10.3, ICD10: Z85.3 - Stable Follow up in 3 months or sooner pending test results Discussed treatment plan and patient voices understanding. Patient's questions answered appropriately. Medications and potential side effects were discussed and patient voices understanding. Kathie Echeverria APRN.ALCIRA PDMP website checked and validated. All prescriptions have been APPROPRIATELY filled. No suspiciousactivity was identified. 01/31/2024 by Kathie Echeverria APRN.ALCIRA This note was partially generated using [employer] voice recognition system. Note was reviewed for accuracy. There may be minor misspellings or grammar miscues with [employer] voice recognition. documented in this encounterM[facility] Telephone encounter Note * Telephone Encounter - Lina Wyman LPN - 01/05/2024 2:05 PM EDT Patient calling to check status of request. Went over notes from PCP aware rx sent to pharmacy. [facility]05-17-2024 Miscellaneous Notes* Telephone Encounter - Lina Wyman LPN - 01/05/2024 2:05 PM EDT Patient calling to check status of request. Went over notes from PCP aware rx sent to pharmacy. * Telephone Encounter - Leslye Mccloud MD - 01/05/2024 9:32 AM EDT OK for Zpak as ordered Leslye Mccloud MD * Telephone Encounter - Lina Wyman LPN - 01/05/2024 8:48 AM EDT Patient calling she has chronic bronchitis and symptoms started few days ago. She is not wheezing, has cough, throat sore and voice hoarse, slight shortness of breath. She has been taking mucinex cough syrup. Patient said she is just getting over shingles and does not want to come in for an appt. Patient is asking for a zpack to be sent to [facility] pharmacy. Please advise documented in this [facility] Telephone encounter Note * Telephone Encounter - Leslye Mccloud MD - 01/05/2024 9:32 AM EDT OK for Zpak as ordered Leslye Mccloud MD [facility]05-17-2024 Telephone encounter Note* Telephone Encounter - Lina Wyman LPN - 01/05/2024 8:48 AM EDT Patient calling she has chronic bronchitis and symptoms started few days ago. She is not wheezing, has cough, throat sore and voice hoarse, slight shortness of breath. She has been taking mucinex cough syrup. Patient said she is just getting over shingles and does not want to come in for an appt. Patient is asking for a zpack to be sent to [facility] pharmacy. Please advise [facility]05-03-2024 Telephone encounter Note* Telephone Encounter - Jasmine Pizarro RN - 12/22/2023 3:58 PM EDT Patient calls and notified of providers instructions. Patient verbalizes understanding. Jasmine Pizarro RN [facility]05-03-2024 Miscellaneous Notes* Telephone Encounter - Jasmine Pizarro RN - 12/22/2023 3:58 PM EDT Patient calls and notified of providers instructions. Patient verbalizes understanding. Jasmine Pizarro RN * Telephone Encounter - Nataliya Marquis MA - 12/22/2023 1:20 PM EDT Left message for patient to return call. Nataliya Marquis Ma * Telephone Encounter - Kalli Patel APRN.JACKY - 12/22/2023 11:32 AM EDT I will order gabapentin 300 mg up to 3 x day as needed. Please note that it may make her feel a little lightheaded initially, this is normal. If it makes her sleepy, she can reduce to 2 x day. She may continue for 90 days if needed. As soon as shingles dries, get the Shingrix series started. * Telephone Encounter - Hailey Anderson LPN - 12/22/2023 10:58 AM EDT Patient calling, states that her shingles pain is really bothering her now. States that she was up most of the night. Asking if she can have something prescribed that she declined at the OV originally. Please advise. documented in [facility] Telephone encounter Note * Telephone Encounter - Nataliya Marquis MA - 12/22/2023 1:20 PM EDT Left message for patient to return call. Nataliya Marquis Ma [facility]05-03-2024 Telephone encounter Note* Telephone Encounter - Kalli Patel APRN.CNS - 12/22/2023 11:32 AM EDT I will order gabapentin 300 mg up to 3 x day as needed. Please note that it may make her feel a little lightheaded initially, this is normal. If it makes her sleepy, she can reduce to 2 x day. She may continue for 90 days if needed. As soon as shingles dries, get the Shingrix series started. [facility]05-03-2024 Telephone encounter Note* Telephone Encounter - Hailey Anderson LPN - 12/22/2023 10:58 AM EDT Patient calling, states that her shingles pain is really bothering her now. States that she was up most of the night. Asking if she can have something prescribed that she declined at the OV originally. Please advise. [facility]04-29-2024 History of Present illness Narrative* Kalli Patel, JUAN.HEAD STOCK OPERATOR - 12/18/2023 12:15 PM EDT This is a 73 year old female who presents today with: No chief complaint on file. HISTORY OF PRESENT ILLNESS: Trinh Womack is a 73 year old female. No chief complaint on file. PAST MEDICAL HISTORY: PAST MEDICAL HISTORY Diagnosis Date Acute sinusitis, unspecified drainage Allergic rhinitis Childhood asthma Generalized anxiety disorder Anxiety, Generalized GERD (gastroesophageal reflux disease) Malignant neoplasm of breast (female), unspecified site right breast Psoriasis and similar disorders Unspecified asthma(493.90) uses nebulizer prn Unspecified essential hypertension Essential hypertension PAST SURGICAL HISTORY Procedure Laterality Date ARTHROSCOPY KNEE DIAGNOSTIC W/WO SYNOVIAL BX SPX 2004 Arthroscopy, knee, left by [employer] AXILLARY FINE NEEDLE ASPIRATION 11/27/2008 left BREAST RECONSTRUC W LAT DORSI FLAP 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 Levi Yoder LIG/TRNSXJ FLP TUBE ABDL/VAG APPR UNI/BI Tubal ligation MASTECTOMY, PARTIAL 12/16/2008 right breast with SLND/ALND with right oncoplasty and left reduction MASTECTOMY, SIMPLE, COMPLETE 07/24/2009 right skin-sparing OOPHORECTOMY PARTIAL/TOTAL UNI/BI 1 Oophorectomy REMOVAL TISSUE DIRECTOR OF PARTNER MARKETING W/O INSERTION IMPLANT 09/25/2010 right breast REPLACEMENT TISSUE DIRECTOR OF PARTNER MARKETING W/PERMANENT IMPLANT 06/24/2011 right perm implant ALLERGIES Penicillins MEDICATIONS Current Outpatient Medications Medication Sig valACYclovir (VALTREX) 1 gram tablet Take 1 tablet by mouth three times a day for 7 days. ALPRAZolam (XANAX) 0.25 mg tablet Take 1 tablet by mouth two times a day for 90 days. Do not start before November 13, [address]23. pantoprazole DR (PROTONIX) 20 mg tablet Take 1 tablet by mouth once daily. albuterol HFA (PROVENTIL HFA, VENTOLIN HFA) 90 mcg/actuation inhaler Inhale 2 Puffs as instructed every 4 hours as needed. benzonatate (TESSALON PERLE) 100 mg capsule Take 1 capsule by mouth three times a day as needed forcough. (Patient not taking: Reported on 10/11/2023) losartan (COZAAR) 100 mg tablet take 1 tablet every day citalopram (CELEXA) 20 mg tablet take 1 tablet every day ipratropium-albuterol (DUONEB) 0.5 mg-3 mg(2.5 mg base)/3 mL nebu Inhale 3 mL as instructed every 4hours as needed. fluticasone-salmeterol (ADVAIR DISKUS) 100-50 mcg/dose inhaler Inhale 1 Puff as instructed twice daily. Rinse mouth out after use with water. cholecalciferol, vitamin D3, (VITAMIN D3 ORAL) Take 500 mg by mouth once daily. Biotin 10,000 mcg cap Take 10,000 mcg by mouth once daily. Nebulizer Accessories misc Tubing , mouthpiece; other supplies as needed CALCIUM 500 MG TAB TAKES 2 TABLETS DAILY ascorbic acid(VITAMIN C 500 MG TAB) Take one(1) tablet daily. No current facility-administered medications for this visit. FAMILY HISTORY Problem Relation Age of Onset Colon Cancer Mother Cancer Father lung Heart Father other (Cirrhosis) Sister other (Other [Other]) Other no known family h/o breast or ovarian cancer Social History Tobacco Use Smoking status: Former Packs/day: 1.00 Years: 27.00 Additional pack years: 0.00 Total pack years: 27.00 Types: Cigarettes Quit date: 01/18/1991 Years since quittin.9 Smokeless tobacco: Never Vaping Use Vaping Use: Never used Substance Use Topics Alcohol use: No Drug use: No REVIEW OF SYSTEMS PAIN ASSESSMENT: CURRENTLY HAVING PAIN; LOCATION/DISTRIBUTION: right flank PAIN SCALE: 7 on 0-10 scale per patient PAIN CHARACTER: burning and sharp DURATION: (How long have you had the pain?) 3 days AGGRAVATING FACTORS: nothing, constant ALLEVIATING FACTORS: nothing GENERAL: Fatigue HEENT: Negative for frequent or significant headaches, No changes in hearing or vision, no nose bleeds or other nasal problems RESPIRATORY: Negative for cough, hemoptysis, wheezing, COPD, dyspnea or shortness of breath CARDIOVASCULAR: Negative for chest pain, leg swelling, hypertension, CHF or palpitations MUSCULOSKELETAL: Negative for joint pain or swelling, back pain or muscle pain and just flank pain SKIN: 3 pustules that are small in right flank- pain is entire area to right of spine- linear pattern All other reviewed and negative other than HPI. EXAM: There were no vitals taken for this visit. PHYSICAL EXAM: General Appearance: Well appearing, alert, in no acute distress, well-hydrated, well nourished.. Skin: right flank with raised small pustules that are itching and burning. Lungs: Lungs clear to auscultation. No wheezing, rhonchi, rales.. Heart: RRR without murmur, gallop, or rubs. No ectopy. LABS: ASSESSMENT/PLAN: 1. Herpes zoster without complication - ICD9: 053.9, ICD10: B02.9 Acute. - VALACYCLOVIR 1 GRAM TABLET 3 x day for 7 days - Capsaicin cream or patch to area- warned about hot sensation - Pt. Declined other pain medication Discussed treatment plan and patient voices understanding. Patient's questions answered appropriately. Medications and potential side effects were discussed and patient voices understanding. Return to the office as scheduled or as needed for worsening/no improvement. Kalli Patel APRN.CNS The patient indicates understanding of these issues and agrees with the plan. documented in this encounterM[facility]04-29-[facility]24 Instructions* Patient Instructions* Kalli Patel APRN.CNS - 12/18/2023 12:13 PM EDT - Valacyclovir 1000 mg 3 x day for 7 days - Capsaicin cream 3 x day to pustules for pain if needed - Follow up as scheduled documented in this encounterMari[facility]03-13-[facility]24 History of Present illness Narrative* Kathie Echeverria APRN.CERTIFIED NURSE AIDE - 11/01/2023 11:00 AM EDT This is a 73 year old female who presents today with: Patient presents with: Follow Up: 3 month follow up HISTORY OF PRESENT ILLNESS: Trinh Womack is a 73 year old female. Patient presents with: Follow Up: 3 month follow up 3 month follow up May be having catracts surgery in the right eye in the future, will be having a consult with Dr. Mack next week. GERD: Sx controlled on Protonix 20 mg daily. DEN: Stable on Celexa 20 mg daily and Xanax 0.25 mg 1 pill BID. Refers she does have increased stress with nephew living with her. Denies SI/HI. HTN: Taking Losartan 100 mg daily. Checks BP at home, getting 130-140's/70's. Denies any chest pains, dizziness, or SOB. Lipid: Not taking any cholesterol medications. Staying busy with grandchildren. 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 Asthma: Follows with Pulm Dr. Ruiz. Is using Duoneb for nebulizer, Advair Diskus BID, and Albuterol inhaler prn. History of breast cancer; notes that she has breast implants. Believes she has silicone implants. Has mammograms done. PAST MEDICAL HISTORY: PAST MEDICAL HISTORY Diagnosis Date Acute sinusitis, unspecified drainage Allergic rhinitis Childhood asthma Generalized anxiety disorder Anxiety, Generalized GERD (gastroesophageal reflux disease) Malignant neoplasm of breast (female), unspecified site right breast Psoriasis and similar disorders Unspecified asthma(493.90) uses nebulizer prn Unspecified essential hypertension Essential hypertension PAST SURGICAL HISTORY Procedure Laterality Date ARTHROSCOPY KNEE DIAGNOSTIC W/WO SYNOVIAL BX SPX 2004 Arthroscopy, knee, left by [employer] AXILLARY FINE NEEDLE ASPIRATION 11/27/2008 left BREAST RECONSTRUC W LAT DORSI FLAP 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 Levi Yoder LIG/TRNSXJ FLP TUBE ABDL/VAG APPR UNI/BI Tubal ligation MASTECTOMY, PARTIAL 12/16/2008 right breast with SLND/ALND with right oncoplasty and left reduction MASTECTOMY, SIMPLE, COMPLETE 07/24/2009 right skin-sparing OOPHORECTOMY PARTIAL/TOTAL UNI/BI 1 Oophorectomy REMOVAL TISSUE DIRECTOR OF PARTNER MARKETING W/O INSERTION IMPLANT 09/25/2010 right breast REPLACEMENT TISSUE DIRECTOR OF PARTNER MARKETING W/PERMANENT IMPLANT 06/24/2011 right perm implant ALLERGIES Penicillins MEDICATIONS Current Outpatient Medications Medication Sig albuterol HFA (PROVENTIL HFA, VENTOLIN HFA) 90 mcg/actuation inhaler Inhale 2 Puffs as instructed every 4 hours as needed. benzonatate (TESSALON PERLE) 100 mg capsule Take 1 capsule by mouth three times a day as needed forcough. (Patient not taking: Reported on 10/11/2023) losartan (COZAAR) 100 mg tablet take 1 tablet every day citalopram (CELEXA) 20 mg tablet take 1 tablet every day ALPRAZolam (XANAX) 0.25 mg tablet Take 1 tablet by mouth two times a day for 90 days. Do not start before August 11, 2023. ipratropium-albuterol (DUONEB) 0.5 mg-3 mg(2.5 mg base)/3 mL nebu Inhale 3 mL as instructed every 4hours as needed. fluticasone-salmeterol (ADVAIR DISKUS) 100-50 mcg/dose inhaler Inhale 1 Puff as instructed twice daily. Rinse mouth out after use with water. cholecalciferol, vitamin D3, (VITAMIN D3 ORAL) Take 500 mg by mouth once daily. Biotin 10,000 mcg cap Take 10,000 mcg by mouth once daily. pantoprazole DR (PROTONIX) 20 mg tablet Take 1 tablet by mouth once daily. Nebulizer Accessories misc Tubing , mouthpiece; other supplies as needed CALCIUM 500 MG TAB TAKES 2 TABLETS DAILY ascorbic acid(VITAMIN C 500 MG TAB) Take one(1) tablet daily. No current facility-administered medications for this visit. FAMILY HISTORY Problem Relation Age of Onset Colon Cancer Mother Cancer Father lung Heart Father other (Cirrhosis) Sister other (Other [Other]) Other no known family h/o breast or ovarian cancer Social History Tobacco Use Smoking status: Former Packs/day: 1.00 Years: 27.00 Additional pack years: 0.00 Total pack years: 27.00 Types: Cigarettes Quit date: 01/18/1991 Years since quittin.8 Smokeless tobacco: Never Vaping Use Vaping Use: Never used Substance Use Topics Alcohol use: No Drug use: No REVIEW OF SYSTEMS GENERAL: No weight loss, malaise or fevers/chills HEENT: Negative for frequent or significant headaches, No changes in hearing or vision. NECK: Negative for lumps, goiter, pain and significant neck swelling RESPIRATORY: Negative for cough, hemoptysis, wheezing, dyspnea or shortness of breath CARDIOVASCULAR: Negative for chest pain, leg swelling, orthopnea, or palpitations GI: No nausea, vomiting, or diarrhea/constipation. No hematochezia/melena. No heartburn or reflux symptoms. : No history of dysuria, frequency or incontinence MUSCULOSKELETAL: Negative for joint pain or swelling. SKIN: Negative for lesions, rash, and itching ENDOCRINE: Negative for cold or heat intolerance, polyuria, polydipsia and goiter NEURO: No history of headaches, syncope, paralysis, seizures or tremors MOOD: Negative for depression, anxiety, or suicidal ideation. EXAM: BP 128/78 Pulse 60 Resp 16 Wt 61.2 kg (135 lb) SpO2 97% BMI 28.15 kg/m PHYSICAL EXAM: General Appearance: Well appearing, alert, in no acute distress, well-hydrated, well nourished. Skin: Skin color, texture, turgor normal, no suspicious rashes or lesions. Head: Normocephalic, no masses, lesions, tenderness or abnormalities. Eyes: Anicteric sclera. Extraocular movements are intact. Lungs: Lungs clear to auscultation. No wheezing, rhonchi, rales. Heart: RRR without murmur, gallop, or rubs. No ectopy. Extremities: No deformities, edema, skin discoloration, clubbing or cyanosis. Good capillary refill. Peripheral Pulses: Normal, Capillary refill <2secs, strong peripheral pulses, Pulses palpable. Neurologic: Gait normal. Sensation grossly intact. Mood: Pleasant, engaged, good eye contact. ASSESSMENT/PLAN: 1. Gastroesophageal reflux disease with esophagitis without hemorrhage - ICD9: 530.81, 530.10, ICD10: K21.00 (primary diagnosis) - stable, refill provided. - PROTONIX 2. Anxiety - ICD9: 300.00, ICD10: F41.9 - Stable, refill provided. - Continue with current medications. - ALPRAZOLAM 0.25 MG TABLET 3. BENIGN HYPERTENSION - ICD9: 401.1, ICD10: I10 - Controlled - Continue current medications - Recommend home blood pressure monitoring, to bring results to next visit - Encouraged sodium restriction, DASH or Mediterranean diet - Recommend regular aerobic exercise 4. Hyperlipidemia, unspecified hyperlipidemia type - ICD9: 272.4, ICD10: E78.5 - Control undetermined, due for labs - Counseled on healthy diet and regular exercise - LIPID PANEL BASIC - COMP METABOLIC PANEL 5. Mild intermittent asthma without complication - ICD9: 493.90, ICD10: J45.20 - Mild intermittent asthma stable - Continue current medications - Avoidance of triggers recommended - Keep scheduled appointments with pulmonology. 6. Personal history of malignant neoplasm of breast - ICD9: V10.3, ICD10: Z85.3 - Stable 7. Other age-related cataract of right eye - ICD9: 366.19, ICD10: H25.89 - Keep scheduled appointment with specialist. PDMP website checked and validated. All prescriptions have been APPROPRIATELY filled. No suspiciousactivity was identified. 11/01/2023 by Kathie Echeverria APRN.CNP Follow-up in 3 months or sooner as needed. Discussed treatment plan and patient voices understanding. Patient's questions answered appropriately. Medications and potential side effects were discussed and patient voices understanding. Kathie Echeverria APRN.CNP This note was partially generated using [employer] voice recognition system. Note was reviewed for accuracy. There may be minor misspellings or grammar miscues with [employer] voice recognition. documented in this encounterM[facility]-13-[facility]24 Instructions* Patient Instructions* Kathie Echeverria APRN.CNP - 11/01/2023 10:49 AM EDT Get fasting labs completed in 3 months prior to next visit, no food 10-12 hours prior. Can have black coffee and water. Continue to take all medication as prescribed. Keep scheduled appointments with specialists Follow up in 3 months or sooner as needed. documented in this encounterM[facility]02-22-2024 Miscellaneous Notes* Telephone Encounter - Jenni Bui LPN - 10/12/2023 3:56 PM EST Patient notified of results, verbalizes understanding of instructions. Jenni Bui LPN * Telephone Encounter - Kathie Echeverria APRN.CNP - 10/12/2023 3:51 PM EST Can you please call the patient and let her know that her chest x-ray was normal. I would recommendthat she continue with supportive care at home. Kathie Echeverria APRN.ALCIRA documented in this encounterMari[facility]02-21-2024 History of Present illness Narrative* Soumya Crowell RT(R) - 10/11/2023 10:00 AM EST Radiology Service Progress Note PATIENT NAME: Trinh Womack DATE OF SERVICE: October 11, 2023 TIME: 10:18 AM PATIENT IDENTITY VERIFICATION COMPLETED USING TWO (2) IDENTIFIERS: Name and Date of confirmedby patient verbally. FALL SCREENING: Has the patient had 2 falls in the last year or 1 fall with injury or currently using an Ambulatory Assistive Device (Walker, Cane, Wheelchair, Crutches, etc.)? No PATIENT GENDER DATA: Female. status: : No status: NO. PATIENT RELEVANT IMPLANT DATA REVIEWED: Yes PATIENT PRESENTS WITH AN IMPLANTABLE OR ATTACHED SUPERVISOR FABRICATION: No RADIOLOGY DEPARTMENT: General X-ray: Exam(s) Completed: Chest X-Ray PERIPHERAL IV DATA: Not applicable SIGNED BY: RT eBnito(R) October 11, 2023 10:18 AM documented in this encounterMari[facility]02-21-2024 Instructions* Patient Instructions* Kathie Echeverria APRN.CNP - 10/11/2023 9:41 AM EST Get chest xray completed Continue supportive care at home. May use Ibuprofen as needed for pain, may apply ice as needed. Follow up pending test results or sooner as needed. documented in this encounterM[facility]02-21-2024 History of Present illness Narrative* Kathie Echeverria APRN.ALCIRA - 10/11/2023 9:40 AM EST This is a 73 year old female who presents today with: Patient presents with: Acute Visit: Bad cough and right back pain HISTORY OF PRESENT ILLNESS: Trinh Womack is a 73 year old female. Patient presents with: Acute Visit: Bad cough and right back pain Here in the office for back pain. Refers she recently had a bad cough, history of COPD with recurrent bronchitis. Pain is on the right lower back due to cough. No injury to the area. Pain started about a month ago. Pain is constant, refers she has bruising to her ribs, but no injury. Saw pulmonogist and referred it could be a pulled muscle. Denies numbness/tingling down the legs, saddles anestheisa, or loss of bowel/bladder. Using ibuprofren as needed. PAST MEDICAL HISTORY: PAST MEDICAL HISTORY Diagnosis Date Acute sinusitis, unspecified drainage Allergic rhinitis Childhood asthma Generalized anxiety disorder Anxiety, Generalized GERD (gastroesophageal reflux disease) Malignant neoplasm of breast (female), unspecified site right breast Psoriasis and similar disorders Unspecified asthma(493.90) uses nebulizer prn Unspecified essential hypertension Essential hypertension PAST SURGICAL HISTORY Procedure Laterality Date ARTHROSCOPY KNEE DIAGNOSTIC W/WO SYNOVIAL BX SPX 2004 Arthroscopy, knee, left by [employer] AXILLARY FINE NEEDLE ASPIRATION 11/27/2008 left BREAST RECONSTRUC W LAT DORSI FLAP 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 Levi Yoder LIG/TRNSXJ FLP TUBE ABDL/VAG APPR UNI/BI Tubal ligation MASTECTOMY, PARTIAL 12/16/2008 right breast with SLND/ALND with right oncoplasty and left reduction MASTECTOMY, SIMPLE, COMPLETE 07/24/2009 right skin-sparing OOPHORECTOMY PARTIAL/TOTAL UNI/BI 1 Oophorectomy REMOVAL TISSUE DIRECTOR OF PARTNER MARKETING W/O INSERTION IMPLANT 09/25/2010 right breast REPLACEMENT TISSUE DIRECTOR OF PARTNER MARKETING W/PERMANENT IMPLANT 06/24/2011 right perm implant ALLERGIES Penicillins MEDICATIONS Current Outpatient Medications Medication Sig albuterol HFA (PROVENTIL HFA, VENTOLIN HFA) 90 mcg/actuation inhaler Inhale 2 Puffs as instructed every 4 hours as needed. benzonatate (TESSALON PERLE) 100 mg capsule Take 1 capsule by mouth three times a day as needed forcough. losartan (COZAAR) 100 mg tablet take 1 tablet every day citalopram (CELEXA) 20 mg tablet take 1 tablet every day ALPRAZolam (XANAX) 0.25 mg tablet Take 1 tablet by mouth two times a day for 90 days. Do not start before August 11, 2023. ipratropium-albuterol (DUONEB) 0.5 mg-3 mg(2.5 mg base)/3 mL nebu Inhale 3 mL as instructed every 4hours as needed. fluticasone-salmeterol (ADVAIR DISKUS) 100-50 mcg/dose inhaler Inhale 1 Puff as instructed twice daily. Rinse mouth out after use with water. cholecalciferol, vitamin D3, (VITAMIN D3 ORAL) Take 500 mg by mouth once daily. Biotin 10,000 mcg cap Take 10,000 mcg by mouth once daily. pantoprazole DR (PROTONIX) 20 mg tablet Take 1 tablet by mouth once daily. Nebulizer Accessories misc Tubing , mouthpiece; other supplies as needed CALCIUM 500 MG TAB TAKES 2 TABLETS DAILY ascorbic acid(VITAMIN C 500 MG TAB) Take one(1) tablet daily. No current facility-administered medications for this visit. FAMILY HISTORY Problem Relation Age of Onset Colon Cancer Mother Cancer Father lung Heart Father other (Cirrhosis) Sister other (Other [Other]) Other no known family h/o breast or ovarian cancer Social History Tobacco Use Smoking status: Former Packs/day: 1.00 Years: 27.00 Additional pack years: 0.00 Total pack years: 27.00 Types: Cigarettes Quit date: 01/18/1991 Years since quittin.7 Smokeless tobacco: Never Vaping Use Vaping Use: Never used Substance Use Topics Alcohol use: No Drug use: No REVIEW OF SYSTEMS GENERAL: No weight loss, malaise or fevers/chills HEENT: Negative for frequent or significant headaches, No changes in hearing or vision. NECK: Negative for lumps, goiter, pain and significant neck swelling RESPIRATORY: Negative for cough, hemoptysis, wheezing, dyspnea or shortness of breath CARDIOVASCULAR: Negative for chest pain, leg swelling, orthopnea, or palpitations GI: No nausea, vomiting, or diarrhea/constipation. No hematochezia/melena. No heartburn or reflux symptoms. : No history of dysuria, frequency or incontinence MUSCULOSKELETAL: + Back Pain SKIN: Negative for lesions, rash, and itching ENDOCRINE: Negative for cold or heat intolerance, polyuria, polydipsia and goiter NEURO: No history of headaches, syncope, paralysis, seizures or tremors MOOD: Negative for depression, anxiety, or suicidal ideation. EXAM: BP 140/90 Pulse 67 Resp 16 Wt 61.2 kg (135 lb) SpO2 97% BMI 28.15 kg/m PHYSICAL EXAM: General Appearance: Well appearing, alert, in no acute distress, well-hydrated, well nourished. Skin: + Ecchymosis noted along lateral right ribs as well as under the breast. Head: Normocephalic, no masses, lesions, tenderness or abnormalities. Eyes: Anicteric sclera. Extraocular movements are intact. Lungs: Lungs clear to auscultation. No wheezing, rhonchi, rales. Heart: RRR without murmur, gallop, or rubs. No ectopy. Extremities: No deformities, edema, skin discoloration, clubbing or cyanosis. Good capillary refill. Musculoskeletal: + Mild tenderness noted along the right lateral and posterior ribs, no swelling noted. Ecchymosis noted, see skin above. Peripheral Pulses: Normal, Capillary refill <2secs, strong peripheral pulses, Pulses palpable. Neurologic: Gait normal. Sensation grossly intact. ASSESSMENT/PLAN: 1. Chronic cough - ICD9: 786.2, ICD10: R05.3 (primary diagnosis) - Get xray completed - Continue supportive care at home. - XR CHEST 2V FRONTAL/LAT 2. Bruising - ICD9: 924.9, ICD10: T14.8XXA - Continue supportive care at home. - May use ice to the area and use ibuprofen as needed for pain. - XR CHEST 2V FRONTAL/LAT Follow-up pending test results or sooner as needed. Discussed treatment plan and patient voices understanding. Patient's questions answered appropriately. Medications and potential side effects were discussed and patient voices understanding. Kathie Echeverria APRN.CERTIFIED NURSE AIDE This note was partially generated using [employer] voice recognition system. Note was reviewed for accuracy. There may be minor misspellings or grammar miscues with [employer] voice recognition. documented in this encounterM[facility]02-19-2024 Miscellaneous Notes* Telephone Encounter - Leni Castano Ma - 10/09/2023 7:45 PM EST Faxed completed forms to [phone]. Leni Castano Ma * Telephone Encounter - Leslye Mccloud MD - 10/09/2023 7:43 PM EST Form done Leslye Mccloud MD * Telephone Encounter - Lina Wyman LPN - 10/09/2023 9:03 AM EST Patient calling she has gotten another reminder today from her employer that the FMLA needs completed and sent in please CHERYL. * Telephone Encounter - Mary Kate Junior LPN - 10/06/2023 11:33 AM EST Pt calling and forms below need to be faxed cheryl. Pt reports the paperwork had dates on it and she needed at lease 3 days added. Pt is back to work. Please call pt if any question and as soon as thishas been faxed. Okay to leave a voicemail. Mary Kate Junior LPN * Telephone Encounter - Aissatou Rushing, LENIN - 09/26/2023 6:09 PM EST patient returned call and states that the dates are on the paperwork and that for the month of and needs an extended leave for that month by about 1 week and then for interment leave after that. * Telephone Encounter - Marie Castellanos Ma - 09/26/2023 9:17 AM EST Message left for pt to call back. Marie Castellanos Ma * Telephone Encounter - Leslye Mccloud MD - 09/26/2023 8:40 AM EST What days has she missed work? Does she need the FMLA filled out just for this one episode, or to have her intermittent leave increased? Leslye Mccloud MD * Telephone Encounter - Marie Castellanos Ma - 09/25/2023 2:55 PM EST Type of letter/form/fax request - FMLA Form received from mail on 1 floor and placed on MD desk (Dr. Mccloud) for completion. Completed form needs to be faxed to [place] at [phone]. Pt states she has intermittent leave with her company but she exceeded the number of days that she was off due to being extremely ill and could nto work. She is hoping to return to work Monday09/24/23. Route to [place] when form completed for processing documented in this encounterM[facility]02-19-2024 Miscellaneous Notes* Telephone Encounter - Leslye Mccloud MD - 10/09/2023 7:43 PM EST See phone note Leslye Mccloud MD * Telephone Encounter - Marie Castellanos Ma - 10/09/2023 6:31 PM EST See pt phone encounter. She is asking status on forms. Marie Castellanos Ma documented in this encounterM[facility]02-07-2024 Instructions* Patient Instructions* Alejandra Daly PA-C - 09/27/2023 1:56 PM EST Salon Pas patches or cream for back pain documented in this encounterMarietta [facility]02-07-2024 History of Present illness Narrative* Alejandra Daly PA-C - 09/27/2023 1:30 PM EST Images from the original note were not included. Patient: Trinh Womack PCP: Leslye Mccloud MD CC: follow up HPI: Trinh Womack 73 year old female former 27 pack year smoker, quitting 1990 with PMH significant for childhood asthma, right breast cancer 2009 (XRT, chemo, Tamoxifen 5 years), psoriasis, HTN, GERD, chronic rhinitis, and asthma. Initially evaluated by Dr. Ruiz 03/27/2023 at which time patient was instructed to continue Advair with as needed Albuterol. Dr. Ruiz recommended trial of anticholinergic nasal spray but patient declined. Today, patient states that in early August she had acutebronchitis and was initially treated with Azithromycin and Prednisone burst. She improved while on treatment and after 24 hours of completing treatment she started with aggravating cough.Patient was c oncerned that the Advair was causing her cough. She was seen in follow up with PCP 8 days followinginitial treatment and given an additional course of prednisone and CXR obtained which demonstrated no acute findings. Patient did not improve and Dr. Mccloud prescribed an additional course of Azithromycin. She has stopped her Advair, stating, I won't use that ever again. Is using Albuterol daily. Reports minimal cough and no sputum production. Denies wheezing or SOB. No nocturnal awakenings. No lower extremity edema. PAST MEDICAL HISTORY Diagnosis Date Acute sinusitis, unspecified drainage Allergic rhinitis Childhood asthma Generalized anxiety disorder Anxiety, Generalized GERD (gastroesophageal reflux disease) Malignant neoplasm of breast (female), unspecified site right breast Psoriasis and similar disorders Unspecified asthma(493.90) uses nebulizer prn Unspecified essential hypertension Essential hypertension Allergies: Penicillins Comment:breathing problem years ago albuterol HFA (PROVENTIL HFA, VENTOLIN HFA) 90 mcg/actuation inhaler Inhale 2 Puffs as instructed every 4 hours as needed. benzonatate (TESSALON PERLE) 100 mg capsule Take 1 capsule by mouth three times a day as needed forcough. losartan (COZAAR) 100 mg tablet take 1 tablet every day citalopram (CELEXA) 20 mg tablet take 1 tablet every day ALPRAZolam (XANAX) 0.25 mg tablet Take 1 tablet by mouth two times a day for 90 days. Do not start before August 11, 2023. ipratropium-albuterol (DUONEB) 0.5 mg-3 mg(2.5 mg base)/3 mL nebu Inhale 3 mL as instructed every 4hours as needed. fluticasone-salmeterol (ADVAIR DISKUS) 100-50 mcg/dose inhaler Inhale 1 Puff as instructed twice daily. Rinse mouth out after use with water. cholecalciferol, vitamin D3, (VITAMIN D3 ORAL) Take 500 mg by mouth once daily. Biotin 10,000 mcg cap Take 10,000 mcg by mouth once daily. pantoprazole DR (PROTONIX) 20 mg tablet Take 1 tablet by mouth once daily. Nebulizer Accessories misc Tubing , mouthpiece; other supplies as needed CALCIUM 500 MG TAB TAKES 2 TABLETS DAILY ascorbic acid(VITAMIN C 500 MG TAB) Take one(1) tablet daily. Social History Tobacco Use Smoking status: Former Packs/day: 1.00 Years: 27.00 Additional pack years: 0.00 Total pack years: 27.00 Types: Cigarettes Quit date: 01/18/1991 Years since quittin.7 Smokeless tobacco: Never Vaping Use Vaping Use: Never used Substance Use Topics Alcohol use: No Drug use: No Used to work at [employer]. 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 Levi Yoder LIG/TRNSXJ FLP TUBE ABDL/VAG APPR UNI/BI Tubal ligation MASTECTOMY, PARTIAL 12/16/2008 right breast with SLND/ALND with right oncoplasty and left reduction MASTECTOMY, SIMPLE, COMPLETE 07/24/2009 right skin-sparing OOPHORECTOMY PARTIAL/TOTAL UNI/BI 1 Oophorectomy REMOVAL TISSUE DIRECTOR OF [employer]NER MARKETING W/O INSERTION IMPLANT 09/25/2010 right breast REPLACEMENT TISSUE DIRECTOR OF [employer]NER MARKETING W/PERMANENT IMPLANT 06/24/2011 right perm implant I reviewed the past medical history, family history, social history and surgical history with changes noted above and updated in EMR. IMMUNIZATIONS Prevnar - 2016 Pneumovax - 2013 Influenza - 2022 COVID-19 - most recent 10/2020 ROS: General: No fevers, chills or night sweats. No unintended weight loss. Eyes, Ears, nose, throat: Persistent sinus congestion. No hoarseness. Vision stable. Cardiac: No angina, edema, orthopnea, chest pain, or palpitations. Resp: See HPI. GI: No heartburn, dysphagia. Musculoskeletal: Right sided back pain. Neuro: No headache, focal weakness, tremor. Skin: No skin changes or rash. Otherwise negative. PHYSICAL EXAMINATION: BP 136/84 Pulse 76 Resp 16 Wt 60.3 kg (133 lb) SpO2 100% BMI 27.73 kg/m Gen: No acute distress. Cooperative with examination. HEENT: Normocephalic. Sclera, conjunctiva clear. Oral hygeine and dentition good. No thrush. Resp: No stridor, accessory respiratory muscle use, supra-sternal or intercostal retractions. No wheezes, crackles. CV: Regular rythm. Heart tones normal. Radial pulses normal. MSK: No kyphoscoliosis. Tenderness with palpation over right thoracic area. Ext: Warm and well perfused. No clubbing, cyanosis, edema. Skin: No rash, ecchymoses. Neuro: Mental status normal. Affect normal. No tremor. DATA: SERVICE DATE: 02/20/2023 SERVICE TIME: 2:37 PM Oral Exhaled Nitric Oxide measurement: <5.0 (ppb) PFT 02/20/23: Review pulmonary function test show mild obstruction with improvement in small airways obstruction postbronchodilator. Minimal air trapping Labs: Most recent CBC with diff: no eosinophilia Imaging / Diagnostic Studies: CXR. 09/05/2023 IMPRESSION: No acute radiographic abnormality. COMPARISON: 11/01/2012 RESULT: Lines, tubes, and devices: None. Lungs and pleura: No consolidation. No lung mass. No pleural effusion. No pneumothorax. Cardiomediastinal silhouette: Normal cardiomediastinal silhouette. Bones and soft tissues: Unremarkable. ASSESSMENT/PLAN: 1. Mild intermittent asthma without complication - ICD9: 493.90, ICD10: J45.20 (primary diagnosis) Patient declines maintenance therapy. Albuterol HFA inhaler, 2 inhalations 10-15 minutes prior to activities associated with shortness ofbreath, and as needed for rescue relief of shortness of breath or wheezing, up to 4 times daily. Encouraged her to call our office if her cough reoccurs and will start her on a different inhaled medication rather than Advair. 2. Non-allergic rhinitis - ICD9: 472.0, ICD10: J31.0 Patient is not interested in nasal sprays. 3. Musculoskeletal back pain - ICD9: 724.5, ICD10: M54.9 Most likely a result of persistent coughing. Salon Pas patch or cream as needed. If persists, advised she should follow up with PCP. Portions of this documentation were copied and pasted from previous office visit notes in order to provide a cohesive continuity of the history. The note has been reviewed and edited and updated as necessary. Alejandra Daly PA-C documented in this encounterM[facility]02-02-2024 Miscellaneous Notes* Telephone Encounter - Marie Castellanos Ma - 09/22/2023 1:14 PM EST Pt states forms are being mailed to office. Will start phone encounter when forms are received. Marie Castellanos Ma documented in this encounterM[facility]01-16-2024 History of Present illness Narrative* Soumya Crowell RT(R) - 09/05/2023 2:20 PM EST Radiology Service Progress Note PATIENT NAME: Trinh Womack DATE OF SERVICE: September 05, 2023 TIME: 2:12 PM PATIENT IDENTITY VERIFICATION COMPLETED USING TWO (2) IDENTIFIERS: Name and Date of confirmedby patient verbally. FALL SCREENING: Has the patient had 2 falls in the last year or 1 fall with injury or currently using an Ambulatory Assistive Device (Walker, Cane, Wheelchair, Crutches, etc.)? No PATIENT GENDER DATA: Female. status: : No status: NO. PATIENT RELEVANT IMPLANT DATA REVIEWED: Yes RADIOLOGY DEPARTMENT: General X-ray: Exam(s) Completed: Chest X-Ray PERIPHERAL IV DATA: Not applicable SIGNED BY: RT Benito(R) September 05, 2023 2:12 PM documented in this encounterMarietta [facility]12-11-2023 History of Present illness Narrative* Leslye Mccluod MD - 07/31/2023 3:00 PM EST Chief Complaint Patient presents with: F/U 3 Month HPI Trinh Womack is a 73 year old female who presents here today for 3 month follow up. Here today for routine follow up. Here today with her two grandsons. Has a 1 year old granddaughterand another one is on the way. GERD: Sx controlled on Protonix 20 mg daily. DEN: Stable on Celexa 20 mg daily and Xanax 0.25 mg 1 pill BID. Did lose her sister at the end of May. HTN: Taking Losartan 100 mg daily. Checks BP at home, notes it's been a little high but has been under some increased stress at home. Denies any chest pains, dizziness, or SOB. Lipid: Not taking any cholesterol medications. Admits she could improve on diet, but does try. On her feet all day at work, works 4 days per week. 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 Asthma: Follows with Pulcrystal Ruiz. Is using Duoneb for nebulizer, Advair Diskus BID, and Albuterol inhaler prn. Has a spot on her left index finger that will get sore and split open when she's at work. Unsure what it is, wondering if it's a wart. Would like to have it cut out some time. History of breast cancer; notes that she has breast implants. Believes she has silicone implants. Has mammograms done. HM - Declined any further Covid vaccine. Past medical history, appointments, medications, allergies reviewed. Previous Medical History PAST MEDICAL HISTORY Diagnosis Date Acute sinusitis, unspecified drainage Allergic rhinitis Childhood asthma Generalized anxiety disorder Anxiety, Generalized GERD (gastroesophageal reflux disease) Malignant neoplasm of breast (female), unspecified site right breast Psoriasis and similar disorders Unspecified asthma(493.90) uses nebulizer prn Unspecified essential hypertension Essential hypertension Previous Surgical History PAST SURGICAL HISTORY Procedure Laterality Date ARTHROSCOPY KNEE DIAGNOSTIC W/WO SYNOVIAL BX SPX 2004 Arthroscopy, knee, left by [employer] AXILLARY FINE NEEDLE ASPIRATION 11/27/2008 left BREAST RECONSTRUC W LAT DORSI FLAP 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 Levi Yoder LIG/TRNSXJ FLP TUBE ABDL/VAG APPR UNI/BI Tubal ligation MASTECTOMY, PARTIAL 12/16/2008 right breast with SLND/ALND with right oncoplasty and left reduction MASTECTOMY, SIMPLE, COMPLETE 07/24/2009 right skin-sparing OOPHORECTOMY PARTIAL/TOTAL UNI/BI 1 Oophorectomy REMOVAL TISSUE DIRECTOR OF [employer] MARKET[employer] W/O INSERTION IMPLANT 09/25/2010 right breast REPLACEMENT TISSUE DIRECTOR OF [employer] MARKETING W/PERMANENT IMPLANT 06/24/2011 right perm implant Family History FAMILY HISTORY Problem Relation Age of Onset Colon Cancer Mother Cancer Father lung Heart Father other (Cirrhosis) Sister other (Other [Other]) Other no known family h/o breast or ovarian cancer Patient Allergies ALLERGIES Allergen Reactions Penicillins breathing problem years ago Current Medications Current Outpatient Medications on File Prior to Visit Medication Sig ALPRAZolam (XANAX) 0.25 mg tablet Take 1 tablet by mouth two times a day for 30 days. ipratropium-albuterol (DUONEB) 0.5 mg-3 mg(2.5 mg base)/3 mL nebu Inhale 3 mL as instructed every 4hours as needed. fluticasone-salmeterol (ADVAIR DISKUS) 100-50 mcg/dose inhaler Inhale 1 Puff as instructed twice daily. Rinse mouth out after use with water. cholecalciferol, vitamin D3, (VITAMIN D3 ORAL) Take 500 mg by mouth once daily. Biotin 10,000 mcg cap Take 10,000 mcg by mouth once daily. pantoprazole DR (PROTONIX) 20 mg tablet Take 1 tablet by mouth once daily. citalopram (CELEXA) 20 mg tablet Take 1 tablet by mouth once daily. losartan (COZAAR) 100 mg tablet Take 1 tablet by mouth once daily. albuterol HFA (PROVENTIL HFA, VENTOLIN HFA) 90 mcg/actuation inhaler Inhale 2 Puffs as instructed every 4 hours as needed. Nebulizer Accessories misc Tubing , mouthpiece; other supplies as needed CALCIUM 500 MG TAB TAKES 2 TABLETS DAILY ascorbic acid(VITAMIN C 500 MG TAB) Take one(1) tablet daily. No current facility-administered medications on file prior to visit. Social History Social History Tobacco Use Smoking status: Former Packs/day: 1.00 Years: 27.00 Additional pack years: 0.00 Total pack years: 27.00 Types: Cigarettes Quit date: 01/18/1991 Years since quittin.5 Smokeless tobacco: Never Vaping Use Vaping Use: Never used Substance Use Topics Alcohol use: No Drug use: No EXAM: BP 138/82 (BP Site: Left Arm, BP Position: Sitting, BP Cuff Size: Regular Adult) Pulse 64 Resp 18 Wt 60.6 kg (133 lb 9.6 oz) BMI 27.85 kg/m General Appearance: Well appearing, alert, in no acute distress, well-hydrated, well nourished.. Skin: Spot on tip of left index finger, appears to look like a wart. Lungs: Lungs clear to auscultation. No wheezing, rhonchi, rales.. Heart: RRR without murmur, gallop, or rubs. No ectopy. Health Maintenance List RSV Vaccine(1 - 1-dose 60+ series) Never done BP Controlled (<130/80) due on 03/09/2019 Influenza Vaccine(1) due on 04/21/2023 Covid-19 Vaccine(3 - 2022-24 season) due on 04/21/2023 Shingrix Vaccine(2 of 3) due on 11/08/2023 Annual PCP Team Chronic Disease Visit due on 05/01/2024 Colorectal Cancer Screening due on 05/08/2024 DTaP,Tdap,Td Vaccine(3 - Td or Tdap) due on 02/05/2025 Diabetes Screening due on 03/06/2026 Lipid Screening due on 03/06/2028 Bone Density Screening Completed Spirometry Completed Advance Directive Discussion Completed Depression Assessment Completed Hepatitis C Screening Completed Pneumococcal Vaccine: 65+ Completed HPV Vaccine Aged Out Mammogram Screening Discontinued Data reviewed None ASSESSMENT/PLAN: 1. Anxiety - ICD9: 300.00, ICD10: F41.9 (primary diagnosis) - Stable with use of medication, no issues. - Continue current medication regimen. - ALPRAZOLAM 0.25 MG TABLET 2. BENIGN HYPERTENSION - ICD9: 401.1, ICD10: I10 - Controlled - Continue current medications - Recommend home blood pressure monitoring, to bring results to next visit - Encouraged sodium restriction, DASH or Mediterranean diet - Recommend regular aerobic exercise 3. Hyperlipidemia, unspecified hyperlipidemia type - ICD9: 272.4, ICD10: E78.5 - Currently on no medication - Counseled on healthy diet and regular exercise 4. Gastroesophageal reflux disease, unspecified whether esophagitis present - ICD9: 530.81, ICD10: K21.9 - Stable - Continue current medication regimen. 5. Mild intermittent asthma without complication - ICD9: 493.90, ICD10: J45.20 - Mild intermittent asthma stable - Continue current medications - Avoidance of triggers recommended 6. Personal history of malignant neoplasm of breast - ICD9: V10.3, ICD10: Z85.3 - Stable 7. Viral wart on finger - ICD9: 078.10, ICD10: B07.9 - Consult to Derm due to a few areas on her hand and area bothersome on her left index finger. - CONSULT TO DERMATOLOGY 3 mo f/u I agree with the Chief Complaint, ROS, and Past Histories independently gathered by the clinical direct support worker and the remaining scribed note accurately describes my personal service to the patient. Medical Decision Making: Problems: Moderate: 2+ stable chronic illnesses Risk: Moderate: Drug management Medical Decision Making Level: 4 - Moderate Leslye Mccloud MD The documentation for this note was completed by Leni Castano Ma acting as scribe for Leslye Mccloud MD. July 31, 2023 2:58 PM. Lnei Castano Ma documented in this encounterM[facility]09-11-2023 Instructions* Patient Instructions* Kathie Echeverria APRN.CNP - 05/01/2023 10:18 AM EDT Start Zpack take as directed. Start Prednisone 20 mg daily with food. Stay well hydrated, may use over the counter cold and cough medication as needed. Continue to take all medications as prescribed. May get flu vaccine later in the fall. Continue with breathing treatments as needed for shortness of breath or wheezing. Follow up in 3 months or sooner as needed. documented in this encounterM[facility]09-11-2023 History of Present illness Narrative* Kathie Echeverria APRN.CNP - 05/01/2023 10:00 AM EDT This is a 72 year old female who presents today with: Patient presents with: Follow Up: 3 month follow up HISTORY OF PRESENT ILLNESS: Trinh Womack is a 72 year old female. Patient presents with: Follow Up: 3 month follow up 3 month follow up GERD: Taking Protonix 20 mg daily. Symptoms well controlled with medication. HTN: Taking losartan 100 mg daily. Checking blood pressure at home, 140/70. Denies chest pain, palpitations, dizziness, or edema DEN: Taking Celexa 20 mg daily and Xanax 0.5 mg twice daily as needed. Denies any increased sadnessor anxiety/SI/HI Asthma: Using albuterol inhaler and nebulizer as needed. recurrent bronchitis infections several times in the spring. Establish care with pulmonology, Dr. Ruiz. Recommend that she continue to use Advair as prescribed. May consider using an anticholinergic nasal spray in the future. Cough started last Monday, coughing up yellow mucus. SOB due to cough. Feels weak. No fever or chills. Has been using Mucinex and cold medication. No fever. History of breast cancer, currently has silicone breast implants. Colonoscopy: Due for stool testing Vaccines: Denied wanting any vaccines. PAST MEDICAL HISTORY: PAST MEDICAL HISTORY Diagnosis Date Acute sinusitis, unspecified drainage Allergic rhinitis Childhood asthma Generalized anxiety disorder Anxiety, Generalized GERD (gastroesophageal reflux disease) Malignant neoplasm of breast (female), unspecified site right breast Psoriasis and similar disorders Unspecified asthma(493.90) uses nebulizer prn Unspecified essential hypertension Essential hypertension PAST SURGICAL HISTORY Procedure Laterality Date ARTHROSCOPY KNEE DIAGNOSTIC W/WO SYNOVIAL BX SPX 2004 Arthroscopy, knee, left by [employer] AXILLARY FINE NEEDLE ASPIRATION 11/27/2008 left BREAST RECONSTRUC W LAT DORSI FLAP 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 Levi Yoder LIG/TRNSXJ FLP TUBE ABDL/VAG APPR UNI/BI Tubal ligation MASTECTOMY, PARTIAL 12/16/2008 right breast with SLND/ALND with right oncoplasty and left reduction MASTECTOMY, SIMPLE, COMPLETE 07/24/2009 right skin-sparing OOPHORECTOMY PARTIAL/TOTAL UNI/BI 1 Oophorectomy REMOVAL TISSUE DIRECTOR OF [employer] MARKETING W/O INSERTION IMPLANT 09/25/2010 right breast REPLACEMENT TISSUE DIRECTOR OF [employer] MARKETING W/PERMANENT IMPLANT 06/24/2011 right perm implant ALLERGIES Penicillins MEDICATIONS Current Outpatient Medications Medication Sig ALPRAZolam (XANAX) 0.25 mg tablet Take 1 tablet by mouth twice daily for 90 days. fluticasone-salmeterol (ADVAIR DISKUS) 100-50 mcg/dose inhaler Inhale 1 Puff as instructed twice daily. Rinse mouth out after use with water. cholecalciferol, vitamin D3, (VITAMIN D3 ORAL) Take 500 mg by mouth once daily. Biotin 10,000 mcg cap Take 10,000 mcg by mouth once daily. pantoprazole DR (PROTONIX) 20 mg tablet Take 1 tablet by mouth once daily. citalopram (CELEXA) 20 mg tablet Take 1 tablet by mouth once daily. losartan (COZAAR) 100 mg tablet Take 1 tablet by mouth once daily. albuterol HFA (PROVENTIL HFA, VENTOLIN HFA) 90 mcg/actuation inhaler Inhale 2 Puffs as instructed every 4 hours as needed. ipratropium-albuterol (DUONEB) 0.5 mg-3 mg(2.5 mg base)/3 mL nebu Inhale 3 mL as instructed every 4hours as needed. Nebulizer Accessories misc Tubing , mouthpiece; other supplies as needed CALCIUM 500 MG TAB TAKES 2 TABLETS DAILY ascorbic acid(VITAMIN C 500 MG TAB) Take one(1) tablet daily. No current facility-administered medications for this visit. FAMILY HISTORY Problem Relation Age of Onset Colon Cancer Mother Cancer Father lung Heart Father other (Cirrhosis) Sister other (Other [Other]) Other no known family h/o breast or ovarian cancer Social History Tobacco Use Smoking status: Former Packs/day: 1.00 Years: 27.00 Additional pack years: 0.00 Total pack years: 27.00 Types: Cigarettes Quit date: 01/18/1991 Years since quittin.3 Smokeless tobacco: Never Vaping Use Vaping Use: Never used Substance Use Topics Alcohol use: No Drug use: No REVIEW OF SYSTEMS GENERAL: No weight loss, malaise or fevers/chills HEENT: Negative for frequent or significant headaches, No changes in hearing or vision. NECK: Negative for lumps, goiter, pain and significant neck swelling RESPIRATORY: + Cough CARDIOVASCULAR: Negative for chest pain, leg swelling, orthopnea, or palpitations GI: No nausea, vomiting, or diarrhea/constipation. No hematochezia/melena. No heartburn or reflux symptoms. : No history of dysuria, frequency or incontinence MUSCULOSKELETAL: Negative for joint pain or swelling. SKIN: Negative for lesions, rash, and itching ENDOCRINE: Negative for cold or heat intolerance, polyuria, polydipsia and goiter NEURO: No history of headaches, syncope, paralysis, seizures or tremors MOOD: Negative for depression, anxiety, or suicidal ideation. EXAM: BP 150/82 Pulse 71 Temp 37.3 C (99.1 F) Resp 20 Wt 60.3 kg (133 lb) SpO2 100% BMI 27.73kg/m PHYSICAL EXAM: General Appearance: Ill appearing, alert, in no acute distress, well-hydrated, well nourished. Skin: Skin color, texture, turgor normal, no suspicious rashes or lesions. Head: Normocephalic, no masses, lesions, tenderness or abnormalities. Eyes: Anicteric sclera. Extraocular movements are intact. Ears: External ears normal, canals clear. TMs pearly balbuena. Nose/Sinuses: Positive findings: clear rhinorrhea. Oropharynx: Positive findings: mild oropharyngeal erythema. Neck: Supple, no adenopathy; thyroid symmetric, normal size, no bruits. Lungs: Positive findings: wheezing Cough. Heart: RRR without murmur, gallop, or rubs. No ectopy. Extremities: No deformities, edema, skin discoloration, clubbing or cyanosis. Good capillary refill. Peripheral Pulses: Normal, Capillary refill <2secs, strong peripheral pulses, Pulses palpable. Neurologic: Gait normal. Sensation grossly intact. ASSESSMENT/PLAN: 1. Bronchitis - ICD9: 490, ICD10: J40 (primary diagnosis) - Treat with Zpack and prednisone 20 mg daily 5 days. - May continue with supportive care at home, may use [id number] cold and cough medications asneeded. - AZITHROMYCIN 250 MG TABLET - PREDNISONE 20 MG TABLET - IPRATROPIUM 0.5 MG-ALBUTEROL 3 MG (2.5 MG BASE)/3 ML NEBULIZATION SOLN 2. BENIGN HYPERTENSION - ICD9: 401.1, ICD10: I10 - Home blood pressure readings controlled - Continue current medications - Recommend home blood pressure monitoring, to bring results to next visit - Encouraged sodium restriction, DASH or Mediterranean diet - Recommend regular aerobic exercise 3. Mild intermittent asthma without complication - ICD9: 493.90, ICD10: J45.20 - Mild intermittent asthma acute excacerbation no respiratory distress - Continue current medications - Avoidance of triggers recommended - Asthma Action Plan reviewed - IPRATROPIUM 0.5 MG-ALBUTEROL 3 MG (2.5 MG BASE)/3 ML NEBULIZATION SOLN 4. Anxiety - ICD9: 300.00, ICD10: F41.9 - Stable, continue current medication. 5. Gastroesophageal reflux disease, unspecified whether esophagitis present - ICD9: 530.81, ICD10: K21.9 - Stable, continue current medication. 6. Personal history of malignant neoplasm of breast - ICD9: V10.3, ICD10: Z85.3 - In Remission 7. Screening for colon cancer - ICD9: V76.51, ICD10: Z12.11 - FECAL OCCULT BLOOD TEST Follow-up in 3 months or sooner as needed. Discussed treatment plan and patient voices understanding. Patient's questions answered appropriately. Medications and potential side effects were discussed and patient voices understanding. Ktahie Echeverria APRN.CERTIFIED NURSE AIDE This note was partially generated using [employer] voice recognition system. Note was reviewed for accuracy. There may be minor misspellings or grammar miscues with [employer] voice recognition. documented in this encounterMari[facility]08-24-2023 Miscellaneous Notes* Telephone Encounter - Leslye Mccloud MD - 04/13/2023 4:55 PM EDT OK to refill as ordered Leslye Mccloud MD * Telephone Encounter - Jessica Miranda - 04/13/2023 4:37 PM EDT Patient is calling she does not understand what the problem is, she needs a new prescription. Please send today. Please call her once submitted. * Telephone Encounter - Rut Wen RN - 04/12/2023 1:06 PM EDT Patient calls and states that she does not have a refill on prescription. Called and spoke with Liam at [facility] who confirms that patient does not have prescription. Please send in new prescription. Rut Wen RN * Telephone Encounter - Jenni Bui LPN - 04/12/2023 12:56 PM EDT Patient notified of results, verbalizes understanding of instructions. Jenni Bui LPN * Telephone Encounter - Kathie Echeverria APRN.CNP - 04/12/2023 12:24 PM EDT Can you please call the patient and let her know that she should have 1 more refill available at the pharmacy. Thank you. Kathie Echeverria APRN.ALCIRA * Telephone Encounter - Neena Murphy - 04/12/2023 11:36 AM EDT Patient has been identified by name and date of : Yes Last office visit in this department: 02/06/2023 Labs-03/06/23 NOV-05/01/23 RX INSTRUCTIONS: Patient aware RX will be sent to pharmacy. No need to notify patient. Patient phones requesting refills as follows: Requested Prescriptions Pending Prescriptions Disp Refills ALPRAZolam (XANAX) 0.25 mg tablet 60 tablet 2 Sig: Take 1 tablet by mouth twice daily for 90 days. Please review and advise. Neena Hurd documented in this encounterMarietta [facility]08-07-2023 History of Present illness Narrative* Georgiana Ruiz MD - 03/27/2023 8:00 AM EDT Images from the original note were not included. . Respiratory Convoy Note Patient name: Trinh Womack PCP: Leslye Mccloud MD Referring Physician: Kathie Echeverria CNP Consultation requested by Kathie Echeverria for an opinion regarding asthma, recurrent bronchitis. My final recommendations will be communicated back to the requesting physician by way of shared Medicalrecord or letter to requesting physician via US mail. CC: recurrent bronchitis HPI: Trinh Womack 72 year old female former 27 pack year smoker, quitting 1990 with PMH significant for childhood asthma, right breast cancer 2008 (XRT, chemo, Tamoxifen 5 years), psoriasis, HTN, GERD, chronic rhinitis being referred for evaluation of asthma and chronic bronchitis. Has a long history of asthma starting in childhood. She had not previously been on controller inhaler therapy. She relates a history of recurrent bronchitis, every other month requiring antibiotics. Occasionally will be treated with steroids as well. Episodes started out as increased shortness of breath and fatigue followed by chest congestion, productive cough. No audible wheezing. No nocturnal awakenings. Shortness of breath worsened by exposure to humidity. She has a longstanding history of postnasal dripnot responsive to nasal steroids or OTC antihistamines. Recently started on Advair 100/50 with improvement in her symptoms. She has not had an episode of bronchitis since starting inhaled therapy. She denies any shortness of breath or chest tightness at this time. Also feels as if she has more energy and endurance. DATA: SERVICE DATE: 02/20/2023 SERVICE TIME: 2:37 PM Oral Exhaled Nitric Oxide measurement: <5.0 (ppb) PFT 02/20/23: Review pulmonary function test show mild obstruction with improvement in small airways obstruction postbronchodilator. Minimal air trapping Labs: Most recent CBC with diff: no eosinophilia Imaging / Diagnostic Studies: CXR from [facility] 08/2021: Reviewed and only pertinent for eventration of diaphragm PAST MEDICAL HISTORY Diagnosis Date Acute sinusitis, unspecified drainage Allergic rhinitis Childhood asthma Generalized anxiety disorder Anxiety, Generalized GERD (gastroesophageal reflux disease) Malignant neoplasm of breast (female), unspecified site right breast Psoriasis and similar disorders Unspecified asthma(493.90) uses nebulizer prn Unspecified essential hypertension Essential hypertension ALLERGIES Allergen Reactions Penicillins breathing problem years ago fluticasone-salmeterol (ADVAIR DISKUS) 100-50 mcg/dose inhaler Inhale 1 Puff as instructed twice daily. Rinse mouth out after use with water. cholecalciferol, vitamin D3, (VITAMIN D3 ORAL) Take 500 mg by mouth once daily. Biotin 10,000 mcg cap Take 10,000 mcg by mouth once daily. ALPRAZolam (XANAX) 0.25 mg tablet Take 1 tablet by mouth twice daily for [address] (PROTONIX) 20 mg tablet Take 1 tablet by mouth once daily. citalopram (CELEXA) 20 mg tablet Take 1 tablet by mouth once daily. losartan (COZAAR) 100 mg tablet Take 1 tablet by mouth once daily. albuterol HFA (PROVENTIL HFA, VENTOLIN HFA) 90 mcg/actuation inhaler Inhale 2 Puffs as instructed every 4 hours as needed. ipratropium-albuterol (DUONEB) 0.5 mg-3 mg(2.5 mg base)/3 mL nebu Inhale 3 mL as instructed every 4hours as needed. Nebulizer Accessories misc Tubing , mouthpiece; other supplies as needed CALCIUM 500 MG TAB TAKES 2 TABLETS DAILY ascorbic acid(VITAMIN C 500 MG TAB) Take one(1) tablet daily. Social History Tobacco Use Smoking status: Former Packs/day: 1.00 Years: 27.00 Total pack years: 27.00 Types: Cigarettes Quit date: 01/18/1991 Years since quittin.2 Smokeless tobacco: Never Vaping Use Vaping Use: Never used Substance Use Topics Alcohol use: No Drug use: No Used to work at [employer]. 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 [employer] Pets: Dog FAMILY HISTORY Problem Relation Age of Onset Colon Cancer Mother Cancer Father lung Heart Father other (Cirrhosis) Sister other (Other [Other]) Other no known family h/o breast or ovarian cancer PAST SURGICAL HISTORY Procedure Laterality Date ARTHROSCOPY KNEE DIAGNOSTIC W/WO SYNOVIAL BX SPX 2004 Arthroscopy, knee, left by [employer] AXILLARY FINE NEEDLE ASPIRATION 11/27/2008 left BREAST RECONSTRUC W LAT DORSI FLAP 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 Levi Yoder LIG/TRNSXJ FLP TUBE ABDL/VAG APPR UNI/BI Tubal ligation MASTECTOMY, PARTIAL 12/16/2008 right breast with SLND/ALND with right oncoplasty and left reduction MASTECTOMY, SIMPLE, COMPLETE 07/24/2009 right skin-sparing OOPHORECTOMY PARTIAL/TOTAL UNI/BI 1 Oophorectomy REMOVAL TISSUE DIRECTOR OF PARTNER MARKETING W/O INSERTION IMPLANT 09/25/2010 right breast REPLACEMENT TISSUE DIRECTOR OF PARTNER MARKETING W/PERMANENT IMPLANT 06/24/2011 right perm implant PMH, Social history, family history and surgical history reviewed and updated ine EMR REVIEW OF SYSTEMS: CONSTITUTIONAL: No fevers, chills, nightsweats, unintended weight loss. Intermittent fatigue HEENT: Constant nasal congestion/sinus symptoms and drainage. No history of allergies EYES: No diplopia or blurry vision, itchy eyes CARDIOVASCULAR: No chest pain, dyspnea, palpitations, orthopnea, PND, edema. PULM: See HPI GI: No dysphagia/odynophagia, problematic reflux, constipation, diarrhea, changes in stool habits. History of reflux but symptoms controlled with proton pump inhibitor : No urinary complaints, including dysuria, gross hematuria or pyuria. NEURO: No new balance problems, peripheral weakness/paresthesias or numbness of concern. MUSC-SKEL: No joint pain, swelling, or erythema. PSY: No concerns regarding depression, anxiety INTEGUMENTARY: No rashes. Dry and cracking fingertips PHYSICAL EXAMINATION: BP 130/76 Pulse 52 Resp 14 Wt 133 lb (60.3kg) SpO2 100% General Appearance: Age appropriate, NAD. Skin: Skin color, texture, turgor normal, no suspicious rashes or lesions. Head: Normocephalic, no masses, lesions, tenderness or abnormalities. Eyes: Sclera, conjunctive normal. Oropharynx: No oral lesions, thrush, or cobblestoning. Neck: No JVD, no masses, no TM. Chest wall: Mild kyphosis Lungs: Not labored, normal to percussion, no wheezing, crackles Heart: RRR, no murmur or gallops. Extremities: No edema, no clubbing. Mild mechanics hands Musculoskeletal: No major joint abnormalities or effusions. Neurologic: Alert and oriented. Lymph Nodes: No cervical lymphadenopathy and No supraclavicular lymphadenopathy. Assessment/Plan: 1. Mild intermittent asthma, uncomplicated -Clinical history and pulmonary function tests consistent with asthma as the etiology for her recurrent bronchitis -She will continue Advair at current dosage with as needed albuterol 2. Nonallergic rhinitis -Recommended trial of anticholinergic nasal spray but patient declining at this time I spent a total of 41 minutes on the date of the service which included preparing to see the patient, [id number] patient care, completing clinical documentation, obtaining and/or reviewing separately obtained history, performing a medically appropriate examination, counseling and educating the pat ient/family/caregiver, and independently interpreting results (not separately reported). Activity Duration Chart accessed 5 minutes Exam room 22 minutes Chart accessed 5 minutes Current session 9 minutes Total time: 43 minutes Georgiana Ruiz MD Respiratory Convoy documented in this encounterM[facility]07-26-[facility]23 Miscellaneous Notes* Telephone Encounter - Herb Dinh APRN.CNP - 03/15/2023 9:40 AM EDT Patient read [employer] message. Herb Dinh APRN.CNP * Telephone Encounter - Jenni Bui LPN - 03/09/2023 9:33 AM EDT Unable to reach Pt via phone. Sent [facility] message of results. Jenni Bui LPN * Telephone Encounter - Kathie Echeverria APRN.CNP - 03/09/2023 8:22 AM EDT Can you please call the patient and let her know that I reviewed her lab results. Labs were relatively normal, except LDL cholesterol was elevated. I would recommend lifestyle changes at home, try to decrease any processed foods in the diet, increase lean protein, vegetables, and get some form exercise. Please let me know if she has any questions. Thank you. Kathie Echeverria APRN.CNP documented in this encounterMari[facility]07-05-2023 Miscellaneous Notes* Telephone Encounter - Kathie Echeverria APRN.CNP - 02/22/2023 5:26 PM EDT The following approved medication requests have been transmitted electronically. Requested Prescriptions Signed Prescriptions Disp Refills fluticasone-salmeterol (ADVAIR DISKUS) 100-50 mcg/dose inhaler 60 Each 11 Sig: Inhale 1 Puff as instructed twice daily. Rinse mouth out after use with water. Authorizing Provider: KATHIE ECHEVERRIA APRN.CNP * Telephone Encounter - Jenni Bui LPN - 02/22/2023 5:13 PM EDT Patient notified of results, verbalizes understanding of instructions. Pt agrees on using an inhaler daily. Pharm is [facility]. Jenni Bui LPN * Telephone Encounter - Kathie Echeverria APRN.CNP - 02/22/2023 4:26 PM EDT Can you please call the patient and let her know that I reviewed her recent pulmonary function test. Testing shows some mild obstruction. I know that she is currently only using albuterol as needed. I would recommend a maintenance inhaler that would be used daily. Then if she experiences any additional shortness of breath or wheezing she can use the albuterol. If she is agreeable to this plan please verify pharmacy. She can keep upcoming appointment with pulmonology. Thank you. Kathie Echeverria APRN.CNP documented in this encounterM[facility]06-02-2023 Miscellaneous Notes* Telephone Encounter - Marie Castellanos Ma - 01/20/2023 2:44 PM EDT Pt notified via identified VM. Marie Castellanos Ma * Telephone Encounter - Leni Castano Ma - 01/20/2023 2:09 PM EDT Attempted to reach pt x 2, but received busy signal. Will try calling again later. Leni Castano Ma * Telephone Encounter - Leslye Mccloud MD - 01/20/2023 1:55 PM EDT OK for Zpak as ordered Leslye Mccloud MD * Telephone Encounter - Jasmine Pizarro RN - 01/20/2023 11:28 AM EDT Patient calls to request antibiotic be sent to [facility] for her chronic bronchitis thatacts up every month. Patient reports current symptoms are croupy sounding productive cough with yellow phlegm, tired, weak, SOB per usual but worsens when coughing. Afebrile. Symptoms started on Monday. Declined visit with available provider. Declined EC evaluation. Pended requested med. Please review and advise, Jasmine Pizarro RN documented in this encounterM[facility]04-28-2023 Miscellaneous Notes* Telephone Encounter - Herb Dinh APRN.CNP - 12/16/2022 1:46 PM EDT The following approved medication requests have been transmitted electronically. Requested Prescriptions Pending Prescriptions Disp Refills pantoprazole DR (PROTONIX) 20 mg tablet 90 tablet 3 Sig: Take 1 tablet by mouth once daily. Herb Dinh APRN.CNP * Telephone Encounter - Savita Nicholson LPN - 12/16/2022 1:42 PM EDT [facility] 12/12/22 NOV 02/06/23 * Telephone Encounter - Yuly Fitzgerald - 12/16/2022 1:37 PM EDT Patient phones requesting refills as follows: Requested Prescriptions Pending Prescriptions Disp Refills pantoprazole DR (PROTONIX) 20 mg tablet 90 tablet 3 Sig: Take 1 tablet by mouth once daily. Please review and advise. Yuly Fitzgerald documented in this encounterMari[facility]04-27-2023 Miscellaneous Notes* Telephone Encounter - Pricila Nicolas LPN - 12/15/2022 5:01 PM EDT Pt returns call gave information provided. Pt voices understanding. * Telephone Encounter - Marta Arshad - 12/15/2022 3:37 PM EDT TC patient and sister Jenni answered and will have patient contact the office for results Marta Arshad * Telephone Encounter - Kathie Echeverria APRN.CNP - 12/15/2022 3:27 PM EDT Can you please call the patient and let her know that I reviewed her lab results. Lab results were all relatively normal. However vitamin D was low normal. I would recommend that she take a minimum of 2000 international units daily. At this time I do not see any causes for her weakness/fatigue. I would continue supportive care at home, ensure that she is staying well-hydrated. Please let me know if she has any questions.Thank you. Kathie Echeverria APRN.ALCIRA documented in this encounterMari[facility]04-24-2023 Instructions* Patient Instructions* Kathie Echeverria APRN.CNP - 12/12/2022 11:51 AM EDT Start antibiotic ear drop, use as directed. Do not stick anything into the ears. After infection has cleared may consider using debrox ear drops as needed to help with ear wax build up. May use tylenol as needed for pain. Follow up as needed. documented in this encounterMari[facility]04-24-2023 History of Present illness Narrative* Kathie Echeverria APRN.CNP - 12/12/2022 11:40 AM EDT This is a 72 year old female who presents today with: Patient presents with: Follow Up: Both ears check HISTORY OF PRESENT ILLNESS: Trinh Womack is a 72 year old female. Patient presents with: Follow Up: Both ears check Here in the office for ear lavage. Last week at had bilateral ear cerumen impaction. Has been using debrox ear drops in both ears. Right ear feels plugged. Hearing is muffled with mild pain. Refers that small amount cerumen did come out of both ears. 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 Levi Yoder LIG/TRNSXJ FLP TUBE ABDL/VAG APPR UNI/BI Tubal ligation MASTECTOMY, PARTIAL 12/16/2008 right breast with SLND/ALND with right oncoplasty and left reduction MASTECTOMY, SIMPLE, COMPLETE 07/24/2009 right skin-sparing OOPHORECTOMY PARTIAL/TOTAL UNI/BI 1 Oophorectomy REMOVAL TISSUE DIRECTOR OF PARTNER MARKETING W/O INSERTION IMPLANT 09/25/2010 right breast REPLACEMENT TISSUE DIRECTOR OF PARTNER MARKETING W/PERMANENT IMPLANT 06/24/2011 right perm implant ALLERGIES Penicillins MEDICATIONS Current Outpatient Medications Medication Sig azithromycin (ZITHROMAX Z-RUPERT) 250 mg tablet Take 2 tablets day one, then, 1 tablet daily until gone. citalopram (CELEXA) 20 mg tablet Take 1 tablet by mouth once daily. losartan (COZAAR) 100 mg tablet Take 1 tablet by mouth once daily. ALPRAZolam (XANAX) 0.25 mg tablet Take 1 tablet by mouth twice daily for [address] (PROTONIX) 20 mg tablet Take 1 tablet by mouth once daily. albuterol HFA (PROVENTIL HFA, VENTOLIN HFA) 90 mcg/actuation inhaler Inhale 2 Puffs as instructed every 4 hours as needed. ipratropium-albuterol (DUONEB) 0.5 mg-3 mg(2.5 mg base)/3 mL nebu Inhale 3 mL as instructed every 4hours as needed. Nebulizer Accessories misc Tubing , mouthpiece; other supplies as needed CALCIUM 500 MG TAB TAKES 2 TABLETS DAILY ascorbic acid(VITAMIN C 500 MG TAB) Take one(1) tablet daily. No current facility-administered medications for this visit. FAMILY HISTORY Problem Relation Age of Onset other (Other [Other]) Other no known family h/o breast or ovarian cancer Colon Cancer Mother Cancer Father lung Heart Father Social History Tobacco Use Smoking status: Former Packs/day: 1.00 Years: 27.00 Pack years: 27.00 Types: Cigarettes Quit date: 01/18/1991 Years since quittin.9 Smokeless tobacco: Never Vaping Use Vaping Use: Never used Substance Use Topics Alcohol use: No Drug use: No REVIEW OF SYSTEMS GENERAL: No weight loss, malaise or fevers/chills HEENT: + Right ear pain and muffled hearing NECK: Negative for lumps, goiter, pain and significant neck swelling RESPIRATORY: Negative for cough, hemoptysis, wheezing, dyspnea or shortness of breath CARDIOVASCULAR: Negative for chest pain, leg swelling, orthopnea, or palpitations GI: No nausea, vomiting, or diarrhea/constipation. No hematochezia/melena. No heartburn or reflux symptoms. : No history of dysuria, frequency or incontinence MUSCULOSKELETAL: Negative for joint pain or swelling. SKIN: Negative for lesions, rash, and itching ENDOCRINE: Negative for cold or heat intolerance, polyuria, polydipsia and goiter NEURO: No history of headaches, syncope, paralysis, seizures or tremors MOOD: Negative for depression, anxiety, or suicidal ideation. EXAM: BP 152/78 Pulse 66 Resp 16 Wt 59.9 kg (132 lb) SpO2 98% BMI 26.66 kg/m PHYSICAL EXAM: General Appearance: Well appearing, alert, in no acute distress, well-hydrated, well nourished. Skin: Skin color, texture, turgor normal, no suspicious rashes or lesions. Head: Normocephalic, no masses, lesions, tenderness or abnormalities. Eyes: Anicteric sclera. Extraocular movements are intact. Ears: Positive findings: erythema and edema of ear canal: on right, Bilateral TM's pearly balbuena. Moderate amount of cerumen removed with ear lavage. Extremities: No deformities, edema, skin discoloration, clubbing or cyanosis. Good capillary refill. Peripheral Pulses: Normal, Capillary refill <2secs, strong peripheral pulses, Pulses palpable. Neurologic: Gait normal. Sensation grossly intact. ASSESSMENT/PLAN: 1. Bilateral impacted cerumen - ICD9: 380.4, ICD10: H61.23 (primary diagnosis) - Ear cerumen removed with ear lavage without any difficulty. - REMOVAL OF IMPACTED CERUMEN - INSTRUMENTATION 2. Acute otitis externa of right ear, unspecified type - ICD9: 380.10, ICD10: H60.501 - Start ear drop as prescribed. - [id number] 3.5 MG-10,000 UNIT/ML-1 % EAR DROPS,SUSP Follow-up as needed or sooner if symptoms do not improve Discussed treatment plan and patient voices understanding. Patient's questions answered appropriately. Medications and potential side effects were discussed and patient voices understanding. Kathie Echeverria APRN.CNP This note was partially generated using [employer]ights voice recognition system. Note was reviewed for accuracy. There may be minor misspellings or grammar miscues with pan[employer]on voice recognition. documented in this encounterM[facility]04-19-2023 Instructions* Patient Instructions* Kathie Echeverria APRN.CNP - 12/07/2022 11:18 AM EDT Get labs completed Start Zpack, take as directed. May use over the counter cold and cough medications as needed. Use Debrox ear drops, 5 drops in both ears. May follow up for ear flushing if needed. Follow up pending test results or sooner as needed. documented in this encounterM[facility]04-19-2023 History of Present illness Narrative* Kathie Echeverria APRN.CNP - 12/07/2022 11:00 AM EDT This is a 72 year old female who presents today with: Patient presents with: Acute Visit: fatique, cold sysmtoms HISTORY OF PRESENT ILLNESS: Trinh Womack is a 72 year old female. Patient presents with: Acute Visit: erick, cold sysmtoms Here in the office for cold symptoms. Called into office earlier this month with ongoing dizziness and weakness was referred to the ER, refers she did not go. Dizziness has improved. Only had the 2 episodes of dizziness. Some mild on going weakness and over all not feeling well. Developed a cough 4days ago. Cough: Refers she has chronic bronchitis. Was treated last month with zpack. Has been using mucinexas needed. [place] well once last treatment was completed. Feels like she cannot get enough air in andout. No Wheezing, fever, or chills. Has been using albuterol as needed./ PAST MEDICAL HISTORY: PAST MEDICAL HISTORY Diagnosis Date Acute sinusitis, unspecified drainage Generalized anxiety disorder Anxiety, Generalized Malignant neoplasm of breast (female), unspecified site right breast Psoriasis and similar disorders Unspecified asthma(493.90) uses nebulizer prn Unspecified essential hypertension Essential hypertension PAST SURGICAL HISTORY Procedure Laterality Date ARTHROSCOPY KNEE DIAGNOSTIC W/WO SYNOVIAL BX SPX 2004 Arthroscopy, knee, left by [employer] AXILLARY FINE NEEDLE ASPIRATION 11/27/2008 left BREAST RECONSTRUC W LAT DORSI FLAP 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 Levi Yoder LIG/TRNSXJ FLP TUBE ABDL/VAG APPR UNI/BI Tubal ligation MASTECTOMY, PARTIAL 12/16/2008 right breast with SLND/ALND with right oncoplasty and left reduction MASTECTOMY, SIMPLE, COMPLETE 07/24/2009 right skin-sparing OOPHORECTOMY PARTIAL/TOTAL UNI/BI 1 Oophorectomy REMOVAL TISSUE DIRECTOR OF [employer] MARK[employer]ING W/O INSERTION IMPLANT 09/25/2010 right breast REPLACEMENT TISSUE DIRECTOR OF [employer] MARKETING W/PERMANENT IMPLANT 06/24/2011 right perm implant ALLERGIES Penicillins MEDICATIONS Current Outpatient Medications Medication Sig citalopram (CELEXA) 20 mg tablet Take 1 tablet by mouth once daily. losartan (COZAAR) 100 mg tablet Take 1 tablet by mouth once daily. ALPRAZolam (XANAX) 0.25 mg tablet Take 1 tablet by mouth twice daily for [address] (PROTONIX) 20 mg tablet Take 1 tablet by mouth once daily. albuterol HFA (PROVENTIL HFA, VENTOLIN HFA) 90 mcg/actuation inhaler Inhale 2 Puffs as instructed every 4 hours as needed. ipratropium-albuterol (DUONEB) 0.5 mg-3 mg(2.5 mg base)/3 mL nebu Inhale 3 mL as instructed every 4hours as needed. Nebulizer Accessories misc Tubing , mouthpiece; other supplies as needed CALCIUM 500 MG TAB TAKES 2 TABLETS DAILY ascorbic acid(VITAMIN C 500 MG TAB) Take one(1) tablet daily. No current facility-administered medications for this visit. FAMILY HISTORY Problem Relation Age of Onset other (Other [Other]) Other no known family h/o breast or ovarian cancer Colon Cancer Mother Cancer Father lung Heart Father Social History Tobacco Use Smoking status: Former Packs/day: 1.00 Years: 27.00 Pack years: 27.00 Types: Cigarettes Quit date: 01/18/1991 Years since quittin.9 Smokeless tobacco: Never Vaping Use Vaping Use: Never used Substance Use Topics Alcohol use: No Drug use: No REVIEW OF SYSTEMS GENERAL: No weight loss, malaise or fevers/chills + Weakness HEENT: Negative for frequent or significant headaches, No changes in hearing or vision. NECK: Negative for lumps, goiter, pain and significant neck swelling RESPIRATORY: + Cough CARDIOVASCULAR: Negative for chest pain, leg swelling, orthopnea, or palpitations GI: No nausea, vomiting, or diarrhea/constipation. No hematochezia/melena. No heartburn or reflux symptoms. : No history of dysuria, frequency or incontinence MUSCULOSKELETAL: Negative for joint pain or swelling. SKIN: Negative for lesions, rash, and itching ENDOCRINE: Negative for cold or heat intolerance, polyuria, polydipsia and goiter NEURO: No history of headaches, syncope, paralysis, seizures or tremors MOOD: Negative for depression, anxiety, or suicidal ideation. EXAM: BP 170/82 Pulse 65 Temp 37 C (98.6 F) (Left Tympanic) Resp 16 Wt 60.8 kg (134 lb) SpO2 98% BMI 27.06 kg/m PHYSICAL EXAM: General Appearance: Well appearing, alert, in no acute distress, well-hydrated, well nourished. Skin: Skin color, texture, turgor normal, no suspicious rashes or lesions. Head: Normocephalic, no masses, lesions, tenderness or abnormalities. Eyes: Anicteric sclera. Extraocular movements are intact. Ears: External ears normal, canals clear. + Bilateral cerumen impaction noted. Unable to remove with curette. Unable to visualize TMs. Nose/Sinuses: Nares normal, septum midline, mucosa normal, no drainage or sinus tenderness. Oropharynx: Positive findings: mild oropharyngeal erythema. Neck: Supple, no adenopathy; thyroid symmetric, normal size, no bruits. Lungs: Decreased lung sounds. Heart: RRR without murmur, gallop, or rubs. No ectopy. Extremities: No deformities, edema, skin discoloration, clubbing or cyanosis. Good capillary refill. . Peripheral Pulses: Normal, Capillary refill <2secs, strong peripheral pulses, Pulses palpable. Neurologic: Gait normal. Sensation grossly intact.. ASSESSMENT/PLAN: 1. Bronchitis - ICD9: 490, ICD10: J40 (primary diagnosis) - Start Zpack - Continue with albuterol as needed for shortness of breath or wheezing. - May use mzli-seu-sydhuod cold and cough medications as needed for symptom management - AZITHROMYCIN 250 MG TABLET 2. Generalized weakness - ICD9: 780.79, ICD10: R53.1 - Get the following labs completed. - IRON + TIBC - FERRITIN BLD - TSH BLD - VITAMIN D 25 HYDROXY - VITAMIN B12 BLOOD - FOLATE SERUM 3. Bilateral impacted cerumen - ICD9: 380.4, ICD10: H61.23 - Recommend using Debrox eardrops into the ears bilaterally. May return back to office for ear lavage if needed 4. BENIGN HYPERTENSION - ICD9: 401.1, ICD10: I10 - poor control - Continue current medication(s) - Encouraged dietary sodium restriction/DASH diet - Recommended regular aerobic exercise. - Recommend home blood pressure monitoring, to bring results in on next visit - Goal of BP <130/80 Follow-up pending test results or sooner as needed. Discussed treatment plan and patient voices understanding. Patient's questions answered appropriately. Medications and potential side effects were discussed and patient voices understanding. Kathie Echeverria APRN.ALCIRA This note was partially generated using [employer] voice recognition system. Note was reviewed for accuracy. There may be minor misspellings or grammar miscues with [employer] voice recognition. documented in this encounterMarietta [facility]04-11-2023 Miscellaneous Notes* Telephone Encounter - Leni Castano Ma - 11/29/2022 4:51 PM EDT Form completed and faxed back to [phone]. Leni Castano Ma * Telephone Encounter - Leslye Mccloud MD - 11/29/2022 4:43 PM EDT Form done Leslye Mccloud MD * Telephone Encounter - Leni Castano Ma - 11/24/2022 9:47 AM EDT Office faxed Kristie to send FMLA forms to office to complete. Faxed to [phone]. Leni Castano Ma * Telephone Encounter - Leni Castano Ma - 11/22/2022 1:10 PM EDT Nothing received in office at this time. Per Triage the FMLA paperwork is for bronchitis, this was completed last year. Leni Castano Ma * Telephone Encounter - Rut Wen RN - 11/21/2022 9:44 AM EDT Patient calls and states that her company is going to be sending provider (Sam) FMLA paperwork for intermittent FMLA. Patient asking if provider can fill out this paperwork and send back to Emma? Please review and advise, Rut Wen RN documented in this encounterM[facility]04-04-2023 Miscellaneous Notes* Telephone Encounter - Rut Wen RN - 11/22/2022 5:03 PM EDT Patient calls back and notified that orders placed. Patient plans on coming in for labs Monday11/28/2022 and has appointment scheduled with Kathie on 11/30/2022. Rut Wen RN * Telephone Encounter - Leni Castano Ma - 11/22/2022 3:22 PM EDT Called and left message on patients voicemail to return call to the office and ask to speak with a FM triage nurse. Leni Castano Ma * Telephone Encounter - Leslye Mccloud MD - 11/22/2022 3:20 PM EDT OK for labs as ordered; should have office visit for follow up Leslye Mccloud MD * Telephone Encounter - Leni Castano Ma - 11/22/2022 1:11 PM EDT See message. Assuming you want an OV to discuss you/team? Do you want labs? Leni Csatano Ma * Telephone Encounter - Kathie Hughes - 11/22/2022 12:33 PM EDT Patient called to report that she did not go to the ER as instructed in tele enc from 11/18/22. She said the dizziness has slightly improved but still experiences weakness. She is requesting to have lab work ordered prior to the current orders that are due in January 2023. Please contact the patient todiscuss plan of care. documented in this encounterMari[facility]03-31-2023 Miscellaneous Notes* Telephone Encounter - Leslye Mccloud MD - 11/18/2022 10:19 AM EDT I agree with the advice given Leslye Mccloud MD * Telephone Encounter - Rut Wen RN - 11/18/2022 9:44 AM EDT Patient call in for diarrhea, weakness, unable to eat, slight shortness of breath. Nurse Triage assessment completed with protocol recommending for disposition of Go to ED now. Appointment was previously offered to patient but patient state that she cannot drive due to weakness and diarrhea. Patient states that she cannot even drive down the road. Care advice reviewed with patient, patient stated understanding. Reason for Disposition [1] Drinking very little AND [2] dehydration suspected (e.g., no urine > 12 hours, very dry mouth, very lightheaded) Answer Assessment - Initial Assessment Questions 1. DESCRIPTION: Feels weak, can walk but weak and lightheaded. 2. SEVERITY Moderate, able to walk, gets dizzy and has to hang on to things. 3. ONSET: Yesterday at work close to noon 4. CAUSE: Unsure 5. MEDICINES: Denies 6. OTHER SYMPTOMS: Diarrhea, Unable to eat, slight SOB Protocols used: Weakness (Generalized) and [id number] documented in this encounterMari[facility]03-31-2023 Miscellaneous Notes* Telephone Encounter - Rut Wen RN - 11/18/2022 9:51 AM EDT See Nurse Triage note * Telephone Encounter - Marie Castellanos Ma - 11/18/2022 9:24 AM EDT Called pt, spoke with Jaymie. She will notify pt to call office back, states she is babysitting at her grand daughters at this time. Marie Castellanos Ma * Telephone Encounter - Leni Castano Ma - 11/18/2022 8:04 AM EDT Notified pt she would need an OV. Did hold the 3:40 pm today with PCP if pt okay with scheduling anappt. Leni Castano Ma documented in this encounterMarietta [facility]03-20-2023 Instructions* Patient Instructions* Kathie Echeverria APRN.CNP - 11/07/2022 11:50 AM EDT Get repeat fasting labs prior to next visit. No food 8-10 hours prior, you may have black coffee and water. Continue to take all medication as prescribed. Monitor blood pressure at home. Follow up in 3 months or sooner as needed. documented in this encounterMarietta [facility]03-20-2023 History of Present illness Narrative* Kathie Echeverria APRN.CNP - 11/07/2022 11:40 AM EDT This is a 72 year old female who presents today with: Patient presents with: Follow Up: 3 month follow up HISTORY OF PRESENT ILLNESS: Trinh Womack is a 72 year old female. Patient presents with: Follow Up: 3 month follow up Here in the office for 3-month follow-up. GERD: Taking Protonix 20 mg daily. Symptoms well controlled with medication. HTN: Taking losartan 100 mg daily. Checking blood pressure at home, 140/70. Denies chest pain, palpitations, dizziness, or edema DEN: Taking Celexa 20 mg daily and Xanax 0.5 mg twice daily as needed. Denies any increased sadnessor anxiety/SI/HI Asthma: Using albuterol inhaler and nebulizer as needed. Symptoms well controlled. History of breast cancer, currently has silicone breast implants. Due for mammogram September 2022 Bronchitis: Seen by PCP 11/03/2022, started on Z-Rupert for bronchitis. Using albuterol inhaler as needed. Symptoms improving. Labs due in January PAST MEDICAL HISTORY: PAST MEDICAL HISTORY Diagnosis Date Acute sinusitis, unspecified drainage Generalized anxiety disorder Anxiety, Generalized Malignant neoplasm of breast (female), unspecified site right breast Psoriasis and similar disorders Unspecified asthma(493.90) uses nebulizer prn Unspecified essential hypertension Essential hypertension PAST SURGICAL HISTORY Procedure Laterality Date ARTHROSCOPY KNEE DIAGNOSTIC W/WO SYNOVIAL BX SPX 2004 Arthroscopy, knee, left by [employer] AXILLARY FINE NEEDLE ASPIRATION 11/27/2008 left BREAST RECONSTRUC W LAT DORSI FLAP 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 Levi Yoder LIG/TRNSXJ FLP TUBE ABDL/VAG APPR UNI/BI Tubal ligation MASTECTOMY, PARTIAL 12/16/2008 right breast with SLND/ALND with right oncoplasty and left reduction MASTECTOMY, SIMPLE, COMPLETE 07/24/2009 right skin-sparing OOPHORECTOMY PARTIAL/TOTAL UNI/BI 1 Oophorectomy REMOVAL TISSUE DIRECTOR OF PARTNER MARKETING W/O INSERTION IMPLANT 09/25/2010 right breast REPLACEMENT TISSUE DIRECTOR OF PARTNER MARKETING W/PERMANENT IMPLANT 06/24/2011 right perm implant ALLERGIES Penicillins MEDICATIONS Current Outpatient Medications Medication Sig azithromycin (ZITHROMAX Z-RUPERT) 250 mg tablet Take 2 tablets day one, then, 1 tablet daily until gone. ALPRAZolam (XANAX) 0.25 mg tablet Take 1 tablet by mouth twice daily for [address] (PROTONIX) 20 mg tablet Take 1 tablet by mouth once daily. citalopram (CELEXA) 20 mg tablet Take 1 tablet by mouth once daily. losartan (COZAAR) 100 mg tablet Take 1 tablet by mouth once daily. albuterol HFA (PROVENTIL HFA, VENTOLIN HFA) 90 mcg/actuation inhaler Inhale 2 Puffs as instructed every 4 hours as needed. ipratropium-albuterol (DUONEB) 0.5 mg-3 mg(2.5 mg base)/3 mL nebu Inhale 3 mL as instructed every 4hours as needed. Nebulizer Accessories misc Tubing , mouthpiece; other supplies as needed CALCIUM 500 MG TAB TAKES 2 TABLETS DAILY ascorbic acid(VITAMIN C 500 MG TAB) Take one(1) tablet daily. No current facility-administered medications for this visit. FAMILY HISTORY Problem Relation Age of Onset other (Other [Other]) Other no known family h/o breast or ovarian cancer Colon Cancer Mother Cancer Father lung Heart Father Social History Tobacco Use Smoking status: Former Packs/day: 1.00 Years: 27.00 Pack years: 27.00 Types: Cigarettes Quit date: 01/18/1991 Years since quittin.8 Smokeless tobacco: Never Vaping Use Vaping Use: Never used Substance Use Topics Alcohol use: No Drug use: No REVIEW OF SYSTEMS GENERAL: No weight loss, malaise or fevers/chills HEENT: Negative for frequent or significant headaches, No changes in hearing or vision. NECK: Negative for lumps, goiter, pain and significant neck swelling RESPIRATORY: Negative for cough, hemoptysis, wheezing, dyspnea or shortness of breath CARDIOVASCULAR: Negative for chest pain, leg swelling, orthopnea, or palpitations GI: No nausea, vomiting, or diarrhea/constipation. No hematochezia/melena. No heartburn or reflux symptoms. : No history of dysuria, frequency or incontinence MUSCULOSKELETAL: Negative for joint pain or swelling. SKIN: Negative for lesions, rash, and itching ENDOCRINE: Negative for cold or heat intolerance, polyuria, polydipsia and goiter NEURO: No history of headaches, syncope, paralysis, seizures or tremors MOOD: Negative for depression, anxiety, or suicidal ideation. EXAM: BP 150/80 Pulse 65 Resp 16 Wt 61.2 kg (135 lb) SpO2 94% BMI 27.27 kg/m PHYSICAL EXAM: General Appearance: Well appearing, alert, in no acute distress, well-hydrated, well nourished. Skin: Skin color, texture, turgor normal, no suspicious rashes or lesions. Head: Normocephalic, no masses, lesions, tenderness or abnormalities. Eyes: Anicteric sclera. Extraocular movements are intact. Neck: Supple, no adenopathy; thyroid symmetric, normal size, no bruits. Lungs: Lungs clear to auscultation. No wheezing, rhonchi, rales. Heart: RRR without murmur, gallop, or rubs. No ectopy. Extremities: No deformities, edema, skin discoloration, clubbing or cyanosis. Good capillary refill. Peripheral Pulses: Normal, Capillary refill <2secs, strong peripheral pulses, Pulses palpable. Neurologic: Gait normal. Sensation grossly intact. ASSESSMENT/PLAN: 1. BENIGN HYPERTENSION - ICD9: 401.1, ICD10: I10 (primary diagnosis) - fair control - Continue current medication(s) - Encouraged dietary sodium restriction/DASH diet - Recommended regular aerobic exercise. - Recommend home blood pressure monitoring, to bring results in on next visit - Discussed need and benefit for weight loss. - Goal of BP <130/80 - LOSARTAN 100 MG TABLET - CBC + DIFF - COMP METABOLIC PANEL - LIPID PANEL BASIC 2. Gastroesophageal reflux disease, unspecified whether esophagitis present - ICD9: 530.81, ICD10: K21.9 - Continue Protonix as prescribed. 3. Mild intermittent asthma without complication - ICD9: 493.90, ICD10: J45.20 Mild intermittent Asthma stable - Avoidance of triggers recommended 4. Anxiety - ICD9: 300.00, ICD10: F41.9 - Stable, refill provided. - DEPRESSION SCREENING/ASSESSMENT - CITALOPRAM 20 MG TABLET 5. Personal history of malignant neoplasm of breast - ICD9: V10.3, ICD10: Z85.3 - Continue mammogram screening. 6. Acute bronchitis, unspecified organism - ICD9: 466.0, ICD10: J20.9 - Continue supportive care at home. Follow-up in 3 months or sooner as needed. Discussed treatment plan and patient voices understanding. Patient's questions answered appropriately. Medications and potential side effects were discussed and patient voices understanding. Kathie Echeverria APRN.ALCIRA This note was partially generated using [employer] voice recognition system. Note was reviewed for accuracy. There may be minor misspellings or grammar miscues with [employer] voice recognition. documented in this encounterMari[facility]03-16-2023 History of Present illness Narrative* Leslye Mccloud MD - 11/03/2022 4:40 PM EDT Chief Complaint Patient presents with: Bronchitis HPI:This Team Access Model visit is a virtual encounter. It required patient- provider interaction for the medical decision making as documented below. Patient was offered a virtual/telemedicine appointment in lieu of an office visit due to recommendations to reduce patient exposure to COVID-19. Patient is aware of limitations of performing the visit without a face to face visit in the office setting and agrees. I have communicated my name and active licensure. The patient's identity and physical location wereverified at the time of this visit. Either the patient or their legal customer operations representative has been informed of the risks and benefits of -- and alternatives to -- treatment through a remote evaluation andconsents to proceed with the evaluation remotely. Pt completing telehealth visit due to bronchitis. States that she is having her symptoms like she usually does when having bronchitis. Started couple days ago with feeling sob, weak and having chest congestion. Denies too much wheezing, but does have some. Has used inhaler and her nebulizer today, but denies bringing up much. Does feel some tightness in her chest. She generally gets a Zpak beforethings get worse and this resolves her symptoms. Missed work today due to feeling too weak. Past medical history, appointments, medications, allergies reviewed. Previous Medical History PAST MEDICAL HISTORY Diagnosis Date Acute sinusitis, unspecified drainage Generalized anxiety disorder Anxiety, Generalized Malignant neoplasm of breast (female), unspecified site right breast Psoriasis and similar disorders Unspecified asthma(493.90) uses nebulizer prn Unspecified essential hypertension Essential hypertension Previous Surgical History PAST SURGICAL HISTORY Procedure Laterality Date ARTHROSCOPY KNEE DIAGNOSTIC W/WO SYNOVIAL BX SPX 2004 Arthroscopy, knee, left by [employer] AXILLARY FINE NEEDLE ASPIRATION 11/27/2008 left BREAST RECONSTRUC W LAT DORSI FLAP 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 Levi Yoder LIG/TRNSXJ FLP TUBE ABDL/VAG APPR UNI/BI Tubal ligation MASTECTOMY, PARTIAL 12/16/2008 right breast with SLND/ALND with right oncoplasty and left reduction MASTECTOMY, SIMPLE, COMPLETE 07/24/2009 right skin-sparing OOPHORECTOMY PARTIAL/TOTAL UNI/BI 1 Oophorectomy REMOVAL TISSUE DIRECTOR OF PARTNER MARKETING W/O INSERTION IMPLANT 09/25/2010 right breast REPLACEMENT TISSUE DIRECTOR OF PARTNER MARKETING W/PERMANENT IMPLANT 06/24/2011 right perm implant Family History FAMILY HISTORY Problem Relation Age of Onset other (Other [Other]) Other no known family h/o breast or ovarian cancer Colon Cancer Mother Cancer Father lung Heart Father Patient Allergies ALLERGIES Allergen Reactions Penicillins breathing problem years ago Current Medications Current Outpatient Medications on File Prior to Visit Medication Sig ALPRAZolam (XANAX) 0.25 mg tablet Take 1 tablet by mouth twice daily for [address] (PROTONIX) 20 mg tablet Take 1 tablet by mouth once daily. citalopram (CELEXA) 20 mg tablet Take 1 tablet by mouth once daily. losartan (COZAAR) 100 mg tablet Take 1 tablet by mouth once daily. albuterol HFA (PROVENTIL HFA, VENTOLIN HFA) 90 mcg/actuation inhaler Inhale 2 Puffs as instructed every 4 hours as needed. ipratropium-albuterol (DUONEB) 0.5 mg-3 mg(2.5 mg base)/3 mL nebu Inhale 3 mL as instructed every 4hours as needed. Nebulizer Accessories misc Tubing , mouthpiece; other supplies as needed CALCIUM 500 MG TAB TAKES 2 TABLETS DAILY ascorbic acid(VITAMIN C 500 MG TAB) Take one(1) tablet daily. No current facility-administered medications on file prior to visit. Social History Social History Tobacco Use Smoking status: Former Packs/day: 1.00 Years: 27.00 Pack years: 27.00 Types: Cigarettes Quit date: 01/18/1991 Years since quittin.8 Smokeless tobacco: Never Vaping Use Vaping Use: Never used Substance Use Topics Alcohol use: No Drug use: No EXAM: There were no vitals taken for this visit. Telephone exam: no respiratory distress Health Maintenance List SPIROMETRY Never done SHINGRIX VACCINE(2 of 3) due on 11/21/2013 BP CONTROLLED (<130/80) due on 03/09/2019 COVID-19 VACCINE(3 - Booster for Pfizer series) due on 12/25/2020 ADVANCE DIRECTIVE DISCUSSION due on 08/21/2022 DEPRESSION ASSESSMENT due on 08/21/2022 COLORECTAL CANCER SCREENING due on 02/14/2023 ANNUAL PCP TEAM CHRONIC DISEASE VISIT due on 09/09/2023 MAMMOGRAM due on 10/20/2023 DTAP,TDAP,TD(2 - Td or Tdap) due on 03/27/2024 DIABETES SCREEN due on 01/19/2025 LIPID SCREEN due on 01/19/2027 BONE DENSITY Completed INFLUENZA Completed HEPATITIS C SCREENING Completed PNEUMOCOCCAL: 65+ Completed Data reviewed Epic ASSESSMENT/PLAN: 1. Acute bronchitis, unspecified organism - ICD9: 466.0, ICD10: J20.9 - AZITHROMYCIN 250 MG TABLET Follow up prn 5-10 minutes of time spent on phone call Leslye Mccloud MD documented in this encounterMari[facility]03-16-2023 Miscellaneous Notes* Telephone Encounter - Leslye Mccloud MD - 11/03/2022 9:55 AM EDT Noted Leslye Mccloud MD * Telephone Encounter - Marie Castellanos Ma - 11/03/2022 9:40 AM EDT Pt advised we would call her and do her visit over the phone today. Marie Castellanos Ma * Telephone Encounter - Leni Castano Ma - 11/03/2022 8:03 AM EDT Offered pt VV today with PCP at 4:40 pm. This has been scheduled. Pt to confirm appt. Pt okay with appt, will do phone call. Leni Castano Ma documented in this encounterMarietta [facility]03-01-2023 History of Present illness Narrative* Nilda Guerrier, RT(R) - 10/19/2022 1:30 PM EST Radiology Service Progress Note PATIENT NAME: Trinh Womack DATE OF SERVICE: October 19, 2022 TIME: 1:32 PM PATIENT IDENTITY VERIFICATION COMPLETED USING TWO (2) IDENTIFIERS: Name and Date of confirmedby patient verbally. FALL SCREENING: Has the patient had 2 falls in the last year or 1 fall with injury or currently using an Ambulatory Assistive Device (Walker, Cane, Wheelchair, Crutches, etc.)? No PATIENT GENDER DATA: Female. status: : No status: NO. PATIENT RELEVANT IMPLANT DATA REVIEWED: Not Applicable RADIOLOGY DEPARTMENT: Mammography PERIPHERAL IV DATA: Not applicable SIGNED BY: RT Betsy(R) October 19, 2022 1:32 PM documented in this encounterMarietta [facility]02-14-2023 Miscellaneous Notes* Telephone Encounter - Leslye Mccloud MD - 10/04/2022 9:38 AM EST OK to refill as ordered Leslye Mccloud MD * Telephone Encounter - Jenni Bui LPN - 10/03/2022 2:16 PM EST Patient phones requesting refills as follows: Requested Prescriptions Pending Prescriptions Disp Refills ALPRAZolam (XANAX) 0.25 mg tablet 60 tablet 2 Sig: Take 1 tablet by mouth twice daily for 90 days. CHASE-09/09/22 Labs-01/19/22 NOV-11/07/22 med filled 07/18/22 Please review and advise. Jenni Bui LPN documented in this encounterMarietta [facility]02-06-2023 History of Present illness Narrative* Juliet Bravo PA-C - 09/26/2022 10:33 PM EST FOLLOW UP VISIT - ABSCESS NAME: Trinh Womack CLINIC NO.: [id number] DATE OF SERVICE: 09/21/2022 : 1950 REFERRING PHYSICIAN: Leslye Mccloud MD Trinh is a patient I am following with Dr. Wolfe for an infected sebaceous cyst on her inferior left breast. Dr. Wolfe performed an incision and drainage of the cyst on 09/12/22. The patient notesno complaints of fever since the procedure. Pain has been minimal. VITALS: Blood pressure 126/90, pulse 63, temperature 36.6 C (97.8 F), height 149.9 cm (4' 11), weight 60.8 kg (134 lb), SpO2 99 %. On examination, the incision site is viable with no drainage noted. Assessment IMPRESSION: Status post incision and drainage of infected sebaceous cyst inferior left breast, healing nicely PLAN: Keep site clean and dry Follow up as needed Diagnoses: (L72.3, L08.9) Infected sebaceous cyst (primary encounter diagnosis) Juliet Bravo PA-C documented in this encounterMarietta [facility] Clinic01-23-2023 History of Present illness Narrative* Shan Wolfe MD - 09/12/2022 3:16 PM EST Preoperative diagnosis: Infected sebaceous cyst Postoperative diagnosis: The same Procedure: Incision and drainage of infected sebaceous cyst Surgeon: Yaneth Procedure: Just inferior to the left breast right along the costal margin was a reddened area. Thiswas sterilely prepped and draped in usual fashion 1% lidocaine plain was injected. 3 cm incision was made. Infected sebaceous cyst was opened I tried to remove as much of the cystic contents as possible. I irrigated out the wound with peroxide. I placed a sterile dressing packing in the wound. Sterile dressings were applied. Patient is instructed to remove the packing tomorrow and shower soap andwater keep the area clean and put a new dressing on it. I have informed her that there is a 50-50 chance that this is going to come back. Many times infected sebaceous cysts are difficult to remove at the initial infected encounter. She will follow back up with my physician assistant community manager Juliet Dover in 1 week. documented in this [facility]01-23-2023 Instructions* Patient Instructions* Dorene Ruiz LPN - 09/12/2022 3:05 PM EST Instructions After I & D You are instructed to remove the packing in 1 days. If the dressing becomes soaked or had significant drainage, the dressing should be changed. If there is minor bleeding from this skin edge, you should hold pressure on the incision. If there is continued bleeding, you should contact our office immediately. Wash the wound with gentle soap and water. You may shower. The wound should not be immersed in a pool, bathtub, or even hot tub. If the wound shows signs of redness, inflammation, or purulent drainage, you should contact our office immediately. We will see you back in 1 week with Juliet MANZO. If you have any questions please call us at [phone] and ask to be transferred to General Surgery. documented in this encounterMarietta [facility] Clinic01-23-2023 Nurse Note* Dorene Ruiz LPN - 09/12/2022 2:50 PM EST UNIVERSAL PROTOCOL / SAFETY CHECKLIST Procedure to be Performed: Incision and Drainage of left breast Abscess. Sign In: A Moment of CARE was completed. Personnel directly involved with the procedure wore the appropriate PPE (Personal Protective Equipment). No special equipment needed. Patient/Surrogate Stated/Verified: PATIENT VERIFIED(optional for EMERGENT procedures): Patient name, Date of , Relevant allergies, and The intended procedure Time Out Communication: Intended patient and procedure match the source documents. Consent documented and matches the intended procedure. Relevant labs, photos, and/or imaging studies have been reviewed. Correct side/site marked and visible. Medications required for procedure verified. No fire risk assessment and interventions applicable. No implant(s) inserted. Sign Out: SIGN OUT (optional for EMERGENT procedures): No specimen collected. No instruments, equipment or retained foreign bodies applicable. Post-procedure follow-up management communicated and Plan of Care Visit completed when applicable. Dorene Ruiz LPN * Nelymarianna MurphyAdair, RN - 09/12/2022 2:33 PM EST REVIEW OF SYSTEMS: General: The patient denies fatigue, denies weight loss, denies weight gain, denies feeling hot, and denies feelings of cold. Eyes: The patient denies glaucoma, denies eye injury/surgery, does not wear glasses or contacts. Ear/Nose/Throat: The patient NOTES allergies, denies hayfever, denies ear infections, and denies bloody noses. Cardiovascular: The patient denies chest pain, denies heart disease, NOTES high blood pressure,denies cardiac stent, denies prior heart attack, denies irregular heart beat, denies high cholesterol, denies poor circulation, denies heart failure, other cardiac issues, denies claudication, denies coldfeet, denies peripheral arterial stent. Respiratory: The patient denies tuberculosis, denies pneumonia, denies frequent cough, denies pulmonary embolism, denies shortness of breath, and denies coughing up blood. Gastrointestinal: The patient denies difficulty swallowing, denies acid reflux, denies ulcers, denies vomiting, denies jaundice/hepatitis, denies gallbladder problems, denies black or tarry stools, denies hemorrhoids, denies bleeding from rectum, denies diverticulitis, denies constipation, denies diarrhea, denies loss of stool control, and denies hernias. Kidney/Bladder: The patient denies kidney stones, denies urine infections, and denies bloody urine. Skin: The patient denies a history of skin cancer, denies bleeding/changing moles, and NOTES a history of skin rash. Neurologic: The patient denies a history of epilepsy/convulsions, denies headaches, denies head/spinal injuries, and denies stroke/TIA. Psychiatric: The patient denies psychiatric medications, denies depression, and denies voices, denies substance abuse. Endocrine: The patient denies thyroid disorders, denies diabetes, and denies hormonal problems. Hematologic: The patient denies a history of bruising, denies bleeding, and denies anemia, denies blood clots. Infections: The patient denies a history of measles and mumps, denies rheumatic fever, and denies sexually transmitted diseases. Musculoskeletal: The patient denies back pain/injury, denies back problems, denies sciatica, deniesknee/foot trouble, denies arthritis, or denies gout. When was patient's last Mammogram screening? 09/29/2021 Last Colonoscopy: 02/14/2022-Fecal Occult Test Nely Leonard RN documented in this encounterM[facility]20-[facility] Instructions* Patient Instructions* Kathie Echeverria APRN.ALCIRA - 09/09/2022 1:07 PM EST Start bactrim, take with food. May apply warm compress to the area. May continue to apply antibiotic ointment to the area. Red flag symptoms seek care, increase in redness, fever, or chills. Schedule appointment with general surgery. Follow up as needed. documented in this encounterM[facility]01-20-2023 History of Present illness Narrative* Kathie Echeverria APRN.ALCIRA - 09/09/2022 1:00 PM EST This is a 72 year old female who presents today with: Patient presents with: Acute Visit: lump under breast. HISTORY OF PRESENT ILLNESS: Trinh Womack is a 72 year old female. Patient presents with: Acute Visit: lump under breast. Here in the office for concerns of breast abscess. Abscess under left breast noticeable about 3 days ago. Very tender. Pain is sharp which is constant. No drainage. No fever or chills. Has been applyantibacterial ointment. Has had in this in the past. Was treated with Bactrim which was effective. Mammogram with [facility] in September 2021 WNL. PAST MEDICAL HISTORY: PAST MEDICAL HISTORY Diagnosis Date Acute sinusitis, unspecified drainage Generalized anxiety disorder Anxiety, Generalized Malignant neoplasm of breast (female), unspecified site right breast Psoriasis and similar disorders Unspecified asthma(493.90) uses nebulizer prn Unspecified essential hypertension Essential hypertension PAST SURGICAL HISTORY Procedure Laterality Date ARTHROSCOPY KNEE DIAGNOSTIC W/WO SYNOVIAL BX SPX 2004 Arthroscopy, knee, left by [employer] AXILLARY FINE NEEDLE ASPIRATION 11/27/2008 left BREAST RECONSTRUC W LAT DORSI FLAP 02/11/11 with radio interference supervisor right breast BREAST RECONSTRUC W TISS EXPANDR 07/24/2009 right breast BREAST SURGERY PROCEDURE UNLISTED 11/21/2008 right breast punch biopsy BX BREAST NEEDLE CORE W/O IMAGING GUIDANCE SPX 11/27/2008 left breast EXCISE EXCESS SKIN TISSUE,ABDOMEN Abdominoplasty INSJ TUNNELED CTR VAD W/SUBQ PORT AGE 5 YR/> 01/07/09 LEFT IJ POWER PORT KNEE SCOPE,ABRASN ARTHROPLASTY Left 12/25/2018 left total knee arthroplasty-Dr. Levi Yoder LIG/TRNSXJ FLP TUBE ABDL/VAG APPR UNI/BI Tubal ligation MASTECTOMY, PARTIAL 12/16/2008 right breast with SLND/ALND with right oncoplasty and left reduction MASTECTOMY, SIMPLE, COMPLETE 07/24/2009 right skin-sparing OOPHORECTOMY PARTIAL/TOTAL UNI/BI 1 Oophorectomy REMOVAL TISSUE DIRECTOR OF [employer]NER MARKETING W/O INSERTION IMPLANT 09/25/10 right breast REPLACEMENT TISSUE DIRECTOR OF [employer]NER MARKETING W/PERMANENT IMPLANT 06/24/11 right perm implant ALLERGIES Penicillins MEDICATIONS Current Outpatient Medications Medication Sig ALPRAZolam (XANAX) 0.25 mg tablet Take 1 tablet by mouth twice daily for [address] (PROTONIX) 20 mg tablet Take 1 tablet by mouth once daily. citalopram (CELEXA) 20 mg tablet Take 1 tablet by mouth once daily. losartan (COZAAR) 100 mg tablet Take 1 tablet by mouth once daily. albuterol HFA (PROVENTIL HFA, VENTOLIN HFA) 90 mcg/actuation inhaler Inhale 2 Puffs as instructed every 4 hours as needed. meclizine (ANTIVERT) 25 mg tab Take 1 tablet by mouth every 6 hours as needed (dizziness). ipratropium-albuterol (DUONEB) 0.5 mg-3 mg(2.5 mg base)/3 mL nebu Inhale 3 mL as instructed every 4hours as needed. Nebulizer Accessories misc Tubing , mouthpiece; other supplies as needed aspirin, enteric coated (ASPIRIN, ENTERIC COATED) 81 mg EC tablet Take 1 tablet by mouth once daily. (Patient not taking: Reported on 08/17/2022) CALCIUM 500 MG TAB TAKES 2 TABLETS DAILY ascorbic acid(VITAMIN C 500 MG TAB) Take one(1) tablet daily. No current facility-administered medications for this visit. FAMILY HISTORY Problem Relation Age of Onset other (Other [Other]) Other no known family h/o breast or ovarian cancer Colon Cancer Mother Cancer Father lung Heart Father Social History Tobacco Use Smoking status: Former Packs/day: 1.00 Years: 27.00 Pack years: 27.00 Types: Cigarettes Quit date: 01/18/1991 Years since quittin.6 Smokeless tobacco: Never Vaping Use Vaping Use: Never used Substance Use Topics Alcohol use: No Drug use: No REVIEW OF SYSTEMS GENERAL: No weight loss, malaise or fevers/chills HEENT: Negative for frequent or significant headaches, No changes in hearing or vision. NECK: Negative for lumps, goiter, pain and significant neck swelling RESPIRATORY: Negative for cough, hemoptysis, wheezing, dyspnea or shortness of breath CARDIOVASCULAR: Negative for chest pain, leg swelling, orthopnea, or palpitations GI: No nausea, vomiting, or diarrhea/constipation. No hematochezia/melena. No heartburn or reflux symptoms. : No history of dysuria, frequency or incontinence MUSCULOSKELETAL: Negative for joint pain or swelling. SKIN: + Breast Abscess ENDOCRINE: Negative for cold or heat intolerance, polyuria, polydipsia and goiter NEURO: No history of headaches, syncope, paralysis, seizures or tremors MOOD: Negative for depression, anxiety, or suicidal ideation. EXAM: BP 150/80 Pulse 76 Resp 16 Wt 60.8 kg (134 lb) SpO2 97% BMI 28.01 kg/m PHYSICAL EXAM: General Appearance: Well appearing, alert, in no acute distress, well-hydrated, well nourished. Head: Normocephalic, no masses, lesions, tenderness or abnormalities. Eyes: Anicteric sclera. Extraocular movements are intact. Lungs: Lungs clear to auscultation. No wheezing, rhonchi, rales. Heart: RRR without murmur, gallop, or rubs. No ectopy. Breast: No nipple discharge or bleeding. + Abscess noted under the left breast, very tender, erythematic, elevated, and hard. No seeping noted. Extremities: No deformities, edema, skin discoloration, clubbing or cyanosis. Good capillary refill. Peripheral Pulses: Normal, Capillary refill <2secs, strong peripheral pulses, Pulses palpable. Neurologic: Gait normal. Sensation grossly intact.. ASSESSMENT/PLAN: 1. Left breast abscess - ICD9: 611.0, ICD10: N61.1 - Denied wanting any advanced imaging to be completed at this time. - Start Bactrim, take with food. - Keep wound clean and dry. - Schedule follow up appointment with general surgery due to reoccurrence of abscess. - May continue with warm compresses. - Red flag symptoms given to patient, she verbalizes when to seek care. - SULFAMETHOXAZOLE 800 MG-TRIMETHOPRIM 160 MG TABLET - CONSULT TO GENERAL SURGERY Follow up as needed or sooner if not improving. Discussed treatment plan and patient voices understanding. Patient's questions answered appropriately. Medications and potential side effects were discussed and patient voices understanding. Kathie Echeverria APRN.CNP This note was partially generated using [employer] voice recognition system. Note was reviewed for accuracy. There may be minor misspellings or grammar miscues with [employer] voice recognition. documented in this encounterM[facility]12-28-2022 Instructions* Patient Instructions* Kathie Echeverria APRN.CNP - 08/17/2022 11:29 AM EST Start Bactrim, take with food. Use Bactroban ointment into the right nostril with a qtip Watch for worsening signs of infection, increased redness, swelling, fever Continue to take all medication as prescribed. Schedule appointment for mammogram. Follow up in 3 months or sooner as needed. documented in this encounterM[facility]12-28-2022 History of Present illness Narrative* Kathie Echeverria APRN.CNP - 08/17/2022 11:00 AM EST This is a 72 year old female who presents today with: Patient presents with: Follow Up: 3 month HISTORY OF PRESENT ILLNESS: Trinh Womack is a 72 year old female. Patient presents with: Follow Up: 3 month Here in the office for 3-month follow-up. Nose Sore: 4-5 days ago scratched the tip the nose . Nose is now very tender on the outside and inside the right nares. No fever or chills. Has had ongoing rhinorrhea. No fever or chills. GERD: Taking Protonix 20 mg daily. Symptoms well controlled medication. HTN: Taking losartan 100 mg daily. Checking blood pressure at home, 130's/60's. Denies chest pain, palpitations, dizziness, or edema. DEN: Taking Celexa 20 mg daily. Xanax 0.5 mg twice daily. Denies any increased sadness, anxiety, orSI/HI. Asthma: Using albuterol and nebulizer as needed. Symptoms well controlled. Denies any cough, shortness of breath, or wheezing at nighttime. History of breast cancer, has silicon implants in the place. Mammogram due in September 2022 Vaccines: Denies wanting any vaccines at this time. PAST MEDICAL HISTORY: PAST MEDICAL HISTORY Diagnosis Date Acute sinusitis, unspecified drainage Generalized anxiety disorder Anxiety, Generalized Malignant neoplasm of breast (female), unspecified site right breast Psoriasis and similar disorders Unspecified asthma(493.90) uses nebulizer prn Unspecified essential hypertension Essential hypertension PAST SURGICAL HISTORY Procedure Laterality Date ARTHROSCOPY KNEE DIAGNOSTIC W/WO SYNOVIAL BX SPX 2004 Arthroscopy, knee, left by [employer] AXILLARY FINE NEEDLE ASPIRATION 11/27/2008 left BREAST RECONSTRUC W LAT DORSI FLAP 02/11/11 with radio interference supervisor right breast BREAST RECONSTRUC W TISS EXPANDR 07/24/2009 right breast BREAST SURGERY PROCEDURE UNLISTED 11/21/2008 right breast punch biopsy BX BREAST NEEDLE CORE W/O IMAGING GUIDANCE SPX 11/27/2008 left breast EXCISE EXCESS SKIN TISSUE,ABDOMEN Abdominoplasty INSJ TUNNELED CTR VAD W/SUBQ PORT AGE 5 YR/> 01/07/09 LEFT IJ POWER PORT KNEE SCOPE,ABRASN ARTHROPLASTY Left 12/25/2018 left total knee arthroplasty-Dr. Levi Yoder LIG/TRNSXJ FLP TUBE ABDL/VAG APPR UNI/BI Tubal ligation MASTECTOMY, PARTIAL 12/16/2008 right breast with SLND/ALND with right oncoplasty and left reduction MASTECTOMY, SIMPLE, COMPLETE 07/24/2009 right skin-sparing OOPHORECTOMY PARTIAL/TOTAL UNI/BI 1 Oophorectomy REMOVAL TISSUE DIRECTOR OF [employer] MARKET[employer] W/O INSERTION IMPLANT 09/25/10 right breast REPLACEMENT TISSUE DIRECTOR OF [employer] MARKET[employer] W/PERMANENT IMPLANT 06/24/11 right perm implant ALLERGIES Penicillins MEDICATIONS Current Outpatient Medications Medication Sig ALPRAZolam (XANAX) 0.25 mg tablet Take 1 tablet by mouth twice daily for [address] (PROTONIX) 20 mg tablet Take 1 tablet by mouth once daily. citalopram (CELEXA) 20 mg tablet Take 1 tablet by mouth once daily. losartan (COZAAR) 100 mg tablet Take 1 tablet by mouth once daily. albuterol HFA (PROVENTIL HFA, VENTOLIN HFA) 90 mcg/actuation inhaler Inhale 2 Puffs as instructed every 4 hours as needed. meclizine (ANTIVERT) 25 mg tab Take 1 tablet by mouth every 6 hours as needed (dizziness). ipratropium-albuterol (DUONEB) 0.5 mg-3 mg(2.5 mg base)/3 mL nebu Inhale 3 mL as instructed every 4hours as needed. Nebulizer Accessories misc Tubing , mouthpiece; other supplies as needed aspirin, enteric coated (ASPIRIN, ENTERIC COATED) 81 mg EC tablet Take 1 tablet by mouth once daily. CALCIUM 500 MG TAB TAKES 2 TABLETS DAILY ascorbic acid(VITAMIN C 500 MG TAB) Take one(1) tablet daily. No current facility-administered medications for this visit. FAMILY HISTORY Problem Relation Age of Onset other (Other [Other]) Other no known family h/o breast or ovarian cancer Colon Cancer Mother Cancer Father lung Heart Father Social History Tobacco Use Smoking status: Former Packs/day: 1.00 Years: 27.00 Pack years: 27.00 Types: Cigarettes Quit date: 01/18/1991 Years since quittin.5 Smokeless tobacco: Never Vaping Use Vaping Use: Never used Substance Use Topics Alcohol use: No Drug use: No REVIEW OF SYSTEMS GENERAL: No weight loss, malaise or fevers/chills HEENT: Negative for frequent or significant headaches, No changes in hearing or vision. NECK: Negative for lumps, goiter, pain and significant neck swelling RESPIRATORY: Negative for cough, hemoptysis, wheezing, dyspnea or shortness of breath CARDIOVASCULAR: Negative for chest pain, leg swelling, orthopnea, or palpitations GI: No nausea, vomiting, or diarrhea/constipation. No hematochezia/melena. No heartburn or reflux symptoms. : No history of dysuria, frequency or incontinence MUSCULOSKELETAL: Negative for joint pain or swelling. SKIN: + Tender nose ENDOCRINE: Negative for cold or heat intolerance, polyuria, polydipsia and goiter NEURO: No history of headaches, syncope, paralysis, seizures or tremors MOOD: Negative for depression, anxiety, or suicidal ideation. EXAM: BP 150/78 Pulse 66 Resp 16 Wt 60.8 kg (134 lb) SpO2 98% BMI 28.01 kg/m PHYSICAL EXAM: General Appearance: Well appearing, alert, in no acute distress, well-hydrated, well nourished. Skin: Erythema noted on the tip of the nose as well as inside the right nares. No crusting or seeping noted. No abnormal growths. Head: Normocephalic, no masses, lesions, tenderness or abnormalities. Eyes: Anicteric sclera. Extraocular movements are intact. Nose/Sinuses: septum midline, see above Neck: Supple, no adenopathy; thyroid symmetric, normal size, no bruits. Lungs: Lungs clear to auscultation. No wheezing, rhonchi, rales. Heart: RRR without murmur, gallop, or rubs. No ectopy. Extremities: No deformities, edema, skin discoloration, clubbing or cyanosis. Good capillary refill. Peripheral Pulses: Normal, Capillary refill <2secs, strong peripheral pulses, Pulses palpable. Neurologic: Gait normal. Reflexes normal and symmetric. Sensation grossly intact. ASSESSMENT/PLAN: 1. Cellulitis, nose - ICD9: 478.19, ICD10: J34.0 (primary diagnosis) - Begin treatment with Trimethoprim-sulfamethozazole (Bactrim) 2 DS PO BID - No lymphangetic streaking, this was defined for patient to watch for and to seek medical care immediately if appears - Apply Bactroban ointment inside the right nares. - Red flag symptoms given to patient, she verbalizes understanding when to seek care. - MUPIROCIN 2 % TOPICAL OINTMENT - SULFAMETHOXAZOLE 800 MG-TRIMETHOPRIM 160 MG TABLET 2. Gastroesophageal reflux disease, unspecified whether esophagitis present - ICD9: 530.81, ICD10: K21.9 - Continue current medication, symptoms well controlled. 3. Essential hypertension, benign - ICD9: 401.1, ICD10: I10 - suboptimal control - Continue current medication(s) - Encouraged dietary sodium restriction/DASH diet - Recommended regular aerobic exercise. - Recommend home blood pressure monitoring, to bring results in on next visit - Goal of BP <130/80 4. Mild intermittent asthma without complication - ICD9: 493.90, ICD10: J45.20 - Well controlled. - Continue current meds - Avoidance of triggers recommended 5. Anxiety - ICD9: 300.00, ICD10: F41.9 - Continue Celexa and Xanax as prescribed. 6. Encounter for screening mammogram for breast cancer - ICD9: V76.12, ICD10: Z12.31 - LETICIA SCREENING Follow up in 3 months or sooner as needed. Discussed treatment plan and patient voices understanding. Patient's questions answered appropriately. Medications and potential side effects were discussed and patient voices understanding. Kathie Echeverria APRN.ALCIRA The patient indicates understanding of these issues and agrees with the plan.This note was partially generated using [employer] voice recognition system. Note was reviewed for accuracy. There may be minor misspellings or grammar miscues with [employer] voice recognition. documented in this encounterM[facility]11-28-2022 Miscellaneous Notes* Telephone Encounter - Leslye Mccloud MD - 07/18/2022 11:56 AM EST OK to refill as ordered Leslye Mccloud MD * Telephone Encounter - Marie Castellanos Ma - 07/18/2022 11:28 AM EST Last office visit: 05/16/22 F/u scheduled: 08/17/22 Last refilled on: Xanax #60 with 2 refill on 04/11/22 Marie Castellnaos Ma * Telephone Encounter - Parul Arellano - 07/18/2022 11:22 AM EST Patient has been identified by name and date of : Yes Requested Prescriptions Pending Prescriptions Disp Refills ALPRAZolam (XANAX) 0.25 mg tablet 60 tablet 2 Sig: Take 1 tablet by mouth twice daily for 90 days. RX INSTRUCTIONS: Patient aware RX will be sent to pharmacy. No need to notify patient. Parul Arellano documented in this encounterM[facility]08-22-2022 Miscellaneous Notes* Addendum Note - Barbara Ford - 04/11/2022 10:47 AM EDTAddended by: BARBARA FORD on: 04/11/2022 10:47 AM Modules accepted: Orders documented in this encounterM[facility]07-08-2022 Miscellaneous Notes* Telephone Encounter - Herb Dinh APRN.CNP - 02/25/2022 2:53 PM EDT The following approved medication requests have been transmitted electronically. Pending Prescriptions Disp Refills PANTOPRAZOLE 20 MG TABLET,DELAYED RELEASE 90 tablet 3 Sig: Take 1 tablet by mouth once daily. SERGIO: No Herb Dinh APRN.CNP * Telephone Encounter - Bibi Jay Pss - 02/25/2022 2:31 PM EDT Patient has been identified by name and date of : Yes Pending Prescriptions Disp Refills PANTOPRAZOLE 20 MG TABLET,DELAYED RELEASE 90 tablet 3 Sig: Take 1 tablet by mouth once daily. SERGIO: No CHASE-02/07/22 Labs-01/19/22 NOV-05/16/22 med filled 05/12/21 RX INSTRUCTIONS: Patient aware RX escripted to mail away pharmacy. No need to notify patient. Bibi Jay Pss documented in this encounterM[facility]06-20-2022 History of Present illness Narrative* Leslye Mccloud MD - 02/07/2022 3:00 PM EDT Chief Complaint Patient presents with: F/U 3 Month HPI Trinh Womack is a 71 year old female who presents here today for a 3 month follow up. Pt here today for a 3 month follow up. Continues to still work at [employer], working 32 hours a week. Gets to babysit her two great grandchildren on Monday and at times on Monday. Ages 5 and 3. GERD - Stable with use of Protonix 20 mg once daily. HTN/Lipids - Has not been checking BP at home, needs to get a new BP machine next week. Notes she'shad her daughter in law who's an RN check it couple times, noting it was a little high at times. Denies any chest pain, sob or dizziness. On current regimen of Losartan 100 mg once daily. Doing well on this dosage. DEN - Doing well on her current regimen of Celexa 20 mg once daily and Xanax 0.25 mg 1 tab po bid. Asthma - Overall stable with prn use of rescue inhaler and nebulizer treatments. Feels when the weather is very humid she does not feel well and notes some issues with breathing. History of breast cancer; notes that she has breast implants. Believes she has silicone implants. Has mammograms done. HM - Has Adv Dir/Living Will. Agrees to IFOBT kit. Will be getting Shingles vaccine, if necessary. Past medical history, appointments, medications, allergies reviewed. Previous Medical History PAST MEDICAL HISTORY Diagnosis Date Acute sinusitis, unspecified drainage Generalized anxiety disorder Anxiety, Generalized Malignant neoplasm of breast (female), unspecified site right breast Psoriasis and similar disorders Unspecified asthma(493.90) uses nebulizer prn Unspecified essential hypertension Essential hypertension Previous Surgical History PAST SURGICAL HISTORY Procedure Laterality Date ARTHROSCOPY KNEE DIAGNOSTIC W/WO SYNOVIAL BX SPX 2004 Arthroscopy, knee, left by [employer] AXILLARY FINE NEEDLE ASPIRATION 11/27/2008 left BREAST RECONSTRUC W LAT DORSI FLAP 02/11/11 with radio interference supervisor right breast BREAST RECONSTRUC W TISS EXPANDR 07/24/2009 right breast BREAST SURGERY PROCEDURE UNLISTED 11/21/2008 right breast punch biopsy BX BREAST NEEDLE CORE W/O IMAGING GUIDANCE SPX 11/27/2008 left breast EXCISE EXCESS SKIN TISSUE,ABDOMEN Abdominoplasty INSJ TUNNELED CTR VAD W/SUBQ PORT AGE 5 YR/> 01/07/09 LEFT IJ POWER PORT KNEE SCOPE,ABRASN ARTHROPLASTY Left 12/25/2018 left total knee arthroplasty-Dr. 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 citalopram (CELEXA) 20 mg tablet Take 1 tablet by mouth once daily. losartan (COZAAR) 100 mg tablet Take 1 tablet by mouth once daily. albuterol HFA (PROVENTIL HFA, VENTOLIN HFA) 90 mcg/actuation inhaler Inhale 2 Puffs as instructed every 4 hours as needed. meclizine (ANTIVERT) 25 mg tab Take 1 tablet by mouth every 6 hours as needed (dizziness). pantoprazole DR (PROTONIX) 20 mg tablet Take 1 tablet by mouth once daily. triamcinolone (KENALOG) 0.025 % cream Apply to affected area twice daily. ipratropium-albuterol (DUONEB) 0.5 mg-3 mg(2.5 mg base)/3 mL nebu Inhale 3 mL as instructed every 4hours as needed. Nebulizer Accessories misc Tubing , mouthpiece; other supplies as needed aspirin, enteric coated (ADULT LOW DOSE ASPIRIN) 81 mg EC tablet Take 1 tablet by mouth once daily. CALCIUM 500 MG TAB TAKES 2 TABLETS DAILY ascorbic acid(VITAMIN C 500 MG TAB) Take one(1) tablet daily. No current facility-administered medications on file prior to visit. Social History Social History Tobacco Use Smoking status: Former Smoker Packs/day: 1.00 Years: 27.00 Pack years: 27.00 Types: Cigarettes Quit date: 01/18/1991 Years since quittin.0 Smokeless tobacco: Never Used Vaping Use Vaping Use: Never used Substance Use Topics Alcohol use: No Drug use: No EXAM: BP 138/78 (BP Site: Left Arm, BP Position: Sitting, BP Cuff Size: Regular Adult) Pulse 60 Resp 16 Wt 62.8 kg (138 lb 6.4 oz) BMI 28.93 kg/m General Appearance: Well appearing, alert, in no acute distress, well-hydrated, well nourished.. Lungs: Lungs clear to auscultation. No wheezing, rhonchi, rales.. Heart: RRR without murmur, gallop, or rubs. No ectopy. Health Maintenance List SPIROMETRY Never done SHINGRIX VACCINE(1 of 2) due on 11/21/2013 BP CONTROLLED (<130/80) due on 03/09/2019 COVID-19 VACCINE(3 - Booster for Pfizer series) due on 04/01/2021 ADVANCE DIRECTIVE DISCUSSION Never done COLORECTAL CANCER SCREENING due on 02/01/2022 MAMMOGRAM due on 08/23/2022 ANNUAL PCP TEAM CHRONIC DISEASE VISIT due on 10/25/2022 DEPRESSION SCREENING due on 10/25/2022 DTAP,TDAP,TD(2 - Td or Tdap) due on 03/27/2024 DIABETES SCREEN due on 01/19/2025 LIPID SCREEN due on 01/19/2027 BONE DENSITY Completed INFLUENZA Completed HEPATITIS C SCREENING Completed PNEUMOCOCCAL: 65+ Completed Data reviewed Appointment on 01/19/2022 Component Date Value Cholesterol, Total 01/19/2022 201 (A) Triglyceride 01/19/2022 73 HDL Cholesterol 01/19/2022 67 Non HDL Cholesterol 01/19/2022 134 (A) Fasting Time 01/19/2022 12 VLDL Cholesterol 01/19/2022 15 TC:HDL Ratio 01/19/2022 3.00 LDL Cholesterol 01/19/2022 119 (A) LDL:HDL Ratio 01/19/2022 1.78 Protein, Total 01/19/2022 6.7 Albumin 01/19/2022 4.3 Calcium, Total 01/19/2022 9.5 Bilirubin, Total 01/19/2022 0.3 Alkaline Phosphatase 01/19/2022 90 AST 01/19/2022 23 ALT 01/19/2022 14 Glucose 01/19/2022 92 BUN 01/19/2022 20 Creatinine 01/19/2022 0.70 Sodium 01/19/2022 142 Potassium 01/19/2022 4.8 Chloride 01/19/2022 103 CO2 01/19/2022 31 (A) Anion Gap 01/19/2022 8 (A) Estimated Glomerular Juan* 01/19/2022 91 WBC 01/19/2022 4.24 RBC 01/19/2022 4.01 Hemoglobin 01/19/2022 12.9 Hematocrit 01/19/2022 40.2 MCV 01/19/2022 100.2 (A) MCH 01/19/2022 32.2 MCHC 01/19/2022 32.1 RDW-CV 01/19/2022 11.9 Platelet Count 01/19/2022 249 MPV 01/19/2022 8.9 (A) Neut% 01/19/2022 58.0 Abs Neut 01/19/2022 2.46 Lymph% 01/19/2022 28.3 Abs Lymph 01/19/2022 1.20 Eddy% 01/19/2022 9.7 Abs Eddy 01/19/2022 0.41 Eosin% 01/19/2022 3.1 Abs Eosin 01/19/2022 0.13 Baso% 01/19/2022 0.7 Abs Baso 01/19/2022 0.03 Immature Gran % 01/19/2022 0.2 Abs Immature Gran 01/19/2022 <0.03 NRBC 01/19/2022 0.0 Absolute nRBC 01/19/2022 <0.01 Diff Type 01/19/2022 Auto ASSESSMENT/PLAN: 1. Anxiety - ICD9: 300.00, ICD10: F41.9 (primary diagnosis) - Stable - Continue current medication regimen. 2. Essential hypertension, benign - ICD9: 401.1, ICD10: I10 - good control - Continue current medication(s) - Recommended regular aerobic exercise. - Recommend home blood pressure monitoring, to bring results in on next visit - Goal of BP <130/80 3. Gastroesophageal reflux disease, unspecified whether esophagitis present - ICD9: 530.81, ICD10: K21.9 - Continue current medication regimen. 4. Mild intermittent asthma without complication - ICD9: 493.90, ICD10: J45.20 Mild intermittent Asthma stable - Avoidance of triggers recommended 5. Hyperlipidemia, unspecified hyperlipidemia type - ICD9: 272.4, ICD10: E78.5 - good control - Encouraged following a low fat, low cholesterol diet. - Discussed the benefits of regular aerobic exercise and weight loss. 6. Encounter for screening colonoscopy - ICD9: V76.51, ICD10: Z12.11 - IFOBT given today - FECAL OCCULT BLOOD TEST Follow up in 3 months. I agree with the Chief Complaint, ROS, and Past Histories independently gathered by the clinical direct support worker and the remaining scribed note accurately describes my personal service to the patient. Medical Decision Making: Problems: Moderate: 2+ stable chronic illnesses Data: Unique test result(s) reviewed: 3+ Risk: Moderate: Drug management Medical Decision Making Level: 4 - Moderate Leslye Mccloud MD The documentation for this note was completed by Leni Castano Ma acting as scribe for Leslye Mccloud MD. February 07, 2022 3:10 PM. Leni Castano Ma documented in this encounterM[facility] Miscellaneous Notes* Telephone Encounter - Marie Castellanos Ma - 01/31/2022 8:11 AM EDT See mychart message. Marie Castellanos Ma documented in this encounterM[facility] Miscellaneous Notes* Telephone Encounter - Herb Dinh APRN.CNP - 01/19/2022 9:57 AM EDT Approved. PDMP website checked and validated. All prescriptions have been APPROPRIATELY filled. No suspiciousactivity was identified. 01/19/2022 by Herb Dinh APRN.CNP The following approved medication requests have been transmitted electronically. Signed Prescriptions Disp Refills ALPRAZolam (XANAX) 0.25 mg tablet 60 tablet 2 Sig: Take 1 tablet by mouth twice daily for 90 days. ANA Class: C-IV SERGIO: No Authorizing Provider: HERB DINH APRN.CNP * Telephone Encounter - Lina Wyman LPN - 01/19/2022 9:28 AM EDT Patient has been identified by name and date of : Yes Patient phones for refill(s): Pending Prescriptions Disp Refills ALPRAZOLAM 0.25 MG TABLET 60 tablet 2 Sig: Take 1 tablet by mouth twice daily for 90 days. ANA Class: C-IV SERGIO: No Date of last office visit in primary care: 10/25/2021, has appt 01/24/2022 Last 2 Encounter Wt Readings: Date: Wt: 10/25/2021 65.9 kg (145 lb 3.2 oz) 08/16/2021 64.4 kg (142 lb) Previous labs/tests for medication: Not applicable Please advise. Thank you. Lina Wyman LPN documented in this encounterM[facility]04-13-2022 Miscellaneous Notes* Telephone Encounter - Maire Castellanos Ma - 12/01/2021 1:16 PM EDT The following approved medication requests have been transmitted electronically. Signed Prescriptions Disp Refills clindamycin (CLEOCIN) 300 mg capsule 10 capsule 1 Sig: Take 2 capsules by mouth one time only for 1 dose. Take 30-60 minutes prior to dental work SERGIO: No Authorizing Provider: LESLYE MCCLOUD Ma * Telephone Encounter - Leslye Mccloud MD - 12/01/2021 1:12 PM EDT OK to refill as ordered Leslye Mccloud MD * Telephone Encounter - Jasmine Pizarro RN - 12/01/2021 12:59 PM EDT Patient has been identified by name and date of : Yes Patient phones for refill(s): Pending Prescriptions Disp Refills CLINDAMYCIN HCL 300 MG CAPSULE 10 capsule 1 Sig: Take 2 capsules by mouth one time only for 1 dose. Take 30-60 minutes prior to dental work SERGIO: No Current pills on hand . Patient going to a new dentist and will be having a tooth pulled andpossible other dental work done. Date of last office visit with pcp: 10/25/2021 Future appt: 01/24/2022 Last 2 Encounter Wt Readings: Date: Wt: 10/25/2021 65.9 kg (145 lb 3.2 oz) 08/16/2021 64.4 kg (142 lb) Previous labs/tests for medication: Blood Pressure: BUN (mg/dL) Date Value 01/20/2021 17 Sodium (mmol/L) Date Value 01/20/2021 140 Last 1 Encounter BP Readings: Date: BP: 10/25/2021 136/82 Liver Function: ALT (U/L) Date Value 01/20/2021 15 AST (U/L) Date Value 01/20/2021 23 Please advise. Thank you. Jasmine Pizarro RN documented in this encounterM[facility]04-11-2022 Miscellaneous Notes* Telephone Encounter - Leni Castano Ma - 11/29/2021 4:55 PM EDT All documents have been re-faxed together Leni Castano Ma * Telephone Encounter - Leslye Mccloud MD - 11/29/2021 4:41 PM EDT Done Leslye Mccloud MD * Telephone Encounter - Marie Castellanos Ma - 11/29/2021 1:47 PM EDT Pt forgot to attach there physician signature portion of her [place] paperwork for Kristie. The rest of her paperwork was completed and faxed back last week. Please sign and fax to [phone] Marie Castellanos Ma documented in this encounterM[facility]04-11-2022 Miscellaneous Notes* Telephone Encounter - Herb Dinh APRN.CNP - 11/29/2021 11:46 AM EDT The following approved medication requests have been transmitted electronically. Pending Prescriptions Disp Refills CITALOPRAM 20 MG TABLET 90 tablet 3 Sig: Take 1 tablet by mouth once daily. SERGIO: No LOSARTAN 100 MG TABLET 90 tablet 3 Sig: Take 1 tablet by mouth once daily. SERGIO: No Hreb Dinh APRN.CNP * Telephone Encounter - Gema Steven MA - 11/29/2021 11:32 AM EDT Patient has been identified by name and date of : Yes Pending Prescriptions Disp Refills CITALOPRAM 20 MG TABLET 90 tablet 3 Sig: Take 1 tablet by mouth once daily. SERGIO: No LOSARTAN 100 MG TABLET 90 tablet 3 Sig: Take 1 tablet by mouth once daily. SERGIO: No RX INSTRUCTIONS: Patient aware RX will be sent to pharmacy. No need to notify patient. Gema Steven MA [place]: 10/2021 Nov: 01/2022 Last refill: 01/2021 90 tablets 3 refills. * Telephone Encounter - Josefa Hurd - 11/29/2021 10:50 AM EDT Patient said [facility] notified her that she just used her last refill for these scripts. Needs new rxsent to [facility]. * Telephone Encounter - Josefa Santoe Pss - 11/29/2021 10:49 AM EDT Patient has been identified by name and date of : Yes Pending Prescriptions Disp Refills CITALOPRAM 20 MG TABLET 90 tablet 3 Sig: Take 1 tablet by mouth once daily. SERGIO: No LOSARTAN 100 MG TABLET 90 tablet 3 Sig: Take 1 tablet by mouth once daily. SERGIO: No RX INSTRUCTIONS: Patient aware RX escripted to mail away pharmacy. No need to notify patient. Josefa Eliza Pss documented in this encounterM[facility]04-08-2022 Miscellaneous Notes* Telephone Encounter - Jenni Bui LPN - 11/26/2021 9:48 AM EDT Form were faxed. Jenni Bui LPN * Telephone Encounter - Leslye Mccloud MD - 11/25/2021 5:23 PM EDT Form done Leslye Mccloud MD * Telephone Encounter - Marie Castellanos Ma - 11/24/2021 4:02 PM EDT Pt dropped of paperwork that needs completed for Kristie. Fax forms to [phone] or [phone]. She sends letter attached stating below: I would appreciate it if you would fill out these forms and fax them to kristie. When I get thesere occurring bouts of bronchitis I need from 2-4 days to recover. I don't get paid for these days of course so I only take off when necessary. This will help so I don't get points when I have to be off. Thank you so much for your time.. Marie Castellanos Ma documented in this encounterM[facility]03-28-2022 Miscellaneous Notes* Telephone Encounter - Leni Castano Ma - 11/15/2021 2:42 PM EDT Pt called and notified of message below. Verbalized understanding. Leni Castano Ma * Telephone Encounter - Leslye Mccloud MD - 11/15/2021 2:29 PM EDT OK for Zpak as ordered Leslye Mccloud MD * Telephone Encounter - Kathie Singh - 11/15/2021 8:31 AM EDTSummary: Med Request Patient called in requesting a Z-pack, Zithromax for her bronchitis, PT stated she has reoccurring bronchitis and PCP has prescribed before due to this being so frequent. Please advise and call back. 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/12/2017 Dermatophytosis of the body 09/01/200811/20 Dermatophytosis of foot 09/01/2008 12/13/19 18 Other psoriasis 09/01/2008 12/12/2017 XEROSIS///SEBACEOUS GLAND DIS NEC 09/01/2008 12/12/2017 Dermatophytosis of hand 09/01/2008 12/13/19 18 documented as of this encounter (statuses as of 11/15/2021) [facility] illness Narrative* Problem Noted Date Resolved Date Unspecified arthropathy, lower leg 06/18/2013 12/12/2017 Pain in rib 06/22/2009 12/12/2017 Drug-induced neutropenia 01/20/2009 018 ONYCHOMYCOSIS///DERMATOPHYTOSIS OF NAIL 10/15/19 09 12/12/2017 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/12/2017 Dermatophytosis of the body 09/01/200811/20 Dermatophytosis of foot 09/01/2008 12/13/19 18 Other psoriasis 09/01/2008 12/12/2017 XEROSIS///SEBACEOUS GLAND DIS NEC 09/01/2008 12/12/2017 Dermatophytosis of hand 09/01/2008 12/13/19 18 documented as of this encounter (statuses as of 11/26/2021) [facility] Narrative* Problem Noted Date Resolved Date Unspecified arthropathy, lower leg 06/18/2013 12/12/2017 Pain in rib 06/22/2009 12/12/2017 Drug-induced neutropenia 01/20/2009 018 ONYCHOMYCOSIS///DERMATOPHYTOSIS OF NAIL 10/15/19 09 12/12/2017 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/12/2017 Dermatophytosis of the body 09/01/200811/20 Dermatophytosis of foot 09/01/2008 12/13/19 18 Other psoriasis 09/01/2008 12/12/2017 XEROSIS///SEBACEOUS GLAND DIS NEC 09/01/2008 12/12/2017 Dermatophytosis of hand 09/01/2008 12/13/19 18 documented as of this encounter (statuses as of 11/29/2021) [facility] Narrative* Problem Noted Date Resolved Date Unspecified arthropathy, lower leg 06/18/2013 12/12/2017 Pain in rib 06/22/2009 12/12/2017 Drug-induced neutropenia 01/20/2009 018 ONYCHOMYCOSIS///DERMATOPHYTOSIS OF NAIL 10/15/19 09 12/12/2017 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/12/2017 Dermatophytosis of the body 09/01/200811/20 Dermatophytosis of foot 09/01/2008 12/13/19 18 Other psoriasis 09/01/2008 12/12/2017 XEROSIS///SEBACEOUS GLAND DIS NEC 09/01/2008 12/12/2017 Dermatophytosis of hand 09/01/2008 12/13/19 18 documented as of this encounter (statuses as of 11/29/2021) [facility] Narrative* Problem Noted Date Resolved Date Unspecified arthropathy, lower leg 06/18/2013 12/12/2017 Pain in rib 06/22/2009 12/12/2017 Drug-induced neutropenia 01/20/2009 018 ONYCHOMYCOSIS///DERMATOPHYTOSIS OF NAIL 10/15/19 09 12/12/2017 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/12/2017 Dermatophytosis of the body 09/01/200811/20 Dermatophytosis of foot 09/01/2008 12/13/19 18 Other psoriasis 09/01/2008 12/12/2017 XEROSIS///SEBACEOUS GLAND DIS NEC 09/01/2008 12/12/2017 Dermatophytosis of hand 09/01/2008 12/13/19 18 documented as of this encounter (statuses as of 12/01/2021) [facility] Narrative* Problem Noted Date Resolved Date Unspecified arthropathy, lower leg 06/18/2013 12/12/2017 Pain in rib 06/22/2009 12/12/2017 Drug-induced neutropenia 01/20/2009 018 ONYCHOMYCOSIS///DERMATOPHYTOSIS OF NAIL 10/15/19 09 12/12/2017 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/12/2017 Dermatophytosis of the body 09/01/200811/20 Dermatophytosis of foot 09/01/2008 12/13/19 18 Other psoriasis 09/01/2008 12/12/2017 XEROSIS///SEBACEOUS GLAND DIS NEC 09/01/2008 12/12/2017 Dermatophytosis of hand 09/01/2008 12/13/19 18 documented as of this encounter (statuses as of 01/19/2022) [facility] Narrative* Problem Noted Date Resolved Date Unspecified arthropathy, lower leg 06/18/2013 12/12/2017 Pain in rib 06/22/2009 12/12/2017 Drug-induced neutropenia 01/20/2009 018 ONYCHOMYCOSIS///DERMATOPHYTOSIS OF NAIL 10/15/19 09 12/12/2017 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/12/2017 Dermatophytosis of the body 09/01/200811/20 Dermatophytosis of foot 09/01/2008 12/13/19 18 Other psoriasis 09/01/2008 12/12/2017 XEROSIS///SEBACEOUS GLAND DIS NEC 09/01/2008 12/12/2017 Dermatophytosis of hand 09/01/2008 12/13/19 18 documented as of this encounter (statuses as of 02/01/2022) [facility] Narrative* Problem Noted Date Resolved Date Unspecified arthropathy, lower leg 06/18/2013 12/12/2017 Pain in rib 06/22/2009 12/12/2017 Drug-induced neutropenia 01/20/2009 018 ONYCHOMYCOSIS///DERMATOPHYTOSIS OF NAIL 10/15/19 09 12/12/2017 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/12/2017 Dermatophytosis of the body 09/01/200811/20 Dermatophytosis of foot 09/01/2008 12/13/19 18 Other psoriasis 09/01/2008 12/12/2017 XEROSIS///SEBACEOUS GLAND DIS NEC 09/01/2008 12/12/2017 Dermatophytosis of hand 09/01/2008 12/13/19 18 documented as of this encounter (statuses as of 02/07/2022) [facility] Narrative* Problem Noted Date Resolved Date Unspecified arthropathy, lower leg 06/18/2013 12/12/2017 Pain in rib 06/22/2009 12/12/2017 Drug-induced neutropenia 01/20/2009 018 ONYCHOMYCOSIS///DERMATOPHYTOSIS OF NAIL 10/15/19 09 12/12/2017 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/12/2017 Dermatophytosis of the body 09/01/200811/20 Dermatophytosis of foot 09/01/2008 12/13/19 18 Other psoriasis 09/01/2008 12/12/2017 XEROSIS///SEBACEOUS GLAND DIS NEC 09/01/2008 12/12/2017 Dermatophytosis of hand 09/01/2008 12/13/19 18 documented as of this encounter (statuses as of 02/25/2022) [facility] Narrative* Problem Noted Date Resolved Date Unspecified arthropathy, lower leg 06/18/2013 12/12/2017 Pain in rib 06/22/2009 12/12/2017 Drug-induced neutropenia 01/20/2009 018 ONYCHOMYCOSIS///DERMATOPHYTOSIS OF NAIL 10/15/19 09 12/12/2017 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/12/2017 Dermatophytosis of the body 09/01/200811/20 Dermatophytosis of foot 09/01/2008 12/13/19 18 Other psoriasis 09/01/2008 12/12/2017 XEROSIS///SEBACEOUS GLAND DIS NEC 09/01/2008 12/12/2017 Dermatophytosis of hand 09/01/2008 12/13/19 18 documented as of this encounter (statuses as of 04/11/2022) [facility] Narrative* Problem Noted Date Resolved Date Unspecified arthropathy, lower leg 06/18/2013 12/12/2017 Pain in rib 06/22/2009 12/12/2017 Drug-induced neutropenia 01/20/2009 018 ONYCHOMYCOSIS///DERMATOPHYTOSIS OF NAIL 10/15/19 09 12/12/2017 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/12/2017 Dermatophytosis of the body 09/01/200811/20 Dermatophytosis of foot 09/01/2008 12/13/19 18 Other psoriasis 09/01/2008 12/12/2017 XEROSIS///SEBACEOUS GLAND DIS NEC 09/01/2008 12/12/2017 Dermatophytosis of hand 09/01/2008 12/13/19 18 documented as of this encounter (statuses as of 07/18/2022) [facility] Narrative* Problem Noted Date Resolved Date Unspecified arthropathy, lower leg 06/18/2013 12/12/2017 Pain in rib 06/22/2009 12/12/2017 Drug-induced neutropenia 01/20/2009 018 ONYCHOMYCOSIS///DERMATOPHYTOSIS OF NAIL 10/15/19 09 12/12/2017 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/12/2017 Dermatophytosis of the body 09/01/200811/20 Dermatophytosis of foot 09/01/2008 12/13/19 18 Other psoriasis 09/01/2008 12/12/2017 XEROSIS///SEBACEOUS GLAND DIS NEC 09/01/2008 12/12/2017 Dermatophytosis of hand 09/01/2008 12/13/19 18 documented as of this encounter (statuses as of 08/23/2022) [facility] Narrative* Problem Noted Date Resolved Date Unspecified arthropathy, lower leg 06/18/2013 12/12/2017 Pain in rib 06/22/2009 12/12/2017 Drug-induced neutropenia 01/20/2009 018 ONYCHOMYCOSIS///DERMATOPHYTOSIS OF NAIL 10/15/19 09 12/12/2017 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/12/2017 Dermatophytosis of the body 09/01/200811/20 Dermatophytosis of foot 09/01/2008 12/13/19 18 Other psoriasis 09/01/2008 12/12/2017 XEROSIS///SEBACEOUS GLAND DIS NEC 09/01/2008 12/12/2017 Dermatophytosis of hand 09/01/2008 12/13/19 18 documented as of this encounter (statuses as of 09/09/2022) [facility] Narrative* Problem Noted Date Resolved Date Unspecified arthropathy, lower leg 06/18/2013 12/12/2017 Pain in rib 06/22/2009 12/12/2017 Drug-induced neutropenia 01/20/2009 018 ONYCHOMYCOSIS///DERMATOPHYTOSIS OF NAIL 10/15/19 09 12/12/2017 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/12/2017 Dermatophytosis of the body 09/01/200811/20 Dermatophytosis of foot 09/01/2008 12/13/19 18 Other psoriasis 09/01/2008 12/12/2017 XEROSIS///SEBACEOUS GLAND DIS NEC 09/01/2008 12/12/2017 Dermatophytosis of hand 09/01/2008 12/13/19 18 documented as of this encounter (statuses as of 09/13/2022) [facility] Narrative* Problem Noted Date Resolved Date Unspecified arthropathy, lower leg 06/18/2013 12/12/2017 Pain in rib 06/22/2009 12/12/2017 Drug-induced neutropenia 01/20/2009 018 ONYCHOMYCOSIS///DERMATOPHYTOSIS OF NAIL 10/15/19 09 12/12/2017 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/12/2017 Dermatophytosis of the body 09/01/200811/20 Dermatophytosis of foot 09/01/2008 12/13/19 18 Other psoriasis 09/01/2008 12/12/2017 XEROSIS///SEBACEOUS GLAND DIS NEC 09/01/2008 12/12/2017 Dermatophytosis of hand 09/01/2008 12/13/19 18 documented as of this encounter (statuses as of 09/22/2022) [facility] Narrative* Problem Noted Date Resolved Date Unspecified arthropathy, lower leg 06/18/2013 12/12/2017 Pain in rib 06/22/2009 12/12/2017 Drug-induced neutropenia 01/20/2009 018 ONYCHOMYCOSIS///DERMATOPHYTOSIS OF NAIL 10/15/19 09 12/12/2017 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/12/2017 Dermatophytosis of the body 09/01/200811/20 Dermatophytosis of foot 09/01/2008 12/13/19 18 Other psoriasis 09/01/2008 12/12/2017 XEROSIS///SEBACEOUS GLAND DIS NEC 09/01/2008 12/12/2017 Dermatophytosis of hand 09/01/2008 12/13/19 18 documented as of this encounter (statuses as of 09/27/2022) [facility]arrative* Problem Noted Date Resolved Date Unspecified arthropathy, lower leg 06/18/2013 12/12/2017 Pain in rib 06/22/2009 12/12/2017 Drug-induced neutropenia 01/20/2009 018 ONYCHOMYCOSIS///DERMATOPHYTOSIS OF NAIL 10/15/19 09 12/12/2017 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/12/2017 Dermatophytosis of the body 09/01/200811/20 Dermatophytosis of foot 09/01/2008 12/13/19 18 Other psoriasis 09/01/2008 12/12/2017 XEROSIS///SEBACEOUS GLAND DIS NEC 09/01/2008 12/12/2017 Dermatophytosis of hand 09/01/2008 12/13/19 18 documented as of this encounter (statuses as of 10/04/2022) [facility] Narrative* Problem Noted Date Resolved Date Unspecified arthropathy, lower leg 06/18/2013 12/12/2017 Pain in rib 06/22/2009 12/12/2017 Drug-induced neutropenia 01/20/2009 018 ONYCHOMYCOSIS///DERMATOPHYTOSIS OF NAIL 10/15/19 09 12/12/2017 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/12/2017 Dermatophytosis of the body 09/01/200811/20 Dermatophytosis of foot 09/01/2008 12/13/19 18 Other psoriasis 09/01/2008 12/12/2017 XEROSIS///SEBACEOUS GLAND DIS NEC 09/01/2008 12/12/2017 Dermatophytosis of hand 09/01/2008 12/13/19 18 documented as of this encounter (statuses as of 11/03/2022) [facility] Narrative* Problem Noted Date Resolved Date Unspecified arthropathy, lower leg 06/18/2013 12/12/2017 Pain in rib 06/22/2009 12/12/2017 Drug-induced neutropenia 01/20/2009 018 ONYCHOMYCOSIS///DERMATOPHYTOSIS OF NAIL 10/15/19 09 12/12/2017 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/12/2017 Dermatophytosis of the body 09/01/200811/20 Dermatophytosis of foot 09/01/2008 12/13/19 18 Other psoriasis 09/01/2008 12/12/2017 XEROSIS///SEBACEOUS GLAND DIS NEC 09/01/2008 12/12/2017 Dermatophytosis of hand 09/01/2008 12/13/19 18 documented as of this encounter (statuses as of 11/03/2022) [facility] Narrative* Problem Noted Date Resolved Date Unspecified arthropathy, lower leg 06/18/2013 12/12/2017 Pain in rib 06/22/2009 12/12/2017 Drug-induced neutropenia 01/20/2009 018 ONYCHOMYCOSIS///DERMATOPHYTOSIS OF NAIL 10/15/19 09 12/12/2017 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/12/2017 Dermatophytosis of the body 09/01/200811/20 Dermatophytosis of foot 09/01/2008 12/13/19 18 Other psoriasis 09/01/2008 12/12/2017 XEROSIS///SEBACEOUS GLAND DIS NEC 09/01/2008 12/12/2017 Dermatophytosis of hand 09/01/2008 12/13/19 18 documented as of this encounter (statuses as of 11/07/2022) [facility] Narrative* Problem Noted Date Resolved Date Unspecified arthropathy, lower leg 06/18/2013 12/12/2017 Pain in rib 06/22/2009 12/12/2017 Drug-induced neutropenia 01/20/2009 018 ONYCHOMYCOSIS///DERMATOPHYTOSIS OF NAIL 10/15/19 09 12/12/2017 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/12/2017 Dermatophytosis of the body 09/01/200811/20 Dermatophytosis of foot 09/01/2008 12/13/19 18 Other psoriasis 09/01/2008 12/12/2017 XEROSIS///SEBACEOUS GLAND DIS NEC 09/01/2008 12/12/2017 Dermatophytosis of hand 09/01/2008 12/13/19 18 documented as of this encounter (statuses as of 11/18/2022) [facility] Past [facility] Narrative* Problem Noted Date Resolved Date Unspecified arthropathy, lower leg 06/18/2013 12/12/2017 Pain in rib 06/22/2009 12/12/2017 Drug-induced neutropenia 01/20/2009 018 ONYCHOMYCOSIS///DERMATOPHYTOSIS OF NAIL 10/15/19 09 12/12/2017 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/12/2017 Dermatophytosis of the body 09/01/200811/20 Dermatophytosis of foot 09/01/2008 12/13/19 18 Other psoriasis 09/01/2008 12/12/2017 XEROSIS///SEBACEOUS GLAND DIS NEC 09/01/2008 12/12/2017 Dermatophytosis of hand 09/01/2008 12/13/19 18 documented as of this encounter (statuses as of 11/18/2022) [facility] Narrative* Problem Noted Date Resolved Date Unspecified arthropathy, lower leg 06/18/2013 12/12/2017 Pain in rib 06/22/2009 12/12/2017 Drug-induced neutropenia 01/20/2009 018 ONYCHOMYCOSIS///DERMATOPHYTOSIS OF NAIL 10/15/19 09 12/12/2017 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/12/2017 Dermatophytosis of the body 09/01/200811/20 Dermatophytosis of foot 09/01/2008 12/13/19 18 Other psoriasis 09/01/2008 12/12/2017 XEROSIS///SEBACEOUS GLAND DIS NEC 09/01/2008 12/12/2017 Dermatophytosis of hand 09/01/2008 12/13/19 18 documented as of this encounter (statuses as of 11/23/2022) [facility] History of Past illness Narrative* Problem Noted Date Resolved Date Unspecified arthropathy, lower leg 06/18/2013 12/12/2017 Pain in rib 06/22/2009 12/12/2017 Drug-induced neutropenia 01/20/2009 018 ONYCHOMYCOSIS///DERMATOPHYTOSIS OF NAIL 10/15/19 09 12/12/2017 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/12/2017 Dermatophytosis of the body 09/01/200811/20 Dermatophytosis of foot 09/01/2008 12/13/19 18 Other psoriasis 09/01/2008 12/12/2017 XEROSIS///SEBACEOUS GLAND DIS NEC 09/01/2008 12/12/2017 Dermatophytosis of hand 09/01/2008 12/13/19 18 documented as of this encounter (statuses as of 11/30/2022) [facility] History of Past illness Narrative* Problem Noted Date Resolved Date Unspecified arthropathy, lower leg 06/18/2013 12/12/2017 Pain in rib 06/22/2009 12/12/2017 Drug-induced neutropenia 01/20/2009 018 ONYCHOMYCOSIS///DERMATOPHYTOSIS OF NAIL 10/15/19 09 12/12/2017 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/12/2017 Dermatophytosis of the body 09/01/200811/20 Dermatophytosis of foot 09/01/2008 12/13/19 18 Other psoriasis 09/01/2008 12/12/2017 XEROSIS///SEBACEOUS GLAND DIS NEC 09/01/2008 12/12/2017 Dermatophytosis of hand 09/01/2008 12/13/19 18 documented as of this encounter (statuses as of 12/07/2022) [facility] History of Past illness Narrative* Problem Noted Date Resolved Date Unspecified arthropathy, lower leg 06/18/2013 12/12/2017 Pain in rib 06/22/2009 12/12/2017 Drug-induced neutropenia 01/20/2009 018 ONYCHOMYCOSIS///DERMATOPHYTOSIS OF NAIL 10/15/19 09 12/12/2017 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/12/2017 Dermatophytosis of the body 09/01/200811/20 Dermatophytosis of foot 09/01/2008 12/13/19 18 Other psoriasis 09/01/2008 12/12/2017 XEROSIS///SEBACEOUS GLAND DIS NEC 09/01/2008 12/12/2017 Dermatophytosis of hand 09/01/2008 12/13/19 18 documented as of this encounter (statuses as of 12/12/2022) [facility] History of Past illness Narrative* Problem Noted Date Resolved Date Unspecified arthropathy, lower leg 06/18/2013 12/12/2017 Pain in rib 06/22/2009 12/12/2017 Drug-induced neutropenia 01/20/2009 018 ONYCHOMYCOSIS///DERMATOPHYTOSIS OF NAIL 10/15/19 09 12/12/2017 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/12/2017 Dermatophytosis of the body 09/01/200811/20 Dermatophytosis of foot 09/01/2008 12/13/19 18 Other psoriasis 09/01/2008 12/12/2017 XEROSIS///SEBACEOUS GLAND DIS NEC 09/01/2008 12/12/2017 Dermatophytosis of hand 09/01/2008 12/13/19 18 documented as of this encounter (statuses as of 12/16/2022) [facility] History of Past illness Narrative* Problem Noted Date Resolved Date Unspecified arthropathy, lower leg 06/18/2013 12/12/2017 Pain in rib 06/22/2009 12/12/2017 Drug-induced neutropenia 01/20/2009 018 ONYCHOMYCOSIS///DERMATOPHYTOSIS OF NAIL 10/15/19 09 12/12/2017 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/12/2017 Dermatophytosis of the body 09/01/200811/20 Dermatophytosis of foot 09/01/2008 12/13/19 18 Other psoriasis 09/01/2008 12/12/2017 XEROSIS///SEBACEOUS GLAND DIS NEC 09/01/2008 12/12/2017 Dermatophytosis of hand 09/01/2008 12/13/19 18 documented as of this encounter (statuses as of 12/16/2022) [facility] History of Past illness Narrative* Problem Noted Date Resolved Date Unspecified arthropathy, lower leg 06/18/2013 12/12/2017 Pain in rib 06/22/2009 12/12/2017 Drug-induced neutropenia 01/20/2009 018 ONYCHOMYCOSIS///DERMATOPHYTOSIS OF NAIL 10/15/19 09 12/12/2017 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/12/2017 Dermatophytosis of the body 09/01/200811/20 Dermatophytosis of foot 09/01/2008 12/13/19 18 Other psoriasis 09/01/2008 12/12/2017 XEROSIS///SEBACEOUS GLAND DIS NEC 09/01/2008 12/12/2017 Dermatophytosis of hand 09/01/2008 12/13/19 18 documented as of this encounter (statuses as of 01/20/2023) [facility] History of Past illness Narrative* Problem Noted Date Resolved Date Unspecified arthropathy, lower leg 06/18/2013 12/12/2017 Pain in rib 06/22/2009 12/12/2017 Drug-induced neutropenia 01/20/2009 018 ONYCHOMYCOSIS///DERMATOPHYTOSIS OF NAIL 10/15/19 09 12/12/2017 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/12/2017 Dermatophytosis of the body 09/01/200811/20 Dermatophytosis of foot 09/01/2008 12/13/19 18 Other psoriasis 09/01/2008 12/12/2017 XEROSIS///SEBACEOUS GLAND DIS NEC 09/01/2008 12/12/2017 Dermatophytosis of hand 09/01/2008 12/13/19 18 documented as of this encounter (statuses as of 02/20/2023) [facility] History of Past illness Narrative* Problem Noted Date Resolved Date Unspecified arthropathy, lower leg 06/18/2013 12/12/2017 Pain in rib 06/22/2009 12/12/2017 Drug-induced neutropenia 01/20/2009 018 ONYCHOMYCOSIS///DERMATOPHYTOSIS OF NAIL 10/15/19 09 12/12/2017 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/12/2017 Dermatophytosis of the body 09/01/200811/20 Dermatophytosis of foot 09/01/2008 04/24/20 18 Other psoriasis 09/01/2008 12/12/2017 XEROSIS///SEBACEOUS GLAND DIS NEC 09/01/2008 12/12/2017 Dermatophytosis of hand 09/01/2008 12/13/19 18 documented as of this encounter (statuses as of 02/23/2023) [facility] History of Past illness Narrative* Problem Noted Date Diagnosed Date Resolved Date Unspecified arthropathy, lower leg 06/18/2013 12/12/2017 Pain in rib 06/22/2009 12/12/2017 Drug-induced neutropenia 01/20/2009 ONYCHOMYCOSIS///DERMATOPHYTOSIS OF NAIL 10/15/2008 12/12/2017 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/12/2017 Dermatophytosis of the body 09/01/2008 12/12/2017 Dermatophytosis of foot 09/01/200811/20 Other psoriasis 09/01/2008 12/12/2017 XEROSIS///SEBACEOUS GLAND DIS NEC 09/01/2008 12/12/2017 Dermatophytosis of hand 09/01/200811/20 documented as of this encounter (statuses as of 03/27/2023) [facility] History of Past illness Narrative* Problem Noted Date Diagnosed Date Resolved Date Unspecified arthropathy, lower leg 06/18/2013 12/12/2017 Pain in rib 06/22/2009 12/12/2017 Drug-induced neutropenia 01/20/2009 ONYCHOMYCOSIS///DERMATOPHYTOSIS OF NAIL 10/15/2008 12/12/2017 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/12/2017 Dermatophytosis of the body 09/01/2008 12/12/2017 Dermatophytosis of foot 09/01/200811/20 Other psoriasis 09/01/2008 12/12/2017 XEROSIS///SEBACEOUS GLAND DIS NEC 09/01/2008 12/12/2017 Dermatophytosis of hand 09/01/200811/20 documented as of this encounter (statuses as of 04/14/2023) [facility] History of Past illness Narrative* Problem Noted Date Diagnosed Date Resolved Date Unspecified arthropathy, lower leg 06/18/2013 12/12/2017 Pain in rib 06/22/2009 12/12/2017 Drug-induced neutropenia 01/20/2009 ONYCHOMYCOSIS///DERMATOPHYTOSIS OF NAIL 10/15/2008 12/12/2017 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/12/2017 Dermatophytosis of the body 09/01/2008 12/12/2017 Dermatophytosis of foot 09/01/200811/20 Other psoriasis 09/01/2008 12/12/2017 XEROSIS///SEBACEOUS GLAND DIS NEC 09/01/2008 12/12/2017 Dermatophytosis of hand 09/01/200811/20 documented as of this encounter (statuses as of 05/01/2023) [facility] History of Past illness Narrative* Problem Noted Date Diagnosed Date Resolved Date Unspecified arthropathy, lower leg 06/18/2013 12/12/2017 Pain in rib 06/22/2009 12/12/2017 Drug-induced neutropenia 01/20/2009 ONYCHOMYCOSIS///DERMATOPHYTOSIS OF NAIL 10/15/2008 12/12/2017 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/12/2017 Dermatophytosis of the body 09/01/2008 12/12/2017 Dermatophytosis of foot 09/01/200811/20 Other psoriasis 09/01/2008 12/12/2017 XEROSIS///SEBACEOUS GLAND DIS NEC 09/01/2008 12/12/2017 Dermatophytosis of hand 09/01/200811/20 documented as of this encounter (statuses as of 06/25/2023) [facility] History of Past illness Narrative* Problem Noted Date Diagnosed Date Resolved Date Unspecified arthropathy, lower leg 06/18/2013 12/12/2017 Pain in rib 06/22/2009 12/12/2017 Drug-induced neutropenia 01/20/2009 Malignant neoplasm of breast (female), unspecified site 11/27/2008 07/31/2023 ONYCHOMYCOSIS///DERMATOPHYTOSIS OF NAIL 10/15/2008 12/12/2017 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/12/2017 Dermatophytosis of the body 09/01/2008 12/12/2017 Dermatophytosis of foot 09/01/200811/20 Other psoriasis 09/01/2008 12/12/2017 XEROSIS///SEBACEOUS GLAND DIS NEC 09/01/2008 12/12/2017 Dermatophytosis of hand 09/01/200811/20 documented as of this encounter (statuses as of 08/01/2023) [facility] History of Past illness Narrative* Problem Noted Date Diagnosed Date Resolved Date Unspecified arthropathy, lower leg 06/18/2013 12/12/2017 Pain in rib 06/22/2009 12/12/2017 Drug-induced neutropenia 01/20/2009 Malignant neoplasm of breast (female), unspecified site 11/27/2008 07/31/2023 ONYCHOMYCOSIS///DERMATOPHYTOSIS OF NAIL 10/15/2008 12/12/2017 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/12/2017 Dermatophytosis of the body 09/01/2008 12/12/2017 Dermatophytosis of foot 09/01/200811/20 Other psoriasis 09/01/2008 12/12/2017 XEROSIS///SEBACEOUS GLAND DIS NEC 09/01/2008 12/12/2017 Dermatophytosis of hand 09/01/200811/20 documented as of this encounter (statuses as of 09/22/2023) [facility] History of Past illness Narrative* Problem Noted Date Diagnosed Date Resolved Date Unspecified arthropathy, lower leg 06/18/2013 12/12/2017 Pain in rib 06/22/2009 12/12/2017 Drug-induced neutropenia 01/20/2009 Malignant neoplasm of breast (female), unspecified site 11/27/2008 07/31/2023 ONYCHOMYCOSIS///DERMATOPHYTOSIS OF NAIL 10/15/2008 12/12/2017 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/12/2017 Dermatophytosis of the body 09/01/2008 12/12/2017 Dermatophytosis of foot 09/01/200811/20 Other psoriasis 09/01/2008 12/12/2017 XEROSIS///SEBACEOUS GLAND DIS NEC 09/01/2008 12/12/2017 Dermatophytosis of hand 09/01/200811/20 documented as of this encounter (statuses as of 09/28/2023) [facility] History of Past illness Narrative* Problem Noted Date Diagnosed Date Resolved Date Unspecified arthropathy, lower leg 06/18/2013 12/12/2017 Pain in rib 06/22/2009 12/12/2017 Drug-induced neutropenia 01/20/2009 Malignant neoplasm of breast (female), unspecified site 11/27/2008 07/31/2023 ONYCHOMYCOSIS///DERMATOPHYTOSIS OF NAIL 10/15/2008 12/12/2017 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/12/2017 Dermatophytosis of the body 09/01/2008 12/12/2017 Dermatophytosis of foot 09/01/200811/20 Other psoriasis 09/01/2008 12/12/2017 XEROSIS///SEBACEOUS GLAND DIS NEC 09/01/2008 12/12/2017 Dermatophytosis of hand 09/01/200811/20 documented as of this encounter (statuses as of 10/09/2023) [facility] History of Past illness Narrative* Problem Noted Date Diagnosed Date Resolved Date Unspecified arthropathy, lower leg 06/18/2013 12/12/2017 Pain in rib 06/22/2009 12/12/2017 Drug-induced neutropenia 01/20/2009 Malignant neoplasm of breast (female), unspecified site 11/27/2008 07/31/2023 ONYCHOMYCOSIS///DERMATOPHYTOSIS OF NAIL 10/15/2008 12/12/2017 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/12/2017 Dermatophytosis of the body 09/01/2008 12/12/2017 Dermatophytosis of foot 09/01/200811/20 Other psoriasis 09/01/2008 12/12/2017 XEROSIS///SEBACEOUS GLAND DIS NEC 09/01/2008 12/12/2017 Dermatophytosis of hand 09/01/200811/20 documented as of this encounter (statuses as of 10/11/2023) [facility] History of Past illness Narrative* Problem Noted Date Diagnosed Date Resolved Date Unspecified arthropathy, lower leg 06/18/2013 12/12/2017 Pain in rib 06/22/2009 12/12/2017 Drug-induced neutropenia 01/20/2009 Malignant neoplasm of breast (female), unspecified site 11/27/2008 07/31/2023 ONYCHOMYCOSIS///DERMATOPHYTOSIS OF NAIL 10/15/2008 12/12/2017 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/12/2017 Dermatophytosis of the body 09/01/2008 12/12/2017 Dermatophytosis of foot 09/01/200811/20 Other psoriasis 09/01/2008 12/12/2017 XEROSIS///SEBACEOUS GLAND DIS NEC 09/01/2008 12/12/2017 Dermatophytosis of hand 09/01/200811/20 documented as of this encounter (statuses as of 10/12/2023) [facility] History of Past illness Narrative* Problem Noted Date Diagnosed Date Resolved Date Unspecified arthropathy, lower leg 06/18/2013 12/12/2017 Pain in rib 06/22/2009 12/12/2017 Drug-induced neutropenia 01/20/2009 Malignant neoplasm of breast (female), unspecified site 11/27/2008 07/31/2023 ONYCHOMYCOSIS///DERMATOPHYTOSIS OF NAIL 10/15/2008 12/12/2017 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/12/2017 Dermatophytosis of the body 09/01/2008 12/12/2017 Dermatophytosis of foot 09/01/200811/20 Other psoriasis 09/01/2008 12/12/2017 XEROSIS///SEBACEOUS GLAND DIS NEC 09/01/2008 12/12/2017 Dermatophytosis of hand 09/01/200811/20 documented as of this encounter (statuses as of 11/01/2023) [facility] History of Past illness Narrative* Problem Noted Date Diagnosed Date Resolved Date Unspecified arthropathy, lower leg 06/18/2013 12/12/2017 Pain in rib 06/22/2009 12/12/2017 Drug-induced neutropenia 01/20/2009 ONYCHOMYCOSIS///DERMATOPHYTOSIS OF NAIL 10/15/2008 12/12/2017 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/12/2017 Dermatophytosis of the body 09/01/2008 12/12/2017 Dermatophytosis of foot 09/01/200811/20 Other psoriasis 09/01/2008 12/12/2017 XEROSIS///SEBACEOUS GLAND DIS NEC 09/01/2008 12/12/2017 Dermatophytosis of hand 09/01/200811/20 documented as of this encounter (statuses as of 03/15/2023) [facility] note* Diagnosis Anxiety Anxiety state, unspecified BENIGN HYPERTENSION Essential hypertension, benign [facility] Diagnosis Anxiety Anxiety state, unspecified [facility]* Diagnosis Essential hypertension, benign- Primary Anxiety Anxiety state, unspecified Gastroesophageal reflux disease, unspecified whether esophagitis present Mild intermittent asthma without complication Unspecified asthma Hyperlipidemia, unspecified hyperlipidemia type Encounter for screening colonoscopy Special screening for malignant neoplasms, colon [facility]* Diagnosis Anxiety Anxiety state, unspecified [facility]* Diagnosis Anxiety Anxiety state, unspecified [facility]* Diagnosis Cellulitis, nose- Primary Gastroesophageal reflux disease, unspecified whether esophagitis present Essential hypertension, benign Mild intermittent asthma without complication Unspecified asthma Anxiety Anxiety state, unspecified Encounter for screening mammogram for breast cancer [facility]* Diagnosis Left breast abscess- Primary Inflammatory disease of breast [facility] Diagnosis Infected sebaceous cyst- Primary Sebaceous cyst [facility]* Diagnosis Anxiety Anxiety state, unspecified [facility]* Diagnosis Infected sebaceous cyst- Primary Sebaceous cyst [facility] Diagnosis Anxiety Anxiety state, unspecified [facility]* Diagnosis Acute bronchitis, unspecified organism [facility] Diagnosis BENIGN HYPERTENSION- Primary Essential hypertension, benign Gastroesophageal reflux disease, unspecified whether esophagitis present Mild intermittent asthma without complication Unspecified asthma Anxiety Anxiety state, unspecified Personal history of malignant neoplasm of breast Acute bronchitis, unspecified organism documented in this encounter [facility] note* Diagnosis Dizziness- Primary Dizziness and giddiness [facility]* Diagnosis Bronchitis- Primary Bronchitis, not specified as acute or chronic Generalized weakness Other malaise and fatigue Bilateral impacted cerumen Impacted cerumen BENIGN HYPERTENSION Essential hypertension, benign [facility]* Diagnosis Bilateral impacted cerumen- Primary Impacted cerumen Acute otitis externa of right ear, unspecified type documented in this encounter [facility] note* Diagnosis Bronchitis Bronchitis, not specified as acute or chronic [facility]* Diagnosis Mild intermittent asthma without complication Unspecified asthma documented in this encounter [facility] note* Diagnosis Mild intermittent asthma without complication Unspecified asthma documented in this encounter [facility] note* Diagnosis Mild intermittent asthma without complication- Primary Unspecified asthma documented in this encounter [facility] note* Diagnosis Mild intermittent asthma without complication- Primary Unspecified asthma Non-allergic rhinitis Chronic rhinitis documented in this encounter [facility] note* Diagnosis Anxiety Anxiety state, unspecified documented in this encounter [facility] note* Diagnosis Bronchitis- Primary Bronchitis, not specified as acute or chronic BENIGN HYPERTENSION Essential hypertension, benign Mild intermittent asthma without complication Unspecified asthma Anxiety Anxiety state, unspecified Gastroesophageal reflux disease, unspecified whether esophagitis present Personal history of malignant neoplasm of breast Screening for colon cancer Special screening for malignant neoplasms, colon documented in this encounter [facility] note* Diagnosis Encounter for screening mammogram for breast cancer [facility]* Diagnosis BENIGN HYPERTENSION- Primary Essential hypertension, benign Anxiety Anxiety state, unspecified Hyperlipidemia, unspecified hyperlipidemia type Gastroesophageal reflux disease, unspecified whether esophagitis present Mild intermittent asthma without complication Unspecified asthma Personal history of malignant neoplasm of breast Viral wart on finger [facility]* Diagnosis Mild intermittent asthma without complication- Primary Unspecified asthma Non-allergic rhinitis Chronic rhinitis Musculoskeletal back pain [facility]* Diagnosis Chronic cough- Primary Cough Bruising Contusion of unspecified site [facility]* Diagnosis Gastroesophageal reflux disease with esophagitis without hemorrhage- Primary Anxiety Anxiety state, unspecified BENIGN HYPERTENSION Essential hypertension, benign Hyperlipidemia, unspecified hyperlipidemia type Mild intermittent asthma without complication Unspecified asthma Personal history of malignant neoplasm of breast Other age-related cataract of right eye [facility]* Diagnosis Herpes zoster without complication- Primary Herpes zoster without mention of complication [facility]* Diagnosis 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 [facility]* Diagnosis Chest pain, unspecified type- Primary SOB (shortness of breath) Shortness of breath Mixed hyperlipidemia Herpes zoster without complication Herpes zoster without mention of complication Gastroesophageal reflux disease with esophagitis without hemorrhage Anxiety Anxiety state, unspecified BENIGN HYPERTENSION Essential hypertension, benign Mild intermittent asthma without complication Unspecified asthma Personal history of malignant neoplasm of breast [facility]* Diagnosis Bronchitis- Primary Bronchitis, not specified as acute or chronic [facility]* Diagnosis Bacterial pneumonia- Primary Bacterial pneumonia, unspecified [facility]* Diagnosis Multifocal pneumonia- Primary Mild intermittent asthma without complication Unspecified asthma Non-allergic rhinitis Chronic rhinitis [facility]* Diagnosis Fatigue, unspecified type- Primary Gastroesophageal reflux disease with esophagitis without hemorrhage Anxiety Anxiety state, unspecified BENIGN HYPERTENSION Essential hypertension, benign Mixed hyperlipidemia Mild intermittent asthma without complication Unspecified asthma Personal history of malignant neoplasm of breast Screening for colon cancer Special screening for malignant neoplasms, colon Screening for depression [facility]* Diagnosis Bacterial pneumonia Bacterial pneumonia, unspecified [facility]* Diagnosis Bruising Contusion of unspecified site Chronic cough Cough [facility]* Diagnosis Mild intermittent asthma with acute exacerbation Unspecified asthma, with exacerbation Acute cough [facility]* Diagnosis Asthma with acute exacerbation, unspecified asthma severity, unspecified whether persistent- Primary Bronchitis Bronchitis, not specified as acute or chronic [facility]* Diagnosis Mild persistent asthma with acute exacerbation- Primary Unspecified asthma, with exacerbation Bronchitis Bronchitis, not specified as acute or chronic Cough, unspecified type Pulmonary hypertension (HCC) Other chronic pulmonary heart diseases Lung nodules Other nonspecific abnormal finding of lung field Pulmonary emphysema, unspecified emphysema type (HCC) [facility]* Diagnosis Cough, unspecified type [facility]* Diagnosis Anxiety Anxiety state, unspecified BENIGN HYPERTENSION Essential hypertension, benign [facility]* Diagnosis Bilateral hand numbness- Primary Disturbance of skin sensation Gastroesophageal reflux disease with esophagitis without hemorrhage Anxiety Anxiety state, unspecified BENIGN HYPERTENSION Essential hypertension, benign Mixed hyperlipidemia Mild intermittent asthma without complication Unspecified asthma Lung nodule Solitary pulmonary nodule Pulmonary HTN (HCC) Other chronic pulmonary heart diseases Personal history of malignant neoplasm of breast Encounter for immunization Need for other specified prophylactic vaccination against single bacterial disease documented in this encounter [facility] note* Diagnosis Mild persistent asthma with acute exacerbation- Primary Unspecified asthma, with exacerbation [facility]* Diagnosis Personal history of malignant neoplasm of breast documented in this encounter [facility] note* Diagnosis Mild intermittent asthma without complication Unspecified asthma [facility] Diagnosis Mild intermittent asthma without complication Unspecified asthma [facility]* Diagnosis Anxiety Anxiety state, unspecified [facility]* Diagnosis Anxiety- Primary Anxiety state, unspecified BENIGN HYPERTENSION Essential hypertension, benign Pulmonary HTN (HCC) Other chronic pulmonary heart diseases Mixed hyperlipidemia Gastroesophageal reflux disease with esophagitis without hemorrhage Mild intermittent asthma without complication Unspecified asthma Lung nodule Solitary pulmonary nodule Personal history of malignant neoplasm of breast [facility]* Diagnosis Lung nodules Other nonspecific abnormal finding of lung field [facility] Diagnosis Lung nodules- Primary Other nonspecific abnormal finding of lung field [facility]* Diagnosis Mild intermittent asthma without complication (HCC)- Primary Unspecified asthma Lung nodules Other nonspecific abnormal finding of lung field Pulmonary hypertension (HCC) Other chronic pulmonary heart diseases Fatigue, unspecified type [facility]* Diagnosis Mild intermittent asthma without complication (HCC) Unspecified asthma [facility]* Diagnosis Onset Date Resolution Status Admit Date Chest heaviness acute April 29, 2025 11:01am Hyperlipidemia acute April 29, 2025 11:01am Pulmonary hypertension acute Se ptember 2024 11:01am HTN (hypertension) chronic Septem saray 2024 11:01am [facility] Work [facility]: [facility] Diagnostic Procedure Only (Routine) - Pending Review Specialty Diagnoses / Procedures Referred By Contac t Referred To Contact [facility] Diagnoses Encounter for screening mammogram for breast cancer Procedures LETICIA SCREENING SCREENING MAMMOGRAPHY BI 2-VIEW BREAST INC CAD Kathie Echeverria APRN.CERTIFIED NURSE AIDE [address] [place] [address] [facility] [address] [place] [address] Referral ID Status Reason Start Date Expiration Date Visits Requested Visits Authorized [id number] Pending Review Auto-Generat ed Referral 09/16/2023 1 [facility] Diagnostic Procedure Only (Routine) - Closed Specialty Diagnoses / Procedures Referred By Contac t Referred To Contact [facility] Diagnoses Encounter for screening mammogram for breast cancer Procedures LETICIA SCREENING SCREENING MAMMOGRAPHY BI 2-VIEW BREAST INC [facility] Kathie Echeverria APRN.CERTIFIED NURSE AIDE [address] [place] [address] [facility] [address] [place] [address] Referral ID Status Reason Start Date Expiration Date V isits Requested Visits Authorized [id number] Closed Auto-Generate d Referral 08/17/2022 09/16/2023 1 1 [facility] for referral (narrative)* Outpatient Procedure (Routine) - Authorized Specialty Diagnoses / Procedures Referred By Contac t Referred To Contact [facility] Diagnoses Mild intermittent asthma without complication Procedures LUNG DIFFUSION CAPACITY (DLCO) DIFFUSING CAPACITY Dawna Barba APRN.CERTIFIED NURSE AIDE [address] [place] [address] [facility] [address] [place] [address] Referral ID Status Reason Start Date Expiration Date Visits Requested Visits Authorized [id number] Authorized Auto-Generat ed Referral 07/18/2025 1 1 * Outpatient Procedure (Routine) - Pending Review Specialty Diagnoses / Procedures Referred By Contac t Referred To Contact [facility] Diagnoses Mild intermittent asthma without complication Procedures LUNG VOLUMES Dawna Barba APRN.CNP [address] [place] [address] [facility] [address] [place] [address] Referral ID Status Reason Start Date Expiration Date Visits Requested Visits Authorized [id number] Pending Review Auto-Generat ed Referral 07/18/2025 1 1 * Outpatient Procedure (Routine) - Authorized Specialty Diagnoses / Procedures Referred By Contac t Referred To Contact [facility] Diagnoses Mild intermittent asthma without complication Procedures SPIROMETRY WITH DILATOR IF OBSTRUCTED BRNCDILAT RSPSE SPMTRY PRE&POST-BRNCDILAT ADMN Dawna Barab APRN.CERTIFIED NURSE AIDE [address] [place] [address] [place] [address] Referral ID Status Reason Start Date Expiration Date Visits Requested Visits Authorized [id number] Authorized Auto-Generat ed Referral 07/18/2025 1 1 * MRI/CT (Routine) - Authorized Specialty Diagnoses / Procedures Referred By Contac t Referred To Contact CT IMAGING Diagnoses Lung nodules Procedures CT CHEST WO IVCON DIAGNOSTIC COMPUTED TOMOGRAPHY THORAX W/O CNTRST Dawna Barba APRN.CERTIFIED NURSE AIDE [address] [place] [id number] [facility] [place] [address] Referral ID Status Reason Start Date Expiration Date Visits Requested Visits Authorized [id number] Authorized Auto-Generat ed Referral 11/11/2024 07/18/2025 1 1 [facility] for referral (narrative)* Diagnostic Procedure Only (Routine) - New Request Specialty Diagnoses / Procedures Referred By Alyssa serrano Referred To Contact [facility] Diagnoses Personal history of malignant neoplasm of breast Procedures LETICIA SCREENING SCREENING MAMMOGRAPHY BI 2-VIEW BREAST INC CAD Kathie Echeverria APRN.CERTIFIED NURSE AIDE [address] [place] [address] [facility] [address] [place] [address] Referral ID Status Reason Start Date Expiration Date Visits Requested Visits Authorized [id number] New Request Auto-Generat ed Referral 07/26/2024 08/25/2025 1 1 [facility] for referral (narrative)* Diagnostic Procedure Only (Routine) - Closed Specialty Diagnoses / Procedures Referred By Alyssa serrano Referred To Contact [facility] Diagnoses Personal history of malignant neoplasm of breast Procedures LETICIA SCREENING SCREENING MAMMOGRAPHY BI 2-VIEW BREAST INC CAD Kathie Echeverria APRN.CERTIFIED NURSE AIDE [address] [place] [address] [facility] [address] [address] Referral ID Status Reason Start Date Expiration Date V isits Requested Visits Authorized [id number] Closed Auto-Generate d Referral 07/26/2024 08/25/2025 1 1 [facility] for referral (narrative)No reason for referral information [facility]WMercer [facility] Work Phone: Reason for visit Narrative* Diagnostic Procedure Only (Routine) - Closed Specialty Diagnoses / Procedures Referred By Alyssa serrano Referred To Contact [facility] Diagnoses Encounter for screening mammogram for breast cancer Procedures LETICIA SCREENING SCREENING MAMMOGRAPHY BI 2-VIEW BREAST INC CAD Kathie Echeverria APRN.CERTIFIED NURSE AIDE [address] [place] [address] [facility] [address] [place] [address] Referral ID Status Reason Start Date Expiration Date V isits Requested Visits Authorized [id number] Closed Auto-Generate d Referral 08/17/2022 09/16/2023 1 1 [facility] Diagnostic Procedure Only (Routine) - Closed Specialty Diagnoses / Procedures Referred By Alyssa serrano Referred To Contact [facility] Diagnoses Personal history of malignant neoplasm of breast Procedures LETICIA SCREENING SCREENING MAMMOGRAPHY BI 2-VIEW BREAST INC CAD Kathie Echeverria APRN.CERTIFIED NURSE AIDE [address] [place] [address] [facility] [address] [place] [address] Referral ID Status Reason Start Date Expiration Date V isits Requested Visits Authorized [id number] Closed Auto-Generate d Referral 07/26/2024 08/25/2025 1 1 [facility] Summary Purpose Family History No Family History Records Found Relationship Condition Age at Onset Recorded Date/T [place] mother Malignant neoplasm of colon Unknown father Malignant neoplasm Unknown Coronary artery disease Unknown Advance Directives No Advanced Directives Records FoundDocuments on File Type Date Recorded 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 anation Advance Directive(s) 12/23/2009 4:53 PM Documents on File Type Date Recorded 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 anation Advance Directive(s) 12/23/2009 4:53 PM Advance Directive Response Recorded Date/ Time Living Will Yes August 03 11:11am Power of Mapping Technician Yes August 03, 2020 11:11am Advance Directives No July 11:11am Advance Directive Response Recorded Date/ Time Advance Directives No July 11:11am Reason for Referral Specialty Diagnoses / Procedures Referred By Alyssa serrano Referred To Contact General Surgery Diagnoses Left breast abscess Procedures CONSULT TO GENERAL SURGERY OFFICE/OUTPATIENT NEW HIGH MDM 60-74 MINUTES Kathie Echeverria APRN.CERTIFIED NURSE AIDE [address] [place] [address] Referral ID Status Reason Start Date Expiration Date Visits Requested Visits Authorized [id number] Pending Review PCP Requested Referral 09/09/2022 09/09/2023 1 1 Specialty Diagnoses / Procedures Referred By Alyssa serrano Referred To Contact Diagnoses Bronchitis Kathie Echeverria, HEAD ROSE GROWER.CERTIFIED NURSE AIDE [address] [place] [address] Referral ID Status Reason Start Date Expiration Date V isits Requested Visits Authorized [id number] Authorized 08/21/2022 08/20/2023 1 1 Specialty Diagnoses / Procedures Referred By Contac t Referred To Contact Dermatology Diagnoses Viral wart on finger Procedures CONSULT TO DERMATOLOGY Leslye Mccloud MD [address] [place] [address] Referral ID Status Reason Start Date Expiration Date Visits Requested Visits Authorized [id number] Ref Not Required PCP Requested Referral 07/30/2024 1 1 Specialty Diagnoses / Procedures Referred By Contac t Referred To Contact Cardiology Diagnoses Chest pain, unspecified type Procedures CONSULT TO CARDIOLOGY OFFICE/OUTPATIENT [facility] 60 MINUTES Kathie Echeverria, HEAD ROSE GROWER.CERTIFIED NURSE AIDE [address] [place] [address] Referral ID Status Reason Start Date Expiration Date Visits Requested Visits Authorized [id number] Authorized PCP Requested Referral 01/31/2024 01/30/2025 1 1 Specialty Diagnoses / Procedures Referred By Contac t Referred To Contact [facility] Diagnoses SOB (shortness of breath) Procedures ECHO ECHO TTHRC R-T 2D W/WOM-MODE COMPL SPEC&COLR D Kathie Echeverria, HEAD ROSE GROWER.CERTIFIED NURSE AIDE [address] [place] [address] [facility] [address] [place] [address] Referral ID Status Reason Start Date Expiration Date Visits Requested Visits Authorized [id number] Pending Review Auto-Generat ed Referral 01/31/2024 01/30/2025 1 1 Chief Complaint and Reason for Visit Chief Complaint Admit Date 6 M FU April 29, 2025 11:01am CP May 27, 2025 6: 57am Reason for Visit Admit Date Chest heaviness April 29, 2025 11:01am Hyperlipidemia April 29, 2025 11:01am Pulmonary hypertension April 29 11:01am HTN (hypertension) April 29, 2025 11:01am Chief Complaint Admit Date 6 M FU October 25, 2024 9:56 am INT LABS October 25, 2024 10:3 0am Reason for Visit Admit Date Hyperlipidemia October 25, 2024 9:56 am Pulmonary hypertension October 25, 2024 9 :56am HTN (hypertension) October 25, 2024 9:56 am Chief Complaint Admit Date 6 M FU April 29, 2025 11:01am Additional Source Comments INFORMATION SOURCE (unrecogn ized section and content) DATE CREATED AUTHOR 07/04/2020 [facility] DATE CREATED AUTHOR AUTHOR'S ORGANIZ ATION 08/24/2021 [facility] DATE CREATED AUTHOR AUTHOR'S ORGANIZ ATION 02/22/2024 [facility] DATE CREATED AUTHOR AUTHOR'S ORGANIZ ATION 03/05/2024 [facility] ([place]) DATE CREATED AUTHOR AUTHOR'S ORGANIZ ATION 06/08/2025 [facility] DATE CREATED AUTHOR AUTHOR'S ORGANIZ ATION 06/28/2025 [facility] Source Comments (unrecognize d section and content) In the event this informatio n is protected by the Federal Confidentiality of Alcohol and Drug Abuse Patient Records regulations: The Federal rules restrict any use of the information to criminally investigate or prosecute any alcohol or drug abuse patient.[facility] the event this information is protected by the Federal Confidentiality of Alcohol and Drug Abuse Patient Records regulations: The Federal rules restrict any use of the information to criminally investigate or prosecute any alcohol or drug abuse patient.[facility] the event this information is protected by the Federal Confidentiality of Alcohol and Drug Abuse Patient Records regulations: The Federal rules restrict any use of the information to criminally investigate or prosecute any alcohol or drug abuse patient.[facility] ClinicIn the event this information is protected by the Federal Confidentiality of Alcohol and Drug Abuse Patient Records regulations: The Federal rules restrict any use of the information to criminally investigate or prosecute any alcohol or drug abuse patient.[facility] ClinicIn the event this information is protected by the Federal Confidentiality of Alcohol and Drug Abuse Patient Records regulations: The Federal rules restrict any use of the information to criminally investigate or prosecute any alcohol or drug abuse patient.[facility]In the event this information is protected by the Federal Confidentiality of Alcohol and Drug Abuse Patient Records regulations: The Federal rules restrict any use of the information to criminally investigate or prosecute any alcohol or drug abuse patient.[facility]In the event this information is protected by the Federal Confidentiality of Alcohol and Drug Abuse Patient Records regulations: The Federal rules restrict any use of the information to criminally investigate or prosecute any alcohol or drug abuse patient.[facility]In the event this information is protected by the Federal Confidentiality of Alcohol and Drug Abuse Patient Records regulations: The Federal rules restrict any use of the information to criminally investigate or prosecute any alcohol or drug abuse patient.[facility]In the event this information is protected by the Federal Confidentiality of Alcohol and Drug Abuse Patient Records regulations: The Federal rules restrict any use of the information to criminally investigate or prosecute any alcohol or drug abuse patient.[facility]In the event this information is protected by the Federal Confidentiality of Alcohol and Drug Abuse Patient Records regulations: The Federal rules restrict any use of the information to criminally investigate or prosecute any alcohol or drug abuse patient.[facility]In the event this information is protected by the Federal Confidentiality of Alcohol and Drug Abuse Patient Records regulations: The Federal rules restrict any use of the information to criminally investigate or prosecute any alcohol or drug abuse patient.[facility] ClinicIn the event this information is protected by the Federal Confidentiality of Alcohol and Drug Abuse Patient Records regulations: The Federal rules restrict any use of the information to criminally investigate or prosecute any alcohol or drug abuse patient.[facility]In the event this information is protected by the Federal Confidentiality of Alcohol and Drug Abuse Patient Records regulations: The Federal rules restrict any use of the information to criminally investigate or prosecute any alcohol or drug abuse patient.[facility] ClinicIn the event this information is protected by the Federal Confidentiality of Alcohol and Drug Abuse Patient Records regulations: The Federal rules restrict any use of the information to criminally investigate or prosecute any alcohol or drug abuse patient.[facility] ClinicIn the event this information is protected by the Federal Confidentiality of Alcohol and Drug Abuse Patient Records regulations: The Federal rules restrict any use of the information to criminally investigate or prosecute any alcohol or drug abuse patient.[facility] ClinicIn the event this information is protected by the Federal Confidentiality of Alcohol and Drug Abuse Patient Records regulations: The Federal rules restrict any use of the information to criminally investigate or prosecute any alcohol or drug abuse patient.[facility] ClinicIn the event this information is protected by the Federal Confidentiality of Alcohol and Drug Abuse Patient Records regulations: The Federal rules restrict any use of the information to criminally investigate or prosecute any alcohol or drug abuse patient.[facility] ClinicIn the event this information is protected by the Federal Confidentiality of Alcohol and Drug Abuse Patient Records regulations: The Federal rules restrict any use of the information to criminally investigate or prosecute any alcohol or drug abuse patient.[facility] ClinicIn the event this information is protected by the Federal Confidentiality of Alcohol and Drug Abuse Patient Records regulations: The Federal rules restrict any use of the information to criminally investigate or prosecute any alcohol or drug abuse patient.[facility] ClinicIn the event this information is protected by the Federal Confidentiality of Alcohol and Drug Abuse Patient Records regulations: The Federal rules restrict any use of the information to criminally investigate or prosecute any alcohol or drug abuse patient.[facility] ClinicIn the event this information is protected by the Federal Confidentiality of Alcohol and Drug Abuse Patient Records regulations: The Federal rules restrict any use of the information to criminally investigate or prosecute any alcohol or drug abuse patient.[facility]In the event this information is protected by the Federal Confidentiality of Alcohol and Drug Abuse Patient Records regulations: The Federal rules restrict any use of the information to criminally investigate or prosecute any alcohol or drug abuse patient.[facility] ClinicIn the event this information is protected by the Federal Confidentiality of Alcohol and Drug Abuse Patient Records regulations: The Federal rules restrict any use of the information to criminally investigate or prosecute any alcohol or drug abuse patient.[facility]In the event this information is protected by the Federal Confidentiality of Alcohol and Drug Abuse Patient Records regulations: The Federal rules restrict any use of the information to criminally investigate or prosecute any alcohol or drug abuse patient.[facility]In the event this information is protected by the Federal Confidentiality of Alcohol and Drug Abuse Patient Records regulations: The Federal rules restrict any use of the information to criminally investigate or prosecute any alcohol or drug abuse patient.[facility]In the event this information is protected by the Federal Confidentiality of Alcohol and Drug Abuse Patient Records regulations: The Federal rules restrict any use of the information to criminally investigate or prosecute any alcohol or drug abuse patient.[facility] ClinicIn the event this information is protected by the Federal Confidentiality of Alcohol and Drug Abuse Patient Records regulations: The Federal rules restrict any use of the information to criminally investigate or prosecute any alcohol or drug abuse patient.[facility]In the event this information is protected by the Federal Confidentiality of Alcohol and Drug Abuse Patient Records regulations: The Federal rules restrict any use of the information to criminally investigate or prosecute any alcohol or drug abuse patient.[facility]In the event this information is protected by the Federal Confidentiality of Alcohol and Drug Abuse Patient Records regulations: The Federal rules restrict any use of the information to criminally investigate or prosecute any alcohol or drug abuse patient.[facility] ClinicIn the event this information is protected by the Federal Confidentiality of Alcohol and Drug Abuse Patient Records regulations: The Federal rules restrict any use of the information to criminally investigate or prosecute any alcohol or drug abuse patient.[facility]In the event this information is protected by the Federal Confidentiality of Alcohol and Drug Abuse Patient Records regulations: The Federal rules restrict any use of the information to criminally investigate or prosecute any alcohol or drug abuse patient.[facility] ClinicIn the event this information is protected by the Federal Confidentiality of Alcohol and Drug Abuse Patient Records regulations: The Federal rules restrict any use of the information to criminally investigate or prosecute any alcohol or drug abuse patient.[facility] ClinicIn the event this information is protected by the Federal Confidentiality of Alcohol and Drug Abuse Patient Records regulations: The Federal rules restrict any use of the information to criminally investigate or prosecute any alcohol or drug abuse patient.[facility]In the event this information is protected by the Federal Confidentiality of Alcohol and Drug Abuse Patient Records regulations: The Federal rules restrict any use of the information to criminally investigate or prosecute any alcohol or drug abuse patient.[facility] ClinicIn the event this information is protected by the Federal Confidentiality of Alcohol and Drug Abuse Patient Records regulations: The Federal rules restrict any use of the information to criminally investigate or prosecute any alcohol or drug abuse patient.[facility]In the event this information is protected by the Federal Confidentiality of Alcohol and Drug Abuse Patient Records regulations: The Federal rules restrict any use of the information to criminally investigate or prosecute any alcohol or drug abuse patient.[facility] ClinicIn the event this information is protected by the Federal Confidentiality of Alcohol and Drug Abuse Patient Records regulations: The Federal rules restrict any use of the information to criminally investigate or prosecute any alcohol or drug abuse patient.[facility] ClinicIn the event this information is protected by the Federal Confidentiality of Alcohol and Drug Abuse Patient Records regulations: The Federal rules restrict any use of the information to criminally investigate or prosecute any alcohol or drug abuse patient.[facility] ClinicIn the event this information is protected by the Federal Confidentiality of Alcohol and Drug Abuse Patient Records regulations: The Federal rules restrict any use of the information to criminally investigate or prosecute any alcohol or drug abuse patient.[facility] ClinicIn the event this information is protected by the Federal Confidentiality of Alcohol and Drug Abuse Patient Records regulations: The Federal rules restrict any use of the information to criminally investigate or prosecute any alcohol or drug abuse patient.[facility] ClinicIn the event this information is protected by the Federal Confidentiality of Alcohol and Drug Abuse Patient Records regulations: The Federal rules restrict any use of the information to criminally investigate or prosecute any alcohol or drug abuse patient.[facility] ClinicIn the event this information is protected by the Federal Confidentiality of Alcohol and Drug Abuse Patient Records regulations: The Federal rules restrict any use of the information to criminally investigate or prosecute any alcohol or drug abuse patient.[facility] ClinicIn the event this information is protected by the Federal Confidentiality of Alcohol and Drug Abuse Patient Records regulations: The Federal rules restrict any use of the information to criminally investigate or prosecute any alcohol or drug abuse patient.[facility] ClinicIn the event this information is protected by the Federal Confidentiality of Alcohol and Drug Abuse Patient Records regulations: The Federal rules restrict any use of the information to criminally investigate or prosecute any alcohol or drug abuse patient.[facility] ClinicIn the event this information is protected by the Federal Confidentiality of Alcohol and Drug Abuse Patient Records regulations: The Federal rules restrict any use of the information to criminally investigate or prosecute any alcohol or drug abuse patient.[facility] ClinicIn the event this information is protected by the Federal Confidentiality of Alcohol and Drug Abuse Patient Records regulations: The Federal rules restrict any use of the information to criminally investigate or prosecute any alcohol or drug abuse patient.[facility] ClinicIn the event this information is protected by the Federal Confidentiality of Alcohol and Drug Abuse Patient Records regulations: The Federal rules restrict any use of the information to criminally investigate or prosecute any alcohol or drug abuse patient.[facility] ClinicIn the event this information is protected by the Federal Confidentiality of Alcohol and Drug Abuse Patient Records regulations: The Federal rules restrict any use of the information to criminally investigate or prosecute any alcohol or drug abuse patient.[facility] ClinicIn the event this information is protected by the Federal Confidentiality of Alcohol and Drug Abuse Patient Records regulations: The Federal rules restrict any use of the information to criminally investigate or prosecute any alcohol or drug abuse patient.[facility] ClinicIn the event this information is protected by the Federal Confidentiality of Alcohol and Drug Abuse Patient Records regulations: The Federal rules restrict any use of the information to criminally investigate or prosecute any alcohol or drug abuse patient.[facility] ClinicIn the event this information is protected by the Federal Confidentiality of Alcohol and Drug Abuse Patient Records regulations: The Federal rules restrict any use of the information to criminally investigate or prosecute any alcohol or drug abuse patient.[facility] ClinicIn the event this information is protected by the Federal Confidentiality of Alcohol and Drug Abuse Patient Records regulations: The Federal rules restrict any use of the information to criminally investigate or prosecute any alcohol or drug abuse patient.[facility] ClinicIn the event this information is protected by the Federal Confidentiality of Alcohol and Drug Abuse Patient Records regulations: The Federal rules restrict any use of the information to criminally investigate or prosecute any alcohol or drug abuse patient.[facility] ClinicIn the event this information is protected by the Federal Confidentiality of Alcohol and Drug Abuse Patient Records regulations: The Federal rules restrict any use of the information to criminally investigate or prosecute any alcohol or drug abuse patient.[facility] ClinicIn the event this information is protected by the Federal Confidentiality of Alcohol and Drug Abuse Patient Records regulations: The Federal rules restrict any use of the information to criminally investigate or prosecute any alcohol or drug abuse patient.[facility] ClinicIn the event this information is protected by the Federal Confidentiality of Alcohol and Drug Abuse Patient Records regulations: The Federal rules restrict any use of the information to criminally investigate or prosecute any alcohol or drug abuse patient.[facility] ClinicIn the event this information is protected by the Federal Confidentiality of Alcohol and Drug Abuse Patient Records regulations: The Federal rules restrict any use of the information to criminally investigate or prosecute any alcohol or drug abuse patient.[facility] ClinicIn the event this information is protected by the Federal Confidentiality of Alcohol and Drug Abuse Patient Records regulations: The Federal rules restrict any use of the information to criminally investigate or prosecute any alcohol or drug abuse patient.[facility] ClinicIn the event this information is protected by the Federal Confidentiality of Alcohol and Drug Abuse Patient Records regulations: The Federal rules restrict any use of the information to criminally investigate or prosecute any alcohol or drug abuse patient.[facility] ClinicIn the event this information is protected by the Federal Confidentiality of Alcohol and Drug Abuse Patient Records regulations: The Federal rules restrict any use of the information to criminally investigate or prosecute any alcohol or drug abuse patient.[facility] ClinicIn the event this information is protected by the Federal Confidentiality of Alcohol and Drug Abuse Patient Records regulations: The Federal rules restrict any use of the information to criminally investigate or prosecute any alcohol or drug abuse patient.[facility] ClinicIn the event this information is protected by the Federal Confidentiality of Alcohol and Drug Abuse Patient Records regulations: The Federal rules restrict any use of the information to criminally investigate or prosecute any alcohol or drug abuse patient.[facility] ClinicIn the event this information is protected by the Federal Confidentiality of Alcohol and Drug Abuse Patient Records regulations: The Federal rules restrict any use of the information to criminally investigate or prosecute any alcohol or drug abuse patient.[facility] ClinicIn the event this information is protected by the Federal Confidentiality of Alcohol and Drug Abuse Patient Records regulations: The Federal rules restrict any use of the information to criminally investigate or prosecute any alcohol or drug abuse patient.[facility] ClinicIn the event this information is protected by the Federal Confidentiality of Alcohol and Drug Abuse Patient Records regulations: The Federal rules restrict any use of the information to criminally investigate or prosecute any alcohol or drug abuse patient.[facility] ClinicIn the event this information is protected by the Federal Confidentiality of Alcohol and Drug Abuse Patient Records regulations: The Federal rules restrict any use of the information to criminally investigate or prosecute any alcohol or drug abuse patient.[facility] ClinicIn the event this information is protected by the Federal Confidentiality of Alcohol and Drug Abuse Patient Records regulations: The Federal rules restrict any use of the information to criminally investigate or prosecute any alcohol or drug abuse patient.[facility] ClinicIn the event this information is protected by the Federal Confidentiality of Alcohol and Drug Abuse Patient Records regulations: The Federal rules restrict any use of the information to criminally investigate or prosecute any alcohol or drug abuse patient.[facility] ClinicIn the event this information is protected by the Federal Confidentiality of Alcohol and Drug Abuse Patient Records regulations: The Federal rules restrict any use of the information to criminally investigate or prosecute any alcohol or drug abuse patient.[facility] ClinicIn the event this information is protected by the Federal Confidentiality of Alcohol and Drug Abuse Patient Records regulations: The Federal rules restrict any use of the information to criminally investigate or prosecute any alcohol or drug abuse patient.[facility] ClinicIn the event this information is protected by the Federal Confidentiality of Alcohol and Drug Abuse Patient Records regulations: The Federal rules restrict any use of the information to criminally investigate or prosecute any alcohol or drug abuse patient.[facility] ClinicIn the event this information is protected by the Federal Confidentiality of Alcohol and Drug Abuse Patient Records regulations: The Federal rules restrict any use of the information to criminally investigate or prosecute any alcohol or drug abuse patient.[facility] ClinicIn the event this information is protected by the Federal Confidentiality of Alcohol and Drug Abuse Patient Records regulations: The Federal rules restrict any use of the information to criminally investigate or prosecute any alcohol or drug abuse patient.[facility] ClinicIn the event this information is protected by the Federal Confidentiality of Alcohol and Drug Abuse Patient Records regulations: The Federal rules restrict any use of the information to criminally investigate or prosecute any alcohol or drug abuse patient.[facility] ClinicIn the event this information is protected by the Federal Confidentiality of Alcohol and Drug Abuse Patient Records regulations: The Federal rules restrict any use of the information to criminally investigate or prosecute any alcohol or drug abuse patient.[facility] ClinicIn the event this information is protected by the Federal Confidentiality of Alcohol and Drug Abuse Patient Records regulations: The Federal rules restrict any use of the information to criminally investigate or prosecute any alcohol or drug abuse patient.[facility] ClinicIn the event this information is protected by the Federal Confidentiality of Alcohol and Drug Abuse Patient Records regulations: The Federal rules restrict any use of the information to criminally investigate or prosecute any alcohol or drug abuse patient.[facility] ClinicIn the event this information is protected by the Federal Confidentiality of Alcohol and Drug Abuse Patient Records regulations: The Federal rules restrict any use of the information to criminally investigate or prosecute any alcohol or drug abuse patient.[facility] ClinicIn the event this information is protected by the Federal Confidentiality of Alcohol and Drug Abuse Patient Records regulations: The Federal rules restrict any use of the information to criminally investigate or prosecute any alcohol or drug abuse patient.[facility] ClinicIn the event this information is protected by the Federal Confidentiality of Alcohol and Drug Abuse Patient Records regulations: The Federal rules restrict any use of the information to criminally investigate or prosecute any alcohol or drug abuse patient.[facility] ClinicIn the event this information is protected by the Federal Confidentiality of Alcohol and Drug Abuse Patient Records regulations: The Federal rules restrict any use of the information to criminally investigate or prosecute any alcohol or drug abuse patient.[facility] ClinicIn the event this information is protected by the Federal Confidentiality of Alcohol and Drug Abuse Patient Records regulations: The Federal rules restrict any use of the information to criminally investigate or prosecute any alcohol or drug abuse patient.[facility] ClinicIn the event this information is protected by the Federal Confidentiality of Alcohol and Drug Abuse Patient Records regulations: The Federal rules restrict any use of the information to criminally investigate or prosecute any alcohol or drug abuse patient.[facility] ClinicIn the event this information is protected by the Federal Confidentiality of Alcohol and Drug Abuse Patient Records regulations: The Federal rules restrict any use of the information to criminally investigate or prosecute any alcohol or drug abuse patient.[facility] ClinicIn the event this information is protected by the Federal Confidentiality of Alcohol and Drug Abuse Patient Records regulations: The Federal rules restrict any use of the information to criminally investigate or prosecute any alcohol or drug abuse patient.[facility] ClinicIn the event this information is protected by the Federal Confidentiality of Alcohol and Drug Abuse Patient Records regulations: The Federal rules restrict any use of the information to criminally investigate or prosecute any alcohol or drug abuse patient.[facility] ClinicIn the event this information is protected by the Federal Confidentiality of Alcohol and Drug Abuse Patient Records regulations: The Federal rules restrict any use of the information to criminally investigate or prosecute any alcohol or drug abuse patient.[facility] ClinicIn the event this information is protected by the Federal Confidentiality of Alcohol and Drug Abuse Patient Records regulations: The Federal rules restrict any use of the information to criminally investigate or prosecute any alcohol or drug abuse patient.[facility] ClinicIn the event this information is protected by the Federal Confidentiality of Alcohol and Drug Abuse Patient Records regulations: The Federal rules restrict any use of the information to criminally investigate or prosecute any alcohol or drug abuse patient.[facility] Reason for Visit (unrecogniz ed section and content) Reason Onset Date Comments Refill Request 11/15/2021 Reason Comments Forms kristie Reason Onset Date Comments Refill Request 11/29/2021 Reason Comments FMLA Paperwork Reason Onset Date Comments Refill Request 12/01/2021 Reason Onset Date Comments Refill Request 01/19/2022 Reason Comments F/U 3 Month Reason Onset Date Comments Refill Request 02/25/2022 Reason Onset Date Comments Refill Request 07/18/2022 Reason Comments Follow Up 3 month Reason Comments Acute Visit lump under breast. Reason Comments Consult Abscess under left b reast Reason Comments Refill Request Reason Comments Follow Up Sebaceous cyst Reason Onset Date Comments Refill Request 10/03/2022 Reason Comments Bronchitis Reason Comments Follow Up 3 month follow up Reason Comments Weakness Diarrhea Reason Comments Patient Update Lab Orders Reason Comments Acute Visit fatique, cold sysmto ms Reason Comments Follow Up Both ears check Reason Comments Results Labs Reason Onset Date Comments Refill Request 12/16/2022 Reason Comments Patient Question Reason Comments Spirometry Specialty Diagnoses / Procedures Referred By Contac t Referred To Contact [facility] Diagnoses Mild intermittent asthma without complication Procedures NITRIC OXIDE, EXHALED NITRIC OXIDE GAS DETERMINATION Kathie Echeverria, JUAN.CERTIFIED NURSE AIDE [address] [place] [address] [facility] [address] [place] [address] Referral ID Status Reason Start Date Expiration Date V isits Requested Visits Authorized [id number] Closed Auto-Generate d Referral 02/06/2023 03/07/2024 1 1 Specialty Diagnoses / Procedures [facility] Diagnoses Mild intermittent asthma without complication Procedures LUNG VOLUMES Kathie Echeverria, JUAN.CERTIFIED NURSE AIDE [address] [place] [address] [facility] [address] [place] [address] Referral ID Status Reason Start Date Expiration Date V isits Requested Visits Authorized [id number] Closed Auto-Generate d Referral 02/09/2023 08/20/2023 1 1 Reason Comments Results PFT's Reason Comments New Patient Asthma Reason Onset Date Comments Refill Request 04/12/2023 Refill Request 04/13/2023 Reason Comments F/U 3 Month Specialty Diagnoses / Procedures Referred By Contac t Referred To Contact [facility] Diagnoses 3 mo follow up Procedures Office visit Leslye Mccloud MD [address] [place] [address] [facility] [address] [place] [address] Referral ID Status Reason Start Date Expiration Date Visits Requested Visits Authorized [id number] Pending Review OON/Self Pay Override 05/01/2023 10/28/2023 1 1 Reason Comments Established Patient 6 month follow up as thma Reason Comments FMLA Paperwork [place] Reason Comments Acute Visit Bad cough and right back pain Reason Comments Results Chest Xray Reason Comments painful rash Reason Comments Question Reason Comments Medication Request Reason Comments Follow Up 3 month follow up Reason Comments Appointment Reason Comments Future Appointment Reason Comments Acute Visit cough, congestion x5 days Reason Comments Results Outside Echo Reason Comments Forms Pre Op Form-eye surg dinesh Reason Comments Established Patient Review echo and CT Reason Onset Date Comments Refill Request 07/05/2024 Reason Comments Follow Up 3 month follow up Specialty Diagnoses / Procedures [facility] Diagnoses Mild intermittent asthma without complication Procedures SPIROMETRY WITH DILATOR IF OBSTRUCTED BRNCDILAT RSPSE SPMTRY PRE&POST-BRNCDILAT ADMN Dawna Barba, HEAD ROSE GROWER.CERTIFIED NURSE AIDE [address] [employer] [place] [id number] [facility] [address] [place] [id number] Referral ID Status Reason Start Date Expiration Date V isits Requested Visits Authorized [id number] Closed Auto-Generate d Referral 06/18/2024 07/18/2025 1 1 Specialty Diagnoses / Procedures [facility] [place] Diagnoses Mild intermittent asthma without complication Procedures LUNG DIFFUSION CAPACITY (DLCO) DIFFUSING CAPACITY Dawna Barba, HEAD ROSE GROWER.CERTIFIED NURSE AIDE [address] [employer] [facility] [place] [address] [facility] [address] [place] [id number] Referral ID Status Reason Start Date Expiration Date V isits Requested Visits Authorized [id number] Closed Auto-Generate d Referral 06/18/2024 07/18/2025 1 1 Specialty Diagnoses / Procedures [facility] [place] Diagnoses Mild intermittent asthma without complication Procedures LUNG VOLUMES PLETHYSMOGRAPHY LUNG VOLUMES W/WO AIRWAY RESIST Dawna Barba, HEAD ROSE GROWER.CERTIFIED NURSE AIDE [address] [employer] [facility] [place] [address] [facility] [address] [place] [address] Referral ID Status Reason Start Date Expiration Date V isits Requested Visits Authorized [id number] Closed Auto-Generate d Referral 07/16/2024 10/14/2024 1 1 Reason Onset Date Comments Refill Request 10/07/2024 Reason Onset Date Comments Population Health Navigation Outreach 11/01/2024 [employer] workbencmerced luis miguel Reason Comments Radiology CT Specialty Diagnoses / Procedures Referred By Alyssa t Referred To Contact [facility] Diagnoses Lung nodules Procedures CT CHEST WO IVCON DIAGNOSTIC COMPUTED TOMOGRAPHY THORAX W/O CNTOUMART Dawna Barba, HEAD ROSE GROWER.CERTIFIED NURSE AIDE [address] [place] [address] Phone: tel: fax: [facility] [place] [address] Referral ID Status Reason Start Date Expiration Date V isits Requested Visits Authorized [id number] Closed Auto-Generate d Referral 11/11/2024 07/18/2025 1 1 Reason Comments Results Reason Comments Established Patient 4 month follow up as thma Reason Onset Date Comments Population Health Navigation Outreach 12/24/2024 [employer] workbench Luis Miguel Reason Onset Date Comments Refill Request 04/04/2025 Reason Onset Date Comments Allied Health Visit 05/02/2025 Medication A dherence Outreach Care Teams (unrecognized sec tion and content) Supervisor Cigar Processing Relationship Specialty Start Date End Date Leslye Mccloud MD [address] [place] [address] PCP - General 01/23/08 Supervisor Cigar Processing Relationship Specialty Start Date End Date Leslye Mccloud MD [address] [place] [address] PCP - General 01/23/08 Supervisor Cigar Processing Relationship Specialty Start Date End Date Leslye Mccloud MD [address] [place] [address] PCP - General 01/23/08 Supervisor Cigar Processing Relationship Specialty Start Date End Date Leslye Mccloud MD [address] [place] [address] PCP - General 01/23/08 Supervisor Cigar Processing Relationship Specialty Start Date End Date Leslye Mccloud MD [address] [place] [address] PCP - General 01/23/08 Supervisor Cigar Processing Relationship Specialty Start Date End Date Leslye Mccloud MD [address] [facility] [address] PCP - General 01/23/08 Supervisor Cigar Processing Relationship Specialty Start Date End Date Leslye Mccloud MD [address] [facility] [place] [address] PCP - General 01/23/08 Supervisor Cigar Processing Relationship Specialty Start Date End Date Leslye Mccloud MD [address] [place] [place] [address] PCP - General 01/23/08 Supervisor Cigar Processing Relationship Specialty Start Date End Date Leslye Mccloud MD [address] [place] [place] [address] PCP - General 01/23/08 Supervisor Cigar Processing Relationship Specialty Start Date End Date Leslye Mccloud MD [address] [place] [address] PCP - General 01/23/08 Supervisor Cigar Processing Relationship Specialty Start Date End Date Leslye Mccloud MD [address] [place] [address] PCP - General 01/23/08 Supervisor Cigar Processing Relationship Specialty Start Date End Date Leslye Mccloud MD [address] [place] [address] PCP - General 01/23/08 Supervisor Cigar Processing Relationship Specialty Start Date End Date Leslye Mccloud MD [address] [place] [address] PCP - General 01/23/08 Supervisor Cigar Processing Relationship Specialty Start Date End Date Leslye Mccloud MD [address] [place] [address] PCP - General 01/23/08 Supervisor Cigar Processing Relationship Specialty Start Date End Date Leslye Mccloud MD [address] [place] [place] [address] PCP - General 01/23/08 Supervisor Cigar Processing Relationship Specialty Start Date End Date Leslye Mccloud MD [address] [place] [address] PCP - General 01/23/08 Supervisor Cigar Processing Relationship Specialty Start Date End Date Leslye Mccloud MD [address] [place] [address] PCP - General 01/23/08 Supervisor Cigar Processing Relationship Specialty Start Date End Date Leslye Mccloud MD [address] [place] [address] PCP - General 01/23/08 Supervisor Cigar Processing Relationship Specialty Start Date End Date Leslye Mccloud MD [address] [place] [address] PCP - General 01/23/08 Supervisor Cigar Processing Relationship Specialty Start Date End Date Leslye Mccloud MD [address] [place] [address] PCP - General 01/23/08 Supervisor Cigar Processing Relationship Specialty Start Date End Date Leslye Mccloud MD [address] [place] [address] PCP - General 01/23/08 Supervisor Cigar Processing Relationship Specialty Start Date End Date Leslye Mccloud MD [address] [place] [address] PCP - General 01/23/08 Supervisor Cigar Processing Relationship Specialty Start Date End Date Leslye Mccloud MD [address] [place] [address] PCP - General 01/23/08 Supervisor Cigar Processing Relationship Specialty Start Date End Date Leslye Mccloud MD [address] [place] [address] PCP - General 01/23/08 Supervisor Cigar Processing Relationship Specialty Start Date End Date Leslye Mccloud MD [address] [place] [address] PCP - General 01/23/08 Supervisor Cigar Processing Relationship Specialty Start Date End Date Leslye Mccloud MD [address] [place] [address] PCP - General 01/23/08 Supervisor Cigar Processing Relationship Specialty Start Date End Date Leslye Mccloud MD [address] [place] [address] PCP - General 01/23/08 Supervisor Cigar Processing Relationship Specialty Start Date End Date Leslye Mccloud MD [address] [place] [address] PCP - General 01/23/08 Supervisor Cigar Processing Relationship Specialty Start Date End Date Lselye Mccloud MD [address] [place] [address] PCP - General 01/23/08 Supervisor Cigar Processing Relationship Specialty Start Date End Date Leslye Mccloud MD [address] [place] [address] PCP - General 01/23/08 Supervisor Cig[employer] Relationship Specialty Start Date End Date Leslye Mccloud MD [address] [place] [address] PCP - General 01/23/08 Supervisor [employer] Relationship Specialty Start Date End Date Leslye Mccloud MD [address] [place] [address] PCP - General 01/23/08 Supervisor Cigar Processing Relationship Specialty Start Date End Date Leslye Mccloud MD [address] [place] [address] PCP - General 01/23/08 Supervisor Cigar Processing Relationship Specialty Start Date End Date Leslye Mccloud MD [address] [place] [address] PCP - General 01/23/08 Supervisor Cigar Processing Relationship Specialty Start Date End Date Leslye Mccloud MD [address] [place] [address] PCP - General 01/23/08 Supervisor Cigar Processing Relationship Specialty Start Date End Date Leslye Mccloud MD [address] [place] [address] PCP - General 01/23/08 Supervisor Cigar Processing Relationship Specialty Start Date End Date Leslye Mccloud MD [address] [place] [address] PCP - General 01/23/08 Supervisor Cigar Processing Relationship Specialty Start Date End Date Leslye Mccloud MD [address] [place] [address] PCP - General 01/23/08 Kathie Echeverria APRN.CERTIFIED NURSE AIDE [address] [facility] [place] [address] [employer] Supervisor Family Medicine 07/28/24 Herb Dinh APRN.CERTIFIED NURSE AIDE [address] [facility] [place] [address] [employer] Supervisor Family Medicine 08/06/24 Supervisor Cigar Processing Relationship Specialty Start Date End Date Leslye Mccloud MD [address] [place] [address] PCP - General 01/23/08 Kathie Echeverria APRN.CERTIFIED NURSE AIDE [address] [place] [address] [employer] Supervisor Family Medicine 07/28/24 Herb Dinh APRN.CERTIFIED NURSE AIDE [address] [facility] [place] [address] [employer] Supervisor Family Medicine 08/06/24 Supervisor Cigar Processing Relationship Specialty Start Date End Date Leslye Mccloud MD [address] [place] [address] PCP - General 01/23/08 Kathie Echeverria APRN.CERTIFIED NURSE AIDE [address] [facility] [place] [address] [employer] Supervisor Family Medicine 07/28/24 Herb Dinh APRN.CERTIFIED NURSE AIDE [address] [place] [address] [employer] Supervisor Family Medicine 08/06/24 Supervisor Cigar Processing Relationship Specialty Start Date End Date Leslye Mccloud MD [address] [place] [address] PCP - General 01/23/08 Kathie Echeverria APRN.CERTIFIED NURSE AIDE [address] [facility] [address] [employer] Operations Supervisor Family Medicine 07/28/24 Herb Dinh APRN.CERTIFIED NURSE AIDE [address] [place] [address] Prote[employer] Signal Operations Supervisor [facility] 08/06/24 Supervisor Cigar Processing Relationship Specialty Start Date End Date Leslye Mccloud MD [address] [place] [address] PCP - General 01/23/08 Kathie Echeverria APRN.CERTIFIED NURSE AIDE [address] [place] [address] [employer] Supervisor Family Medicine 07/28/24 Herb Dinh APRN.CERTIFIED NURSE AIDE [address] [place] [address] [employer] [facility] Supervisor Cigar Processing Relationship Specialty Start Date End Date Leslye Mccloud MD [address] [place] [address] PCP - General 01/23/08 Kathie Echeverria APRN.CERTIFIED NURSE AIDE [address] [place] [address] [employer] Supervisor Family Medicine 07/28/24 Herb Dinh APRN.CERTIFIED NURSE AIDE [address] [place] [address] [employer] Supervisor Family Medicine 08/06/24 Supervisor Cigar Processing Relationship Specialty Start Date End Date Leslye Mccloud MD [address] [place], [place] [address] PCP - General 01/23/08 Kathie Echeverria, HEAD [employer]SE GROWER.CERTIFIED NURSE AIDE [address] [place], [place] [address] [facility] 07/28/24 Herb Dinh HEAD ROSE GROWER.CERTIFIED NURSE AIDE [address] [place], [place] [id number] [facility] 08/06/24 Team Status: Active Member Role Status Dates Dr. Leslye Mccloud MD Family Provider Active Dr. Leslye Mccloud MD Primary Care Provider Active Team Status: Inactive Member Role Status Dates Dr. Leslye Mccloud MD Primary Care Provider Active Start: October 25, 2024 End: October 25, 2024 Dr. Leslye Mccloud MD Referring Provider Active Start: October 25, 2024 End: October 25, 2024 Aissatou MANZO, PA Attending Provider Active Start: October 25, 2024 End: October 25, 2024 Team Status: Inactive Member Role Status Dates Dr. Leslye Mccloud MD Primary Care Provider Active Start: October 25, 2024 End: October 25, 2024 Aissatou MANZO, PA Attending Provider Active Start: October 25, 2024 End: October 25, 2024 Aissatou MANZO, PA Referring Provider Active Start: October 25, 2024 End: October 25, 2024 Supervisor Cigar Processing Relationship Specialty Start Date End Date Leslye Mccloud MD [address] [place], [place] [id number] PCP - General 01/23/08 Kathie Echeverria, HEAD ROSE GROWER.CERTIFIED NURSE AIDE [address] [place], [place] [address] [employer] Supervisor Family Medicine 07/28/24 Herb Dinh APRN.CERTIFIED NURSE AIDE [address] [place] [address] [employer] Supervisor Family Medicine 08/06/24 Supervisor Cigar Processing Relationship Specialty Start Date End Date Leslye Mccloud MD [address] [place] [address] PCP - General 01/23/08 Kathie Echeverria APRN.CERTIFIED NURSE AIDE [address] [place] [address] [employer] Supervisor Family Medicine 07/28/24 Herb Dinh APRN.CERTIFIED NURSE AIDE [address] [place] [address] [employer] Supervisor Family Medicine 08/06/24 Supervisor Cigar Processing Relationship Specialty Start Date End Date Leslye Mccloud MD [address] [place] [address] PCP - General 01/23/08 Kathie Echeverria APRN.CERTIFIED NURSE AIDE [address] [place] [address] [employer] Supervisor Family Medicine 07/28/24 Herb Dinh APRN.CERTIFIED NURSE AIDE [address] [place] [address] [employer] Supervisor Family Medicine 08/06/24 Supervisor Cigar Processing Relationship Specialty Start Date End Date Kathie Echeverria APRN.CERTIFIED NURSE AIDE [address] [place] [address] PCP - General Family Medicine 12/24/24 Kathie Echeverria APRN.CERTIFIED NURSE AIDE [employer] Supervisor Family Medicine 07/28/24 Herb Dinh APRN.CERTIFIED NURSE AIDE [address] [place] [address] [employer] Supervisor Family Medicine 08/06/24 Supervisor Cigar Processing Relationship Specialty Start Date End Date Leslye Mccloud MD [address] [place] [address] PCP - General 01/23/08 12/23/24 Kathie Echeverria APRN.CERTIFIED NURSE AIDE [address] [place] [address] PCP - General Family Medicine 12/24/24 Kathie Echeverria APRN.CERTIFIED NURSE AIDE [address] [place] [address] [employer] Supervisor Family Medicine 07/28/24 Herb Dinh APRN.CERTIFIED NURSE AIDE [address] [place] [address] [employer] [facility] 08/[facility]/24 Supervisor Cigar Processing Relationship Specialty Start Date End Date Kathie Echeverria APRN.CERTIFIED NURSE AIDE [address] [place] [address] PCP - General Family Medicine 12/24/24 Kathie Echeverria APRN.CERTIFIED NURSE AIDE [employer] Supervisor Family Medicine 07/28/24 Herb Dinh APRN.CERTIFIED NURSE AIDE [address] [place] [address] [employer] Supervisor Family Medicine 08/06/24 Supervisor Cigar Processing Relationship Specialty Start Date End Date Kathie Echeverria APRN.CERTIFIED NURSE AIDE [address] [place] [address] PCP - General Family Medicine 12/24/24 Kathie Echeverria APRN.CERTIFIED NURSE AIDE [facility] 07/28/24 Herb Dinh APRN.CERTIFIED NURSE AIDE [address] [place] [address] [facility] 08/06/24 Team Status: Active Member Role/Relationship Status Dates JAMESON Rosas Primary Care Provider Active Team Status: Inactive Member Role/Relationship Status Dates Dr. Leslye Mccloud MD Referring Provider Active Start: April 29, 2025 End: April 29, 2025 Aissatou Acosta PA, PA Attending Provider Active Start: April 29, 2025 End: April 29, 2025 JAMESON Rosas Primary Care Provider Active Start: April 29, 2025 End: April 29, 2025 Supervisor Cigar Processing Relationship Specialty Start Date End Date Kathie Echeverria APRN.CERTIFIED NURSE AIDE [address] [place] [address] PCP - General Family Medicine 12/24/24 Kathie Echeverria APRN.CERTIFIED NURSE AIDE [facility] 07/28/24 Team Status: Active Member Role/Relationship Status Dates JAMESON Rosas Primary care physician Active Team Status: Inactive Member Role/Relationship Status Dates Dr. Leslye Mccloud MD Referring Provider Active Start: April 29, 2025 End: April 29, 2025 Aissatou Acosta PA, PA Attending physician Active Start: April 29, 2025 End: April 29, 2025 JAMESON Rosas Primary care physician Active Start: April 29, 2025 End: April 29, 2025 Team Status: Inactive Member Role/Relationship Status Dates JAMESON Rosas Primary care physician Active Start: May 27, 2025 End: May 27, 2025 ANAIS Alves Attending physician Active Start: May 27, 2025 End: May 27, 2025 ANAIS Alves Referring Provider Active Start: May 27, 2025 End: May 27, 2025 Team Status: Active Member Role/Relationship Status Dates JAMESON Rosas Primary care physician Active Start: May 27, 2025 Dr. Dudley Saunders MD Attending physician Active Start: May 27, 2025 Goals (unrecognized section and content) Goals may be documented in a n alternate sectionGoals may be documented in an alternate sectionGoals may be documented in an alternate section FOR RECORDS PERTAINING TO PATIENTS WHO ARE OR HAVE BEEN ENROLLED IN A CHEMICAL DEPENDENCY/SUBSTANCEABUSE PROGRAM, SOME INFORMATION MAY BE OMITTED. This clinical summary was aggregated from multiple sources. Caution should be exercised in using it in the provision of clinical care. This summary normalizes information from multiple sources, and as a consequence, information in this document may materially change the coding, format and clinical context of patient data. In addition, data may be omitted in some cases. CLINICAL DECISIONS SHOULD BE BASED ON THE PRIMARY CLINICAL RECORDS. [employer] provides no warranty or guarantee of the accuracy or completeness of information in this document.
[2025-08-15 12:33] LABS: AST(SGOT) 27 U/L (<=31); Alanine Aminotransfer ALT/SGPT 18 U/L (<=34); Albumin, Serum 4.2 g/dL (3.4-4.8); Alkaline Phosphatase 91 U/L (35-104); Bilirubin, Direct 0.16 mg/dL (0.00-0.30); Cholesterol 206 mg/dL (<=200); Globulin 2.6 g/dL (2.2-4.2); Low Density Lipoprotein Calc. 123 mg/dL; Triglycerides 67 mg/dL; Very Low Density Lipoprotein 13 mg/dL (5-40); cholesterol:hdl ratio screen 2.92
== END | disposition home or self-care (01) ==
LOC: LAB 11:24
PROVIDERS: PCP Nurse Practitioner Family; Referring Provider Physician Assistant Medical; Visit Provider Physician Assistant Medical
DX: E78.5 Hyperlipidemia, unspecified (principal)
CPT/HCPCS: 36415; 80061; 80076